=== PATIENT | female | born 1950 | race American Indian/Alaskan Native ===

== ENCOUNTER 2018-09-10 11:45 | Inpatient (IN) | payer MEDICARE, BC ==
[2018-09-10] MEDS ORDERED: Iohexol 350 MG/100 ML VIAL ONE (11:56)
[2018-09-10] MEDS ORDERED: Sodium Chloride 0.9% 1,000 ML IV SCH (12:00)
--- NOTE | 2018-09-10 12:03 | ED PDOC ---
Arrival/HPI - General Chief Complaint: Weakness/Neurological Deficit Time Seen by Provider: 09/10/18 11:50 Historian: EMS EM Caveat: Other (Unresponsive) - Critical Care Critical Care Minutes: 30 minutes - History of Present Illness Narrative History of Present Illness (Text): 09/10/18 12:40 A 68 year old female, whose past medical history includes hypertension and diabetes, who was brought in to the ED via EMS. Patient is reported to have been last seen normal at around 3:30 am as per who arrived shortly on arrival. Patient then went to sleep and woke up around 8 am feeling left sided weakness. Patient was then found on the floor by her who called EMS. A complete HPI is limited due to patient's unresponsive condition. PMD: Dr. Goodman. Time/Duration: 4-6 hours Symptom Onset: Gradual Symptom Course: Worsening Activities at Onset: Light Context: Home Past Medical History - Provider Review Nursing Documentation Reviewed: Yes - Infectious Disease Hx of Infectious Diseases: None - Tetanus Immunization Tetanus Immunization: Unknown - Cardiac Hx Hypertension: Yes - Pulmonary Hx Chronic Obstructive Pulmonary Disease (COPD): Yes - Neurological HX Cerebrovascular Accident: Yes - Endocrine/Metabolic Hx Diabetes Mellitus Type 2: Yes - Psychiatric Hx Depression: No Hx Emotional Abuse: No Hx Physical Abuse: No Hx Substance Use: No - Past Surgical History Past Surgical History: Non-Contributing - Suicidal Assessment Feels Threatened In Home Enviroment: No Family/Social History - Physician Review Nursing Documentation Reviewed: Yes Family/Social History: Unknown Family HX Smoking Status: Unknown If Ever Smoked Hx Alcohol Use: No Hx Substance Use: No Hx Substance Use Treatment: No Allergies/Home Meds Allergies/Adverse Reactions: Allergies No Known Allergies Allergy (Verified 12/20/11 11:39) Home Medications: Home Meds Medication Instructions Recorded Confirmed Amlodipine Besylate [Norvasc] 5 mg PO DAILY 12/20/11 08/26/17 Insulin NPH Hum/Reg Insulin Hm 60 units SC BID 12/20/11 08/26/17 [Humulin 70/30 70 U/ml-30 U/ml 10 ml] Lisinopril 10 mg PO DAILY 12/20/11 08/26/17 Albuterol Sulfate [Proair Hfa] 200 puff IH DAILY 08/26/17 08/26/17 Amitriptyline [Elavil] 100 mg PO HS 08/26/17 08/26/17 Fluticasone/Vilanterol [Breo 1 each IH DAILY 08/26/17 08/26/17 Ellipta 100-25 Mcg INH] Telmisartan [Micardis] 40 mg PO DAILY 08/26/17 08/26/17 Umeclidinium Mineral [Incruse 62.5 mcg IH DAILY 08/26/17 08/26/17 Ellipta] Review of Systems - Review of Systems Systems not reviewed;Unavailable: Other (Patient unresponsive) Physical Exam Vital Signs Reviewed: Yes Temperature: Febrile Blood Pressure: Hypertensive Pulse: Tachycardic Respiratory Rate: Normal Appearance: Positive for: Non-Toxic, Ill-Appearing Pain Distress: None Mental Status: Positive for: other (Unresponsive) - Systems Exam Head: Present: Atraumatic, Normocephalic Pupils: Present: PERRL Extroacular Muscles: Present: EOMI Conjunctiva: Present: Normal Mouth: Present: Moist Mucous Membranes Neck: Present: Normal Range of Motion Respiratory/Chest: Present: Clear to Auscultation, Good Air Exchange. No: Respiratory Distress, Accessory Muscle Use Cardiovascular: Present: Regular Rate and Rhythm, Normal S1, S2. No: Murmurs Abdomen: No: Tenderness, Distention, Peritoneal Signs Back: Present: Normal Inspection Upper Extremity: Present: Normal Inspection. No: Cyanosis, Edema Lower Extremity: Present: Normal Inspection. No: Edema Neurological: No: Speech Normal, Motor Func Grossly Intact (5/5 right side; 0/5 left side), Normal Sensory Function (decreased sensation left side) Skin: Present: Warm, Dry, Normal Color. No: Rashes Medical Decision Making ED Course and Treatment: 09/10/18 12:39 Impression: A 68 year old patient who was brought in to the ED via EMS status post being found unresponsive on the floor. Differential Diagnosis included but are not limited to: CVA vs DKA vs electrolyte imbalance. Plan: -- CTA Head/Neck -- EKG -- Labs -- Chest X-Ray -- IV Fluids -- Reassess and disposition Prior Visits: Notes and results from previous visits were reviewed. Progress Notes: EKG: NSR @ 94 bpm. Normal Intervals. No ST elevations. 09/10/18 12:06 Creator : Carlos Dove MD PROCEDURE: CT HEAD WITHOUT CONTRAST. IMPRESSION: No acute intracranial pathology. Age-related changes. No significant interval change. Findings conveyed to Dr. Gallardo by Dr. Steve at 12:06 p[address]m. on 09/10/2018. CT reviewed. Aspirin given AK. Tylenol ordered AK ordered due to Fever. Case discussed with Dr. Villegas, Neurology, who was present in the ED. She agreed to a CTA Head/Neck which was pending due to IV Line placement pending. IV placed after several attempts. 09/10/18 13:14 Creator : Narciso Guzman MD PROCEDURE: CT Angiography of the neck and brain IMPRESSION: No evidence of occlusion significant stenosis or dissection of the Note cervical carotid arteries high. There is a calcified atherosclerotic plaque both carotid siphons. There is moderate calcified plaque of the distal right vertebral artery (proximal intradural segment) with minimal calcified plaque left vertebral artery at the same level. The intra cerebral circulation is patent. No evidence of large aneurysm nor vascular malformation CTA reviewed with Dr. Villegas, Neurology, who discussed with Dr. Priest, Interventional Neurology. They recommended a STAT MRI. MRI was ordered without contrast. Patient was treated with labetolol 20mg IV for blood pressure elevation. This did not improve her blood pressure so we started her on a cardene drip with a goal of 185/100. Patient continues to have the same neuro evaluation prior to MRI. 09/10/18 15:10 PROCEDURE: MRI BRAIN WITHOUT CONTRAST IMPRESSION: There are multiple small acute infarcts seen scattered about both cerebral hemispheres. These findings suggest embolic event given the involvement of bilateral vascular distributions. Consider follow-up echocardiogram. Mild chronic white matter ischemic changes. No acute intracranial hemorrhage. Moderate generalized volume loss. M Note these findings were discussed with Dr. Gallardo at approximately 3:10 p.m. with written down and read back verification. Patient's MRI noted to have multiple infarcts. Case was discussed again with Dr. Villegas, Neurology, who reviewed this with Dr. Priest again. No intervention at this time and they recommend patient be admitted to our ICU. They recommend a MATEO on admission. I discussed this case with Dr. Pinto, Gas Truck Driver, who agrees to admission to his service. I ordered Zosyn/Vanco since patient has a fever and with the MRI findings we'd consider septic emboli. BP controlled still with cardene drip. - Critical Care Critical Care Minutes: 60 minutes - RAD Interpretation Radiology Orders: 09/10/18 11:49 CTA HEAD/NECK CODE STROKE [CT] Stat HEAD W/O (CODE STROKE) [CT] Stat CHEST PORTABLE [RAD] Stat - Medication Orders Current Medication Orders: Sodium Chloride (Sodium Chloride 0.9%) 1,000 mls @ 100 mls/hr IV .Q10H [facility], [facility] NIHSS Scale ([place]) Time Performed: 11:50 - How Severe is the Stoke Baseline Level of Consciousness: 2=Obtunded LOC to Questions: 2=Neither correct LOC to commands: 1=Obeys one correctly Best Gaze: 1=Partial gaze palsy Visual: 3=Bilateral Facial: 3=Complete unilateral paralysis Motor Arm - Left: 4=No movement Motor Arm - Right: 0=No drift Motor Leg - Left: 4=No movement Motor Leg - Right: 0=No drift Limb Ataxia: 2=Present both Sensory: 2=Severe to total loss Best Language: 2=Severe aphasia Dysarthia: 2=Severe, near unintelligible or worse Extinction & Inattention (Neglect): 2=Profound neglect(does not recognize own hand or orients to one side) Score: 30 Risk Level: Severe Stroke Risk rTPA Inclusion/Exclusion - Refusal of Treatment Patient Refused Treatment: No - Inclusion Criteria for Altepase All of the below criteria for inclusion were reviewed: Yes Patient is 18 years or Older: Yes The Clinical Diagnosis of Ischemic Stroke That is Causing a Potentially Disabling Neurological Deficit: Yes Time of Onset is Well Established to be Less Than 270 Minute Before Treatment Would Begin: Yes Risk/Benefit Discussed With Patient/Family Member Present: Yes - Scribe Statement The provider has reviewed the documentation as recorded by the Malachi Whitfield Provider Scribe Attestation: All medical record entries made by the Reynaibtonio were at my direction and personally dictated by me. I have reviewed the chart and agree that the record accurately reflects my personal performance of the history, physical exam, medical decision making, and the department course for this patient. I have also personally directed, reviewed, and agree with the discharge instructions and disposition. Disposition/Present on Arrival - Present on Arrival Any Indicators Present on Arrival: Yes History of DVT/PE: No History of Uncontrolled Diabetes: Yes Urinary Catheter: No History of Decub. Ulcer: No History Surgical Site Infection Following: None - Disposition Have Diagnosis and Disposition been Completed?: Yes Diagnosis: CVA (cerebral vascular accident), Hyperglycemia Disposition: HOSPITALIZED Disposition Time: 13:27 Patient Plan: Admission Condition: CRITICAL
--- NOTE | 2018-09-10 12:12 | CT ---
Date of service: 09/10/2018 PROCEDURE: CT HEAD WITHOUT CONTRAST. HISTORY: Code Stroke COMPARISON: CT head dated 10/05/2012 TECHNIQUE: Axial computed tomography images were obtained through the head/brain without intravenous contrast. Radiation dose: Total exam DLP = 827.35 mGy-cm. This CT exam was performed using one or more of the following dose reduction techniques: Automated exposure control, adjustment of the mA and/or kV according to patient size, and/or use of iterative reconstruction technique. FINDINGS: HEMORRHAGE: No intracranial hemorrhage. BRAIN: No mass effect or edema. Atrophy. Chronic microvascular ischemic changes. VENTRICLES: Unremarkable. No hydrocephalus. CALVARIUM: Unremarkable. PARANASAL SINUSES: Unremarkable as visualized. No significant inflammatory changes. MASTOID AIR CELLS: Unremarkable as visualized. No inflammatory changes. OTHER FINDINGS: None. IMPRESSION: No acute intracranial pathology. Age-related changes. No significant interval change. Findings conveyed to Dr. Gallardo by Dr. Steve at 12:06 p.m. on 09/10/2018.
[2018-09-10 13:08] LABS: VENOUS BLOOD GAS BASE EXCESS 5.5 mmol/L (0.0-2.0); VENOUS BLOOD GAS PO2 71 mm/Hg (30-55)
[2018-09-10] MEDS ORDERED: Labetalol 5 mg/ml Inj 20ML IV ONE (13:26)
[2018-09-10 13:34] LABS: BASO # 0.01 K/mm3 (0.0-2.0); BASO % 0.1 % (0.0-3.0); HEMOGLOBIN 12.3 g/dL (12.0-16.0); LYMPH # 0.8 (1.2-3.4); LYMPH % 6.2 % (22.0-35.0); MEAN CELL VOLUME 82.6 fl (80.0-105.0); MEAN CORPUSCULAR HEMOGLOBIN 28.1 pg (25.0-35.0); MEAN PLATELET VOLUME 10.5 fl (7.0-11.0); MONO # 0.4 (0.1-0.6); MONO % 3.4 % (1.0-6.0); PLATELET COUNT 316 10^3/uL (120.0-450.0); RBC 4.38 10^6/uL (3.5-6.1); RED CELL DISTRIBUTION WIDTH 13.2 % (11.5-14.5)
[2018-09-10 13:39] LABS: INR 1.14; LDL CHOLESTEROL 82 mg/dL (0-129); PARTIAL THROMBOPLASTIN TIME 28.7 Seconds (26.9-38.3); PROTHROMBIN TIME 12.9 SECONDS (9.4-12.5)
[2018-09-10 13:42] LABS: TROPONIN I < 0.01 ng/mL
--- NOTE | 2018-09-10 13:45 | CT ---
Date of service: 09/10/2018 PROCEDURE: CT Angiography of the neck and brain HISTORY: Rule out cva COMPARISON: Comparison made with concurrent CT scan brain. TECHNIQUE: Contiguous axial images of the neck were obtained from the level of the skull-base to the superior mediastinum in the arteriographic phase of enhancement. Coronal and sagittal reformats or also generated. IV contrast dose: 96 cc Omnipaque 350 Radiation dose: Total exam DLP = 478.1 mGy-cm. This CT exam was performed using one or more of the following dose reduction techniques: Automated exposure control, adjustment of the mA and/or kV according to patient size, and/or use of iterative reconstruction technique. FINDINGS: The aortic arch widely patent despite some very minimal calcified atherosclerotic plaque. The origins of the great vessels are also widely patent. The common carotid arteries included carotid bifurcations are patent without evidence of occlusion, significant stenosis or dissection. The distal internal carotid arteries including the petrous cavernous and supraclinoid segments also patent despite mild plaque along both cavernous carotid artery segments right greater than left. Both vertebral arteries are patent throughout. Note that the right vertebral artery slightly larger in caliber/more dominant than the left. There is calcified atherosclerotic plaque along the distal of margins (proximal intradural segments) of the right and to a much lesser degree left vertebral arteries. Basilar artery is patent. There is mild asymmetry of the A1 segments right-sided is slightly larger in caliber/more dominant than the left side. The remaining distal branches of the anterior cerebral arteries are patent and relatively symmetric. The middle and posterior cerebral arteries are also patent and symmetric as well. No evidence of large aneurysm nor vascular malformation. OTHER FINDINGS: Minor multilevel degenerative spondylosis of the cervical spine. Lung apices are clear. IMPRESSION: No evidence of occlusion significant stenosis or dissection of the Note cervical carotid arteries high. There is a calcified atherosclerotic plaque both carotid siphons. There is moderate calcified plaque of the distal right vertebral artery (proximal intradural segment) with minimal calcified plaque left vertebral artery at the same level. The intra cerebral circulation is patent. No evidence of large aneurysm nor vascular malformation
[2018-09-10] MEDS ORDERED: Nicardipine 20 MG/200 ML 20 MG/200 ML BAG IV PRN ×2 (14:03→20:04)
--- NOTE | 2018-09-10 14:04 | RAD ---
Date of service: 09/10/2018 HISTORY: Code Stroke COMPARISON: Chest radiograph dated 10/05/2012. TECHNIQUE: 1 view obtained. FINDINGS: LUNGS: Prominence of the pulmonary vasculature may be secondary to AP technique and/or pulmonary vascular congestion. No focal consolidation. PLEURA: No significant pleural effusion identified, no pneumothorax apparent. CARDIOVASCULAR: Aortic atherosclerotic calcifications. Cardiomediastinal silhouette stably enlarged. OSSEOUS STRUCTURES: Unchanged. VISUALIZED UPPER ABDOMEN: Normal. OTHER FINDINGS: None. IMPRESSION: To the pulmonary vasculature may be secondary to AP technique and/or pulmonary vascular congestion. No focal consolidation or pleural effusion.
[2018-09-10 14:07] LABS: ALB/GLOB RATIO 1.2 (1.1-1.8); ALBUMIN 3.7 g/dL (3.0-4.8); ALT/SGPT 13 U/L (7-56); AST/SGOT 21 U/L (14-36); BLOOD UREA NITROGEN 14 mg/dL (7-21); CALCIUM 9.1 mg/dL (8.4-10.5); GFR NON-AFRICAN AMERICAN > 60; HDL CHOLESTEROL 56 mg/dL (29-60)
[2018-09-10 14:24] LABS: HYPOCHROMIA SLIGHT; LYMPHOCYTE 6 % (22.0-35.0); MONOCYTE 3 % (1.0-6.0); NEUTROPHIL 91 % (50.0-70.0); PLATELET ESTIMATE NORMAL (NORMAL)
[2018-09-10 14:25] LABS: ANISOCYTOSIS 1+; MICROCYTOSIS 1+
[2018-09-10 15:11] VITALS: BMI 33.1
--- NOTE | 2018-09-10 15:14 | MRI ---
Date of service: 09/10/2018 PROCEDURE: MRI BRAIN WITHOUT CONTRAST HISTORY: Rule out CVA COMPARISON: None available. TECHNIQUE: Multiplanar, multisequence MR images of the brain were obtained without intravenous contrast enhancement. FINDINGS: HEMORRHAGE: Parenchymal, subarachnoid or extra-axial hemorrhage. No evidence of hemosiderin deposition identified on gradient echo weighted sequence. DWI: There are several tiny focal areas of restricted diffusion scattered about both cerebral hemispheres consistent with tiny acute infarcts. Findings suggest in embolic event due to multiple vascular distributions. BRAIN PARENCHYMA: Additionally, there are mild diffuse/confluent chronic periventricular white matter ischemic changes with multiple more discrete chronic appearing lacunar type infarcts scattered about the deep and subcortical white matter both cerebral hemispheres.. There also appears to be a small chronic ischemic change in the right cerebellar hemisphere. VENTRICLES: No obstructive hydrocephalus. CRANIUM: Unremarkable. ORBITS: Orbits and contents grossly unremarkable PARANASAL SINUSES/MASTOIDS: Minor mucosal thickening seen within a few ethmoid air cells. VASCULAR SYSTEM: Visualized major vascular flow voids at skull base patent. OTHER FINDINGS: None. IMPRESSION: There are multiple small acute infarcts seen scattered about both cerebral hemispheres. These findings suggest embolic event given the involvement of bilateral vascular distributions. Consider follow-up echocardiogram. Mild chronic white matter ischemic changes. No acute intracranial hemorrhage. Moderate generalized volume loss. Note these findings were discussed with Dr. Gallardo at approximately 3:10 p.m. with written down and read back verification.
[2018-09-10] MEDS ORDERED: Piperacill/Tazo 4.5gm in NS 4.5 GM/100 ML BAG IVPB STA (16:08)
[2018-09-10] MEDS ORDERED: Vancomycin 1gm in NS 250ml 1 GM/250 ML BAG IVPB STA (16:09)
[2018-09-10] MEDS ORDERED: Propofol 10 mg/ml 1,000 MG/100 ML VIAL ONE (17:06)
--- NOTE | 2018-09-10 17:30 | CP.PCM.CON ---
<Imelda Pinto - Last Filed: 09/10/18 18:14> Meds Allergies/Adverse Reactions: Allergies Allergy/AdvReac Type Severity Reaction Status Date / Time No Known Allergies Allergy Verified 12/20/11 11:39 - Medications Medications: Current Medications Sodium Chloride (Sodium Chloride 0.9%) 1,000 mls @ 100 mls/hr IV .Q10H JAMES Last Admin: 09/10/18 13:21 Dose: 100 mls/hr Nicardipine HCl (Cardene Iv Premix) 20 mg in 200 mls @ 50 mls/hr IV .Q4H PRN; Protocol PRN Reason: TITRATE PER MD ORDER Last Titration: 09/10/18 16:24 Dose: 0 mg/hr, 0 mls/hr Propofol (Diprivan) 1,000 mg in 100 mls @ 2.547 mls/hr IV .Q24H PRN; Protocol PRN Reason: TITRATE PER MD ORDER Insulin Human Regular 100 (units/ Sodium Chloride) 100 mls @ 1 mls/hr IV .Q24H PRN; Protocol PRN Reason: TITRATE PER MD ORDER Results - Vital Signs Recent Vital Signs: Last Vital Signs Temp 103.8 F H 09/10/18 16:58 Pulse 107 H 09/10/18 17:14 Resp 21 09/10/18 16:26 BP 174/79 H 09/10/18 16:26 Pulse Ox 95 09/10/18 16:26 - Labs Result Diagrams: 09/10/18 12:50 09/10/18 12:50 Labs: Laboratory Results - last 24 hr 09/10/18 09/10/18 09/10/18 12:50 12:50 12:50 WBC 12.0 H RBC 4.38 Hgb 12.3 Hct 36.2 MCV 82.6 MCH 28.1 MCHC 34.0 RDW 13.2 Plt Count 316 MPV 10.5 Neut % (Auto) 90.3 H Lymph % (Auto) 6.2 L [place] % (Auto) 3.4 Eos % (Auto) 0.0 L Baso % (Auto) 0.1 Lymph # (Auto) 0.8 L [place] # (Auto) 0.4 Eos # (Auto) 0.0 Baso # (Auto) 0.01 Absolute Neuts (auto) 10.86 H Neutrophils % (Manual) 91 H Lymphocytes % (Manual) 6 L Monocytes % (Manual) 3 Platelet Evaluation Normal Hypochromasia Slight Anisocytosis (manual) 1+ Microcytosis (manual) 1+ PT 12.9 H INR 1.14 APTT 28.7 pCO2 pO2 HCO3 ABG pH ABG Total CO2 ABG O2 Saturation ABG O2 Content ABG Base Excess ABG Hemoglobin ABG Carboxyhemoglobin POC ABG HHb (Measured) ABG Methemoglobin ABG O2 Capacity VBG pH VBG pCO2 VBG HCO3 VBG Total CO2 VBG O2 Sat (Calc) VBG Base Excess VBG Potassium Hgb O2 Saturation Glucose Lactate FiO2 Crit Value Called To Crit Value Called By Blood Gas Notified Time Sodium 134 Potassium 3.5 L Chloride 97 L Carbon Dioxide 28 Anion Gap 12 BUN 14 Creatinine 0.9 Est GFR ( Amer) > 60 Est GFR (Non-Af Amer) > 60 Random Glucose 423 H* D Hemoglobin A1c Calcium 9.1 Total Bilirubin 0.5 AST 21 ALT 13 Alkaline Phosphatase 91 Troponin I < 0.01 Total Protein 6.8 Albumin 3.7 Globulin 3.1 Albumin/Globulin Ratio 1.2 Triglycerides 128 Cholesterol 183 LDL Cholesterol Direct 82 HDL Cholesterol 56 Venous Blood Potassium Blood Type Blood Type Confirm Antibody Screen BBK History Checked 09/10/18 09/10/18 09/10/18 12:50 12:50 12:55 WBC RBC Hgb Hct MCV MCH MCHC RDW Plt Count MPV Neut % (Auto) Lymph % (Auto) [place] % (Auto) Eos % (Auto) Baso % (Auto) Lymph # (Auto) [place] # (Auto) Eos # (Auto) Baso # (Auto) Absolute Neuts (auto) Neutrophils % (Manual) Lymphocytes % (Manual) Monocytes % (Manual) Platelet Evaluation Hypochromasia Anisocytosis (manual) Microcytosis (manual) PT INR APTT pCO2 pO2 71 H HCO3 ABG pH ABG Total CO2 ABG O2 Saturation ABG O2 Content ABG Base Excess ABG Hemoglobin ABG Carboxyhemoglobin POC ABG HHb (Measured) ABG Methemoglobin ABG O2 Capacity VBG pH 7.50 H VBG pCO2 37.0 L VBG HCO3 28.9 H VBG Total CO2 30.0 H VBG O2 Sat (Calc) 94.6 H VBG Base Excess 5.5 H VBG Potassium 3.4 L Hgb O2 Saturation Glucose 440 H* Lactate 1.5 FiO2 21.0 Crit Value Called To Radha dorman Crit Value Called By Edgard mejia Blood Gas Notified Time 1308 Sodium 135.0 Potassium Chloride 98.0 Carbon Dioxide Anion Gap BUN Creatinine Est GFR ( Amer) Est GFR (Non-Af Amer) Random Glucose Hemoglobin A1c 8.7 H Calcium Total Bilirubin AST ALT Alkaline Phosphatase Troponin I Total Protein Albumin Globulin Albumin/Globulin Ratio Triglycerides Cholesterol LDL Cholesterol Direct HDL Cholesterol Venous Blood Potassium 3.4 L Blood Type O POSITIVE Blood Type Confirm Antibody Screen Negative BBK History Checked No verified bt 09/10/18 09/10/18 13:20 17:20 WBC RBC Hgb Hct MCV MCH MCHC RDW Plt Count MPV Neut % (Auto) Lymph % (Auto) [place] % (Auto) Eos % (Auto) Baso % (Auto) Lymph # (Auto) [place] # (Auto) Eos # (Auto) Baso # (Auto) Absolute Neuts (auto) Neutrophils % (Manual) Lymphocytes % (Manual) Monocytes % (Manual) Platelet Evaluation Hypochromasia Anisocytosis (manual) Microcytosis (manual) PT INR APTT pCO2 34 L pO2 140.0 H HCO3 25.9 ABG pH 7.49 H ABG Total CO2 26.9 ABG O2 Saturation 97.6 ABG O2 Content 16.4 ABG Base Excess 2.8 ABG Hemoglobin 11.9 ABG Carboxyhemoglobin 0.8 POC ABG HHb (Measured) 2.4 ABG Methemoglobin 0.2 ABG O2 Capacity 16.8 VBG pH VBG pCO2 VBG HCO3 VBG Total CO2 VBG O2 Sat (Calc) VBG Base Excess VBG Potassium Hgb O2 Saturation 96.6 Glucose Lactate FiO2 40.0 Crit Value Called To Crit Value Called By Blood Gas Notified Time Sodium Potassium Chloride Carbon Dioxide Anion Gap BUN Creatinine Est GFR ( Amer) Est GFR (Non-Af Amer) Random Glucose Hemoglobin A1c Calcium Total Bilirubin AST ALT Alkaline Phosphatase Troponin I Total Protein Albumin Globulin Albumin/Globulin Ratio Triglycerides Cholesterol LDL Cholesterol Direct HDL Cholesterol Venous Blood Potassium Blood Type Blood Type Confirm O POSITIVE Antibody Screen BBK History Checked Addendum Addendum: 09/10/18 18:14 ICU Attending Addendum Patient seen and examined. Case reviewed on round with housestaff. Agree with resident note above with the following additions/exceptions CT Head No acute intracranial pathology however CTA concerning for emboli, stat MRI show multiple small acute infarcts seen scattered about both cerebral hemispheres suggesting a showering of emboli. She is having paroxysmal aflutter in the ED which could be causing this phenomenon. Neuro and cardio on board 2d echo patient will likely need MATEO as well anticoagulation when safe to avoid risking hemorhagic conversion bp elevated, nicardipine drip started keep SBP 180 for permissed hypertension abx zosyn and vanc given fever and possibilty of septic empboli will intubate patient as she is unresponsive and i doubt her ability to protect her airway discuss with her 2 daughter and son insulin drip for as her fingerstick > 400 Rest of care as above in housestaff note Imelda Pinto MD Pulmonary Critical Care Attending Critical Care Time: 35 mins <Earnest Damico - Last Filed: 09/10/18 18:25> History of Present Illness - History of Present Illness History of Present Illness: Earnest Damico PGY1, ICU Consult Note for Dr Imelda Pinto Pt is a 68 yo female with a PMH of HTN and DM who was brought to the ED via EMS because of left sided weakness. Pt was last known to be normal at 3:30am and woke up at 8am with unilateral weakness after being found down by her . Pt is intubated at time of history and physical, majority of HPI obtained from chart review. Past Patient History - Infectious Disease Hx of Infectious Diseases: None - Tetanus Immunizations Tetanus Immunization: Unknown - Past Social History Smoking Status: Unknown If Ever Smoked - CARDIAC Hx Hypertension: Yes - PULMONARY Hx Chronic Obstructive Pulmonary Disease (COPD): Yes - NEUROLOGICAL HX Cerebrovascular Accident: Yes - ENDOCRINE/METABOLIC Hx Diabetes Mellitus Type 2: Yes - MUSCULOSKELETAL/RHEUMATOLOGICAL Hx Falls: No - PSYCHIATRIC Hx Depression: No Hx Emotional Abuse: No Hx Physical Abuse: No Hx Substance Use: No - SURGICAL HISTORY Hx Surgeries: No Meds - Medications Medications: Current Medications Sodium Chloride (Sodium Chloride 0.9%) 1,000 mls @ 100 mls/hr IV .Q10H [facility] Last Admin: 09/10/18 13:21 Dose: 100 mls/hr Nicardipine HCl (Cardene Iv Premix) 20 mg in 200 mls @ 50 mls/hr IV .Q4H PRN; Protocol PRN Reason: TITRATE PER MD ORDER Last Titration: 09/10/18 16:24 Dose: 0 mg/hr, 0 mls/hr Vancomycin HCl (Vancomycin 1gm) 1 gm in 250 mls @ 167 mls/hr IVPB STAT STA; Protocol Stop: 09/10/18 17:38 Propofol (Diprivan) 1,000 mg in 100 mls @ 2.547 mls/hr IV .Q24H PRN; Protocol PRN Reason: TITRATE PER MD ORDER Physical Exam - Constitutional Appears: No Acute Distress - Head Exam Head Exam: ATRAUMATIC, NORMOCEPHALIC - Eye Exam Eye Exam: EOMI - ENT Exam ENT Exam: Mucous Membranes Moist - Respiratory Exam Respiratory Exam: Clear to Auscultation Bilateral, NORMAL BREATHING PATTERN. absent: Accessory Muscle Use Additional comments: intubated - Cardiovascular Exam Cardiovascular Exam: RRR, +S1, +S2. absent: Diastolic murmur, Systolic Murmur - GI/Abdominal Exam GI & Abdominal Exam: Normal Bowel Sounds, Soft - Extremities Exam Extremities exam: Positive for: full ROM, normal inspection. Negative for: calf tenderness, pedal edema - Skin Skin Exam: Dry, Normal Color, Warm Results - Vital Signs Recent Vital Signs: Last Vital Signs Temp 103.8 F H 09/10/18 16:58 Pulse 104 H 09/10/18 16:26 Resp 21 09/10/18 16:26 BP 174/79 H 09/10/18 16:26 Pulse Ox 95 09/10/18 16:26 - Labs Result Diagrams: 09/10/18 12:50 09/10/18 12:50 Labs: Laboratory Results - last 24 hr 09/10/18 09/10/18 09/10/18 12:50 12:50 12:50 WBC 12.0 H RBC 4.38 Hgb 12.3 Hct 36.2 MCV 82.6 MCH 28.1 MCHC 34.0 RDW 13.2 Plt Count 316 MPV 10.5 Neut % (Auto) 90.3 H Lymph % (Auto) 6.2 L [place] % (Auto) 3.4 Eos % (Auto) 0.0 L Baso % (Auto) 0.1 Lymph # (Auto) 0.8 L [place] # (Auto) 0.4 Eos # (Auto) 0.0 Baso # (Auto) 0.01 Absolute Neuts (auto) 10.86 H Neutrophils % (Manual) 91 H Lymphocytes % (Manual) 6 L Monocytes % (Manual) 3 Platelet Evaluation Normal Hypochromasia Slight Anisocytosis (manual) 1+ Microcytosis (manual) 1+ PT 12.9 H INR 1.14 APTT 28.7 pO2 VBG pH VBG pCO2 VBG HCO3 VBG Total CO2 VBG O2 Sat (Calc) VBG Base Excess VBG Potassium Glucose Lactate FiO2 Crit Value Called To Crit Value Called By Blood Gas Notified Time Sodium 134 Potassium 3.5 L Chloride 97 L Carbon Dioxide 28 Anion Gap 12 BUN 14 Creatinine 0.9 Est GFR ( Amer) > 60 Est GFR (Non-Af Amer) > 60 Random Glucose 423 H* D Hemoglobin A1c Calcium 9.1 Total Bilirubin 0.5 AST 21 ALT 13 Alkaline Phosphatase 91 Troponin I < 0.01 Total Protein 6.8 Albumin 3.7 Globulin 3.1 Albumin/Globulin Ratio 1.2 Triglycerides 128 Cholesterol 183 LDL Cholesterol Direct 82 HDL Cholesterol 56 Venous Blood Potassium Blood Type Blood Type Confirm Antibody Screen BBK History Checked 09/10/18 09/10/18 09/10/18 12:50 12:50 12:55 WBC RBC Hgb Hct MCV MCH MCHC RDW Plt Count MPV Neut % (Auto) Lymph % (Auto) [place] % (Auto) Eos % (Auto) Baso % (Auto) Lymph # (Auto) [place] # (Auto) Eos # (Auto) Baso # (Auto) Absolute Neuts (auto) Neutrophils % (Manual) Lymphocytes % (Manual) Monocytes % (Manual) Platelet Evaluation Hypochromasia Anisocytosis (manual) Microcytosis (manual) PT INR APTT pO2 71 H VBG pH 7.50 H VBG pCO2 37.0 L VBG HCO3 28.9 H VBG Total CO2 30.0 H VBG O2 Sat (Calc) 94.6 H VBG Base Excess 5.5 H VBG Potassium 3.4 L Glucose 440 H* Lactate 1.5 FiO2 21.0 Crit Value Called To Radha dorman Crit Value Called By Edgard mejia Blood Gas Notified Time 1308 Sodium 135.0 Potassium Chloride 98.0 Carbon Dioxide Anion Gap BUN Creatinine Est GFR ( Amer) Est GFR (Non-Af Amer) Random Glucose Hemoglobin A1c 8.7 H Calcium Total Bilirubin AST ALT Alkaline Phosphatase Troponin I Total Protein Albumin Globulin Albumin/Globulin Ratio Triglycerides Cholesterol LDL Cholesterol Direct HDL Cholesterol Venous Blood Potassium 3.4 L Blood Type O POSITIVE Blood Type Confirm Antibody Screen Negative BBK History Checked No verified bt 09/10/18 13:20 WBC RBC Hgb Hct MCV MCH MCHC RDW Plt Count MPV Neut % (Auto) Lymph % (Auto) [place] % (Auto) Eos % (Auto) Baso % (Auto) Lymph # (Auto) [place] # (Auto) Eos # (Auto) Baso # (Auto) Absolute Neuts (auto) Neutrophils % (Manual) Lymphocytes % (Manual) Monocytes % (Manual) Platelet Evaluation Hypochromasia Anisocytosis (manual) Microcytosis (manual) PT INR APTT pO2 VBG pH VBG pCO2 VBG HCO3 VBG Total CO2 VBG O2 Sat (Calc) VBG Base Excess VBG Potassium Glucose Lactate FiO2 Crit Value Called To Crit Value Called By Blood Gas Notified Time Sodium Potassium Chloride Carbon Dioxide Anion Gap BUN Creatinine Est GFR ( Amer) Est GFR (Non-Af Amer) Random Glucose Hemoglobin A1c Calcium Total Bilirubin AST ALT Alkaline Phosphatase Troponin I Total Protein Albumin Globulin Albumin/Globulin Ratio Triglycerides Cholesterol LDL Cholesterol Direct HDL Cholesterol Venous Blood Potassium Blood Type Blood Type Confirm O POSITIVE Antibody Screen BBK History Checked Assessment & Plan - Assessment and Plan (Free Text) Assessment: Pt is a 68 yo female with a PMH of HTN and DM who was found down by her with unilateral weakness. Brain MRI later showed multiple emboli in both hemispheres of the brain. Plan: Neuro - intubated and sedated on propofol - admitted for multiple emboli in both hemispheres of the brain, and unilateral weakness on exam - Head CT no acute intracranial pathology, age- related changes - Head neck CTA no evidence of occlusion significant stenosis or dissection of the carotid arteries. There is a calcified athrosclerotic plaque both carotid siphons. There is moderate calcified plaque of the distal right vertebral artery. with minimal calfified plaque left vertebral artery. Intra cerebral circulation is patent. No evidence of large aneurysm nor vascular malformation. - Brain MRI there are multiple small acute infarcts seen scattered about both cerebral hemispheres. There findings suggest embolic event given the involvement of bilateral vascular distributions. - ECHO ordered - Neuro consulted Cardio - nicardipine drip - contral line to be placed - ECHO ordered - Cardio consulted, Dr Pelaez Pulm - ABG 34/140/7.49 - ventilator settings: 20/350/40%/5 - maintain O2 >92 GI - NPO Nephro/ - monitor BUN/Cr - monitor electrolytes Heme/ Onc - Hgb 12.3 - INR 1.14 ID - WBC 12 - blood cultures follow up - az - yamilsyn - ID consulted, Dr Smiley Endo - glucose 440 - HA1C 8.7 Pt seen, examined, assessment and plan discussed with Dr Imelda Damico PGY1 - Date & Time Date: 09/10/18 Time: 17:34
--- NOTE | 2018-09-10 17:35 | RAD ---
Date of service: 09/10/2018 HISTORY: ET tube placement COMPARISON: Chest radiograph performed approximately 3.5 hours prior TECHNIQUE: 1 view obtained. FINDINGS: LUNGS: Prominence of the pulmonary vasculature may be secondary to AP technique and/or pulmonary vascular congestion. PLEURA: No significant pleural effusion identified, no pneumothorax apparent. CARDIOVASCULAR: Aortic atherosclerotic calcifications. Cardiomediastinal silhouette stably enlarged OSSEOUS STRUCTURES: Unchanged. VISUALIZED UPPER ABDOMEN: Epigastric region postsurgical changes. OTHER FINDINGS: New enteric tube with tip at the alvaro. IMPRESSION: New endotracheal tube with tip at the alvaro. Approximately 2 cm retraction is recommended. No other significant interval change..
[2018-09-10 17:36] LABS: ARTERIAL BLOOD GAS HCO3 25.9 mmol/L (21-28); ARTERIAL BLOOD GAS HEMOGLOBIN 11.9 g/dL (11.7-17.4); ARTERIAL BLOOD GAS O2 CAPACITY 16.8 mL/dl (16-24); ARTERIAL BLOOD GAS O2 CONTENT 16.4 ML/dl (15-23); ARTERIAL BLOOD GAS O2 SAT 97.6 % (95-98); ARTERIAL BLOOD GAS PCO2 34 mm/Hg (35-45); ARTERIAL BLOOD GAS PH 7.49 (7.35-7.45); ARTERIAL BLOOD GAS TCO2 26.9 mmol.L (22-28)
[2018-09-10] MEDS ORDERED: Insulin Regular 100 UNITS in Sodium Chloride 0.9% 99 ML IV PRN ×2 (17:36→21:57)
[2018-09-10] MEDS: Propofol 10 mg/ml 1,000 MG/100 ML VIAL IV PRN ×2 (18:33→22:43)
--- NOTE | 2018-09-10 18:40 | CARD ---
APPROVED REPORT Date of service: 09/10/2018 EKG Measurement Heart [id number] <Conclusion> Normal sinus rhythm Possible Left atrial enlargement Left ventricular hypertrophy Nonspecific T wave abnormality Abnormal ECG
[2018-09-10] MEDS ORDERED: Insulin Lispro 1 UNITS/0.01 ML SC STA (18:42)
--- NOTE | 2018-09-10 19:57 | PCM.PROC ---
<Earnest Damico - Last Filed: 09/10/18 19:55> Procedures Attestation:: I certify that I have explained the specified Operation(s) or Procedure(s), risks, benefits and reasonable alternatives to the Patient and/or other person responsible. The opportunity was given to ask questions and all questions answered - Central Line Placement Right Femoral Triple Lumen Catheter Aseptic technique was employed throughout the procedure: Hand Hygiene done prior to procedure, Full sterile barriers (mask, hair cover, sterile gown, sterile gloves), Full body sterile drape, Chloraprep Antiseptic: 2 minute prep for Femoral CVP Time Out Performed: Yes Pt. Placed on Pulse Ox Monitor: Yes Central Line Prep: Chlorhexidine-Alcohol Combination Local Anesthesia Used: Lidocaine 1% Ultrasound Used for Placement: Yes Central Line Lumen Inserted: triple Post Procedure: Sutured in Place, Good Blood Return, All Ports Aspirated, Flushed, Capped, Sterile Dressing Applied Secured by: Suture Post procedure dressing: Chlorhexidine disc (Biopatch) Post Procedure X-Ray: No Patient Tolerated Procedure: Well Immediate Complications: None <Parker Sloan - Last Filed: 09/10/18 20:12> Attending/Attestation - Attestation I have personally seen and examined this patient.: Yes I have fully participated in the care of the patient.: Yes I have reviewed all pertinent clinical information, including history, physical exam and plan: Yes
[2018-09-10 20:14] LABS: VENOUS BLOOD GAS BASE EXCESS 3.8 mmol/L (0.0-2.0); VENOUS BLOOD GAS PO2 69 mm/Hg (30-55); VENOUS BLOOD PH 7.41 (7.32-7.43)
--- NOTE | 2018-09-10 20:14 | CP.PCM.PN ---
Subjective - Date & Time of Evaluation Date of Evaluation: 09/10/18 Time of Evaluation: 20:12 - Subjective Subjective: It was requested to co-sign order. Medical record was reviewed. Vital signs noted. VBG order co-signed. Objective - Vital Signs/Intake and Output Vital Signs (last 24 hours): Temp Pulse Resp BP Pulse Ox 103.8 F H 107 H 21 174/79 H 95 09/10/18 16:58 09/10/18 17:14 09/10/18 16:26 09/10/18 16:26 09/10/18 16:26 Intake and Output: 09/10/18 09/11/18 18:59 06:59 Intake Total 110.00 5 Balance 110.00 5 - Medications Medications: Current Medications Sodium Chloride (Sodium Chloride 0.9%) 1,000 mls @ 100 mls/hr IV .Q10H JAMES Last Admin: 09/10/18 13:21 Dose: 100 mls/hr Propofol (Diprivan) 1,000 mg in 100 mls @ 2.547 mls/hr IV .Q24H PRN; Protocol PRN Reason: TITRATE PER MD ORDER Last Titration: 09/10/18 19:12 Dose: 10 mcg/kg/min, 5.095 mls/hr Insulin Human Regular 100 (units/ Sodium Chloride) 100 mls @ 1 mls/hr IV .Q24H PRN; Protocol PRN Reason: TITRATE PER MD ORDER Vancomycin HCl (Vancomycin 1gm) 1 gm in 250 mls @ 167 mls/hr IVPB DAILY JAMES; Protocol Piperacillin Sod/Tazobactam Sod (Zosyn 4.5 Gm In Ns 100ml) 4.5 gm in 100 mls @ 200 mls/hr IVPB Q6 JAMES; Protocol Stop: 09/11/18 06:29 Nicardipine HCl (Cardene Iv Premix) 20 mg in 200 mls @ 50 mls/hr IV .Q4H PRN; Protocol PRN Reason: TITRATE PER MD ORDER - Labs Labs: 09/10/18 12:50 09/10/18 12:50 PT 12.9 SECONDS (9.4-12.5) H 09/10/18 12:50 INR 1.14 09/10/18 12:50 APTT 28.7 Seconds (26.9-38.3) 09/10/18 12:50
[2018-09-10] MEDS: Vancomycin 1gm in NS 250ml 1 GM/250 ML BAG IVPB SCH (23:39)
[2018-09-11] MEDS ORDERED: Piperacill/Tazo 4.5gm in NS 4.5 GM/100 ML BAG IVPB SCH
[2018-09-11] MEDS ORDERED: Insulin Regular 100 UNITS in Sodium Chloride 0.9% 99 ML IV PRN (03:27)
[2018-09-11] MEDS ORDERED: Potassium Chloride 20 MEQ in Dextrose 5%/0.45% NS 1,000 ML IV SCH (03:30)
[2018-09-11 03:43] LABS: HEMOGLOBIN 11.5 g/dL (12.0-16.0); MEAN CELL VOLUME 83.7 fl (80.0-105.0); MEAN CORPUSCULAR HEMOGLOBIN 27.6 pg (25.0-35.0); RBC 4.16 10^6/uL (3.5-6.1); RED CELL DISTRIBUTION WIDTH 13.7 % (11.5-14.5)
[2018-09-11 03:46] LABS: PH,URINE 5.5 (4.7-8.0); URINE APPEARANCE CLOUDY (CLEAR); URINE BILIRUBIN SMALL (NEGATIVE); URINE BLOOD MODERATE (NEGATIVE); URINE COLOR YELLOW (YELLOW); URINE GLUCOSE (UA) 250 mg/dL (NEGATIVE); URINE PROTEIN >=300 mg/dL (<30 mg/dL)
[2018-09-11 03:47] LABS: URINE LEUKOCYTE ESTERASE SMALL Leu/uL (NEGATIVE); URINE UROBILINOGEN 0.2 E.U./dL (<1 E.U./dL)
[2018-09-11 03:48] LABS: URINE BACTERIA SMALL /hpf
[2018-09-11 04:04] LABS: CALCIUM 8.6 mg/dL (8.4-10.5)
[2018-09-11] MEDS: Piperacill/Tazo 4.5gm in NS 4.5 GM/100 ML BAG IVPB SCH ×3 (05:40→21:26)
--- NOTE | 2018-09-11 05:48 | CP.PCM.PN ---
Subjective - Date & Time of Evaluation Date of Evaluation: 09/11/18 Time of Evaluation: 05:48 - Subjective Subjective: Requested to cosign insulin drip, IV fluids drip with potassium supplement. Patient was seen at bedside. She is not in acute distress. Medical record was reviewed. This 68-year-old -[place] woman was was brought to the emergency room by paramedics after she was found unresponsive she had left-sided weakness, was intubated. She has past medical history of poorly controlled diabetes mellitus,hyperlipidemia, left chest postherpetic neuralgia, bilateral osteoarthritis, arthritis. Objective - Vital Signs/Intake and Output Vital Signs (last 24 hours): Temp Pulse Resp BP Pulse Ox 99.5 F 100 H 17 137/100 H 100 09/11/18 04:00 09/11/18 05:20 09/11/18 05:20 09/11/18 05:15 09/11/18 05:20 Intake and Output: 09/10/18 09/11/18 18:59 06:59 Intake Total 110.00 298.5 Balance 110.00 298.5 - Medications Medications: Current Medications Propofol (Diprivan) 1,000 mg in 100 mls @ 2.547 mls/hr IV .Q24H PRN; Protocol PRN Reason: TITRATE PER MD ORDER Last Titration: 09/11/18 04:34 Dose: 15.11 mcg/kg/min, 7.7 mls/hr Nicardipine HCl (Cardene Iv Premix) 20 mg in 200 mls @ 50 mls/hr IV .Q4H PRN; Protocol PRN Reason: TITRATE PER MD ORDER Last Titration: 09/11/18 04:15 Dose: 2 mg/hr, 20 mls/hr Vancomycin HCl (Vancomycin 1gm) 1 gm in 250 mls @ 167 mls/hr IVPB Q12H JAMES; Protocol Stop: 09/19/18 22:46 Last Admin: 09/10/18 23:39 Dose: Not Given Piperacillin Sod/Tazobactam Sod (Zosyn 4.5 Gm In Ns 100ml) 4.5 gm in 100 mls @ 25 mls/hr IVPB Q8 JAMES; Protocol Stop: 09/20/18 06:01 Last Admin: 09/11/18 05:40 Dose: 25 mls/hr Insulin Human Regular 100 (units/ Sodium Chloride) 100 mls @ 1 mls/hr IV .Q24H PRN; Protocol PRN Reason: TITRATE PER MD ORDER Last Admin: 09/11/18 04:05 Dose: 1.5 units/hr, 1.5 mls/hr Potassium Chloride 20 meq/ (Dextrose/Sodium Chloride) 1,010 mls @ 100 mls/hr IV .Q10H6M JAMES Last Admin: 09/11/18 04:06 Dose: 100 mls/hr Potassium Chloride (Potassium Chloride 20 Meq/100 Ml) 20 meq in 100 mls @ 50 mls/hr IVPB Q2H JAMES Stop: 09/11/18 06:14 Last Admin: 09/11/18 04:15 Dose: 50 mls/hr - Labs Labs: 09/11/18 03:40 09/11/18 03:40 PT 12.9 SECONDS (9.4-12.5) H 09/10/18 12:50 INR 1.14 09/10/18 12:50 APTT 28.7 Seconds (26.9-38.3) 09/10/18 12:50 - Constitutional Appears: Well, No Acute Distress - Head Exam Head Exam: ATRAUMATIC, NORMAL INSPECTION, NORMOCEPHALIC - Eye Exam Eye Exam: Normal appearance - ENT Exam ENT Exam: Normal External Ear Exam - Neck Exam Neck Exam: Normal Inspection - Respiratory Exam Respiratory Exam: NORMAL BREATHING PATTERN - Cardiovascular Exam Cardiovascular Exam: absent: JVD - GI/Abdominal Exam GI & Abdominal Exam: absent: Distended - Rectal Exam Rectal Exam: Deferred - Exam Additional comments: Deferred. - Back Exam Back Exam: NORMAL INSPECTION - Neurological Exam Neurological Exam: Awake - Psychiatric Exam Psychiatric exam: Normal Affect, Normal Mood - Skin Skin Exam: Normal Color Assessment and Plan - Assessment and Plan (Free Text) Assessment: Left-sided weakness Poorly controlled diabetes mellitus Hyperlipidemia Next chest postherpetic neuralgia Osteoarthritis Plan: Continue insulin, Nicardipine drip Zosyn. D5 with potassium supplement. Continue present management
[2018-09-11 06:51] LABS: ARTERIAL BLOOD GAS HCO3 26.1 mmol/L (21-28); ARTERIAL BLOOD GAS HEMOGLOBIN 11.5 g/dL (11.7-17.4); ARTERIAL BLOOD GAS O2 CAPACITY 16.3 mL/dl (16-24); ARTERIAL BLOOD GAS O2 CONTENT 15.8 ML/dl (15-23); ARTERIAL BLOOD GAS O2 SAT 97.2 % (95-98); ARTERIAL BLOOD GAS PCO2 35 mm/Hg (35-45); ARTERIAL BLOOD GAS PH 7.48 (7.35-7.45); ARTERIAL BLOOD GAS TCO2 27.2 mmol.L (22-28)
--- NOTE | 2018-09-11 07:07 | CP.CCUPN ---
<Earnest Damico - Last Filed: 09/11/18 12:22> CCU Subjective - Physician Review Events Since Last Encounter (Free Text): 09/11/18 07:00 pt on insulin drip, D5 started, NAD Subjective (Free Text): 09/11/18 07:00 Pt seen and examined, pt intubated at time of exam CCU Objective - Vital Signs / Intake & Output Vital Signs (Last 4 hours): Vital Signs Temp Pulse Resp BP Pulse Ox 09/11/18 05:20 100 H 17 100 09/11/18 05:15 101 H 22 137/100 H 100 09/11/18 05:10 101 H 20 100 09/11/18 05:00 99 H 148/79 100 09/11/18 04:50 98 H 18 100 09/11/18 04:45 104 H 21 177/82 H 100 09/11/18 04:40 98 H 20 100 09/11/18 04:30 98 H 18 150/75 100 09/11/18 04:20 100 H 16 100 09/11/18 04:15 98 H 20 163/75 H 100 09/11/18 04:10 96 H 20 100 09/11/18 04:00 99.5 F 98 H 20 162/70 H 100 09/11/18 03:50 100 H 21 100 09/11/18 03:45 98 H 20 136/71 100 09/11/18 03:40 98 H 28 H 100 09/11/18 03:36 99 H 31 H 139/80 100 09/11/18 03:30 97 H 22 183/82 H 100 09/11/18 03:20 100 H 18 100 09/11/18 03:15 98 H 12 149/86 100 09/11/18 03:10 98 H 17 100 Intake and Output (Last 8hrs): Intake & Output 09/10/18 09/11/18 09/11/18 22:59 06:59 14:59 Intake Total 210.00 268.5 Balance 210.00 268.5 Weight 187 lb 3.2 oz Intake: IV 210.00 268.5 Other: Voiding Method Indwelling Catheter - Physical Exam Head: Positive for: Atraumatic, Normocephalic Pupils: Positive for: PERRL Extroacular Muscles: Positive for: EOMI Conjunctiva: Positive for: Normal Mouth: Positive for: Moist Mucous Membranes Neck: Positive for: Normal Range of Motion Respiratory/Chest: Positive for: Clear to Auscultation, Good Air Exchange. Negative for: Respiratory Distress, Accessory Muscle Use Cardiovascular: Positive for: Regular Rate and Rhythm, Normal S1, S2. Negative for: Murmurs Abdomen: Negative for: Tenderness, Distention, Peritoneal Signs Back: Positive for: Normal Inspection Upper Extremity: Positive for: Normal Inspection. Negative for: Cyanosis, Edema Lower Extremity: Positive for: Normal Inspection. Negative for: Edema Neurological: Negative for: Speech Normal, Motor Func Grossly Intact (5/5 right side; 0/5 left side), Normal Sensory Function (decreased sensation left side) Skin: Positive for: Warm, Dry, Normal Color. Negative for: Rashes Psychiatric: Positive for: Alert, Oriented x 3, Normal Insight, Normal Concentration - Medications Active Medications: Active Medications Generic Name Dose Route Start Last Admin Trade Name Freq PRN Reason Stop Dose Admin Propofol 1,000 mg in 100 mls @ 2.547 mls/hr 09/10/18 17:03 09/11/18 04:34 Diprivan IV 15.11 mcg/kg/min .Q24H PRN 7.7 mls/hr TITRATE PER MD ORDER Titration Protocol 5 MCG/KG/MIN Nicardipine HCl 20 mg in 200 mls @ 50 mls/hr 09/10/18 20:04 09/11/18 06:45 Cardene Iv Premix IV 5 mg/hr .Q4H PRN 50 mls/hr TITRATE PER MD ORDER Titration Protocol 5 MG/HR Vancomycin HCl 1 gm in 250 mls @ 167 mls/hr 09/10/18 22:45 09/10/18 23:39 Vancomycin 1gm IVPB 09/19/18 22:46 Not Given Q12H JAMES Protocol Piperacillin Sod/Tazobactam Sod 4.5 gm in 100 mls @ 25 mls/hr 09/11/18 06:00 09/11/18 05:40 Zosyn 4.5 Gm In Ns 100ml IVPB 09/20/18 06:01 25 mls/hr Q8 JAMES Administration Protocol Insulin Human Regular 100 100 mls @ 1 mls/hr 09/11/18 03:27 09/11/18 06:00 units/ Sodium Chloride IV 2 units/hr .Q24H PRN 2 mls/hr TITRATE PER MD ORDER Titration Protocol 1 UNITS/HR Potassium Chloride 20 meq/ 1,010 mls @ 100 mls/hr 09/11/18 03:30 09/11/18 04:06 Dextrose/Sodium Chloride IV 100 mls/hr .Q10H6M JAMES Administration - Patient Studies Lab Studies: Lab Studies 09/11/18 09/11/18 09/11/18 Range/Units 06:00 05:45 04:07 WBC (4.5-11.0) 10^3/uL RBC (3.5-6.1) 10^6/uL Hgb (12.0-16.0) g/dL Hct (36.0-48.0) % MCV (80.0-105.0) fl MCH (25.0-35.0) pg MCHC (31.0-37.0) g/dl RDW (11.5-14.5) % Plt Count (120.0-450.0) 10^3/uL MPV (7.0-11.0) fl Neut % (Auto) (50.0-68.0) % Lymph % (Auto) (22.0-35.0) % [place] % (Auto) (1.0-6.0) % Eos % (Auto) (1.5-5.0) % Baso % (Auto) (0.0-3.0) % Lymph # (Auto) (1.2-3.4) [place] # (Auto) (0.1-0.6) Eos # (Auto) (0.0-0.7) Baso # (Auto) (0.0-2.0) K/mm3 Absolute Neuts (auto) (1.4-6.5) Neutrophils % (Manual) (50.0-70.0) % Lymphocytes % (Manual) (22.0-35.0) % Monocytes % (Manual) (1.0-6.0) % Platelet Evaluation (NORMAL) Hypochromasia Anisocytosis (manual) Microcytosis (manual) ESR (0.0-20.0) mm/hr PT (9.4-12.5) SECONDS INR APTT (26.9-38.3) Seconds pCO2 35 (35-45) mm/Hg pO2 137.0 H (30-55) mm/Hg HCO3 26.1 (21-28) mmol/L ABG pH 7.48 H (7.35-7.45) ABG Total CO2 27.2 (22-28) mmol.L ABG O2 Saturation 97.2 (95-98) % ABG O2 Content 15.8 (15-23) ML/dl ABG Base Excess 2.7 (-2.0-3.0) mmol/L ABG Hemoglobin 11.5 L (11.7-17.4) g/dL ABG Carboxyhemoglobin 0.3 L (0.5-1.5) % POC ABG HHb (Measured) 2.8 (0-5) % ABG Methemoglobin 0.6 (0.0-3.0) % ABG O2 Capacity 16.3 (16-24) mL/dl VBG pH (7.32-7.43) VBG pCO2 (40-60) VBG HCO3 (21-28) mmol/l VBG Total CO2 (22-28) mmol.L VBG O2 Sat (Calc) (40-65) % VBG Base Excess (0.0-2.0) mmol/L VBG Potassium (3.6-5.2) mmol/L Hgb O2 Saturation 96.3 (95.0-98.0) % Glucose (65-105) mg/dl Lactate (0.7-2.1) mmol/L FiO2 40.0 % Crit Value Called To Crit Value Called By Blood Gas Notified Time Sodium (132-148) mmol/L Potassium (3.6-5.0) mmol/L Chloride (98-107) mmol/L Carbon Dioxide (21-33) mmol/L Anion Gap (10-20) BUN (7-21) mg/dL Creatinine (0.7-1.2) mg/dl Est GFR ( Amer) Est GFR (Non-Af Amer) POC Glucose (mg/dL) 222 H 176 H (65-110) mg/dL Random Glucose (70-110) mg/dL Hemoglobin A1c (4.2-6.5) % Calcium (8.4-10.5) mg/dL Total Bilirubin (0.2-1.3) mg/dL AST (14-36) U/L ALT (7-56) U/L Alkaline Phosphatase (38-126) U/L Troponin I ng/mL Total Protein (5.8-8.3) g/dL Albumin (3.0-4.8) g/dL Globulin gm/dL Albumin/Globulin Ratio (1.1-1.8) Triglycerides (35-160) mg/dL Cholesterol (130-200) mg/dL LDL Cholesterol Direct (0-129) mg/dL HDL Cholesterol (29-60) mg/dL Venous Blood Potassium (3.6-5.2) mmol/L Urine Color (YELLOW) Urine Appearance (CLEAR) Urine pH (4.7-8.0) Ur Specific [place] (1.005-1.035) Urine Protein (<30 mg/dL) mg/dL Urine Glucose (UA) (NEGATIVE) mg/dL Urine Ketones (NEGATIVE) mg/dL Urine Blood (NEGATIVE) Urine Nitrate (NEGATIVE) Urine Bilirubin (NEGATIVE) Urine Urobilinogen (<1 E.U./dL) E.U./dL Ur Leukocyte Esterase (NEGATIVE) [place]/uL Urine RBC (0-2) /hpf Urine WBC (0-6) /hpf Ur Epithelial Cells (0-5) /hpf Urine Bacteria (NONE) /hpf Urine Other /hpf Blood Type Blood Type Confirm Antibody Screen BBK History Checked 09/11/18 09/11/18 09/11/18 Range/Units 03:40 03:40 03:24 WBC 16.0 H D (4.5-11.0) 10^3/uL RBC 4.16 (3.5-6.1) 10^6/uL Hgb 11.5 L (12.0-16.0) g/dL Hct 34.8 L (36.0-48.0) % MCV 83.7 (80.0-105.0) fl MCH 27.6 (25.0-35.0) pg MCHC 33.0 (31.0-37.0) g/dl RDW 13.7 (11.5-14.5) % Plt Count 297 (120.0-450.0) 10^3/uL MPV 10.0 (7.0-11.0) fl Neut % (Auto) (50.0-68.0) % Lymph % (Auto) (22.0-35.0) % [place] % (Auto) (1.0-6.0) % Eos % (Auto) (1.5-5.0) % Baso % (Auto) (0.0-3.0) % Lymph # (Auto) (1.2-3.4) [place] # (Auto) (0.1-0.6) Eos # (Auto) (0.0-0.7) Baso # (Auto) (0.0-2.0) K/mm3 Absolute Neuts (auto) (1.4-6.5) Neutrophils % (Manual) (50.0-70.0) % Lymphocytes % (Manual) (22.0-35.0) % Monocytes % (Manual) (1.0-6.0) % Platelet Evaluation (NORMAL) Hypochromasia Anisocytosis (manual) Microcytosis (manual) ESR (0.0-20.0) mm/hr PT (9.4-12.5) SECONDS INR APTT (26.9-38.3) Seconds pCO2 (35-45) mm/Hg pO2 (30-55) mm/Hg HCO3 (21-28) mmol/L ABG pH (7.35-7.45) ABG Total CO2 (22-28) mmol.L ABG O2 Saturation (95-98) % ABG O2 Content (15-23) ML/dl ABG Base Excess (-2.0-3.0) mmol/L ABG Hemoglobin (11.7-17.4) g/dL ABG Carboxyhemoglobin (0.5-1.5) % POC ABG HHb (Measured) (0-5) % ABG Methemoglobin (0.0-3.0) % ABG O2 Capacity (16-24) mL/dl VBG pH (7.32-7.43) VBG pCO2 (40-60) VBG HCO3 (21-28) mmol/l VBG Total CO2 (22-28) mmol.L VBG O2 Sat (Calc) (40-65) % VBG Base Excess (0.0-2.0) mmol/L VBG Potassium (3.6-5.2) mmol/L Hgb O2 Saturation (95.0-98.0) % Glucose (65-105) mg/dl Lactate (0.7-2.1) mmol/L FiO2 % Crit Value Called To Crit Value Called By Blood Gas Notified Time Sodium 137 (132-148) mmol/L Potassium 3.0 L (3.6-5.0) mmol/L Chloride 99 (98-107) mmol/L Carbon Dioxide 29 (21-33) mmol/L Anion Gap 12 (10-20) BUN 24 H (7-21) mg/dL Creatinine 1.9 H (0.7-1.2) mg/dl Est GFR ( Amer) 32 Est GFR (Non-Af Amer) 26 POC Glucose (mg/dL) 171 H (65-110) mg/dL Random Glucose 166 H (70-110) mg/dL Hemoglobin A1c (4.2-6.5) % Calcium 8.6 (8.4-10.5) mg/dL Total Bilirubin (0.2-1.3) mg/dL AST (14-36) U/L ALT (7-56) U/L Alkaline Phosphatase (38-126) U/L Troponin I ng/mL Total Protein (5.8-8.3) g/dL Albumin (3.0-4.8) g/dL Globulin gm/dL Albumin/Globulin Ratio (1.1-1.8) Triglycerides (35-160) mg/dL Cholesterol (130-200) mg/dL LDL Cholesterol Direct (0-129) mg/dL HDL Cholesterol (29-60) mg/dL Venous Blood Potassium (3.6-5.2) mmol/L Urine Color (YELLOW) Urine Appearance (CLEAR) Urine pH (4.7-8.0) Ur Specific [place] (1.005-1.035) Urine Protein (<30 mg/dL) mg/dL Urine Glucose (UA) (NEGATIVE) mg/dL Urine Ketones (NEGATIVE) mg/dL Urine Blood (NEGATIVE) Urine Nitrate (NEGATIVE) Urine Bilirubin (NEGATIVE) Urine Urobilinogen (<1 E.U./dL) E.U./dL Ur Leukocyte Esterase (NEGATIVE) [place]/uL Urine RBC (0-2) /hpf Urine WBC (0-6) /hpf Ur Epithelial Cells (0-5) /hpf Urine Bacteria (NONE) /hpf Urine Other /hpf Blood Type Blood Type Confirm Antibody Screen BBK History Checked 09/11/18 09/11/1819 Range/Units 02:47 01:58 01:02 WBC (4.5-11.0) 10^3/uL RBC (3.5-6.1) 10^6/uL Hgb (12.0-16.0) g/dL Hct (36.0-48.0) % MCV (80.0-105.0) fl MCH (25.0-35.0) pg MCHC (31.0-37.0) g/dl RDW (11.5-14.5) % Plt Count (120.0-450.0) 10^3/uL MPV (7.0-11.0) fl Neut % (Auto) (50.0-68.0) % Lymph % (Auto) (22.0-35.0) % [place] % (Auto) (1.0-6.0) % Eos % (Auto) (1.5-5.0) % Baso % (Auto) (0.0-3.0) % Lymph # (Auto) (1.2-3.4) [place] # (Auto) (0.1-0.6) Eos # (Auto) (0.0-0.7) Baso # (Auto) (0.0-2.0) K/mm3 Absolute Neuts (auto) (1.4-6.5) Neutrophils % (Manual) (50.0-70.0) % Lymphocytes % (Manual) (22.0-35.0) % Monocytes % (Manual) (1.0-6.0) % Platelet Evaluation (NORMAL) Hypochromasia Anisocytosis (manual) Microcytosis (manual) ESR (0.0-20.0) mm/hr PT (9.4-12.5) SECONDS INR APTT (26.9-38.3) Seconds pCO2 (35-45) mm/Hg pO2 (30-55) mm/Hg HCO3 (21-28) mmol/L ABG pH (7.35-7.45) ABG Total CO2 (22-28) mmol.L ABG O2 Saturation (95-98) % ABG O2 Content (15-23) ML/dl ABG Base Excess (-2.0-3.0) mmol/L ABG Hemoglobin (11.7-17.4) g/dL ABG Carboxyhemoglobin (0.5-1.5) % POC ABG HHb (Measured) (0-5) % ABG Methemoglobin (0.0-3.0) % ABG O2 Capacity (16-24) mL/dl VBG pH (7.32-7.43) VBG pCO2 (40-60) VBG HCO3 (21-28) mmol/l VBG Total CO2 (22-28) mmol.L VBG O2 Sat (Calc) (40-65) % VBG Base Excess (0.0-2.0) mmol/L VBG Potassium (3.6-5.2) mmol/L Hgb O2 Saturation (95.0-98.0) % Glucose (65-105) mg/dl Lactate (0.7-2.1) mmol/L FiO2 % Crit Value Called To Crit Value Called By Blood Gas Notified Time Sodium (132-148) mmol/L Potassium (3.6-5.0) mmol/L Chloride (98-107) mmol/L Carbon Dioxide (21-33) mmol/L Anion Gap (10-20) BUN (7-21) mg/dL Creatinine (0.7-1.2) mg/dl Est GFR ( Amer) Est GFR (Non-Af Amer) POC Glucose (mg/dL) 151 H 129 H (65-110) mg/dL Random Glucose (70-110) mg/dL Hemoglobin A1c (4.2-6.5) % Calcium (8.4-10.5) mg/dL Total Bilirubin (0.2-1.3) mg/dL AST (14-36) U/L ALT (7-56) U/L Alkaline Phosphatase (38-126) U/L Troponin I ng/mL Total Protein (5.8-8.3) g/dL Albumin (3.0-4.8) g/dL Globulin gm/dL Albumin/Globulin Ratio (1.1-1.8) Triglycerides (35-160) mg/dL Cholesterol (130-200) mg/dL LDL Cholesterol Direct (0-129) mg/dL HDL Cholesterol (29-60) mg/dL Venous Blood Potassium (3.6-5.2) mmol/L Urine Color Yellow (YELLOW) Urine Appearance Cloudy (CLEAR) Urine pH 5.5 (4.7-8.0) Ur Specific [place] 1.025 (1.005-1.035) Urine Protein >=300 H (<30 mg/dL) mg/dL Urine Glucose (UA) 250 H (NEGATIVE) mg/dL Urine Ketones Trace H (NEGATIVE) mg/dL Urine Blood Moderate H (NEGATIVE) Urine Nitrate Negative (NEGATIVE) Urine Bilirubin Small H (NEGATIVE) Urine Urobilinogen 0.2 (<1 E.U./dL) E.U./dL Ur Leukocyte Esterase Small H (NEGATIVE) [place]/uL Urine RBC 2 - 5 H (0-2) /hpf Urine WBC 10 - 15 H (0-6) /hpf Ur Epithelial Cells 1 - 3 (0-5) /hpf Urine Bacteria Small (NONE) /hpf Urine Other Uyeast /hpf Blood Type Blood Type Confirm Antibody Screen BBK History Checked 09/11/18 09/11/18 09/10/18 Range/Units 01:00 00:36 23:32 WBC (4.5-11.0) 10^3/uL RBC (3.5-6.1) 10^6/uL Hgb (12.0-16.0) g/dL Hct (36.0-48.0) % MCV (80.0-105.0) fl MCH (25.0-35.0) pg MCHC (31.0-37.0) g/dl RDW (11.5-14.5) % Plt Count (120.0-450.0) 10^3/uL MPV (7.0-11.0) fl Neut % (Auto) (50.0-68.0) % Lymph % (Auto) (22.0-35.0) % [place] % (Auto) (1.0-6.0) % Eos % (Auto) (1.5-5.0) % Baso % (Auto) (0.0-3.0) % Lymph # (Auto) (1.2-3.4) [place] # (Auto) (0.1-0.6) Eos # (Auto) (0.0-0.7) Baso # (Auto) (0.0-2.0) K/mm3 Absolute Neuts (auto) (1.4-6.5) Neutrophils % (Manual) (50.0-70.0) % Lymphocytes % (Manual) (22.0-35.0) % Monocytes % (Manual) (1.0-6.0) % Platelet Evaluation (NORMAL) Hypochromasia Anisocytosis (manual) Microcytosis (manual) ESR 46 H (0.0-20.0) mm/hr PT (9.4-12.5) SECONDS INR APTT (26.9-38.3) Seconds pCO2 (35-45) mm/Hg pO2 (30-55) mm/Hg HCO3 (21-28) mmol/L ABG pH (7.35-7.45) ABG Total CO2 (22-28) mmol.L ABG O2 Saturation (95-98) % ABG O2 Content (15-23) ML/dl ABG Base Excess (-2.0-3.0) mmol/L ABG Hemoglobin (11.7-17.4) g/dL ABG Carboxyhemoglobin (0.5-1.5) % POC ABG HHb (Measured) (0-5) % ABG Methemoglobin (0.0-3.0) % ABG O2 Capacity (16-24) mL/dl VBG pH (7.32-7.43) VBG pCO2 (40-60) VBG HCO3 (21-28) mmol/l VBG Total CO2 (22-28) mmol.L VBG O2 Sat (Calc) (40-65) % VBG Base Excess (0.0-2.0) mmol/L VBG Potassium (3.6-5.2) mmol/L Hgb O2 Saturation (95.0-98.0) % Glucose (65-105) mg/dl Lactate (0.7-2.1) mmol/L FiO2 % Crit Value Called To Crit Value Called By Blood Gas Notified Time Sodium (132-148) mmol/L Potassium (3.6-5.0) mmol/L Chloride (98-107) mmol/L Carbon Dioxide (21-33) mmol/L Anion Gap (10-20) BUN (7-21) mg/dL Creatinine (0.7-1.2) mg/dl Est GFR ( Amer) Est GFR (Non-Af Amer) POC Glucose (mg/dL) 144 H 344 H (65-110) mg/dL Random Glucose (70-110) mg/dL Hemoglobin A1c (4.2-6.5) % Calcium (8.4-10.5) mg/dL Total Bilirubin (0.2-1.3) mg/dL AST (14-36) U/L ALT (7-56) U/L Alkaline Phosphatase (38-126) U/L Troponin I ng/mL Total Protein (5.8-8.3) g/dL Albumin (3.0-4.8) g/dL Globulin gm/dL Albumin/Globulin Ratio (1.1-1.8) Triglycerides (35-160) mg/dL Cholesterol (130-200) mg/dL LDL Cholesterol Direct (0-129) mg/dL HDL Cholesterol (29-60) mg/dL Venous Blood Potassium (3.6-5.2) mmol/L Urine Color (YELLOW) Urine Appearance (CLEAR) Urine pH (4.7-8.0) Ur Specific [place] (1.005-1.035) Urine Protein (<30 mg/dL) mg/dL Urine Glucose (UA) (NEGATIVE) mg/dL Urine Ketones (NEGATIVE) mg/dL Urine Blood (NEGATIVE) Urine Nitrate (NEGATIVE) Urine Bilirubin (NEGATIVE) Urine Urobilinogen (<1 E.U./dL) E.U./dL Ur Leukocyte Esterase (NEGATIVE) [place]/uL Urine RBC (0-2) /hpf Urine WBC (0-6) /hpf Ur Epithelial Cells (0-5) /hpf Urine Bacteria (NONE) /hpf Urine Other /hpf Blood Type Blood Type Confirm Antibody Screen BBK History Checked 09/10/18 09/10/18 09/10/18 Range/Units 22:20 21:33 20:18 WBC (4.5-11.0) 10^3/uL RBC (3.5-6.1) 10^6/uL Hgb (12.0-16.0) g/dL Hct (36.0-48.0) % MCV (80.0-105.0) fl MCH (25.0-35.0) pg MCHC (31.0-37.0) g/dl RDW (11.5-14.5) % Plt Count (120.0-450.0) 10^3/uL MPV (7.0-11.0) fl Neut % (Auto) (50.0-68.0) % Lymph % (Auto) (22.0-35.0) % [place] % (Auto) (1.0-6.0) % Eos % (Auto) (1.5-5.0) % Baso % (Auto) (0.0-3.0) % Lymph # (Auto) (1.2-3.4) [place] # (Auto) (0.1-0.6) Eos # (Auto) (0.0-0.7) Baso # (Auto) (0.0-2.0) K/mm3 Absolute Neuts (auto) (1.4-6.5) Neutrophils % (Manual) (50.0-70.0) % Lymphocytes % (Manual) (22.0-35.0) % Monocytes % (Manual) (1.0-6.0) % Platelet Evaluation (NORMAL) Hypochromasia Anisocytosis (manual) Microcytosis (manual) ESR (0.0-20.0) mm/hr PT (9.4-12.5) SECONDS INR APTT (26.9-38.3) Seconds pCO2 (35-45) mm/Hg pO2 (30-55) mm/Hg HCO3 (21-28) mmol/L ABG pH (7.35-7.45) ABG Total CO2 (22-28) mmol.L ABG O2 Saturation (95-98) % ABG O2 Content (15-23) ML/dl ABG Base Excess (-2.0-3.0) mmol/L ABG Hemoglobin (11.7-17.4) g/dL ABG Carboxyhemoglobin (0.5-1.5) % POC ABG HHb (Measured) (0-5) % ABG Methemoglobin (0.0-3.0) % ABG O2 Capacity (16-24) mL/dl VBG pH (7.32-7.43) VBG pCO2 (40-60) VBG HCO3 (21-28) mmol/l VBG Total CO2 (22-28) mmol.L VBG O2 Sat (Calc) (40-65) % VBG Base Excess (0.0-2.0) mmol/L VBG Potassium (3.6-5.2) mmol/L Hgb O2 Saturation (95.0-98.0) % Glucose (65-105) mg/dl Lactate (0.7-2.1) mmol/L FiO2 % Crit Value Called To Crit Value Called By Blood Gas Notified Time Sodium (132-148) mmol/L Potassium (3.6-5.0) mmol/L Chloride (98-107) mmol/L Carbon Dioxide (21-33) mmol/L Anion Gap (10-20) BUN (7-21) mg/dL Creatinine (0.7-1.2) mg/dl Est GFR ( Amer) Est GFR (Non-Af Amer) POC Glucose (mg/dL) 432 H* 500 H* > 500 H* (65-110) mg/dL Random Glucose (70-110) mg/dL Hemoglobin A1c (4.2-6.5) % Calcium (8.4-10.5) mg/dL Total Bilirubin (0.2-1.3) mg/dL AST (14-36) U/L ALT (7-56) U/L Alkaline Phosphatase (38-126) U/L Troponin I ng/mL Total Protein (5.8-8.3) g/dL Albumin (3.0-4.8) g/dL Globulin gm/dL Albumin/Globulin Ratio (1.1-1.8) Triglycerides (35-160) mg/dL Cholesterol (130-200) mg/dL LDL Cholesterol Direct (0-129) mg/dL HDL Cholesterol (29-60) mg/dL Venous Blood Potassium (3.6-5.2) mmol/L Urine Color (YELLOW) Urine Appearance (CLEAR) Urine pH (4.7-8.0) Ur Specific [place] (1.005-1.035) Urine Protein (<30 mg/dL) mg/dL Urine Glucose (UA) (NEGATIVE) mg/dL Urine Ketones (NEGATIVE) mg/dL Urine Blood (NEGATIVE) Urine Nitrate (NEGATIVE) Urine Bilirubin (NEGATIVE) Urine Urobilinogen (<1 E.U./dL) E.U./dL Ur Leukocyte Esterase (NEGATIVE) [place]/uL Urine RBC (0-2) /hpf Urine WBC (0-6) /hpf Ur Epithelial Cells (0-5) /hpf Urine Bacteria (NONE) /hpf Urine Other /hpf Blood Type Blood Type Confirm Antibody Screen BBK History Checked 09/10/18 09/10/18 09/10/18 Range/Units 20:00 18:39 17:20 WBC (4.5-11.0) 10^3/uL RBC (3.5-6.1) 10^6/uL Hgb (12.0-16.0) g/dL Hct (36.0-48.0) % MCV (80.0-105.0) fl MCH (25.0-35.0) pg MCHC (31.0-37.0) g/dl RDW (11.5-14.5) % Plt Count (120.0-450.0) 10^3/uL MPV (7.0-11.0) fl Neut % (Auto) (50.0-68.0) % Lymph % (Auto) (22.0-35.0) % [place] % (Auto) (1.0-6.0) % Eos % (Auto) (1.5-5.0) % Baso % (Auto) (0.0-3.0) % Lymph # (Auto) (1.2-3.4) [place] # (Auto) (0.1-0.6) Eos # (Auto) (0.0-0.7) Baso # (Auto) (0.0-2.0) K/mm3 Absolute Neuts (auto) (1.4-6.5) Neutrophils % (Manual) (50.0-70.0) % Lymphocytes % (Manual) (22.0-35.0) % Monocytes % (Manual) (1.0-6.0) % Platelet Evaluation (NORMAL) Hypochromasia Anisocytosis (manual) Microcytosis (manual) ESR (0.0-20.0) mm/hr PT (9.4-12.5) SECONDS INR APTT (26.9-38.3) Seconds pCO2 34 L (35-45) mm/Hg pO2 69 H 140.0 H (30-55) mm/Hg HCO3 25.9 (21-28) mmol/L ABG pH 7.49 H (7.35-7.45) ABG Total CO2 26.9 (22-28) mmol.L ABG O2 Saturation 97.6 (95-98) % ABG O2 Content 16.4 (15-23) ML/dl ABG Base Excess 2.8 (-2.0-3.0) mmol/L ABG Hemoglobin 11.9 (11.7-17.4) g/dL ABG Carboxyhemoglobin 0.8 (0.5-1.5) % POC ABG HHb (Measured) 2.4 (0-5) % ABG Methemoglobin 0.2 (0.0-3.0) % ABG O2 Capacity 16.8 (16-24) mL/dl VBG pH 7.41 (7.32-7.43) VBG pCO2 46.0 (40-60) VBG HCO3 29.2 H (21-28) mmol/l VBG Total CO2 (22-28) mmol.L VBG O2 Sat (Calc) 93.9 H (40-65) % VBG Base Excess 3.8 H (0.0-2.0) mmol/L VBG Potassium (3.6-5.2) mmol/L Hgb O2 Saturation 96.6 (95.0-98.0) % Glucose (65-105) mg/dl Lactate (0.7-2.1) mmol/L FiO2 40.0 % Crit Value Called To Crit Value Called By Blood Gas Notified Time Sodium (132-148) mmol/L Potassium (3.6-5.0) mmol/L Chloride (98-107) mmol/L Carbon Dioxide (21-33) mmol/L Anion Gap (10-20) BUN (7-21) mg/dL Creatinine (0.7-1.2) mg/dl Est GFR ( Amer) Est GFR (Non-Af Amer) POC Glucose (mg/dL) > 500 H* (65-110) mg/dL Random Glucose (70-110) mg/dL Hemoglobin A1c (4.2-6.5) % Calcium (8.4-10.5) mg/dL Total Bilirubin (0.2-1.3) mg/dL AST (14-36) U/L ALT (7-56) U/L Alkaline Phosphatase (38-126) U/L Troponin I ng/mL Total Protein (5.8-8.3) g/dL Albumin (3.0-4.8) g/dL Globulin gm/dL Albumin/Globulin Ratio (1.1-1.8) Triglycerides (35-160) mg/dL Cholesterol (130-200) mg/dL LDL Cholesterol Direct (0-129) mg/dL HDL Cholesterol (29-60) mg/dL Venous Blood Potassium (3.6-5.2) mmol/L Urine Color (YELLOW) Urine Appearance (CLEAR) Urine pH (4.7-8.0) Ur Specific [place] (1.005-1.035) Urine Protein (<30 mg/dL) mg/dL Urine Glucose (UA) (NEGATIVE) mg/dL Urine Ketones (NEGATIVE) mg/dL Urine Blood (NEGATIVE) Urine Nitrate (NEGATIVE) Urine Bilirubin (NEGATIVE) Urine Urobilinogen (<1 E.U./dL) E.U./dL Ur Leukocyte Esterase (NEGATIVE) [place]/uL Urine RBC (0-2) /hpf Urine WBC (0-6) /hpf Ur Epithelial Cells (0-5) /hpf Urine Bacteria (NONE) /hpf Urine Other /hpf Blood Type Blood Type Confirm Antibody Screen BBK History Checked 09/10/18 09/10/18 09/10/18 Range/Units 13:20 12:55 12:50 WBC (4.5-11.0) 10^3/uL RBC (3.5-6.1) 10^6/uL Hgb (12.0-16.0) g/dL Hct (36.0-48.0) % MCV (80.0-105.0) fl MCH (25.0-35.0) pg MCHC (31.0-37.0) g/dl RDW (11.5-14.5) % Plt Count (120.0-450.0) 10^3/uL MPV (7.0-11.0) fl Neut % (Auto) (50.0-68.0) % Lymph % (Auto) (22.0-35.0) % [place] % (Auto) (1.0-6.0) % Eos % (Auto) (1.5-5.0) % Baso % (Auto) (0.0-3.0) % Lymph # (Auto) (1.2-3.4) [place] # (Auto) (0.1-0.6) Eos # (Auto) (0.0-0.7) Baso # (Auto) (0.0-2.0) K/mm3 Absolute Neuts (auto) (1.4-6.5) Neutrophils % (Manual) (50.0-70.0) % Lymphocytes % (Manual) (22.0-35.0) % Monocytes % (Manual) (1.0-6.0) % Platelet Evaluation (NORMAL) Hypochromasia Anisocytosis (manual) Microcytosis (manual) ESR (0.0-20.0) mm/hr PT (9.4-12.5) SECONDS INR APTT (26.9-38.3) Seconds pCO2 (35-45) mm/Hg pO2 71 H (30-55) mm/Hg HCO3 (21-28) mmol/L ABG pH (7.35-7.45) ABG Total CO2 (22-28) mmol.L ABG O2 Saturation (95-98) % ABG O2 Content (15-23) ML/dl ABG Base Excess (-2.0-3.0) mmol/L ABG Hemoglobin (11.7-17.4) g/dL ABG Carboxyhemoglobin (0.5-1.5) % POC ABG HHb (Measured) (0-5) % ABG Methemoglobin (0.0-3.0) % ABG O2 Capacity (16-24) mL/dl VBG pH 7.50 H (7.32-7.43) VBG pCO2 37.0 L (40-60) VBG HCO3 28.9 H (21-28) mmol/l VBG Total CO2 30.0 H (22-28) mmol.L VBG O2 Sat (Calc) 94.6 H (40-65) % VBG Base Excess 5.5 H (0.0-2.0) mmol/L VBG Potassium 3.4 L (3.6-5.2) mmol/L Hgb O2 Saturation (95.0-98.0) % Glucose 440 H* (65-105) mg/dl Lactate 1.5 (0.7-2.1) mmol/L FiO2 21.0 % Crit Value Called To Radha dorman Crit Value Called By Edgard mejia Blood Gas Notified Time 1308 Sodium 135.0 (132-148) mmol/L Potassium (3.6-5.0) mmol/L Chloride 98.0 (98-107) mmol/L Carbon Dioxide (21-33) mmol/L Anion Gap (10-20) BUN (7-21) mg/dL Creatinine (0.7-1.2) mg/dl Est GFR ( Amer) Est GFR (Non-Af Amer) POC Glucose (mg/dL) (65-110) mg/dL Random Glucose (70-110) mg/dL Hemoglobin A1c (4.2-6.5) % Calcium (8.4-10.5) mg/dL Total Bilirubin (0.2-1.3) mg/dL AST (14-36) U/L ALT (7-56) U/L Alkaline Phosphatase (38-126) U/L Troponin I ng/mL Total Protein (5.8-8.3) g/dL Albumin (3.0-4.8) g/dL Globulin gm/dL Albumin/Globulin Ratio (1.1-1.8) Triglycerides (35-160) mg/dL Cholesterol (130-200) mg/dL LDL Cholesterol Direct (0-129) mg/dL HDL Cholesterol (29-60) mg/dL Venous Blood Potassium 3.4 L (3.6-5.2) mmol/L Urine Color (YELLOW) Urine Appearance (CLEAR) Urine pH (4.7-8.0) Ur Specific [place] (1.005-1.035) Urine Protein (<30 mg/dL) mg/dL Urine Glucose (UA) (NEGATIVE) mg/dL Urine Ketones (NEGATIVE) mg/dL Urine Blood (NEGATIVE) Urine Nitrate (NEGATIVE) Urine Bilirubin (NEGATIVE) Urine Urobilinogen (<1 E.U./dL) E.U./dL Ur Leukocyte Esterase (NEGATIVE) [place]/uL Urine RBC (0-2) /hpf Urine WBC (0-6) /hpf Ur Epithelial Cells (0-5) /hpf Urine Bacteria (NONE) /hpf Urine Other /hpf Blood Type O POSITIVE Blood Type Confirm O POSITIVE Antibody Screen Negative BBK History Checked No verified bt 09/10/18 09/10/18 09/10/18 Range/Units 12:50 12:50 12:50 WBC (4.5-11.0) 10^3/uL RBC (3.5-6.1) 10^6/uL Hgb (12.0-16.0) g/dL Hct (36.0-48.0) % MCV (80.0-105.0) fl MCH (25.0-35.0) pg MCHC (31.0-37.0) g/dl RDW (11.5-14.5) % Plt Count (120.0-450.0) 10^3/uL MPV (7.0-11.0) fl Neut % (Auto) (50.0-68.0) % Lymph % (Auto) (22.0-35.0) % [place] % (Auto) (1.0-6.0) % Eos % (Auto) (1.5-5.0) % Baso % (Auto) (0.0-3.0) % Lymph # (Auto) (1.2-3.4) [place] # (Auto) (0.1-0.6) Eos # (Auto) (0.0-0.7) Baso # (Auto) (0.0-2.0) K/mm3 Absolute Neuts (auto) (1.4-6.5) Neutrophils % (Manual) (50.0-70.0) % Lymphocytes % (Manual) (22.0-35.0) % Monocytes % (Manual) (1.0-6.0) % Platelet Evaluation (NORMAL) Hypochromasia Anisocytosis (manual) Microcytosis (manual) ESR (0.0-20.0) mm/hr PT 12.9 H (9.4-12.5) SECONDS INR 1.14 APTT 28.7 (26.9-38.3) Seconds pCO2 (35-45) mm/Hg pO2 (30-55) mm/Hg HCO3 (21-28) mmol/L ABG pH (7.35-7.45) ABG Total CO2 (22-28) mmol.L ABG O2 Saturation (95-98) % ABG O2 Content (15-23) ML/dl ABG Base Excess (-2.0-3.0) mmol/L ABG Hemoglobin (11.7-17.4) g/dL ABG Carboxyhemoglobin (0.5-1.5) % POC ABG HHb (Measured) (0-5) % ABG Methemoglobin (0.0-3.0) % ABG O2 Capacity (16-24) mL/dl VBG pH (7.32-7.43) VBG pCO2 (40-60) VBG HCO3 (21-28) mmol/l VBG Total CO2 (22-28) mmol.L VBG O2 Sat (Calc) (40-65) % VBG Base Excess (0.0-2.0) mmol/L VBG Potassium (3.6-5.2) mmol/L Hgb O2 Saturation (95.0-98.0) % Glucose (65-105) mg/dl Lactate (0.7-2.1) mmol/L FiO2 % Crit Value Called To Crit Value Called By Blood Gas Notified Time Sodium 134 (132-148) mmol/L Potassium 3.5 L (3.6-5.0) mmol/L Chloride 97 L (98-107) mmol/L Carbon Dioxide 28 (21-33) mmol/L Anion Gap 12 (10-20) BUN 14 (7-21) mg/dL Creatinine 0.9 (0.7-1.2) mg/dl Est GFR ( Amer) > 60 Est GFR (Non-Af Amer) > 60 POC Glucose (mg/dL) (65-110) mg/dL Random Glucose 423 H* D (70-110) mg/dL Hemoglobin A1c 8.7 H (4.2-6.5) % Calcium 9.1 (8.4-10.5) mg/dL Total Bilirubin 0.5 (0.2-1.3) mg/dL AST 21 (14-36) U/L ALT 13 (7-56) U/L Alkaline Phosphatase 91 (38-126) U/L Troponin I < 0.01 ng/mL Total Protein 6.8 (5.8-8.3) g/dL Albumin 3.7 (3.0-4.8) g/dL Globulin 3.1 gm/dL Albumin/Globulin Ratio 1.2 (1.1-1.8) Triglycerides 128 (35-160) mg/dL Cholesterol 183 (130-200) mg/dL LDL Cholesterol Direct 82 (0-129) mg/dL HDL Cholesterol 56 (29-60) mg/dL Venous Blood Potassium (3.6-5.2) mmol/L Urine Color (YELLOW) Urine Appearance (CLEAR) Urine pH (4.7-8.0) Ur Specific [place] (1.005-1.035) Urine Protein (<30 mg/dL) mg/dL Urine Glucose (UA) (NEGATIVE) mg/dL Urine Ketones (NEGATIVE) mg/dL Urine Blood (NEGATIVE) Urine Nitrate (NEGATIVE) Urine Bilirubin (NEGATIVE) Urine Urobilinogen (<1 E.U./dL) E.U./dL Ur Leukocyte Esterase (NEGATIVE) [place]/uL Urine RBC (0-2) /hpf Urine WBC (0-6) /hpf Ur Epithelial Cells (0-5) /hpf Urine Bacteria (NONE) /hpf Urine Other /hpf Blood Type Blood Type Confirm Antibody Screen BBK History Checked 09/10/18 Range/Units 12:50 WBC 12.0 H (4.5-11.0) 10^3/uL RBC 4.38 (3.5-6.1) 10^6/uL Hgb 12.3 (12.0-16.0) g/dL Hct 36.2 (36.0-48.0) % MCV 82.6 (80.0-105.0) fl MCH 28.1 (25.0-35.0) pg MCHC 34.0 (31.0-37.0) g/dl RDW 13.2 (11.5-14.5) % Plt Count 316 (120.0-450.0) 10^3/uL MPV 10.5 (7.0-11.0) fl Neut % (Auto) 90.3 H (50.0-68.0) % Lymph % (Auto) 6.2 L (22.0-35.0) % [place] % (Auto) 3.4 (1.0-6.0) % Eos % (Auto) 0.0 L (1.5-5.0) % Baso % (Auto) 0.1 (0.0-3.0) % Lymph # (Auto) 0.8 L (1.2-3.4) [place] # (Auto) 0.4 (0.1-0.6) Eos # (Auto) 0.0 (0.0-0.7) Baso # (Auto) 0.01 (0.0-2.0) K/mm3 Absolute Neuts (auto) 10.86 H (1.4-6.5) Neutrophils % (Manual) 91 H (50.0-70.0) % Lymphocytes % (Manual) 6 L (22.0-35.0) % Monocytes % (Manual) 3 (1.0-6.0) % Platelet Evaluation Normal (NORMAL) Hypochromasia Slight Anisocytosis (manual) 1+ Microcytosis (manual) 1+ ESR (0.0-20.0) mm/hr PT (9.4-12.5) SECONDS INR APTT (26.9-38.3) Seconds pCO2 (35-45) mm/Hg pO2 (30-55) mm/Hg HCO3 (21-28) mmol/L ABG pH (7.35-7.45) ABG Total CO2 (22-28) mmol.L ABG O2 Saturation (95-98) % ABG O2 Content (15-23) ML/dl ABG Base Excess (-2.0-3.0) mmol/L ABG Hemoglobin (11.7-17.4) g/dL ABG Carboxyhemoglobin (0.5-1.5) % POC ABG HHb (Measured) (0-5) % ABG Methemoglobin (0.0-3.0) % ABG O2 Capacity (16-24) mL/dl VBG pH (7.32-7.43) VBG pCO2 (40-60) VBG HCO3 (21-28) mmol/l VBG Total CO2 (22-28) mmol.L VBG O2 Sat (Calc) (40-65) % VBG Base Excess (0.0-2.0) mmol/L VBG Potassium (3.6-5.2) mmol/L Hgb O2 Saturation (95.0-98.0) % Glucose (65-105) mg/dl Lactate (0.7-2.1) mmol/L FiO2 % Crit Value Called To Crit Value Called By Blood Gas Notified Time Sodium (132-148) mmol/L Potassium (3.6-5.0) mmol/L Chloride (98-107) mmol/L Carbon Dioxide (21-33) mmol/L Anion Gap (10-20) BUN (7-21) mg/dL Creatinine (0.7-1.2) mg/dl Est GFR ( Amer) Est GFR (Non-Af Amer) POC Glucose (mg/dL) (65-110) mg/dL Random Glucose (70-110) mg/dL Hemoglobin A1c (4.2-6.5) % Calcium (8.4-10.5) mg/dL Total Bilirubin (0.2-1.3) mg/dL AST (14-36) U/L ALT (7-56) U/L Alkaline Phosphatase (38-126) U/L Troponin I ng/mL Total Protein (5.8-8.3) g/dL Albumin (3.0-4.8) g/dL Globulin gm/dL Albumin/Globulin Ratio (1.1-1.8) Triglycerides (35-160) mg/dL Cholesterol (130-200) mg/dL LDL Cholesterol Direct (0-129) mg/dL HDL Cholesterol (29-60) mg/dL Venous Blood Potassium (3.6-5.2) mmol/L Urine Color (YELLOW) Urine Appearance (CLEAR) Urine pH (4.7-8.0) Ur Specific [place] (1.005-1.035) Urine Protein (<30 mg/dL) mg/dL Urine Glucose (UA) (NEGATIVE) mg/dL Urine Ketones (NEGATIVE) mg/dL Urine Blood (NEGATIVE) Urine Nitrate (NEGATIVE) Urine Bilirubin (NEGATIVE) Urine Urobilinogen (<1 E.U./dL) E.U./dL Ur Leukocyte Esterase (NEGATIVE) [place]/uL Urine RBC (0-2) /hpf Urine WBC (0-6) /hpf Ur Epithelial Cells (0-5) /hpf Urine Bacteria (NONE) /hpf Urine Other /hpf Blood Type Blood Type Confirm Antibody Screen BBK History Checked Laboratory Results - last 24 hr 09/10/18 09/10/18 09/10/18 12:50 12:50 12:50 WBC 12.0 H RBC 4.38 Hgb 12.3 Hct 36.2 MCV 82.6 MCH 28.1 MCHC 34.0 RDW 13.2 Plt Count 316 MPV 10.5 Neut % (Auto) 90.3 H Lymph % (Auto) 6.2 L [place] % (Auto) 3.4 Eos % (Auto) 0.0 L Baso % (Auto) 0.1 Lymph # (Auto) 0.8 L [place] # (Auto) 0.4 Eos # (Auto) 0.0 Baso # (Auto) 0.01 Absolute Neuts (auto) 10.86 H Neutrophils % (Manual) 91 H Lymphocytes % (Manual) 6 L Monocytes % (Manual) 3 Platelet Evaluation Normal Hypochromasia Slight Anisocytosis (manual) 1+ Microcytosis (manual) 1+ ESR PT 12.9 H INR 1.14 APTT 28.7 pCO2 pO2 HCO3 ABG pH ABG Total CO2 ABG O2 Saturation ABG O2 Content ABG Base Excess ABG Hemoglobin ABG Carboxyhemoglobin POC ABG HHb (Measured) ABG Methemoglobin ABG O2 Capacity VBG pH VBG pCO2 VBG HCO3 VBG Total CO2 VBG O2 Sat (Calc) VBG Base Excess VBG Potassium Hgb O2 Saturation Glucose Lactate FiO2 Crit Value Called To Crit Value Called By Blood Gas Notified Time Sodium 134 Potassium 3.5 L Chloride 97 L Carbon Dioxide 28 Anion Gap 12 BUN 14 Creatinine 0.9 Est GFR ( Amer) > 60 Est GFR (Non-Af Amer) > 60 POC Glucose (mg/dL) Random Glucose 423 H* D Hemoglobin A1c Calcium 9.1 Total Bilirubin 0.5 AST 21 ALT 13 Alkaline Phosphatase 91 Troponin I < 0.01 Total Protein 6.8 Albumin 3.7 Globulin 3.1 Albumin/Globulin Ratio 1.2 Triglycerides 128 Cholesterol 183 LDL Cholesterol Direct 82 HDL Cholesterol 56 Venous Blood Potassium Urine Color Urine Appearance Urine pH Ur Specific [place] Urine Protein Urine Glucose (UA) Urine Ketones Urine Blood Urine Nitrate Urine Bilirubin Urine Urobilinogen Ur Leukocyte Esterase Urine RBC Urine WBC Ur Epithelial Cells Urine Bacteria Urine Other Blood Type Blood Type Confirm Antibody Screen BBK History Checked 09/10/18 09/10/18 09/10/18 12:50 12:50 12:55 WBC RBC Hgb Hct MCV MCH MCHC RDW Plt Count MPV Neut % (Auto) Lymph % (Auto) [place] % (Auto) Eos % (Auto) Baso % (Auto) Lymph # (Auto) [place] # (Auto) Eos # (Auto) Baso # (Auto) Absolute Neuts (auto) Neutrophils % (Manual) Lymphocytes % (Manual) Monocytes % (Manual) Platelet Evaluation Hypochromasia Anisocytosis (manual) Microcytosis (manual) ESR PT INR APTT pCO2 pO2 71 H HCO3 ABG pH ABG Total CO2 ABG O2 Saturation ABG O2 Content ABG Base Excess ABG Hemoglobin ABG Carboxyhemoglobin POC ABG HHb (Measured) ABG Methemoglobin ABG O2 Capacity VBG pH 7.50 H VBG pCO2 37.0 L VBG HCO3 28.9 H VBG Total CO2 30.0 H VBG O2 Sat (Calc) 94.6 H VBG Base Excess 5.5 H VBG Potassium 3.4 L Hgb O2 Saturation Glucose 440 H* Lactate 1.5 FiO2 21.0 Crit Value Called To Radha dorman Crit Value Called By Edgard mejia Blood Gas Notified Time 1308 Sodium 135.0 Potassium Chloride 98.0 Carbon Dioxide Anion Gap BUN Creatinine Est GFR ( Amer) Est GFR (Non-Af Amer) POC Glucose (mg/dL) Random Glucose Hemoglobin A1c 8.7 H Calcium Total Bilirubin AST ALT Alkaline Phosphatase Troponin I Total Protein Albumin Globulin Albumin/Globulin Ratio Triglycerides Cholesterol LDL Cholesterol Direct HDL Cholesterol Venous Blood Potassium 3.4 L Urine Color Urine Appearance Urine pH Ur Specific [place] Urine Protein Urine Glucose (UA) Urine Ketones Urine Blood Urine Nitrate Urine Bilirubin Urine Urobilinogen Ur Leukocyte Esterase Urine RBC Urine WBC Ur Epithelial Cells Urine Bacteria Urine Other Blood Type O POSITIVE Blood Type Confirm Antibody Screen Negative BBK History Checked No verified bt 09/10/18 09/10/18 09/10/18 13:20 17:20 18:39 WBC RBC Hgb Hct MCV MCH MCHC RDW Plt Count MPV Neut % (Auto) Lymph % (Auto) [place] % (Auto) Eos % (Auto) Baso % (Auto) Lymph # (Auto) [place] # (Auto) Eos # (Auto) Baso # (Auto) Absolute Neuts (auto) Neutrophils % (Manual) Lymphocytes % (Manual) Monocytes % (Manual) Platelet Evaluation Hypochromasia Anisocytosis (manual) Microcytosis (manual) ESR PT INR APTT pCO2 34 L pO2 140.0 H HCO3 25.9 ABG pH 7.49 H ABG Total CO2 26.9 ABG O2 Saturation 97.6 ABG O2 Content 16.4 ABG Base Excess 2.8 ABG Hemoglobin 11.9 ABG Carboxyhemoglobin 0.8 POC ABG HHb (Measured) 2.4 ABG Methemoglobin 0.2 ABG O2 Capacity 16.8 VBG pH VBG pCO2 VBG HCO3 VBG Total CO2 VBG O2 Sat (Calc) VBG Base Excess VBG Potassium Hgb O2 Saturation 96.6 Glucose Lactate FiO2 40.0 Crit Value Called To Crit Value Called By Blood Gas Notified Time Sodium Potassium Chloride Carbon Dioxide Anion Gap BUN Creatinine Est GFR ( Amer) Est GFR (Non-Af Amer) POC Glucose (mg/dL) > 500 H* Random Glucose Hemoglobin A1c Calcium Total Bilirubin AST ALT Alkaline Phosphatase Troponin I Total Protein Albumin Globulin Albumin/Globulin Ratio Triglycerides Cholesterol LDL Cholesterol Direct HDL Cholesterol Venous Blood Potassium Urine Color Urine Appearance Urine pH Ur Specific [place] Urine Protein Urine Glucose (UA) Urine Ketones Urine Blood Urine Nitrate Urine Bilirubin Urine Urobilinogen Ur Leukocyte Esterase Urine RBC Urine WBC Ur Epithelial Cells Urine Bacteria Urine Other Blood Type Blood Type Confirm O POSITIVE Antibody Screen BBK History Checked 09/10/18 09/10/18 09/10/18 20:00 20:18 21:33 WBC RBC Hgb Hct MCV MCH MCHC RDW Plt Count MPV Neut % (Auto) Lymph % (Auto) [place] % (Auto) Eos % (Auto) Baso % (Auto) Lymph # (Auto) [place] # (Auto) Eos # (Auto) Baso # (Auto) Absolute Neuts (auto) Neutrophils % (Manual) Lymphocytes % (Manual) Monocytes % (Manual) Platelet Evaluation Hypochromasia Anisocytosis (manual) Microcytosis (manual) ESR PT INR APTT pCO2 pO2 69 H HCO3 ABG pH ABG Total CO2 ABG O2 Saturation ABG O2 Content ABG Base Excess ABG Hemoglobin ABG Carboxyhemoglobin POC ABG HHb (Measured) ABG Methemoglobin ABG O2 Capacity VBG pH 7.41 VBG pCO2 46.0 VBG HCO3 29.2 H VBG Total CO2 VBG O2 Sat (Calc) 93.9 H VBG Base Excess 3.8 H VBG Potassium Hgb O2 Saturation Glucose Lactate FiO2 Crit Value Called To Crit Value Called By Blood Gas Notified Time Sodium Potassium Chloride Carbon Dioxide Anion Gap BUN Creatinine Est GFR ( Amer) Est GFR (Non-Af Amer) POC Glucose (mg/dL) > 500 H* 500 H* Random Glucose Hemoglobin A1c Calcium Total Bilirubin AST ALT Alkaline Phosphatase Troponin I Total Protein Albumin Globulin Albumin/Globulin Ratio Triglycerides Cholesterol LDL Cholesterol Direct HDL Cholesterol Venous Blood Potassium Urine Color Urine Appearance Urine pH Ur Specific [place] Urine Protein Urine Glucose (UA) Urine Ketones Urine Blood Urine Nitrate Urine Bilirubin Urine Urobilinogen Ur Leukocyte Esterase Urine RBC Urine WBC Ur Epithelial Cells Urine Bacteria Urine Other Blood Type Blood Type Confirm Antibody Screen BBK History Checked 09/10/18 09/10/18 09/11/18 22:20 23:32 00:36 WBC RBC Hgb Hct MCV MCH MCHC RDW Plt Count MPV Neut % (Auto) Lymph % (Auto) [place] % (Auto) Eos % (Auto) Baso % (Auto) Lymph # (Auto) [place] # (Auto) Eos # (Auto) Baso # (Auto) Absolute Neuts (auto) Neutrophils % (Manual) Lymphocytes % (Manual) Monocytes % (Manual) Platelet Evaluation Hypochromasia Anisocytosis (manual) Microcytosis (manual) ESR PT INR APTT pCO2 pO2 HCO3 ABG pH ABG Total CO2 ABG O2 Saturation ABG O2 Content ABG Base Excess ABG Hemoglobin ABG Carboxyhemoglobin POC ABG HHb (Measured) ABG Methemoglobin ABG O2 Capacity VBG pH VBG pCO2 VBG HCO3 VBG Total CO2 VBG O2 Sat (Calc) VBG Base Excess VBG Potassium Hgb O2 Saturation Glucose Lactate FiO2 Crit Value Called To Crit Value Called By Blood Gas Notified Time Sodium Potassium Chloride Carbon Dioxide Anion Gap BUN Creatinine Est GFR ( Amer) Est GFR (Non-Af Amer) POC Glucose (mg/dL) 432 H* 344 H 144 H Random Glucose Hemoglobin A1c Calcium Total Bilirubin AST ALT Alkaline Phosphatase Troponin I Total Protein Albumin Globulin Albumin/Globulin Ratio Triglycerides Cholesterol LDL Cholesterol Direct HDL Cholesterol Venous Blood Potassium Urine Color Urine Appearance Urine pH Ur Specific [place] Urine Protein Urine Glucose (UA) Urine Ketones Urine Blood Urine Nitrate Urine Bilirubin Urine Urobilinogen Ur Leukocyte Esterase Urine RBC Urine WBC Ur Epithelial Cells Urine Bacteria Urine Other Blood Type Blood Type Confirm Antibody Screen BBK History Checked 09/11/18 09/11/18 09/11/18 01:00 01:02 01:58 WBC RBC Hgb Hct MCV MCH MCHC RDW Plt Count MPV Neut % (Auto) Lymph % (Auto) [place] % (Auto) Eos % (Auto) Baso % (Auto) Lymph # (Auto) [place] # (Auto) Eos # (Auto) Baso # (Auto) Absolute Neuts (auto) Neutrophils % (Manual) Lymphocytes % (Manual) Monocytes % (Manual) Platelet Evaluation Hypochromasia Anisocytosis (manual) Microcytosis (manual) ESR 46 H PT INR APTT pCO2 pO2 HCO3 ABG pH ABG Total CO2 ABG O2 Saturation ABG O2 Content ABG Base Excess ABG Hemoglobin ABG Carboxyhemoglobin POC ABG HHb (Measured) ABG Methemoglobin ABG O2 Capacity VBG pH VBG pCO2 VBG HCO3 VBG Total CO2 VBG O2 Sat (Calc) VBG Base Excess VBG Potassium Hgb O2 Saturation Glucose Lactate FiO2 Crit Value Called To Crit Value Called By Blood Gas Notified Time Sodium Potassium Chloride Carbon Dioxide Anion Gap BUN Creatinine Est GFR ( Amer) Est GFR (Non-Af Amer) POC Glucose (mg/dL) 129 H 151 H Random Glucose Hemoglobin A1c Calcium Total Bilirubin AST ALT Alkaline Phosphatase Troponin I Total Protein Albumin Globulin Albumin/Globulin Ratio Triglycerides Cholesterol LDL Cholesterol Direct HDL Cholesterol Venous Blood Potassium Urine Color Urine Appearance Urine pH Ur Specific [place] Urine Protein Urine Glucose (UA) Urine Ketones Urine Blood Urine Nitrate Urine Bilirubin Urine Urobilinogen Ur Leukocyte Esterase Urine RBC Urine WBC Ur Epithelial Cells Urine Bacteria Urine Other Blood Type Blood Type Confirm Antibody Screen BBK History Checked 09/11/18 09/11/18 09/11/18 02:47 03:24 03:40 WBC 16.0 H D RBC 4.16 Hgb 11.5 L Hct 34.8 L MCV 83.7 MCH 27.6 MCHC 33.0 RDW 13.7 Plt Count 297 MPV 10.0 Neut % (Auto) Lymph % (Auto) [place] % (Auto) Eos % (Auto) Baso % (Auto) Lymph # (Auto) [place] # (Auto) Eos # (Auto) Baso # (Auto) Absolute Neuts (auto) Neutrophils % (Manual) Lymphocytes % (Manual) Monocytes % (Manual) Platelet Evaluation Hypochromasia Anisocytosis (manual) Microcytosis (manual) ESR PT INR APTT pCO2 pO2 HCO3 ABG pH ABG Total CO2 ABG O2 Saturation ABG O2 Content ABG Base Excess ABG Hemoglobin ABG Carboxyhemoglobin POC ABG HHb (Measured) ABG Methemoglobin ABG O2 Capacity VBG pH VBG pCO2 VBG HCO3 VBG Total CO2 VBG O2 Sat (Calc) VBG Base Excess VBG Potassium Hgb O2 Saturation Glucose Lactate FiO2 Crit Value Called To Crit Value Called By Blood Gas Notified Time Sodium Potassium Chloride Carbon Dioxide Anion Gap BUN Creatinine Est GFR ( Amer) Est GFR (Non-Af Amer) POC Glucose (mg/dL) 171 H Random Glucose Hemoglobin A1c Calcium Total Bilirubin AST ALT Alkaline Phosphatase Troponin I Total Protein Albumin Globulin Albumin/Globulin Ratio Triglycerides Cholesterol LDL Cholesterol Direct HDL Cholesterol Venous Blood Potassium Urine Color Yellow Urine Appearance Cloudy Urine pH 5.5 Ur Specific [place] 1.025 Urine Protein >=300 H Urine Glucose (UA) 250 H Urine Ketones Trace H Urine Blood Moderate H Urine Nitrate Negative Urine Bilirubin Small H Urine Urobilinogen 0.2 Ur Leukocyte Esterase Small H Urine RBC 2 - 5 H Urine WBC 10 - 15 H Ur Epithelial Cells 1 - 3 Urine Bacteria Small Urine Other Uyeast Blood Type Blood Type Confirm Antibody Screen BBK History Checked 09/11/18 09/11/18 09/11/18 03:40 04:07 05:45 WBC RBC Hgb Hct MCV MCH MCHC RDW Plt Count MPV Neut % (Auto) Lymph % (Auto) [place] % (Auto) Eos % (Auto) Baso % (Auto) Lymph # (Auto) [place] # (Auto) Eos # (Auto) Baso # (Auto) Absolute Neuts (auto) Neutrophils % (Manual) Lymphocytes % (Manual) Monocytes % (Manual) Platelet Evaluation Hypochromasia Anisocytosis (manual) Microcytosis (manual) ESR PT INR APTT pCO2 pO2 HCO3 ABG pH ABG Total CO2 ABG O2 Saturation ABG O2 Content ABG Base Excess ABG Hemoglobin ABG Carboxyhemoglobin POC ABG HHb (Measured) ABG Methemoglobin ABG O2 Capacity VBG pH VBG pCO2 VBG HCO3 VBG Total CO2 VBG O2 Sat (Calc) VBG Base Excess VBG Potassium Hgb O2 Saturation Glucose Lactate FiO2 Crit Value Called To Crit Value Called By Blood Gas Notified Time Sodium 137 Potassium 3.0 L Chloride 99 Carbon Dioxide 29 Anion Gap 12 BUN 24 H Creatinine 1.9 H Est GFR ( Amer) 32 Est GFR (Non-Af Amer) 26 POC Glucose (mg/dL) 176 H 222 H Random Glucose 166 H Hemoglobin A1c Calcium 8.6 Total Bilirubin AST ALT Alkaline Phosphatase Troponin I Total Protein Albumin Globulin Albumin/Globulin Ratio Triglycerides Cholesterol LDL Cholesterol Direct HDL Cholesterol Venous Blood Potassium Urine Color Urine Appearance Urine pH Ur Specific [place] Urine Protein Urine Glucose (UA) Urine Ketones Urine Blood Urine Nitrate Urine Bilirubin Urine Urobilinogen Ur Leukocyte Esterase Urine RBC Urine WBC Ur Epithelial Cells Urine Bacteria Urine Other Blood Type Blood Type Confirm Antibody Screen BBK History Checked 09/11/18 06:00 WBC RBC Hgb Hct MCV MCH MCHC RDW Plt Count MPV Neut % (Auto) Lymph % (Auto) [place] % (Auto) Eos % (Auto) Baso % (Auto) Lymph # (Auto) [place] # (Auto) Eos # (Auto) Baso # (Auto) Absolute Neuts (auto) Neutrophils % (Manual) Lymphocytes % (Manual) Monocytes % (Manual) Platelet Evaluation Hypochromasia Anisocytosis (manual) Microcytosis (manual) ESR PT INR APTT pCO2 35 pO2 137.0 H HCO3 26.1 ABG pH 7.48 H ABG Total CO2 27.2 ABG O2 Saturation 97.2 ABG O2 Content 15.8 ABG Base Excess 2.7 ABG Hemoglobin 11.5 L ABG Carboxyhemoglobin 0.3 L POC ABG HHb (Measured) 2.8 ABG Methemoglobin 0.6 ABG O2 Capacity 16.3 VBG pH VBG pCO2 VBG HCO3 VBG Total CO2 VBG O2 Sat (Calc) VBG Base Excess VBG Potassium Hgb O2 Saturation 96.3 Glucose Lactate FiO2 40.0 Crit Value Called To Crit Value Called By Blood Gas Notified Time Sodium Potassium Chloride Carbon Dioxide Anion Gap BUN Creatinine Est GFR ( Amer) Est GFR (Non-Af Amer) POC Glucose (mg/dL) Random Glucose Hemoglobin A1c Calcium Total Bilirubin AST ALT Alkaline Phosphatase Troponin I Total Protein Albumin Globulin Albumin/Globulin Ratio Triglycerides Cholesterol LDL Cholesterol Direct HDL Cholesterol Venous Blood Potassium Urine Color Urine Appearance Urine pH Ur Specific [place] Urine Protein Urine Glucose (UA) Urine Ketones Urine Blood Urine Nitrate Urine Bilirubin Urine Urobilinogen Ur Leukocyte Esterase Urine RBC Urine WBC Ur Epithelial Cells Urine Bacteria Urine Other Blood Type Blood Type Confirm Antibody Screen BBK History Checked Radiology Impressions: Radiology Impressions Chest X-Ray 09/10/18 11:49 IMPRESSION: To the pulmonary vasculature may be secondary to AP technique and/or pulmonary vascular congestion. No focal consolidation or pleural effusion. Head CT 09/10/18 11:49 IMPRESSION: No acute intracranial pathology. Age-related changes. No significant interval change. Findings conveyed to Dr. Gallardo by Dr. Steve at 12:06 p.m. on 09/10/2018. Head/Neck CTA 09/10/18 11:49 IMPRESSION: No evidence of occlusion significant stenosis or dissection of the Note cervical carotid arteries high. There is a calcified atherosclerotic plaque both carotid siphons. There is moderate calcified plaque of the distal right vertebral artery (proximal intradural segment) with minimal calcified plaque left vertebral artery at the same level. The intra cerebral circulation is patent. No evidence of large aneurysm nor vascular malformation Brain MRI 09/10/18 13:37 IMPRESSION: There are multiple small acute infarcts seen scattered about both cerebral hemispheres. These findings suggest embolic event given the involvement of bilateral vascular distributions. Consider follow-up echocardiogram. Mild chronic white matter ischemic changes. No acute intracranial hemorrhage. Moderate generalized volume loss. Note these findings were discussed with Dr. Gallardo at approximately 3:10 p.m. with written down and read back verification. Chest X-Ray 09/10/18 17:04 IMPRESSION: New endotracheal tube with tip at the alvaro. Approximately 2 cm retraction is recommended. No other significant interval change.. EKG/Cardiology Studies: Cardiology / EKG Studies 09/10/18 11:49 ELECTROCARDIOGRAM Stat Comment: Reason For Exam: cva Fingerstick Blood Sugar Results: 176 Critical Care Progress Note - Nutrition Nutrition: Nutrition Category Date Time Status NPO Diet [DIET] Diets 09/10/18 Lunch Ordered Assessment/Plan - Assessment and Plan (Free Text) Assessment: Pt is a 68 yo female with a PMH of HTN and DM who was found down by her with unilateral weakness. Brain MRI later showed multiple emboli in both hemispheres of the brain. Plan: Neuro - intubated and sedated on propofol - admitted for multiple emboli in both hemispheres of the brain, and unilateral weakness on exam - pt had a seizure today - restart propofol, gave ativan 8mg, keppra 1000 IV q12, continuous EEG, Korya notified - Head CT no acute intracranial pathology, age- related changes - Head neck CTA no evidence of occlusion significant stenosis or dissection of the carotid arteries. There is a calcified athrosclerotic plaque both carotid siphons. There is moderate calcified plaque of the distal right vertebral artery. with minimal calfified plaque left vertebral artery. Intra cerebral circulation is patent. No evidence of large aneurysm nor vascular malformation. - Brain MRI there are multiple small acute infarcts seen scattered about both cerebral hemispheres. There findings suggest embolic event given the involvement of bilateral vascular distributions. - ECHO follow up - Neuro consulted Cardio - nicardipine drip, hold parameters - femoral central line in place - ECHO ordered - Cardio consulted, Dr Benigno Foy - ABG 35/137/7.48 - ventilator settings: 20/350/40%/5 - maintain O2 >92 GI - NPO Nephro/ - monitor BUN/Cr - monitor electrolytes - UA protein, glucose, ketones, blood, bilirubin, LE, RBC, WBC Heme/ Onc - Hgb 12.3 - INR 1.14 ID - WBC 16.0, from 12.0 yesterday - blood cultures follow up - vanc - zosyn - ID consulted, Dr Baljit Balderas - HA1C 8.7 - insulin drip, glucose on admission was 440, pt also on D5 now Pt seen, examined, assessment and plan discussed with Dr Bell Damico PGY1 - Date & Time Date: 09/11/18 Time: 07:22 <Thomas Luu - Last Filed: 09/12/18 08:19> CCU Objective - Vital Signs / Intake & Output Vital Signs (Last 4 hours): Vital Signs Pulse Resp BP Pulse Ox 09/12/18 07:40 70 20 100 09/12/18 07:38 71 20 154/72 H 100 09/12/18 07:34 68 21 169/78 H 100 09/12/18 07:30 70 20 148/78 100 09/12/18 07:27 71 20 148/74 100 09/12/18 07:20 72 20 100 09/12/18 07:10 70 20 09/12/18 07:00 69 20 131/68 100 09/12/18 06:50 71 20 09/12/18 06:40 72 20 09/12/18 06:30 72 20 127/68 09/12/18 06:20 73 20 100 09/12/18 06:10 74 20 100 09/12/18 06:00 75 20 129/71 100 09/12/18 05:50 76 20 100 09/12/18 05:40 74 100 09/12/18 05:30 78 20 130/68 100 09/12/18 05:20 77 20 100 09/12/18 05:10 79 20 100 09/12/18 05:01 81 25 H 144/67 100 09/12/18 05:00 81 20 100 09/12/18 04:50 78 95 09/12/18 04:40 79 95 09/12/18 04:30 80 16 124/61 97 09/12/18 04:28 79 20 97 09/12/18 04:20 77 20 100 Intake and Output (Last 8hrs): Intake & Output 09/11/18 09/12/18 09/12/18 22:59 06:59 14:59 Intake Total 1048 1601.5 Output Total 275 201 Balance 773 1400.5 Intake: IV 928 1241.5 antibiotics 350 200 diprivan 288 insulin drip 24 9 maintenance IV 550 740 Tube Feeding 120 360 Output: Urine 275 200 Urethral (Johns) 275 200 Stool 0 1 - Medications Active Medications: Active Medications Generic Name Dose Route Start Last Admin Trade Name Freq PRN Reason Stop Dose Admin Acetaminophen 650 mg 09/11/18 17:02 09/11/18 22:44 Tylenol 650mg/20.3ml Solution Ud NG 650 mg Q6H PRN Administration Temperature >100.4 Amlodipine Besylate 10 mg 09/12/18 10:00 Norvasc PO DAILY JAMES Hydralazine HCl 10 mg 09/11/18 13:30 Apresoline IVP Q6 PRN For SBP>160 Propofol 1,000 mg in 100 mls @ 2.547 mls/hr 09/10/18 17:03 09/11/18 08:51 Diprivan IV 20 mcg/kg/min .Q24H PRN 10.189 mls/hr TITRATE PER MD ORDER Administration Protocol 5 MCG/KG/MIN Nicardipine HCl 20 mg in 200 mls @ 50 mls/hr 09/10/18 20:04 09/11/18 07:25 Cardene Iv Premix IV 0 mg/hr .Q4H PRN 0 mls/hr TITRATE PER MD ORDER Titration Protocol 5 MG/HR Piperacillin Sod/Tazobactam Sod 4.5 gm in 100 mls @ 25 mls/hr 09/11/18 06:00 09/12/18 05:32 Zosyn 4.5 Gm In Ns 100ml IVPB 09/20/18 06:01 25 mls/hr Q8 JAMES Administration Protocol Insulin Human Regular 100 100 mls @ 1 mls/hr 09/11/18 03:27 09/12/18 06:00 units/ Sodium Chloride IV 1 units/hr .Q24H PRN 1 mls/hr TITRATE PER MD ORDER Titration Protocol 1 UNITS/HR Levetiracetam 100 mls @ 460 mls/hr 09/11/18 11:45 09/11/18 21:24 Keppra 1000mg/100ml Ns IV 460 mls/hr Q12 JAEMS Administration Acetaminophen 1,000 mg in 100 mls @ 400 mls/hr 09/12/18 00:37 09/12/18 00:44 Ofirmev IVPB 09/14/18 00:38 400 mls/hr Q6H PRN Administration fever Potassium Chloride 20 meq in 100 mls @ 50 mls/hr 09/12/18 07:45 Potassium Chloride 20 Meq/100 Ml IVPB 09/12/18 17:44 Q2H JAMES Potassium Chloride 40 meq/ 1,020 mls @ 60 mls/hr 09/12/18 07:37 Dextrose/Sodium Chloride IV .Q17H JAMES Metoprolol Tartrate 25 mg 09/11/18 18:00 09/11/18 17:11 Lopressor PO 25 mg BID JAMES Administration Pantoprazole Sodium 40 mg 09/11/18 10:00 09/11/18 10:35 Protonix Inj IVP 40 mg DAILY JAMES Administration - Patient Studies Lab Studies: Microbiology Studies 09/10/18 17:20 MRSA Culture (Admit) - Final Naris MRSA NOT DETECTED 09/10/18 13:20 Blood Culture - Preliminary Blood NO GROWTH AFTER 24 HOURS 09/10/18 12:50 Blood Culture - Preliminary Blood NO GROWTH AFTER 24 HOURS Lab Studies 09/12/18 09/12/18 09/12/18 Range/Units 07:55 07:40 05:57 WBC (4.5-11.0) 10^3/uL RBC (3.5-6.1) 10^6/uL Hgb (12.0-16.0) g/dL Hct (36.0-48.0) % MCV (80.0-105.0) fl MCH (25.0-35.0) pg MCHC (31.0-37.0) g/dl RDW (11.5-14.5) % Plt Count (120.0-450.0) 10^3/uL MPV (7.0-11.0) fl Neut % (Auto) (50.0-68.0) % Lymph % (Auto) (22.0-35.0) % [place] % (Auto) (1.0-6.0) % Eos % (Auto) (1.5-5.0) % Baso % (Auto) (0.0-3.0) % Lymph # (Auto) (1.2-3.4) [place] # (Auto) (0.1-0.6) Eos # (Auto) (0.0-0.7) Baso # (Auto) (0.0-2.0) K/mm3 Absolute Neuts (auto) (1.4-6.5) Sodium (132-148) mmol/L Potassium (3.6-5.0) mmol/L Chloride (98-107) mmol/L Carbon Dioxide (21-33) mmol/L Anion Gap (10-20) BUN (7-21) mg/dL Creatinine (0.7-1.2) mg/dl Est GFR ( Amer) Est GFR (Non-Af Amer) POC Glucose (mg/dL) 265 H 218 H (65-110) mg/dL Random Glucose (70-110) mg/dL Calcium (8.4-10.5) mg/dL Phosphorus 4.0 (2.5-4.5) mg/dL Magnesium 1.7 (1.7-2.2) mg/dL Total Bilirubin (0.2-1.3) mg/dL AST (14-36) U/L ALT (7-56) U/L Alkaline Phosphatase (38-126) U/L C-Reactive Protein (0.0-9.9) mg/L Total Protein (5.8-8.3) g/dL Albumin (3.0-4.8) g/dL Globulin gm/dL Albumin/Globulin Ratio (1.1-1.8) TSH 3rd Generation (0.46-4.68) mIU/mL 09/12/18 09/12/18 09/12/18 Range/Units 05:30 05:30 05:30 WBC 13.6 H (4.5-11.0) 10^3/uL RBC 3.74 (3.5-6.1) 10^6/uL Hgb 10.2 L (12.0-16.0) g/dL Hct 32.0 L (36.0-48.0) % MCV 85.6 (80.0-105.0) fl MCH 27.3 (25.0-35.0) pg MCHC 31.9 (31.0-37.0) g/dl RDW 14.2 (11.5-14.5) % Plt Count 230 (120.0-450.0) 10^3/uL MPV 10.3 (7.0-11.0) fl Neut % (Auto) 67.1 (50.0-68.0) % Lymph % (Auto) 21.1 L (22.0-35.0) % [place] % (Auto) 11.1 H (1.0-6.0) % Eos % (Auto) 0.6 L (1.5-5.0) % Baso % (Auto) 0.1 (0.0-3.0) % Lymph # (Auto) 2.9 (1.2-3.4) [place] # (Auto) 1.5 H (0.1-0.6) Eos # (Auto) 0.1 (0.0-0.7) Baso # (Auto) 0.02 (0.0-2.0) K/mm3 Absolute Neuts (auto) 9.15 H (1.4-6.5) Sodium 137 (132-148) mmol/L Potassium 2.5 L* D (3.6-5.0) mmol/L Chloride 102 (98-107) mmol/L Carbon Dioxide 24 (21-33) mmol/L Anion Gap 13 (10-20) BUN 31 H (7-21) mg/dL Creatinine 2.9 H (0.7-1.2) mg/dl Est GFR ( Amer) 20 Est GFR (Non-Af Amer) 16 POC Glucose (mg/dL) (65-110) mg/dL Random Glucose 197 H (70-110) mg/dL Calcium 8.5 (8.4-10.5) mg/dL Phosphorus (2.5-4.5) mg/dL Magnesium (1.7-2.2) mg/dL Total Bilirubin 0.4 (0.2-1.3) mg/dL AST 42 H (14-36) U/L ALT 21 (7-56) U/L Alkaline Phosphatase 62 (38-126) U/L C-Reactive Protein (0.0-9.9) mg/L Total Protein 5.5 L (5.8-8.3) g/dL Albumin 2.8 L (3.0-4.8) g/dL Globulin 2.7 gm/dL Albumin/Globulin Ratio 1.0 L (1.1-1.8) TSH 3rd Generation 0.97 (0.46-4.68) mIU/mL 09/12/18 09/12/18 09/12/18 Range/Units 03:59 02:02 00:05 WBC (4.5-11.0) 10^3/uL RBC (3.5-6.1) 10^6/uL Hgb (12.0-16.0) g/dL Hct (36.0-48.0) % MCV (80.0-105.0) fl MCH (25.0-35.0) pg MCHC (31.0-37.0) g/dl RDW (11.5-14.5) % Plt Count (120.0-450.0) 10^3/uL MPV (7.0-11.0) fl Neut % (Auto) (50.0-68.0) % Lymph % (Auto) (22.0-35.0) % [place] % (Auto) (1.0-6.0) % Eos % (Auto) (1.5-5.0) % Baso % (Auto) (0.0-3.0) % Lymph # (Auto) (1.2-3.4) [place] # (Auto) (0.1-0.6) Eos # (Auto) (0.0-0.7) Baso # (Auto) (0.0-2.0) K/mm3 Absolute Neuts (auto) (1.4-6.5) Sodium (132-148) mmol/L Potassium (3.6-5.0) mmol/L Chloride (98-107) mmol/L Carbon Dioxide (21-33) mmol/L Anion Gap (10-20) BUN (7-21) mg/dL Creatinine (0.7-1.2) mg/dl Est GFR ( Amer) Est GFR (Non-Af Amer) POC Glucose (mg/dL) 178 H 216 H 190 H (65-110) mg/dL Random Glucose (70-110) mg/dL Calcium (8.4-10.5) mg/dL Phosphorus (2.5-4.5) mg/dL Magnesium (1.7-2.2) mg/dL Total Bilirubin (0.2-1.3) mg/dL AST (14-36) U/L ALT (7-56) U/L Alkaline Phosphatase (38-126) U/L C-Reactive Protein (0.0-9.9) mg/L Total Protein (5.8-8.3) g/dL Albumin (3.0-4.8) g/dL Globulin gm/dL Albumin/Globulin Ratio (1.1-1.8) TSH 3rd Generation (0.46-4.68) mIU/mL 09/11/18 09/11/18 09/11/18 Range/Units 21:52 19:55 17:52 WBC (4.5-11.0) 10^3/uL RBC (3.5-6.1) 10^6/uL Hgb (12.0-16.0) g/dL Hct (36.0-48.0) % MCV (80.0-105.0) fl MCH (25.0-35.0) pg MCHC (31.0-37.0) g/dl RDW (11.5-14.5) % Plt Count (120.0-450.0) 10^3/uL MPV (7.0-11.0) fl Neut % (Auto) (50.0-68.0) % Lymph % (Auto) (22.0-35.0) % [place] % (Auto) (1.0-6.0) % Eos % (Auto) (1.5-5.0) % Baso % (Auto) (0.0-3.0) % Lymph # (Auto) (1.2-3.4) [place] # (Auto) (0.1-0.6) Eos # (Auto) (0.0-0.7) Baso # (Auto) (0.0-2.0) K/mm3 Absolute Neuts (auto) (1.4-6.5) Sodium (132-148) mmol/L Potassium (3.6-5.0) mmol/L Chloride (98-107) mmol/L Carbon Dioxide (21-33) mmol/L Anion Gap (10-20) BUN (7-21) mg/dL Creatinine (0.7-1.2) mg/dl Est GFR ( Amer) Est GFR (Non-Af Amer) POC Glucose (mg/dL) 149 H 162 H 173 H (65-110) mg/dL Random Glucose (70-110) mg/dL Calcium (8.4-10.5) mg/dL Phosphorus (2.5-4.5) mg/dL Magnesium (1.7-2.2) mg/dL Total Bilirubin (0.2-1.3) mg/dL AST (14-36) U/L ALT (7-56) U/L Alkaline Phosphatase (38-126) U/L C-Reactive Protein (0.0-9.9) mg/L Total Protein (5.8-8.3) g/dL Albumin (3.0-4.8) g/dL Globulin gm/dL Albumin/Globulin Ratio (1.1-1.8) TSH 3rd Generation (0.46-4.68) mIU/mL 09/11/18 09/11/18 09/11/18 Range/Units 15:51 13:55 11:31 WBC (4.5-11.0) 10^3/uL RBC (3.5-6.1) 10^6/uL Hgb (12.0-16.0) g/dL Hct (36.0-48.0) % MCV (80.0-105.0) fl MCH (25.0-35.0) pg MCHC (31.0-37.0) g/dl RDW (11.5-14.5) % Plt Count (120.0-450.0) 10^3/uL MPV (7.0-11.0) fl Neut % (Auto) (50.0-68.0) % Lymph % (Auto) (22.0-35.0) % [place] % (Auto) (1.0-6.0) % Eos % (Auto) (1.5-5.0) % Baso % (Auto) (0.0-3.0) % Lymph # (Auto) (1.2-3.4) [place] # (Auto) (0.1-0.6) Eos # (Auto) (0.0-0.7) Baso # (Auto) (0.0-2.0) K/mm3 Absolute Neuts (auto) (1.4-6.5) Sodium (132-148) mmol/L Potassium (3.6-5.0) mmol/L Chloride (98-107) mmol/L Carbon Dioxide (21-33) mmol/L Anion Gap (10-20) BUN (7-21) mg/dL Creatinine (0.7-1.2) mg/dl Est GFR ( Amer) Est GFR (Non-Af Amer) POC Glucose (mg/dL) 132 H 128 H 176 H (65-110) mg/dL Random Glucose (70-110) mg/dL Calcium (8.4-10.5) mg/dL Phosphorus (2.5-4.5) mg/dL Magnesium (1.7-2.2) mg/dL Total Bilirubin (0.2-1.3) mg/dL AST (14-36) U/L ALT (7-56) U/L Alkaline Phosphatase (38-126) U/L C-Reactive Protein (0.0-9.9) mg/L Total Protein (5.8-8.3) g/dL Albumin (3.0-4.8) g/dL Globulin gm/dL Albumin/Globulin Ratio (1.1-1.8) TSH 3rd Generation (0.46-4.68) mIU/mL 09/11/18 09/11/18 09/11/18 Range/Units 09:51 07:50 01:00 WBC (4.5-11.0) 10^3/uL RBC (3.5-6.1) 10^6/uL Hgb (12.0-16.0) g/dL Hct (36.0-48.0) % MCV (80.0-105.0) fl MCH (25.0-35.0) pg MCHC (31.0-37.0) g/dl RDW (11.5-14.5) % Plt Count (120.0-450.0) 10^3/uL MPV (7.0-11.0) fl Neut % (Auto) (50.0-68.0) % Lymph % (Auto) (22.0-35.0) % [place] % (Auto) (1.0-6.0) % Eos % (Auto) (1.5-5.0) % Baso % (Auto) (0.0-3.0) % Lymph # (Auto) (1.2-3.4) [place] # (Auto) (0.1-0.6) Eos # (Auto) (0.0-0.7) Baso # (Auto) (0.0-2.0) K/mm3 Absolute Neuts (auto) (1.4-6.5) Sodium (132-148) mmol/L Potassium (3.6-5.0) mmol/L Chloride (98-107) mmol/L Carbon Dioxide (21-33) mmol/L Anion Gap (10-20) BUN (7-21) mg/dL Creatinine (0.7-1.2) mg/dl Est GFR ( Amer) Est GFR (Non-Af Amer) POC Glucose (mg/dL) 217 H 241 H (65-110) mg/dL Random Glucose (70-110) mg/dL Calcium (8.4-10.5) mg/dL Phosphorus (2.5-4.5) mg/dL Magnesium (1.7-2.2) mg/dL Total Bilirubin (0.2-1.3) mg/dL AST (14-36) U/L ALT (7-56) U/L Alkaline Phosphatase (38-126) U/L C-Reactive Protein 11.80 H (0.0-9.9) mg/L Total Protein (5.8-8.3) g/dL Albumin (3.0-4.8) g/dL Globulin gm/dL Albumin/Globulin Ratio (1.1-1.8) TSH 3rd Generation (0.46-4.68) mIU/mL Laboratory Results - last 24 hr 09/11/18 09/11/18 09/11/18 01:00 07:50 09:51 WBC RBC Hgb Hct MCV MCH MCHC RDW Plt Count MPV Neut % (Auto) Lymph % (Auto) [place] % (Auto) Eos % (Auto) Baso % (Auto) Lymph # (Auto) [place] # (Auto) Eos # (Auto) Baso # (Auto) Absolute Neuts (auto) Sodium Potassium Chloride Carbon Dioxide Anion Gap BUN Creatinine Est GFR ( Amer) Est GFR (Non-Af Amer) POC Glucose (mg/dL) 241 H 217 H Random Glucose Calcium Phosphorus Magnesium Total Bilirubin AST ALT Alkaline Phosphatase C-Reactive Protein 11.80 H Total Protein Albumin Globulin Albumin/Globulin Ratio [facility] 3rd Generation 09/11/18 09/11/18 09/11/18 11:31 13:55 15:51 WBC RBC Hgb Hct MCV MCH MCHC RDW Plt Count MPV Neut % (Auto) Lymph % (Auto) [place] % (Auto) Eos % (Auto) Baso % (Auto) Lymph # (Auto) [place] # (Auto) Eos # (Auto) Baso # (Auto) Absolute Neuts (auto) Sodium Potassium Chloride Carbon Dioxide Anion Gap BUN Creatinine Est GFR ( Amer) Est GFR (Non-Af Amer) POC Glucose (mg/dL) 176 H 128 H 132 H Random Glucose Calcium Phosphorus Magnesium Total Bilirubin AST ALT Alkaline Phosphatase C-Reactive Protein Total Protein Albumin Globulin Albumin/Globulin Ratio [facility] 3rd Generation 09/11/18 09/11/18 09/11/18 17:52 19:55 21:52 WBC RBC Hgb Hct MCV MCH MCHC RDW Plt Count MPV Neut % (Auto) Lymph % (Auto) [place] % (Auto) Eos % (Auto) Baso % (Auto) Lymph # (Auto) [place] # (Auto) Eos # (Auto) Baso # (Auto) Absolute Neuts (auto) Sodium Potassium Chloride Carbon Dioxide Anion Gap BUN Creatinine Est GFR ( Amer) Est GFR (Non-Af Amer) POC Glucose (mg/dL) 173 H 162 H 149 H Random Glucose Calcium Phosphorus Magnesium Total Bilirubin AST ALT Alkaline Phosphatase C-Reactive Protein Total Protein Albumin Globulin Albumin/Globulin Ratio [facility] 3rd Generation 09/12/18 09/12/18 09/12/18 00:05 02:02 03:59 WBC RBC Hgb Hct MCV MCH MCHC RDW Plt Count MPV Neut % (Auto) Lymph % (Auto) [place] % (Auto) Eos % (Auto) Baso % (Auto) Lymph # (Auto) [place] # (Auto) Eos # (Auto) Baso # (Auto) Absolute Neuts (auto) Sodium Potassium Chloride Carbon Dioxide Anion Gap BUN Creatinine Est GFR ( Amer) Est GFR (Non-Af Amer) POC Glucose (mg/dL) 190 H 216 H 178 H Random Glucose Calcium Phosphorus Magnesium Total Bilirubin AST ALT Alkaline Phosphatase C-Reactive Protein Total Protein Albumin Globulin Albumin/Globulin Ratio TSH 3rd Generation 09/12/18 09/12/18 09/12/18 05:30 05:30 05:30 WBC 13.6 H RBC 3.74 Hgb 10.2 L Hct 32.0 L MCV 85.6 MCH 27.3 MCHC 31.9 RDW 14.2 Plt Count 230 MPV 10.3 Neut % (Auto) 67.1 Lymph % (Auto) 21.1 L [place] % (Auto) 11.1 H Eos % (Auto) 0.6 L Baso % (Auto) 0.1 Lymph # (Auto) 2.9 [place] # (Auto) 1.5 H Eos # (Auto) 0.1 Baso # (Auto) 0.02 Absolute Neuts (auto) 9.15 H Sodium 137 Potassium 2.5 L* D Chloride 102 Carbon Dioxide 24 Anion Gap 13 BUN 31 H Creatinine 2.9 H Est GFR ( Amer) 20 Est GFR (Non-Af Amer) 16 POC Glucose (mg/dL) Random Glucose 197 H Calcium 8.5 Phosphorus Magnesium Total Bilirubin 0.4 AST 42 H ALT 21 Alkaline Phosphatase 62 C-Reactive Protein Total Protein 5.5 L Albumin 2.8 L Globulin 2.7 Albumin/Globulin Ratio 1.0 L TSH 3rd Generation 0.97 09/12/18 09/12/18 09/12/18 05:57 07:40 07:55 WBC RBC Hgb Hct MCV MCH MCHC RDW Plt Count MPV Neut % (Auto) Lymph % (Auto) [place] % (Auto) Eos % (Auto) Baso % (Auto) Lymph # (Auto) [place] # (Auto) Eos # (Auto) Baso # (Auto) Absolute Neuts (auto) Sodium Potassium Chloride Carbon Dioxide Anion Gap BUN Creatinine Est GFR ( Amer) Est GFR (Non-Af Amer) POC Glucose (mg/dL) 218 H 265 H Random Glucose Calcium Phosphorus 4.0 Magnesium 1.7 Total Bilirubin AST ALT Alkaline Phosphatase C-Reactive Protein Total Protein Albumin Globulin Albumin/Globulin Ratio TSH 3rd Generation Radiology Impressions: Radiology Impressions Chest X-Ray 09/11/18 16:07 IMPRESSION: Satisfactory position of recently placed orogastric tube. Critical Care Progress Note - Nutrition Nutrition: Nutrition Category Date Time Status NPO Diet [DIET] Diets 09/10/18 Lunch Ordered Attending/Attestation - Attestation I have personally seen and examined this patient.: Yes I have fully participated in the care of the patient.: Yes I have reviewed all pertinent clinical information: Yes Notes (Text): 09/12/18 08:[address] Luu note
[2018-09-11 07:39] LABS: ALB/GLOB RATIO 1.1 (1.1-1.8); ALBUMIN 3.4 g/dL (3.0-4.8); CALCIUM 8.6 mg/dL (8.4-10.5)
[2018-09-11] MEDS: Propofol 10 mg/ml 1,000 MG/100 ML VIAL IV PRN (08:51)
--- NOTE | 2018-09-11 09:20 | CP.PCM.CON ---
History of Present Illness - History of Present Illness History of Present Illness: Maksim Hernandez DO, PGY-2: Neurology Consult Note for Dr. Mann Neurology Consult requested by Dr. Goodman for Altered Mental Status 68-year-old -Cypriot female with a past medical history of hypertension, COPD, and diabetes who presented to [facility] with a left-sided weakness and altered mental status that was first noted by her at 8 AM on Tuesday. In the ED, the patient was noted to be in atrial flutter. The patient underwent CTA of the head and neck that showed findings concerning for embolic disease and subsequent MRI of the brain showed multiple small acute infarcts seen scattered about both cerebral hemispheres. The patient was was intubated for airway protection secondary to her altered mental status, started on an insulin drip for her hyperglycemia, nicardipine drip for control of her blood pressure, and broad spectrum antibiotics. At the time of my examination, the patient is in the ICU, sedated on propofol, able to move right upper extremity and right lower extremity, does not exhibit movement of the left upper extremity and has a positive Babinski sign on the left.. A complete HPI and review of systems is limited secondary to the patients condition. Chart review also indicates that the patient is febrile on broad-spectrum anabiotics and being treated for HHS/DKA. PMH: Hypertension, COPD, DM II, possible CVA PSH: None noted Allergies: NKA Social: Unobtainable Review of Systems - Review of Systems Systems not reviewed;Unavailable: Altered Mental Status, Intubated Past Patient History - Infectious Disease Hx of Infectious Diseases: None - Tetanus Immunizations Tetanus Immunization: Unknown - Past Social History Smoking Status: Unknown If Ever Smoked - CARDIAC Hx Hypertension: Yes - PULMONARY Hx Chronic Obstructive Pulmonary Disease (COPD): Yes - NEUROLOGICAL HX Cerebrovascular Accident: Yes - ENDOCRINE/METABOLIC Hx Diabetes Mellitus Type 2: Yes - MUSCULOSKELETAL/RHEUMATOLOGICAL Hx Falls: No - PSYCHIATRIC Hx Depression: No Hx Emotional Abuse: No Hx Physical Abuse: No Hx Substance Use: No - SURGICAL HISTORY Hx Surgeries: No Meds Allergies/Adverse Reactions: Allergies Allergy/AdvReac Type Severity Reaction Status Date / Time No Known Allergies Allergy Verified 12/20/11 11:39 - Medications Medications: Current Medications Propofol (Diprivan) 1,000 mg in 100 mls @ 2.547 mls/hr IV .Q24H PRN; Protocol PRN Reason: TITRATE PER MD ORDER Last Admin: 09/11/18 08:51 Dose: 20 mcg/kg/min, 10.189 mls/hr Nicardipine HCl (Cardene Iv Premix) 20 mg in 200 mls @ 50 mls/hr IV .Q4H PRN; Protocol PRN Reason: TITRATE PER MD ORDER Last Titration: 09/11/18 07:25 Dose: 0 mg/hr, 0 mls/hr Vancomycin HCl (Vancomycin 1gm) 1 gm in 250 mls @ 167 mls/hr IVPB Q12H JAMES; Protocol Stop: 09/19/18 22:46 Last Admin: 09/10/18 23:39 Dose: Not Given Piperacillin Sod/Tazobactam Sod (Zosyn 4.5 Gm In Ns 100ml) 4.5 gm in 100 mls @ 25 mls/hr IVPB Q8 JAMES; Protocol Stop: 09/20/18 06:01 Last Admin: 09/11/18 05:40 Dose: 25 mls/hr Insulin Human Regular 100 (units/ Sodium Chloride) 100 mls @ 1 mls/hr IV .Q24H PRN; Protocol PRN Reason: TITRATE PER MD ORDER Last Titration: 09/11/18 06:00 Dose: 2 units/hr, 2 mls/hr Potassium Chloride 20 meq/ (Dextrose/Sodium Chloride) 1,010 mls @ 100 mls/hr IV .Q10H6M [facility] Last Admin: 09/11/18 04:06 Dose: 100 mls/hr Pantoprazole Sodium (Protonix Inj) 40 mg IVP DAILY [facility] Physical Exam - Constitutional Appears: Non-toxic - Head Exam Head Exam: ATRAUMATIC, NORMOCEPHALIC - Eye Exam Eye Exam: Normal appearance, PERRL - ENT Exam ENT Exam: Mucous Membranes Moist - Neck Exam Neck exam: Positive for: Normal Inspection - Respiratory Exam Respiratory Exam: NORMAL BREATHING PATTERN. absent: Accessory Muscle Use - Cardiovascular Exam Cardiovascular Exam: Tachycardia, +S1, +S2 - GI/Abdominal Exam GI & Abdominal Exam: absent: Guarding, Rebound - Extremities Exam Extremities exam: Positive for: normal inspection. Negative for: calf tenderness - Neurological Exam Additional comments: decreased movement in right upper and lower extremity, positive Babinski on left - Skin Additional comments: warm to touch Results - Vital Signs Recent Vital Signs: Last Vital Signs Temp 99.5 F 09/11/18 04:00 Pulse 100 H 09/11/18 05:20 Resp 17 09/11/18 05:20 BP 137/100 H 09/11/18 05:15 Pulse Ox 100 09/11/18 05:20 - Labs Result Diagrams: 09/11/18 03:40 09/11/18 06:40 Labs: Laboratory Results - last 24 hr 09/10/18 09/10/18 09/10/18 12:50 12:50 12:50 WBC 12.0 H RBC 4.38 Hgb 12.3 Hct 36.2 MCV 82.6 MCH 28.1 MCHC 34.0 RDW 13.2 Plt Count 316 MPV 10.5 Neut % (Auto) 90.3 H Lymph % (Auto) 6.2 L Giles % (Auto) 3.4 Eos % (Auto) 0.0 L Baso % (Auto) 0.1 Lymph # (Auto) 0.8 L Giles # (Auto) 0.4 Eos # (Auto) 0.0 Baso # (Auto) 0.01 Absolute Neuts (auto) 10.86 H Neutrophils % (Manual) 91 H Lymphocytes % (Manual) 6 L Monocytes % (Manual) 3 Platelet Evaluation Normal Hypochromasia Slight Anisocytosis (manual) 1+ Microcytosis (manual) 1+ ESR PT 12.9 H INR 1.14 APTT 28.7 pCO2 pO2 HCO3 ABG pH ABG Total CO2 ABG O2 Saturation ABG O2 Content ABG Base Excess ABG Hemoglobin ABG Carboxyhemoglobin POC ABG HHb (Measured) ABG Methemoglobin ABG O2 Capacity VBG pH VBG pCO2 VBG HCO3 VBG Total CO2 VBG O2 Sat (Calc) VBG Base Excess VBG Potassium Hgb O2 Saturation Glucose Lactate FiO2 Crit Value Called To Crit Value Called By Blood Gas Notified Time Sodium 134 Potassium 3.5 L Chloride 97 L Carbon Dioxide 28 Anion Gap 12 BUN 14 Creatinine 0.9 Est GFR ( Amer) > 60 Est GFR (Non-Af Amer) > 60 POC Glucose (mg/dL) Random Glucose 423 H* D Hemoglobin A1c Calcium 9.1 Total Bilirubin 0.5 AST 21 ALT 13 Alkaline Phosphatase 91 Troponin I < 0.01 Total Protein 6.8 Albumin 3.7 Globulin 3.1 Albumin/Globulin Ratio 1.2 Triglycerides 128 Cholesterol 183 LDL Cholesterol Direct 82 HDL Cholesterol 56 Venous Blood Potassium Urine Color Urine Appearance Urine pH Ur Specific [place] Urine Protein Urine Glucose (UA) Urine Ketones Urine Blood Urine Nitrate Urine Bilirubin Urine Urobilinogen Ur Leukocyte Esterase Urine RBC Urine WBC Ur Epithelial Cells Urine Bacteria Urine Other Blood Type Blood Type Confirm Antibody Screen BBK History Checked 09/10/18 09/10/18 09/10/18 12:50 12:50 12:55 WBC RBC Hgb Hct MCV MCH MCHC RDW Plt Count MPV Neut % (Auto) Lymph % (Auto) Giles % (Auto) Eos % (Auto) Baso % (Auto) Lymph # (Auto) Giles # (Auto) Eos # (Auto) Baso # (Auto) Absolute Neuts (auto) Neutrophils % (Manual) Lymphocytes % (Manual) Monocytes % (Manual) Platelet Evaluation Hypochromasia Anisocytosis (manual) Microcytosis (manual) ESR PT INR APTT pCO2 pO2 71 H HCO3 ABG pH ABG Total CO2 ABG O2 Saturation ABG O2 Content ABG Base Excess ABG Hemoglobin ABG Carboxyhemoglobin POC ABG HHb (Measured) ABG Methemoglobin ABG O2 Capacity VBG pH 7.50 H VBG pCO2 37.0 L VBG HCO3 28.9 H VBG Total CO2 30.0 H VBG O2 Sat (Calc) 94.6 H VBG Base Excess 5.5 H VBG Potassium 3.4 L Hgb O2 Saturation Glucose 440 H* Lactate 1.5 FiO2 21.0 Crit Value Called To Radha dorman Crit Value Called By Edgard mejia Blood Gas Notified Time 1308 Sodium 135.0 Potassium Chloride 98.0 Carbon Dioxide Anion Gap BUN Creatinine Est GFR ( Amer) Est GFR (Non-Af Amer) POC Glucose (mg/dL) Random Glucose Hemoglobin A1c 8.7 H Calcium Total Bilirubin AST ALT Alkaline Phosphatase Troponin I Total Protein Albumin Globulin Albumin/Globulin Ratio Triglycerides Cholesterol LDL Cholesterol Direct HDL Cholesterol Venous Blood Potassium 3.4 L Urine Color Urine Appearance Urine pH Ur Specific [place] Urine Protein Urine Glucose (UA) Urine Ketones Urine Blood Urine Nitrate Urine Bilirubin Urine Urobilinogen Ur Leukocyte Esterase Urine RBC Urine WBC Ur Epithelial Cells Urine Bacteria Urine Other Blood Type O POSITIVE Blood Type Confirm Antibody Screen Negative BBK History Checked No verified bt 09/10/18 09/10/18 09/10/18 13:20 17:20 18:39 WBC RBC Hgb Hct MCV MCH MCHC RDW Plt Count MPV Neut % (Auto) Lymph % (Auto) Giles % (Auto) Eos % (Auto) Baso % (Auto) Lymph # (Auto) Giles # (Auto) Eos # (Auto) Baso # (Auto) Absolute Neuts (auto) Neutrophils % (Manual) Lymphocytes % (Manual) Monocytes % (Manual) Platelet Evaluation Hypochromasia Anisocytosis (manual) Microcytosis (manual) ESR PT INR APTT pCO2 34 L pO2 140.0 H HCO3 25.9 ABG pH 7.49 H ABG Total CO2 26.9 ABG O2 Saturation 97.6 ABG O2 Content 16.4 ABG Base Excess 2.8 ABG Hemoglobin 11.9 ABG Carboxyhemoglobin 0.8 POC ABG HHb (Measured) 2.4 ABG Methemoglobin 0.2 ABG O2 Capacity 16.8 VBG pH VBG pCO2 VBG HCO3 VBG Total CO2 VBG O2 Sat (Calc) VBG Base Excess VBG Potassium Hgb O2 Saturation 96.6 Glucose Lactate FiO2 40.0 Crit Value Called To Crit Value Called By Blood Gas Notified Time Sodium Potassium Chloride Carbon Dioxide Anion Gap BUN Creatinine Est GFR ( Amer) Est GFR (Non-Af Amer) POC Glucose (mg/dL) > 500 H* Random Glucose Hemoglobin A1c Calcium Total Bilirubin AST ALT Alkaline Phosphatase Troponin I Total Protein Albumin Globulin Albumin/Globulin Ratio Triglycerides Cholesterol LDL Cholesterol Direct HDL Cholesterol Venous Blood Potassium Urine Color Urine Appearance Urine pH Ur Specific [place] Urine Protein Urine Glucose (UA) Urine Ketones Urine Blood Urine Nitrate Urine Bilirubin Urine Urobilinogen Ur Leukocyte Esterase Urine RBC Urine WBC Ur Epithelial Cells Urine Bacteria Urine Other Blood Type Blood Type Confirm O POSITIVE Antibody Screen BBK History Checked 09/10/18 09/10/18 09/10/18 20:00 20:18 21:33 WBC RBC Hgb Hct MCV MCH MCHC RDW Plt Count MPV Neut % (Auto) Lymph % (Auto) Giles % (Auto) Eos % (Auto) Baso % (Auto) Lymph # (Auto) Giles # (Auto) Eos # (Auto) Baso # (Auto) Absolute Neuts (auto) Neutrophils % (Manual) Lymphocytes % (Manual) Monocytes % (Manual) Platelet Evaluation Hypochromasia Anisocytosis (manual) Microcytosis (manual) ESR PT INR APTT pCO2 pO2 69 H HCO3 ABG pH ABG Total CO2 ABG O2 Saturation ABG O2 Content ABG Base Excess ABG Hemoglobin ABG Carboxyhemoglobin POC ABG HHb (Measured) ABG Methemoglobin ABG O2 Capacity VBG pH 7.41 VBG pCO2 46.0 VBG HCO3 29.2 H VBG Total CO2 VBG O2 Sat (Calc) 93.9 H VBG Base Excess 3.8 H VBG Potassium Hgb O2 Saturation Glucose Lactate FiO2 Crit Value Called To Crit Value Called By Blood Gas Notified Time Sodium Potassium Chloride Carbon Dioxide Anion Gap BUN Creatinine Est GFR ( Amer) Est GFR (Non-Af Amer) POC Glucose (mg/dL) > 500 H* 500 H* Random Glucose Hemoglobin A1c Calcium Total Bilirubin AST ALT Alkaline Phosphatase Troponin I Total Protein Albumin Globulin Albumin/Globulin Ratio Triglycerides Cholesterol LDL Cholesterol Direct HDL Cholesterol Venous Blood Potassium Urine Color Urine Appearance Urine pH Ur Specific [place] Urine Protein Urine Glucose (UA) Urine Ketones Urine Blood Urine Nitrate Urine Bilirubin Urine Urobilinogen Ur Leukocyte Esterase Urine RBC Urine WBC Ur Epithelial Cells Urine Bacteria Urine Other Blood Type Blood Type Confirm Antibody Screen BBK History Checked 09/10/18 09/10/18 09/11/18 22:20 23:32 00:36 WBC RBC Hgb Hct MCV MCH MCHC RDW Plt Count MPV Neut % (Auto) Lymph % (Auto) Giles % (Auto) Eos % (Auto) Baso % (Auto) Lymph # (Auto) Giles # (Auto) Eos # (Auto) Baso # (Auto) Absolute Neuts (auto) Neutrophils % (Manual) Lymphocytes % (Manual) Monocytes % (Manual) Platelet Evaluation Hypochromasia Anisocytosis (manual) Microcytosis (manual) ESR PT INR APTT pCO2 pO2 HCO3 ABG pH ABG Total CO2 ABG O2 Saturation ABG O2 Content ABG Base Excess ABG Hemoglobin ABG Carboxyhemoglobin POC ABG HHb (Measured) ABG Methemoglobin ABG O2 Capacity VBG pH VBG pCO2 VBG HCO3 VBG Total CO2 VBG O2 Sat (Calc) VBG Base Excess VBG Potassium Hgb O2 Saturation Glucose Lactate FiO2 Crit Value Called To Crit Value Called By Blood Gas Notified Time Sodium Potassium Chloride Carbon Dioxide Anion Gap BUN Creatinine Est GFR ( Amer) Est GFR (Non-Af Amer) POC Glucose (mg/dL) 432 H* 344 H 144 H Random Glucose Hemoglobin A1c Calcium Total Bilirubin AST ALT Alkaline Phosphatase Troponin I Total Protein Albumin Globulin Albumin/Globulin Ratio Triglycerides Cholesterol LDL Cholesterol Direct HDL Cholesterol Venous Blood Potassium Urine Color Urine Appearance Urine pH Ur Specific [place] Urine Protein Urine Glucose (UA) Urine Ketones Urine Blood Urine Nitrate Urine Bilirubin Urine Urobilinogen Ur Leukocyte Esterase Urine RBC Urine WBC Ur Epithelial Cells Urine Bacteria Urine Other Blood Type Blood Type Confirm Antibody Screen BBK History Checked 09/11/18 09/11/18 09/11/18 01:00 01:02 01:58 WBC RBC Hgb Hct MCV MCH MCHC RDW Plt Count MPV Neut % (Auto) Lymph % (Auto) Giles % (Auto) Eos % (Auto) Baso % (Auto) Lymph # (Auto) Giles # (Auto) Eos # (Auto) Baso # (Auto) Absolute Neuts (auto) Neutrophils % (Manual) Lymphocytes % (Manual) Monocytes % (Manual) Platelet Evaluation Hypochromasia Anisocytosis (manual) Microcytosis (manual) ESR 46 H PT INR APTT pCO2 pO2 HCO3 ABG pH ABG Total CO2 ABG O2 Saturation ABG O2 Content ABG Base Excess ABG Hemoglobin ABG Carboxyhemoglobin POC ABG HHb (Measured) ABG Methemoglobin ABG O2 Capacity VBG pH VBG pCO2 VBG HCO3 VBG Total CO2 VBG O2 Sat (Calc) VBG Base Excess VBG Potassium Hgb O2 Saturation Glucose Lactate FiO2 Crit Value Called To Crit Value Called By Blood Gas Notified Time Sodium Potassium Chloride Carbon Dioxide Anion Gap BUN Creatinine Est GFR ( Amer) Est GFR (Non-Af Amer) POC Glucose (mg/dL) 129 H 151 H Random Glucose Hemoglobin A1c Calcium Total Bilirubin AST ALT Alkaline Phosphatase Troponin I Total Protein Albumin Globulin Albumin/Globulin Ratio Triglycerides Cholesterol LDL Cholesterol Direct HDL Cholesterol Venous Blood Potassium Urine Color Urine Appearance Urine pH Ur Specific [place] Urine Protein Urine Glucose (UA) Urine Ketones Urine Blood Urine Nitrate Urine Bilirubin Urine Urobilinogen Ur Leukocyte Esterase Urine RBC Urine WBC Ur Epithelial Cells Urine Bacteria Urine Other Blood Type Blood Type Confirm Antibody Screen BBK History Checked 09/11/18 09/11/18 09/11/18 02:47 03:24 03:40 WBC 16.0 H D RBC 4.16 Hgb 11.5 L Hct 34.8 L MCV 83.7 MCH 27.6 MCHC 33.0 RDW 13.7 Plt Count 297 MPV 10.0 Neut % (Auto) Lymph % (Auto) Giles % (Auto) Eos % (Auto) Baso % (Auto) Lymph # (Auto) Giles # (Auto) Eos # (Auto) Baso # (Auto) Absolute Neuts (auto) Neutrophils % (Manual) Lymphocytes % (Manual) Monocytes % (Manual) Platelet Evaluation Hypochromasia Anisocytosis (manual) Microcytosis (manual) ESR PT INR APTT pCO2 pO2 HCO3 ABG pH ABG Total CO2 ABG O2 Saturation ABG O2 Content ABG Base Excess ABG Hemoglobin ABG Carboxyhemoglobin POC ABG HHb (Measured) ABG Methemoglobin ABG O2 Capacity VBG pH VBG pCO2 VBG HCO3 VBG Total CO2 VBG O2 Sat (Calc) VBG Base Excess VBG Potassium Hgb O2 Saturation Glucose Lactate FiO2 Crit Value Called To Crit Value Called By Blood Gas Notified Time Sodium Potassium Chloride Carbon Dioxide Anion Gap BUN Creatinine Est GFR ( Amer) Est GFR (Non-Af Amer) POC Glucose (mg/dL) 171 H Random Glucose Hemoglobin A1c Calcium Total Bilirubin AST ALT Alkaline Phosphatase Troponin I Total Protein Albumin Globulin Albumin/Globulin Ratio Triglycerides Cholesterol LDL Cholesterol Direct HDL Cholesterol Venous Blood Potassium Urine Color Yellow Urine Appearance Cloudy Urine pH 5.5 Ur Specific [place] 1.025 Urine Protein >=300 H Urine Glucose (UA) 250 H Urine Ketones Trace H Urine Blood Moderate H Urine Nitrate Negative Urine Bilirubin Small H Urine Urobilinogen 0.2 Ur Leukocyte Esterase Small H Urine RBC 2 - 5 H Urine WBC 10 - 15 H Ur Epithelial Cells 1 - 3 Urine Bacteria Small Urine Other Uyeast Blood Type Blood Type Confirm Antibody Screen BBK History Checked 09/11/18 09/11/18 09/11/18 03:40 04:07 05:45 WBC RBC Hgb Hct MCV MCH MCHC RDW Plt Count MPV Neut % (Auto) Lymph % (Auto) Giles % (Auto) Eos % (Auto) Baso % (Auto) Lymph # (Auto) Giles # (Auto) Eos # (Auto) Baso # (Auto) Absolute Neuts (auto) Neutrophils % (Manual) Lymphocytes % (Manual) Monocytes % (Manual) Platelet Evaluation Hypochromasia Anisocytosis (manual) Microcytosis (manual) ESR PT INR APTT pCO2 pO2 HCO3 ABG pH ABG Total CO2 ABG O2 Saturation ABG O2 Content ABG Base Excess ABG Hemoglobin ABG Carboxyhemoglobin POC ABG HHb (Measured) ABG Methemoglobin ABG O2 Capacity VBG pH VBG pCO2 VBG HCO3 VBG Total CO2 VBG O2 Sat (Calc) VBG Base Excess VBG Potassium Hgb O2 Saturation Glucose Lactate FiO2 Crit Value Called To Crit Value Called By Blood Gas Notified Time Sodium 137 Potassium 3.0 L Chloride 99 Carbon Dioxide 29 Anion Gap 12 BUN 24 H Creatinine 1.9 H Est GFR ( Amer) 32 Est GFR (Non-Af Amer) 26 POC Glucose (mg/dL) 176 H 222 H Random Glucose 166 H Hemoglobin A1c Calcium 8.6 Total Bilirubin AST ALT Alkaline Phosphatase Troponin I Total Protein Albumin Globulin Albumin/Globulin Ratio Triglycerides Cholesterol LDL Cholesterol Direct HDL Cholesterol Venous Blood Potassium Urine Color Urine Appearance Urine pH Ur Specific [place] Urine Protein Urine Glucose (UA) Urine Ketones Urine Blood Urine Nitrate Urine Bilirubin Urine Urobilinogen Ur Leukocyte Esterase Urine RBC Urine WBC Ur Epithelial Cells Urine Bacteria Urine Other Blood Type Blood Type Confirm Antibody Screen BBK History Checked 09/11/18 09/11/18 06:00 06:40 WBC RBC Hgb Hct MCV MCH MCHC RDW Plt Count MPV Neut % (Auto) Lymph % (Auto) Giles % (Auto) Eos % (Auto) Baso % (Auto) Lymph # (Auto) Giles # (Auto) Eos # (Auto) Baso # (Auto) Absolute Neuts (auto) Neutrophils % (Manual) Lymphocytes % (Manual) Monocytes % (Manual) Platelet Evaluation Hypochromasia Anisocytosis (manual) Microcytosis (manual) ESR PT INR APTT pCO2 35 pO2 137.0 H HCO3 26.1 ABG pH 7.48 H ABG Total CO2 27.2 ABG O2 Saturation 97.2 ABG O2 Content 15.8 ABG Base Excess 2.7 ABG Hemoglobin 11.5 L ABG Carboxyhemoglobin 0.3 L POC ABG HHb (Measured) 2.8 ABG Methemoglobin 0.6 ABG O2 Capacity 16.3 VBG pH VBG pCO2 VBG HCO3 VBG Total CO2 VBG O2 Sat (Calc) VBG Base Excess VBG Potassium Hgb O2 Saturation 96.3 Glucose Lactate FiO2 40.0 Crit Value Called To Crit Value Called By Blood Gas Notified Time Sodium 135 Potassium 3.4 L Chloride 98 Carbon Dioxide 30 Anion Gap 12 BUN 24 H Creatinine 2.0 H Est GFR ( Amer) 30 Est GFR (Non-Af Amer) 25 POC Glucose (mg/dL) Random Glucose 271 H Hemoglobin A1c Calcium 8.6 Total Bilirubin 0.6 AST 40 H D ALT 19 Alkaline Phosphatase 71 Troponin I Total Protein 6.4 Albumin 3.4 Globulin 3.0 Albumin/Globulin Ratio 1.1 Triglycerides Cholesterol LDL Cholesterol Direct HDL Cholesterol Venous Blood Potassium Urine Color Urine Appearance Urine pH Ur Specific [place] Urine Protein Urine Glucose (UA) Urine Ketones Urine Blood Urine Nitrate Urine Bilirubin Urine Urobilinogen Ur Leukocyte Esterase Urine RBC Urine WBC Ur Epithelial Cells Urine Bacteria Urine Other Blood Type Blood Type Confirm Antibody Screen BBK History Checked Assessment & Plan - Assessment and Plan (Free Text) Assessment: 68-year-old -Cypriot female with a past medical history of hypertension, COPD, and diabetes who presented to [facility] with a left-sided weakness and altered mental status that was first noted by her at 8 AM on Tuesday. Plan: 1) Acute CVA, likely embolic - Head CT no acute intracranial pathology, age- related changes - Head neck CTA no evidence of occlusion significant stenosis or dissection of the carotid arteries. There is a calcified athrosclerotic plaque both carotid siphons. There is moderate calcified plaque of the distal right vertebral artery. with minimal calcified plaque left vertebral artery. Intra cerebral circulation is patent. No evidence of large aneurysm nor vascular malformation. - Brain MRI there are multiple small acute infarcts seen scattered about both cerebral hemispheres. There findings suggest embolic event given the involvement of bilateral vascular distributions. - Echocardiogram ordered - Permissive hypertension Case was reviewed and discussed with attending physician, Dr. Mann
[2018-09-11] MEDS ORDERED: Vancomycin 1gm in NS 250ml 1 GM/250 ML BAG IVPB SCH (10:00)
[2018-09-11] MEDS: Vancomycin 1gm in NS 250ml 1 GM/250 ML BAG IVPB SCH (10:35)
[2018-09-11] MEDS: levETIRAcetam 1000mg/100ml NS 100 ML IV SCH ×2 (12:01→21:24)
--- NOTE | 2018-09-11 12:24 | CP.PCM.CON ---
History of Present Illness - History of Present Illness History of Present Illness: Neurology consult dictated Miss duenas is a 68 yr old woman who came in as code stroke, called by Dr. hernandez, with left sided face, arm and leg weakness, who was last seen well at 330 am, and then found to be weak with dysarthria at about 8 am. EMS brought patient in at about [address] head does not show acute hemorrhage or stro ke,and she is not TPA candidate due to unknown onset of symptoms. NIHSS is now: Plan: 1. CTA head and neck with contrast if line is possible. 2. MRI Brain without contrast. 3. aspirin 4. PT ST OT 5. Dysphagia evaluation. 6. Neuro checks q 1 hour and admit to ICU 7. DVT prophylaxis Thank you our team will follow Dr. friend Neurology Past Patient History - Infectious Disease Hx of Infectious Diseases: None - Tetanus Immunizations Tetanus Immunization: Unknown - Past Social History Smoking Status: Unknown If Ever Smoked - CARDIAC Hx Hypertension: Yes - PULMONARY Hx Chronic Obstructive Pulmonary Disease (COPD): Yes - NEUROLOGICAL HX Cerebrovascular Accident: Yes - ENDOCRINE/METABOLIC Hx Diabetes Mellitus Type 2: Yes - PSYCHIATRIC Hx Depression: No Hx Emotional Abuse: No Hx Physical Abuse: No Hx Substance Use: No - SURGICAL HISTORY Hx Surgeries: No Meds Allergies/Adverse Reactions: Allergies Allergy/AdvReac Type Severity Reaction Status Date / Time No Known Allergies Allergy Verified 12/20/11 11:39 - Medications Medications: Current Medications Sodium Chloride (Sodium Chloride 0.9%) 1,000 mls @ 100 mls/hr IV .Q10H JAMES Results - Labs Result Diagrams: 09/11/18 03:40 09/11/18 06:40
[2018-09-11] MEDS ORDERED: Sodium Chloride 0.45% 1,000 ML IV SCH (13:00)
--- NOTE | 2018-09-11 14:17 | CP.PCM.PN ---
<Maksim Hernandez - Last Filed: 09/11/18 14:29> Subjective - Date & Time of Evaluation Date of Evaluation: 09/11/18 Time of Evaluation: 07:15 - Subjective Subjective: Maksim Hernandez DO, PGY-2: Neurology Progress Note for Dr. Mann Patient was seen and examined at bedside. Patient febrile. Patient had witnessed, generalized seizure lasting 45 seconds to 1 minute. Patient given 1 gram of Keppra IVPB and 8 mg of Ativan IVP. Patient does not move left arm. No adverse events overnight. Objective - Vital Signs/Intake and Output Vital Signs (last 24 hours): Temp Pulse Resp BP Pulse Ox 102.8 F H 107 H 165 H 187/81 H 99 09/11/18 08:00 09/11/18 12:00 09/11/18 10:59 09/11/18 11:00 09/11/18 10:59 Intake and Output: 09/11/18 09/11/18 06:59 18:59 Intake Total 1713.5 106.5 Output Total 150 Balance 1563.5 106.5 - Medications Medications: Current Medications Amlodipine Besylate (Norvasc) 10 mg PO DAILY JAMES Hydralazine HCl (Apresoline) 10 mg IVP Q6 PRN PRN Reason: For SBP>160 Propofol (Diprivan) 1,000 mg in 100 mls @ 2.547 mls/hr IV .Q24H PRN; Protocol PRN Reason: TITRATE PER MD ORDER Last Admin: 09/11/18 08:51 Dose: 20 mcg/kg/min, 10.189 mls/hr Nicardipine HCl (Cardene Iv Premix) 20 mg in 200 mls @ 50 mls/hr IV .Q4H PRN; Protocol PRN Reason: TITRATE PER MD ORDER Last Titration: 09/11/18 07:25 Dose: 0 mg/hr, 0 mls/hr Vancomycin HCl (Vancomycin 1gm) 1 gm in 250 mls @ 167 mls/hr IVPB Q12H JAMES; Protocol Stop: 09/19/18 22:46 Last Admin: 09/11/18 10:35 Dose: 167 mls/hr Piperacillin Sod/Tazobactam Sod (Zosyn 4.5 Gm In Ns 100ml) 4.5 gm in 100 mls @ 25 mls/hr IVPB Q8 JAMES; Protocol Stop: 09/20/18 06:01 Last Admin: 09/11/18 05:40 Dose: 25 mls/hr Insulin Human Regular 100 (units/ Sodium Chloride) 100 mls @ 1 mls/hr IV .Q24H PRN; Protocol PRN Reason: TITRATE PER MD ORDER Last Titration: 09/11/18 10:36 Dose: 2 units/hr, 2 mls/hr Levetiracetam (Keppra 1000mg/100ml Ns) 100 mls @ 460 mls/hr IV Q12 JAMES Last Admin: 09/11/18 12:01 Dose: 460 mls/hr Sodium Chloride (Sodium Chloride 0.45%) 1,000 mls @ 65 mls/hr IV .[id number] [facility] Last Admin: 09/11/18 13:25 Dose: 65 mls/hr Metoprolol Tartrate (Lopressor) 25 mg PO BID [facility] Pantoprazole Sodium (Protonix Inj) 40 mg IVP DAILY [facility] Last Admin: 09/11/18 10:35 Dose: 40 mg - Labs Labs: 09/11/18 03:40 09/11/18 06:40 PT 12.9 SECONDS (9.4-12.5) H 09/10/18 12:50 INR 1.14 09/10/18 12:50 APTT 28.7 Seconds (26.9-38.3) 09/10/18 12:50 - Constitutional Appears: Toxic - Head Exam Head Exam: ATRAUMATIC, NORMOCEPHALIC - Eye Exam Eye Exam: Normal appearance, PERRL - Respiratory Exam Respiratory Exam: NORMAL BREATHING PATTERN. absent: Accessory Muscle Use - Cardiovascular Exam Cardiovascular Exam: Tachycardia, +S1, +S2 - GI/Abdominal Exam GI & Abdominal Exam: absent: Tenderness, Rebound - Extremities Exam Extremities Exam: Normal Inspection. absent: Calf Tenderness - Neurological Exam Additional comments: left Babinski positive, left upper extremity 0/5 strength and does not withdraw from painful stimuli, left leg graded 3/5, pupils are sluggish to light response - Skin Skin Exam: Warm (to touch) Assessment and Plan - Assessment and Plan (Free Text) Assessment: 68 year old black female with a past medical history of hypertension and DM II who was admitted for AMS and left sided weakness who was found to have multi ple small acute infarcts seen scattered about both cerebral hemispheres, sepsis, and HHS. Plan: 1) Acute stroke, likely embolic in nature - Head CT no acute intracranial pathology, age- related changes - Head neck CTA no evidence of occlusion significant stenosis or dissection of the carotid arteries. There is a calcified athrosclerotic plaque both carotid siphons. There is moderate calcified plaque of the distal right vertebral artery. with minimal calfified plaque left vertebral artery. Intra cerebral circulation is patent. No evidence of large aneurysm nor vascular malformation. - Brain MRI there are multiple small acute infarcts seen scattered about both cerebral hemispheres. There findings suggest embolic event given the involvement of bilateral vascular distributions. - TTE and MATEO recommended - HOB 45 degrees - Permissive Hypertension - Carotid and vertebral duplex US 2) Seizures - Video EEG - Keppra 1 g q12 IVPB - Ativan PRN for seizures Case was reviewed and discussed with attending physician, Dr. Mann <David Mann - Last Filed: 09/12/18 16:52> Objective - Vital Signs/Intake and Output Vital Signs (last 24 hours): Temp Pulse Resp BP Pulse Ox 99.4 F 74 22 183/92 H 100 09/12/18 04:00 09/12/18 15:11 09/12/18 12:31 09/12/18 15:11 09/12/18 12:31 Intake and Output: 09/12/18 09/12/18 06:59 18:59 Intake Total 1605.5 139.5 Output Total 201 Balance 1404.5 139.5 - Medications Medications: Current Medications Acetaminophen (Tylenol 650mg/20.3ml Solution Ud) 650 mg NG Q6H PRN PRN Reason: Temperature >100.4 Last Admin: 09/11/18 22:44 Dose: 650 mg Amlodipine Besylate (Norvasc) 10 mg PO DAILY JAMES Last Admin: 09/12/18 09:32 Dose: 10 mg Hydralazine HCl (Apresoline) 10 mg IVP Q6 PRN PRN Reason: For SBP>160 Last Admin: 09/12/18 15:11 Dose: 10 mg Propofol (Diprivan) 1,000 mg in 100 mls @ 2.547 mls/hr IV .Q24H PRN; Protocol PRN Reason: TITRATE PER MD ORDER Last Titration: 09/12/18 11:00 Dose: 0 mcg/kg/min, 0 mls/hr Insulin Human Regular 100 (units/ Sodium Chloride) 100 mls @ 1 mls/hr IV .Q24H PRN; Protocol PRN Reason: TITRATE PER MD ORDER Last Titration: 09/12/18 14:00 Dose: 1.5 units/hr, 1.5 mls/hr Levetiracetam (Keppra 1000mg/100ml Ns) 100 mls @ 460 mls/hr IV Q12 JAMES Last Admin: 09/12/18 09:32 Dose: 460 mls/hr Acetaminophen (Ofirmev) 1,000 mg in 100 mls @ 400 mls/hr IVPB Q6H PRN PRN Reason: fever Stop: 09/14/18 00:38 Last Admin: 09/12/18 00:44 Dose: 400 mls/hr Sodium Chloride (Sodium Chloride 0.9%) 1,000 mls @ 100 mls/hr IV .Q10H [facility] Piperacillin Sod/Tazobactam Sod (Zosyn 2.25 Gm In 0.9% 100 Ml) 2.25 gm in 100 mls @ 100 mls/hr IVPB Q8 [facility] Last Admin: 09/12/18 14:00 Dose: 100 mls/hr Metoprolol Tartrate (Lopressor) 25 mg PO BID [facility] Last Admin: 09/12/18 09:31 Dose: 25 mg Pantoprazole Sodium (Protonix Inj) 40 mg IVP DAILY [facility] Last Admin: 09/12/18 09:35 Dose: 40 mg - Labs Labs: 09/12/18 05:30 09/12/18 16:10 PT 12.9 SECONDS (9.4-12.5) H 09/10/18 12:50 INR 1.14 09/10/18 12:50 APTT 28.7 Seconds (26.9-38.3) 09/10/18 12:50 Attending/Attestation - Attestation I have personally seen and examined this patient.: Yes I have fully participated in the care of the patient.: Yes I have reviewed all pertinent clinical information, including history, physical exam and plan: Yes Notes (Text): I agree with the assessment and plan as outlined above.
--- NOTE | 2018-09-11 14:58 | CON ---
DATE: 09/11/2018 CONSULT SERVICE: Cardiology. REASON FOR CONSULTATION: Admitted with CVA cardiac evaluation. BRIEF CLINICAL HISTORY: A 68-year-old female with past medical history significant for hypertension, diabetes, who was brought to the emergency room after the patient has been reported around day before yesterday at 03:30 a.m. that the patient went to sleep and later on woke up with left-sided weakness of upper and lower extremity. The patient was intubated here and now the patient is currently being intubated, sedated with mild weakness on the left upper extremity. The patient is moving right upper extremity as well as right lower extremity, but Babinski sign is positive on the left upper extremity, currently being sedated, on vent. SOCIAL HISTORY: Not mentioned. No history of smoking or alcohol abuse found in the chart. PAST HISTORY: As mentioned, hypertension, hyperlipidemia, and type 2 diabetes. CURRENT MEDICATIONS AT HOME: The patient was taking Micardis 40 mg daily, lisinopril 10 mg daily, insulin, Flonase, amlodipine, amitriptyline, and albuterol. ALLERGIES: NO KNOWN DRUG ALLERGIES. REVIEW OF SYSTEMS: As per HPI. PHYSICAL EXAMINATION: GENERAL: Height of the patient 5 feet 3 inches, weight of the patient 175 pounds, body mass index 31.1 kg/m2. VITAL SIGNS: Temperature afebrile, heart rate 107, blood pressure 187/81. HEENT: PERRLA. Extraocular muscles intact. NECK: Supple. No carotid bruit. No thyromegaly. CHEST: Clear to auscultation. HEART: S1, S2. Regular. ABDOMEN: Soft. EXTREMITIES: Clubbing and cyanosis, negative. LABORATORY DATA: Blood workup as follows. WBC 16, hemoglobin 11.5, hematocrit 34.8, platelet count 297. Chemistry shows sodium 135, potassium 3.4, chloride 97, carbon dioxide 30, anion gap of 12, BUN 24, creatinine 2. EKG shows normal sinus, no acute ST-T changes noted. Troponin remains negative. IMPRESSION: A 68-year-old female with past medical history significant for diabetes, hypertension, hyperlipidemia; admitted with left-sided weakness. Cardiac consult was called for cardiac evaluation. The patient has left-sided weakness. RECOMMENDATIONS: We will get lipid profile, TSH, hemoglobin A1c, bilateral carotid duplex, echo with bubble study to rule out any PFO. The patient did not get TPA because unknown duration of the symptoms. Just now, I got a call from ICU that neurologist wanted to do the MATEO. We will review the echo and if need, we will schedule for MATEO for tomorrow. Further recommendation with hospital course. We will start NG feeding. We will start medication through the NG tube. We will follow with you. Spoke to both daughter on Conference call Melissa# [phone], Both daughter are willing for MATEO, 'll get telephone consent in am from them, explained in details her mother condition, current status and prognosis. Thank you Dr. Goodman for providing us the opportunity in taking care of the patient, Pat Torres. We will adjust antihypertensive medication and beta-susan. We will follow with you. May Pelaez MD [facility]
--- NOTE | 2018-09-11 15:25 | HP ---
DATE OF EXAM: 09/11/2018 HISTORY OF PRESENT ILLNESS: The patient is 68-year-old black female, known to me from office practice, who was brought to emergency room by Paramedics after she was found unresponsive by her , and she was having left-sided weakness. Currently, the patient is intubated and in ICU, unable to get more history. PAST MEDICAL HISTORY: She has significant past medical history of: 1. Poorly controlled diabetes. 2. Hypertension. 3. Hyperlipidemia. 4. Left chest postherpetic neuralgia. 5. Bilateral knee osteoarthritis. 6. Hip arthritis. ALLERGY: SHE IS NOT ALLERGIC TO ANY MEDICATION. MEDICATIONS: At home, she is on Incruse Ellipta. She is on lisinopril 10 mg daily. She is on insulin. She is on amlodipine 5 mg daily. She is on Elavil 100 mg at bedtime. SOCIAL HISTORY: She is a retired teacher; lives with her . No history of smoking, drinking or alcohol use. PHYSICAL EXAMINATION: On examination: GENERAL: She is intubated and sedated. VITAL SIGNS: She is afebrile, pulse 112, respiration 20, and blood pressure 187/81. LUNGS: Bilateral fair airflow. No rhonchi or crackle. HEART: S1 and S2 audible. ABDOMEN: Soft and nontender. No rebound. No guarding. NEUROLOGIC: The patient is sedated, on vent; unable to assess neurological status. LABORATORY DATA: WBC 16.0, hemoglobin 11.5, hematocrit 34.8, and platelet 297. PT 12.9 and INR 1.14. Chemistry; sodium 135, potassium 3.4, chloride 98, CO2 of 24, BUN 24, creatinine 2.0, and blood sugar is 217. Urinalysis shows moderate blood, small leukocyte and 10-15 WBCs. Had MRI of the brain done that shows multiple small acute infarct hemisphere suggesting embolic event. No intracranial hemorrhage seen. Moderate generalized volume loss. She had CTA done also. Next CTA done that shows no evidence of occlusion or dissection of cervical carotid artery in both carotid. ASSESSMENT: 1. Status post cerebrovascular accident. 2. Respiratory failure, on ventilation. 3. Insulin-dependent diabetes. 4. Hypertension. 5. Hyperlipidemia. PLAN: We will continue the patient on Keppra. She is on IV fluid. Blood sugar is being monitored. Request for Cardiology evaluation and we will follow up the patient in a.m. Darryl Goodman MD
--- NOTE | 2018-09-11 16:03 | PN ---
DATE: 09/11/2018 SUBJECTIVE: The patient seen and examined at bedside. She is sedated with propofol 25 mcg/kg/minute. She did not tolerate pressure support trial, was put back on PRVC. OBJECTIVE: VITAL SIGNS: Blood pressure 162/74, heart rate 93 regular, oxygen saturation 100% on 40% FIO2, respiratory rate 18. HEENT: Head and neck atraumatic. The patient is intubated. LUNGS: Clear to auscultation bilaterally. HEART: Regular rate and rhythm. S1, S2 normal. ABDOMEN: Soft, nontender, nondistended. MUSCULOSKELETAL: No C/C/E. NEUROLOGIC: Patient is seen moving all extremities spontaneously. SKIN: Moist. PSYCHIATRIC: The patient a sedated. LABORATORY DATA: WBC 16, hemoglobin 11.5, platelet count 297. Sodium 135, potassium 3.4, chloride 98, carbon dioxide 30, BUN 24, creatinine two, glucose 271, AST 40, ALT 19, total bilirubin 0.6 and full EBG showed 7.48/35/137 on 40% FIO2. Lactic acid 1.5. Brain MRI showed areas of small infarcts suggested embolic etiology. Echocardiogram is pending. The patient is on insulin drip. MEDICATIONS: D5 half-normal saline with potassium at 100 mL/hour insulin Cardene drip, Protonix. Cardene drip Protonix propofol. It was held vancomycin and Zosyn. ASSESSMENT: This is a 68-year-old lady who presented with altered mental status and fever with MRI of the brain positive for small areas of infarct suggesting an embolic etiology. As the patient has leukocytosis and fever, she was empirically covered with broad-spectrum antibiotics and ID service is following her as well. She does have small leukocyte esterase and bacteria in the urine, thus possibility of UTI cannot be ruled out. However, in the presence of above MRI findings, IE has to be ruled out as well. Blood cultures are pending, TTE+/-MATEO are pending At present time patient is intubated for airway protection--> propofol is held for sedation vacation; however, the patient did not pass pressure support trial and propofol will be restarted. We will continue with head of bed elevated more 35 degrees and oral hygiene and the rest of the VAP bundle. We will continue with low to intermittent tidal volume ventilation with plateau pressure less than 25 cm of water. We will continue with relatively conservative fluid and conservative oxygen management. The patient is within first 24 hours of acute stroke. Thus we will allow for "auto hypertension". The patient is off of Cardene drip and presently blood pressure is 162/74. The patient received aspirin as well. She is seen moving all extremities spontaneously. ID ruth septic workup is ordered. Chest x-ray did not show any active pulmonary disease. ID service is following the patient as well. We will maintain euglycemia, normothermia. The patient is on insulin drip with Accu-Chek every 1 hour. We will continue with IV fluids as creatinine is rising, to maintain renal perfusion. I will try to avoid hyperchloremia. We will continue with DVT, GI prophylaxis. Neurology consult is pending. Addendum: patient had witnessed clinical seziures-->ativan 8 mg is given, Keppra 1000 mg IV q12hrs and EEG ordered, Dr. Mann is notified. ccm time 40 min Thomas Luu MD [facility]
--- NOTE | 2018-09-11 17:49 | RAD ---
Date of service: 09/11/2018 HISTORY: OGT placement COMPARISON: 09/10/2018. FINDINGS: LUNGS: No active pulmonary disease. PLEURA: No significant pleural effusion identified, no pneumothorax apparent. CARDIOVASCULAR: No atherosclerotic calcification present Normal. OSSEOUS STRUCTURES: No significant abnormalities. VISUALIZED UPPER ABDOMEN: Orogastric tube identified coursing through the esophagus into the stomach in good position. The stomach appears to be decompressed. OTHER FINDINGS: Incompletely visualized endotracheal tube which appears to be in satisfactory position, the tip 2 cm above the alvaro. IMPRESSION: Satisfactory position of recently placed orogastric tube.
--- NOTE | 2018-09-11 18:54 | CARD ---
APPROVED REPORT Date of service: 09/11/2018 EXAM: Two-dimensional and M-mode echocardiogram with Doppler and color Doppler. INDICATION BUBBLE STUDY..R/O PFO..EMBOLIC STROKE 2D DIMENSIONS Left Atrium (2D)3.1 (1.6-4.0cm)IVSd1.5 (0.7-1.1cm) LVDd3.3 (3.9-5.9cm)PWd1.3 (0.7-1.1cm) LVDs2.3 (2.5-4.0cm)FS (%) 30.0 % LVEF (%)58.5 (>50%) M-Mode DIMENSIONS Aortic Root2.80 (2.2-3.7cm)Aortic Cusp Exc.1.60 (1.5-2.0cm) Aortic Valve AoV Peak Sdifxcad192.0cm/Therese Peak GR.8mmHgLVOT Peak Xbajufeg794.0cm/s LVOT VTI19.60cm Mitral Valve MV E Fpaatnwr14.8cm/sMV A Ueeieibq98.7cm/sE/A ratio0.5 TDI Lateral E' Peak V7.31cm/sMedial E' Peak V4.09cm/sE/Lateral E'6.9 E/Medial E'12.4 Pulmonary Valve PV Peak Gczmkmtj10.6cm/sPV Peak Grad.2mmHg Tricuspid Valve TR Peak Doegwaqb868ou/sRAP [id number] Peak Gr.19mmHg [id number] LEFT VENTRICLE The left ventricle is normal size. There is mild to moderate concentric left ventricular hypertrophy. The left ventricular function is normal.EF-55-60% There is normal LV segmental wall motion. Transmitral Doppler flow pattern is Grade III-reversible restrictive diastolic dysfunction. No left ventricle thrombus noted on this study. There is no ventricular septal defect visualized. There is no left ventricular aneurysm. There is no mass noted in the left ventricle. RIGHT VENTRICLE The right ventricle is normal size. There is normal right ventricular wall thickness. The right ventricular systolic function is normal. ATRIA The left atrium size is normal. The right atrium size is normal. The atrial septum is aneurysmal. The interatrial septum is intact with no evidence for an atrial septal defect, by Color Flow and bubble Study. AORTIC VALVE The aortic valve is mildly thickened. There is trace aortic regurgitation. There is no aortic valvular stenosis. There is no aortic valvular vegetation. MITRAL VALVE The mitral valve is thickened but opens well. Mitral regurgitation is trace. There is no mitral valve stenosis. There is no evidence of mitral valve prolapse. TRICUSPID VALVE The tricuspid valve leaflets are thickened , but open well. There is trace tricuspid regurgitation. There is no tricuspid valve stenosis. There is no tricuspid valve prolapse or vegetation. PULMONIC VALVE The pulmonary valve is normal in structure. There is no pulmonic valvular regurgitation. There is no pulmonic valvular stenosis. GREAT VESSELS The aortic root is normal in size. The ascending aorta is normal in size. The pulmonary artery is normal. The IVC is normal in size and collapses >50% with inspiration. PERICARDIAL EFFUSION There is no pleural effusion. There is no pericardial effusion. <Conclusion> Normal chamber Size, EF-55-60%. Trace MR/TR/AR/PI RVSP-29 mmof Hg. The atrial septum is aneurysmal. The interatrial septum is intact with no evidence for an atrial septal defect, by Color Flow and bubble Study. No vegetation or thrombus noted.
[2018-09-11] MEDS: Acetaminophen 650mg/20.3ml solution UD NG PRN (22:44)
[2018-09-11] MEDS ORDERED: Dextrose 5%/0.45% NS 1,000 ML IV SCH (22:45)
[2018-09-12] MEDS: Piperacill/Tazo 4.5gm in NS 4.5 GM/100 ML BAG IVPB SCH (05:32)
--- NOTE | 2018-09-12 05:58 | CON ---
DATE: 09/11/2018 The patient is in bed, seen earlier this morning, room #129, bed #4. The patient is intubated on a ventilator. CHIEF COMPLAINT: Temperature of 103.8. HISTORY OF PRESENT ILLNESS: The patient is a 68-year-old female with hypertension, diabetes, chronic obstructive lung disease, who has no known allergies and who is admitted with weakness, found to have a temperature of 103. The patient with hypertension, diabetes, and COPD, intubated on a ventilator and ; however, on presentation, the patient was perfectly fine until the day of the event where the patient was found to be weak and found to have been in respiratory failure, intubated on a ventilator now. REVIEW OF SYSTEMS: A 12-point review of systems is performed. PAST MEDICAL HISTORY: Significant for hypertension, diabetes, and chronic obstructive lung disease. PAST SURGICAL HISTORY: Noncontributory. ALLERGIES: THE PATIENT HAS NO KNOWN ALLERGIES. HOME MEDICATIONS: Medications at home include insulin and amlodipine. PHYSICAL EXAMINATION: VITAL SIGNS: On exam, the patient is in bed with a temperature of 101.9, T-max was 103 on admission yesterday, blood pressure is 173/77, heart rate of 128, respiratory rate on a vent and on admission, it was 22. HEENT: Examination of HEENT reveals ET tube in place. NECK: Supple. LUNGS: Have decreased breath sounds. HEART: Normal S1, S2. ABDOMEN: Examination is soft, nontender, and no rebound or guarding. LABORATORY DATA: Laboratory examination reveals the patient's white count of 12,000 which goes up to 16,000; with 90% polys and chemistries reveal a BUN of 24, creatinine of 2; from yesterday, the patient's creatinine has increased from 0.9 to 2, and the patient's urinalysis reveals yeast and bacteria leukocyte esterase. Microbiology reveals the blood cultures are negative. who was seeing her, progress note is reviewed. The patient was admitted with acute mental status and left-sided weakness, found to have multiple small acute infarcts gathered about both cerebral hemispheres and Dr. Pelaez's consultation is reviewed. This is a 68-year-old with left-sided weakness, cardiac consult was called for a cardiac evaluation and he has scheduled him for a MATEO. Dr. Goodman's history and physical examination is noted. ASSESSMENT AND PLAN: This is a 68-year-old female with diabetes, hypertension, chronic obstructive lung disease, with respiratory failure, intubated on a ventilator, with acute cerebrovascular accident, with respiratory failure, intubated on a ventilator with serous systemic inflammatory response and acute kidney injury, must rule out endocarditis with embolic disease. We will discontinue the vancomycin because of acute kidney injury, continue the Zosyn because thus far the blood cultures are negative. We will check on an echo. Overall prognosis is quite poor. We will follow with you. Tejas Smiley MD
[2018-09-12 06:23] LABS: BASO # 0.02 K/mm3 (0.0-2.0); BASO % 0.1 % (0.0-3.0); EOS # 0.1 (0.0-0.7); EOS % 0.6 % (1.5-5.0); HEMOGLOBIN 10.2 g/dL (12.0-16.0); LYMPH # 2.9 (1.2-3.4); LYMPH % 21.1 % (22.0-35.0); MEAN CELL VOLUME 85.6 fl (80.0-105.0); MEAN CORPUSCULAR HEMOGLOBIN 27.3 pg (25.0-35.0); MEAN CORPUSCULAR HGB CONC 31.9 g/dl (31.0-37.0); MEAN PLATELET VOLUME 10.3 fl (7.0-11.0); MONO # 1.5 (0.1-0.6); MONO % 11.1 % (1.0-6.0); RBC 3.74 10^6/uL (3.5-6.1); RED CELL DISTRIBUTION WIDTH 14.2 % (11.5-14.5); WHITE BLOOD COUNT 13.6 10^3/uL (4.5-11.0)
[2018-09-12] MEDS ORDERED: Benzocaine/Butamben/Tetracai 14-2-2% TOP Spray TOP ONE (06:57)
[2018-09-12 07:12] LABS: ALBUMIN 2.8 g/dL (3.0-4.8); CALCIUM 8.5 mg/dL (8.4-10.5)
[2018-09-12] MEDS ORDERED: Flumazenil 0.1 mg/ml Inj (5ml) IVP ONE (07:21)
[2018-09-12] MEDS ORDERED: Midazolam 2 MG/2 ML VIAL ONE (07:21)
[2018-09-12] MEDS ORDERED: Naloxone 0.4 mg/ml Inj (Adult) ONE (07:21)
[2018-09-12] MEDS ORDERED: Potassium Chloride 40 MEQ in Dextrose 5%/0.45% NS 1,000 ML IV SCH (07:37)
[2018-09-12] MEDS: Propofol 10 mg/ml 1,000 MG/100 ML VIAL IV PRN (08:23)
--- NOTE | 2018-09-12 09:05 | CP.CCUPN ---
<Earnest Damico - Last Filed: 09/12/18 11:28> CCU Subjective - Physician Review Events Since Last Encounter (Free Text): 09/12/18 09:01 no acute events overnight Subjective (Free Text): 09/11/18 07:00 Pt seen and examined, pt intubated at time of exam 09/12/18 09:02 pt seen and examined, video EEG, pt responds to pain CCU Objective - Vital Signs / Intake & Output Vital Signs (Last 4 hours): Vital Signs Pulse Resp BP Pulse Ox 09/12/18 07:40 70 20 100 09/12/18 07:38 71 20 154/72 H 100 09/12/18 07:34 68 21 169/78 H 100 09/12/18 07:30 70 20 148/78 100 09/12/18 07:27 71 20 148/74 100 09/12/18 07:20 72 20 100 09/12/18 07:10 70 20 100 09/12/18 07:00 69 20 131/68 100 09/12/18 06:50 71 20 100 09/12/18 06:40 72 20 100 09/12/18 06:30 72 20 127/68 100 09/12/18 06:20 73 20 100 09/12/18 06:10 74 20 100 09/12/18 06:00 75 20 129/71 100 09/12/18 05:50 76 20 100 09/12/18 05:40 74 100 09/12/18 05:30 78 20 130/68 100 09/12/18 05:20 77 20 100 09/12/18 05:10 79 20 100 Intake and Output (Last 8hrs): Intake & Output 09/11/18 09/12/18 09/12/18 22:59 06:59 14:59 Intake Total 1048 1601.5 104.5 Output Total 275 201 Balance 773 1400.5 104.5 Intake: IV 928 1241.5 104.5 antibiotics 350 200 diprivan 288 insulin drip 24 9 maintenance IV 550 740 Tube Feeding 120 360 Output: Urine 275 200 Urethral (Johns) 275 200 Stool 0 1 - Physical Exam Head: Positive for: Atraumatic, Normocephalic Mouth: Positive for: Moist Mucous Membranes Neck: Positive for: Normal Range of Motion Respiratory/Chest: Positive for: Clear to Auscultation, Good Air Exchange. Negative for: Respiratory Distress, Accessory Muscle Use Cardiovascular: Positive for: Regular Rate and Rhythm, Normal S1, S2. Negative for: Murmurs Abdomen: Negative for: Tenderness, Distention, Peritoneal Signs Back: Positive for: Normal Inspection Upper Extremity: Positive for: Normal Inspection. Negative for: Cyanosis, Edema Lower Extremity: Positive for: Normal Inspection. Negative for: Edema Neurological: Negative for: Speech Normal, Motor Func Grossly Intact (5/5 right side; 0/5 left side), Normal Sensory Function (decreased sensation left side) Skin: Positive for: Warm, Dry, Normal Color. Negative for: Rashes Psychiatric: Positive for: Alert, Oriented x 3, Normal Insight, Normal Concentration - Medications Active Medications: Active Medications Generic Name Dose Route Start Last Admin Trade Name Freq PRN Reason Stop Dose Admin Acetaminophen 650 mg 09/11/18 17:02 09/11/18 22:44 Tylenol 650mg/20.3ml Solution Ud NG 650 mg Q6H PRN Administration Temperature >100.4 Amlodipine Besylate 10 mg 09/12/18 10:00 Norvasc PO DAILY JAMES Hydralazine HCl 10 mg 09/11/18 13:30 Apresoline IVP Q6 PRN For SBP>160 Propofol 1,000 mg in 100 mls @ 2.547 mls/hr 09/10/18 17:03 09/12/18 08:23 Diprivan IV 20 mcg/kg/min .Q24H PRN 10.189 mls/hr TITRATE PER MD ORDER Administration Protocol 5 MCG/KG/MIN Nicardipine HCl 20 mg in 200 mls @ 50 mls/hr 09/10/18 20:04 09/11/18 07:25 Cardene Iv Premix IV 0 mg/hr .Q4H PRN 0 mls/hr TITRATE PER MD ORDER Titration Protocol 5 MG/HR Piperacillin Sod/Tazobactam Sod 4.5 gm in 100 mls @ 25 mls/hr 09/11/18 06:00 09/12/18 05:32 Zosyn 4.5 Gm In Ns 100ml IVPB 09/20/18 06:01 25 mls/hr Q8 JAMES Administration Protocol Insulin Human Regular 100 100 mls @ 1 mls/hr 09/11/18 03:27 09/12/18 08:00 units/ Sodium Chloride IV 3 units/hr .Q24H PRN 3 mls/hr TITRATE PER MD ORDER Titration Protocol 1 UNITS/HR Levetiracetam 100 mls @ 460 mls/hr 09/11/18 11:45 09/11/18 21:24 Keppra 1000mg/100ml Ns IV 460 mls/hr Q12 JAMES Administration Acetaminophen 1,000 mg in 100 mls @ 400 mls/hr 09/12/18 00:37 09/12/18 00:44 Ofirmev IVPB 09/14/18 00:38 400 mls/hr Q6H PRN Administration fever Potassium Chloride 20 meq in 100 mls @ 50 mls/hr 09/12/18 07:45 09/12/18 08:00 Potassium Chloride 20 Meq/100 Ml IVPB 09/12/18 17:44 50 mls/hr Q2H JAMES Administration Potassium Chloride 40 meq/ 1,020 mls @ 60 mls/hr 09/12/18 07:37 Dextrose/Sodium Chloride IV .Q17H JAMES Metoprolol Tartrate 25 mg 09/11/18 18:00 09/11/18 17:11 Lopressor PO 25 mg BID JAMES Administration Pantoprazole Sodium 40 mg 09/11/18 10:00 09/11/18 10:35 Protonix Inj IVP 40 mg DAILY JAMES Administration - Patient Studies Lab Studies: Microbiology Studies 09/10/18 17:20 MRSA Culture (Admit) - Final Naris MRSA NOT DETECTED 09/10/18 13:20 Blood Culture - Preliminary Blood NO GROWTH AFTER 24 HOURS 09/10/18 12:50 Blood Culture - Preliminary Blood NO GROWTH AFTER 24 HOURS Lab Studies 09/12/18 09/12/18 09/12/18 Range/Units 07:55 07:40 05:57 WBC (4.5-11.0) 10^3/uL RBC (3.5-6.1) 10^6/uL Hgb (12.0-16.0) g/dL Hct (36.0-48.0) % MCV (80.0-105.0) fl MCH (25.0-35.0) pg MCHC (31.0-37.0) g/dl RDW (11.5-14.5) % Plt Count (120.0-450.0) 10^3/uL MPV (7.0-11.0) fl Neut % (Auto) (50.0-68.0) % Lymph % (Auto) (22.0-35.0) % Harding % (Auto) (1.0-6.0) % Eos % (Auto) (1.5-5.0) % Baso % (Auto) (0.0-3.0) % Lymph # (Auto) (1.2-3.4) Harding # (Auto) (0.1-0.6) Eos # (Auto) (0.0-0.7) Baso # (Auto) (0.0-2.0) K/mm3 Absolute Neuts (auto) (1.4-6.5) Sodium (132-148) mmol/L Potassium (3.6-5.0) mmol/L Chloride (98-107) mmol/L Carbon Dioxide (21-33) mmol/L Anion Gap (10-20) BUN (7-21) mg/dL Creatinine (0.7-1.2) mg/dl Est GFR ( Amer) Est GFR (Non-Af Amer) POC Glucose (mg/dL) 265 H 218 H (65-110) mg/dL Random Glucose (70-110) mg/dL Calcium (8.4-10.5) mg/dL Phosphorus 4.0 (2.5-4.5) mg/dL Magnesium 1.7 (1.7-2.2) mg/dL Total Bilirubin (0.2-1.3) mg/dL AST (14-36) U/L ALT (7-56) U/L Alkaline Phosphatase (38-126) U/L C-Reactive Protein (0.0-9.9) mg/L Total Protein (5.8-8.3) g/dL Albumin (3.0-4.8) g/dL Globulin gm/dL Albumin/Globulin Ratio (1.1-1.8) TSH 3rd Generation (0.46-4.68) mIU/mL 09/12/18 09/12/18 09/12/18 Range/Units 05:30 05:30 05:30 WBC 13.6 H (4.5-11.0) 10^3/uL RBC 3.74 (3.5-6.1) 10^6/uL Hgb 10.2 L (12.0-16.0) g/dL Hct 32.0 L (36.0-48.0) % MCV 85.6 (80.0-105.0) fl MCH 27.3 (25.0-35.0) pg MCHC 31.9 (31.0-37.0) g/dl RDW 14.2 (11.5-14.5) % Plt Count 230 (120.0-450.0) 10^3/uL MPV 10.3 (7.0-11.0) fl Neut % (Auto) 67.1 (50.0-68.0) % Lymph % (Auto) 21.1 L (22.0-35.0) % Harding % (Auto) 11.1 H (1.0-6.0) % Eos % (Auto) 0.6 L (1.5-5.0) % Baso % (Auto) 0.1 (0.0-3.0) % Lymph # (Auto) 2.9 (1.2-3.4) Harding # (Auto) 1.5 H (0.1-0.6) Eos # (Auto) 0.1 (0.0-0.7) Baso # (Auto) 0.02 (0.0-2.0) K/mm3 Absolute Neuts (auto) 9.15 H (1.4-6.5) Sodium 137 (132-148) mmol/L Potassium 2.5 L* D (3.6-5.0) mmol/L Chloride 102 (98-107) mmol/L Carbon Dioxide 24 (21-33) mmol/L Anion Gap 13 (10-20) BUN 31 H (7-21) mg/dL Creatinine 2.9 H (0.7-1.2) mg/dl Est GFR ( Amer) 20 Est GFR (Non-Af Amer) 16 POC Glucose (mg/dL) (65-110) mg/dL Random Glucose 197 H (70-110) mg/dL Calcium 8.5 (8.4-10.5) mg/dL Phosphorus (2.5-4.5) mg/dL Magnesium (1.7-2.2) mg/dL Total Bilirubin 0.4 (0.2-1.3) mg/dL AST 42 H (14-36) U/L ALT 21 (7-56) U/L Alkaline Phosphatase 62 (38-126) U/L C-Reactive Protein (0.0-9.9) mg/L Total Protein 5.5 L (5.8-8.3) g/dL Albumin 2.8 L (3.0-4.8) g/dL Globulin 2.7 gm/dL Albumin/Globulin Ratio 1.0 L (1.1-1.8) TSH 3rd Generation 0.97 (0.46-4.68) mIU/mL 09/12/18 09/12/18 09/12/18 Range/Units 03:59 02:02 00:05 WBC (4.5-11.0) 10^3/uL RBC (3.5-6.1) 10^6/uL Hgb (12.0-16.0) g/dL Hct (36.0-48.0) % MCV (80.0-105.0) fl MCH (25.0-35.0) pg MCHC (31.0-37.0) g/dl RDW (11.5-14.5) % Plt Count (120.0-450.0) 10^3/uL MPV (7.0-11.0) fl Neut % (Auto) (50.0-68.0) % Lymph % (Auto) (22.0-35.0) % Harding % (Auto) (1.0-6.0) % Eos % (Auto) (1.5-5.0) % Baso % (Auto) (0.0-3.0) % Lymph # (Auto) (1.2-3.4) Harding # (Auto) (0.1-0.6) Eos # (Auto) (0.0-0.7) Baso # (Auto) (0.0-2.0) K/mm3 Absolute Neuts (auto) (1.4-6.5) Sodium (132-148) mmol/L Potassium (3.6-5.0) mmol/L Chloride (98-107) mmol/L Carbon Dioxide (21-33) mmol/L Anion Gap (10-20) BUN (7-21) mg/dL Creatinine (0.7-1.2) mg/dl Est GFR ( Amer) Est GFR (Non-Af Amer) POC Glucose (mg/dL) 178 H 216 H 190 H (65-110) mg/dL Random Glucose (70-110) mg/dL Calcium (8.4-10.5) mg/dL Phosphorus (2.5-4.5) mg/dL Magnesium (1.7-2.2) mg/dL Total Bilirubin (0.2-1.3) mg/dL AST (14-36) U/L ALT (7-56) U/L Alkaline Phosphatase (38-126) U/L C-Reactive Protein (0.0-9.9) mg/L Total Protein (5.8-8.3) g/dL Albumin (3.0-4.8) g/dL Globulin gm/dL Albumin/Globulin Ratio (1.1-1.8) TSH 3rd Generation (0.46-4.68) mIU/mL 09/11/18 09/11/18 09/11/18 Range/Units 21:52 19:55 17:52 WBC (4.5-11.0) 10^3/uL RBC (3.5-6.1) 10^6/uL Hgb (12.0-16.0) g/dL Hct (36.0-48.0) % MCV (80.0-105.0) fl MCH (25.0-35.0) pg MCHC (31.0-37.0) g/dl RDW (11.5-14.5) % Plt Count (120.0-450.0) 10^3/uL MPV (7.0-11.0) fl Neut % (Auto) (50.0-68.0) % Lymph % (Auto) (22.0-35.0) % Harding % (Auto) (1.0-6.0) % Eos % (Auto) (1.5-5.0) % Baso % (Auto) (0.0-3.0) % Lymph # (Auto) (1.2-3.4) Harding # (Auto) (0.1-0.6) Eos # (Auto) (0.0-0.7) Baso # (Auto) (0.0-2.0) K/mm3 Absolute Neuts (auto) (1.4-6.5) Sodium (132-148) mmol/L Potassium (3.6-5.0) mmol/L Chloride (98-107) mmol/L Carbon Dioxide (21-33) mmol/L Anion Gap (10-20) BUN (7-21) mg/dL Creatinine (0.7-1.2) mg/dl Est GFR ( Amer) Est GFR (Non-Af Amer) POC Glucose (mg/dL) 149 H 162 H 173 H (65-110) mg/dL Random Glucose (70-110) mg/dL Calcium (8.4-10.5) mg/dL Phosphorus (2.5-4.5) mg/dL Magnesium (1.7-2.2) mg/dL Total Bilirubin (0.2-1.3) mg/dL AST (14-36) U/L ALT (7-56) U/L Alkaline Phosphatase (38-126) U/L C-Reactive Protein (0.0-9.9) mg/L Total Protein (5.8-8.3) g/dL Albumin (3.0-4.8) g/dL Globulin gm/dL Albumin/Globulin Ratio (1.1-1.8) TSH 3rd Generation (0.46-4.68) mIU/mL 09/11/18 09/11/18 09/11/18 Range/Units 15:51 13:55 11:31 WBC (4.5-11.0) 10^3/uL RBC (3.5-6.1) 10^6/uL Hgb (12.0-16.0) g/dL Hct (36.0-48.0) % MCV (80.0-105.0) fl MCH (25.0-35.0) pg MCHC (31.0-37.0) g/dl RDW (11.5-14.5) % Plt Count (120.0-450.0) 10^3/uL MPV (7.0-11.0) fl Neut % (Auto) (50.0-68.0) % Lymph % (Auto) (22.0-35.0) % Harding % (Auto) (1.0-6.0) % Eos % (Auto) (1.5-5.0) % Baso % (Auto) (0.0-3.0) % Lymph # (Auto) (1.2-3.4) Harding # (Auto) (0.1-0.6) Eos # (Auto) (0.0-0.7) Baso # (Auto) (0.0-2.0) K/mm3 Absolute Neuts (auto) (1.4-6.5) Sodium (132-148) mmol/L Potassium (3.6-5.0) mmol/L Chloride (98-107) mmol/L Carbon Dioxide (21-33) mmol/L Anion Gap (10-20) BUN (7-21) mg/dL Creatinine (0.7-1.2) mg/dl Est GFR ( Amer) Est GFR (Non-Af Amer) POC Glucose (mg/dL) 132 H 128 H 176 H (65-110) mg/dL Random Glucose (70-110) mg/dL Calcium (8.4-10.5) mg/dL Phosphorus (2.5-4.5) mg/dL Magnesium (1.7-2.2) mg/dL Total Bilirubin (0.2-1.3) mg/dL AST (14-36) U/L ALT (7-56) U/L Alkaline Phosphatase (38-126) U/L C-Reactive Protein (0.0-9.9) mg/L Total Protein (5.8-8.3) g/dL Albumin (3.0-4.8) g/dL Globulin gm/dL Albumin/Globulin Ratio (1.1-1.8) TSH 3rd Generation (0.46-4.68) mIU/mL 09/11/18 09/11/18 09/11/18 Range/Units 09:51 07:50 01:00 WBC (4.5-11.0) 10^3/uL RBC (3.5-6.1) 10^6/uL Hgb (12.0-16.0) g/dL Hct (36.0-48.0) % MCV (80.0-105.0) fl MCH (25.0-35.0) pg MCHC (31.0-37.0) g/dl RDW (11.5-14.5) % Plt Count (120.0-450.0) 10^3/uL MPV (7.0-11.0) fl Neut % (Auto) (50.0-68.0) % Lymph % (Auto) (22.0-35.0) % Harding % (Auto) (1.0-6.0) % Eos % (Auto) (1.5-5.0) % Baso % (Auto) (0.0-3.0) % Lymph # (Auto) (1.2-3.4) Harding # (Auto) (0.1-0.6) Eos # (Auto) (0.0-0.7) Baso # (Auto) (0.0-2.0) K/mm3 Absolute Neuts (auto) (1.4-6.5) Sodium (132-148) mmol/L Potassium (3.6-5.0) mmol/L Chloride (98-107) mmol/L Carbon Dioxide (21-33) mmol/L Anion Gap (10-20) BUN (7-21) mg/dL Creatinine (0.7-1.2) mg/dl Est GFR ( Amer) Est GFR (Non-Af Amer) POC Glucose (mg/dL) 217 H 241 H (65-110) mg/dL Random Glucose (70-110) mg/dL Calcium (8.4-10.5) mg/dL Phosphorus (2.5-4.5) mg/dL Magnesium (1.7-2.2) mg/dL Total Bilirubin (0.2-1.3) mg/dL AST (14-36) U/L ALT (7-56) U/L Alkaline Phosphatase (38-126) U/L C-Reactive Protein 11.80 H (0.0-9.9) mg/L Total Protein (5.8-8.3) g/dL Albumin (3.0-4.8) g/dL Globulin gm/dL Albumin/Globulin Ratio (1.1-1.8) TSH 3rd Generation (0.46-4.68) mIU/mL Laboratory Results - last 24 hr 09/11/18 09/11/18 09/11/18 01:00 07:50 09:51 WBC RBC Hgb Hct MCV MCH MCHC RDW Plt Count MPV Neut % (Auto) Lymph % (Auto) Harding % (Auto) Eos % (Auto) Baso % (Auto) Lymph # (Auto) Harding # (Auto) Eos # (Auto) Baso # (Auto) Absolute Neuts (auto) Sodium Potassium Chloride Carbon Dioxide Anion Gap BUN Creatinine Est GFR ( Amer) Est GFR (Non-Af Amer) POC Glucose (mg/dL) 241 H 217 H Random Glucose Calcium Phosphorus Magnesium Total Bilirubin AST ALT Alkaline Phosphatase C-Reactive Protein 11.80 H Total Protein Albumin Globulin Albumin/Globulin Ratio [facility] 3rd Generation 09/11/18 09/11/18 09/11/18 11:31 13:55 15:51 WBC RBC Hgb Hct MCV MCH MCHC RDW Plt Count MPV Neut % (Auto) Lymph % (Auto) Harding % (Auto) Eos % (Auto) Baso % (Auto) Lymph # (Auto) Harding # (Auto) Eos # (Auto) Baso # (Auto) Absolute Neuts (auto) Sodium Potassium Chloride Carbon Dioxide Anion Gap BUN Creatinine Est GFR ( Amer) Est GFR (Non-Af Amer) POC Glucose (mg/dL) 176 H 128 H 132 H Random Glucose Calcium Phosphorus Magnesium Total Bilirubin AST ALT Alkaline Phosphatase C-Reactive Protein Total Protein Albumin Globulin Albumin/Globulin Ratio [facility] 3rd Generation 09/11/18 09/11/18 09/11/18 17:52 19:55 21:52 WBC RBC Hgb Hct MCV MCH MCHC RDW Plt Count MPV Neut % (Auto) Lymph % (Auto) Harding % (Auto) Eos % (Auto) Baso % (Auto) Lymph # (Auto) Harding # (Auto) Eos # (Auto) Baso # (Auto) Absolute Neuts (auto) Sodium Potassium Chloride Carbon Dioxide Anion Gap BUN Creatinine Est GFR ( Amer) Est GFR (Non-Af Amer) POC Glucose (mg/dL) 173 H 162 H 149 H Random Glucose Calcium Phosphorus Magnesium Total Bilirubin AST ALT Alkaline Phosphatase C-Reactive Protein Total Protein Albumin Globulin Albumin/Globulin Ratio [facility] 3rd Generation 09/12/18 09/12/18 09/12/18 00:05 02:02 03:59 WBC RBC Hgb Hct MCV MCH MCHC RDW Plt Count MPV Neut % (Auto) Lymph % (Auto) Harding % (Auto) Eos % (Auto) Baso % (Auto) Lymph # (Auto) Harding # (Auto) Eos # (Auto) Baso # (Auto) Absolute Neuts (auto) Sodium Potassium Chloride Carbon Dioxide Anion Gap BUN Creatinine Est GFR ( Amer) Est GFR (Non-Af Amer) POC Glucose (mg/dL) 190 H 216 H 178 H Random Glucose Calcium Phosphorus Magnesium Total Bilirubin AST ALT Alkaline Phosphatase C-Reactive Protein Total Protein Albumin Globulin Albumin/Globulin Ratio TSH 3rd Generation 09/12/18 09/12/18 09/12/18 05:30 05:30 05:30 WBC 13.6 H RBC 3.74 Hgb 10.2 L Hct 32.0 L MCV 85.6 MCH 27.3 MCHC 31.9 RDW 14.2 Plt Count 230 MPV 10.3 Neut % (Auto) 67.1 Lymph % (Auto) 21.1 L Harding % (Auto) 11.1 H Eos % (Auto) 0.6 L Baso % (Auto) 0.1 Lymph # (Auto) 2.9 Harding # (Auto) 1.5 H Eos # (Auto) 0.1 Baso # (Auto) 0.02 Absolute Neuts (auto) 9.15 H Sodium 137 Potassium 2.5 L* D Chloride 102 Carbon Dioxide 24 Anion Gap 13 BUN 31 H Creatinine 2.9 H Est GFR ( Amer) 20 Est GFR (Non-Af Amer) 16 POC Glucose (mg/dL) Random Glucose 197 H Calcium 8.5 Phosphorus Magnesium Total Bilirubin 0.4 AST 42 H ALT 21 Alkaline Phosphatase 62 C-Reactive Protein Total Protein 5.5 L Albumin 2.8 L Globulin 2.7 Albumin/Globulin Ratio 1.0 L TSH 3rd Generation 0.97 09/12/18 09/12/18 09/12/18 05:57 07:40 07:55 WBC RBC Hgb Hct MCV MCH MCHC RDW Plt Count MPV Neut % (Auto) Lymph % (Auto) Harding % (Auto) Eos % (Auto) Baso % (Auto) Lymph # (Auto) Harding # (Auto) Eos # (Auto) Baso # (Auto) Absolute Neuts (auto) Sodium Potassium Chloride Carbon Dioxide Anion Gap BUN Creatinine Est GFR ( Amer) Est GFR (Non-Af Amer) POC Glucose (mg/dL) 218 H 265 H Random Glucose Calcium Phosphorus 4.0 Magnesium 1.7 Total Bilirubin AST ALT Alkaline Phosphatase C-Reactive Protein Total Protein Albumin Globulin Albumin/Globulin Ratio TSH 3rd Generation Radiology Impressions: Radiology Impressions Chest X-Ray 09/11/18 16:07 IMPRESSION: Satisfactory position of recently placed orogastric tube. Fingerstick Blood Sugar Results: 128 Critical Care Progress Note - Nutrition Nutrition: Nutrition Category Date Time Status NPO Diet [DIET] Diets 09/10/18 Lunch Ordered Assessment/Plan - Assessment and Plan (Free Text) Assessment: Pt is a 68 yo female with a PMH of HTN and DM who was found down by her with unilateral weakness. Brain MRI later showed multiple emboli in both hemispheres of the brain. Plan: Neuro - intubated and sedated on propofol 25 - admitted for multiple emboli in both hemispheres of the brain, and unilateral weakness on exam - pt had a seizure yesterday and was given propofol, ativan 8mg, keppra 1000 IV q12, continuous EEG, Korya notified - Head CT no acute intracranial pathology, age related changes - Head neck CTA no evidence of occlusion significant stenosis or dissection of the carotid arteries. There is a calcified athrosclerotic plaque both carotid siphons. There is moderate calcified plaque of the distal right vertebral artery. with minimal calfified plaque left vertebral artery. Intra cerebral circulation is patent. No evidence of large aneurysm nor vascular malformation. - Brain MRI there are multiple small acute infarcts seen scattered about both cerebral hemispheres. There findings suggest embolic event given the involvement of bilateral vascular distributions. - ECHO follow up - Neuro consulted Cardio - nicardipine drip, hold parameters - femoral central line in place - hydralazine, metoprolol - ECHO EF55-60%, RVSP29, aneurysmal atrial septum, no sings of ASD, no vegetations or thrombus noted - Cardio consulted, Dr Pelaez Pulana - ABG - ventilator settings: 20/350/40%/5 - maintain O2 >92 - VAP bundle: - oral hygiene - HOB 30 degrees - DVT/GI ppx - appropriate TV - daily sedation vacations - conservative O2 management - conservative fluid management - will wean sedation today and attempt to extubate today GI - NPO Nephro/ - monitor BUN/Cr - monitor electrolytes - UA protein, glucose, ketones, blood, bilirubin, LE, RBC, WBC Heme/ Onc - Hgb 10.2 - INR 1.14 ID - WBC 13.6 - blood cultures NGTD - zosyn - ID consulted, Dr Baljit Balderas - HA1C 8.7 - insulin drip Pt seen, examined, assessment and plan discussed with Dr Bell Damico PGY1 - Date & Time Date: 09/12/18 Time: 09:04 <Thomas Luu - Last Filed: 09/12/18 11:56> CCU Objective - Vital Signs / Intake & Output Vital Signs (Last 4 hours): Vital Signs Pulse BP 09/12/18 09:32 133/70 09/12/18 09:31 68 133/70 Intake and Output (Last 8hrs): Intake & Output 09/11/18 09/12/18 09/12/18 22:59 06:59 14:59 Intake Total 1048 1601.5 110.5 Output Total 275 201 Balance 773 1400.5 110.5 Intake: IV 928 1241.5 110.5 antibiotics 350 200 diprivan 288 insulin drip 24 9 maintenance IV 550 740 Tube Feeding 120 360 Output: Urine 275 200 Urethral (Johns) 275 200 Stool 0 1 - Medications Active Medications: Active Medications Generic Name Dose Route Start Last Admin Trade Name Freq PRN Reason Stop Dose Admin Acetaminophen 650 mg 09/11/18 17:02 09/11/18 22:44 Tylenol 650mg/20.3ml Solution Ud NG 650 mg Q6H PRN Administration Temperature >100.4 Amlodipine Besylate 10 mg 09/12/18 10:00 09/12/18 09:32 Norvasc PO 10 mg DAILY JAMES Administration Hydralazine HCl 10 mg 09/11/18 13:30 Apresoline IVP Q6 PRN For SBP>160 Propofol 1,000 mg in 100 mls @ 2.547 mls/hr 09/10/18 17:03 09/12/18 08:23 Diprivan IV 20 mcg/kg/min .Q24H PRN 10.189 mls/hr TITRATE PER MD ORDER Administration Protocol 5 MCG/KG/MIN Piperacillin Sod/Tazobactam Sod 4.5 gm in 100 mls @ 25 mls/hr 09/11/18 06:00 09/12/18 05:32 Zosyn 4.5 Gm In Ns 100ml IVPB 09/20/18 06:01 25 mls/hr Q8 JAMES Administration Protocol Insulin Human Regular 100 100 mls @ 1 mls/hr 09/11/18 03:27 09/12/18 10:00 units/ Sodium Chloride IV 2 units/hr .Q24H PRN 2 mls/hr TITRATE PER MD ORDER Titration Protocol 1 UNITS/HR Levetiracetam 100 mls @ 460 mls/hr 09/11/18 11:45 09/12/18 09:32 Keppra 1000mg/100ml Ns IV 460 mls/hr Q12 JAMES Administration Acetaminophen 1,000 mg in 100 mls @ 400 mls/hr 09/12/18 00:37 09/12/18 00:44 Ofirmev IVPB 09/14/18 00:38 400 mls/hr Q6H PRN Administration fever Potassium Chloride 20 meq in 100 mls @ 50 mls/hr 09/12/18 07:45 09/12/18 08:00 Potassium Chloride 20 Meq/100 Ml IVPB 09/12/18 17:44 50 mls/hr Q2H JAMES Administration Potassium Chloride 40 meq/ 1,020 mls @ 60 mls/hr 09/12/18 07:37 09/12/18 09:30 Dextrose/Sodium Chloride IV 60 mls/hr .Q17H JAMES Administration Metoprolol Tartrate 25 mg 09/11/18 18:00 09/12/18 09:31 Lopressor PO 25 mg BID JAMES Administration Pantoprazole Sodium 40 mg 09/11/18 10:00 09/12/18 09:35 Protonix Inj IVP 40 mg DAILY JAMES Administration - Patient Studies Lab Studies: Microbiology Studies 09/10/18 17:20 MRSA Culture (Admit) - Final Naris MRSA NOT DETECTED 09/10/18 13:20 Blood Culture - Preliminary Blood NO GROWTH AFTER 24 HOURS 09/10/18 12:50 Blood Culture - Preliminary Blood NO GROWTH AFTER 24 HOURS Lab Studies 09/12/18 09/12/18 09/12/18 Range/Units 10:00 07:55 07:40 WBC (4.5-11.0) 10^3/uL RBC (3.5-6.1) 10^6/uL Hgb (12.0-16.0) g/dL Hct (36.0-48.0) % MCV (80.0-105.0) fl MCH (25.0-35.0) pg MCHC (31.0-37.0) g/dl RDW (11.5-14.5) % Plt Count (120.0-450.0) 10^3/uL MPV (7.0-11.0) fl Neut % (Auto) (50.0-68.0) % Lymph % (Auto) (22.0-35.0) % Harding % (Auto) (1.0-6.0) % Eos % (Auto) (1.5-5.0) % Baso % (Auto) (0.0-3.0) % Lymph # (Auto) (1.2-3.4) Harding # (Auto) (0.1-0.6) Eos # (Auto) (0.0-0.7) Baso # (Auto) (0.0-2.0) K/mm3 Absolute Neuts (auto) (1.4-6.5) pCO2 30 L (35-45) mm/Hg pO2 182.0 H (80-100) mm/Hg HCO3 21.8 (21-28) mmol/L ABG pH 7.47 H (7.35-7.45) ABG Total CO2 22.7 (22-28) mmol.L ABG O2 Saturation 97.4 (95-98) % ABG O2 Content 13.6 L (15-23) ML/dl ABG Base Excess -1.3 (-2.0-3.0) mmol/L ABG Hemoglobin 9.7 L (11.7-17.4) g/dL ABG Carboxyhemoglobin 0.2 L (0.5-1.5) % POC ABG HHb (Measured) 2.6 (0-5) % ABG Methemoglobin 0.5 (0.0-3.0) % ABG O2 Capacity 14.0 L (16-24) mL/dl Hgb O2 Saturation 96.6 (95.0-98.0) % FiO2 40.0 % Sodium (132-148) mmol/L Potassium (3.6-5.0) mmol/L Chloride (98-107) mmol/L Carbon Dioxide (21-33) mmol/L Anion Gap (10-20) BUN (7-21) mg/dL Creatinine (0.7-1.2) mg/dl Est GFR ( Amer) Est GFR (Non-Af Amer) POC Glucose (mg/dL) 265 H (65-110) mg/dL Random Glucose (70-110) mg/dL Calcium (8.4-10.5) mg/dL Phosphorus 4.0 (2.5-4.5) mg/dL Magnesium 1.7 (1.7-2.2) mg/dL Total Bilirubin (0.2-1.3) mg/dL AST (14-36) U/L ALT (7-56) U/L Alkaline Phosphatase (38-126) U/L Total Protein (5.8-8.3) g/dL Albumin (3.0-4.8) g/dL Globulin gm/dL Albumin/Globulin Ratio (1.1-1.8) TSH 3rd Generation (0.46-4.68) mIU/mL 09/12/18 09/12/18 09/12/18 Range/Units 05:57 05:30 05:30 WBC (4.5-11.0) 10^3/uL RBC (3.5-6.1) 10^6/uL Hgb (12.0-16.0) g/dL Hct (36.0-48.0) % MCV (80.0-105.0) fl MCH (25.0-35.0) pg MCHC (31.0-37.0) g/dl RDW (11.5-14.5) % Plt Count (120.0-450.0) 10^3/uL MPV (7.0-11.0) fl Neut % (Auto) (50.0-68.0) % Lymph % (Auto) (22.0-35.0) % Harding % (Auto) (1.0-6.0) % Eos % (Auto) (1.5-5.0) % Baso % (Auto) (0.0-3.0) % Lymph # (Auto) (1.2-3.4) Harding # (Auto) (0.1-0.6) Eos # (Auto) (0.0-0.7) Baso # (Auto) (0.0-2.0) K/mm3 Absolute Neuts (auto) (1.4-6.5) pCO2 (35-45) mm/Hg pO2 (80-100) mm/Hg HCO3 (21-28) mmol/L ABG pH (7.35-7.45) ABG Total CO2 (22-28) mmol.L ABG O2 Saturation (95-98) % ABG O2 Content (15-23) ML/dl ABG Base Excess (-2.0-3.0) mmol/L ABG Hemoglobin (11.7-17.4) g/dL ABG Carboxyhemoglobin (0.5-1.5) % POC ABG HHb (Measured) (0-5) % ABG Methemoglobin (0.0-3.0) % ABG O2 Capacity (16-24) mL/dl Hgb O2 Saturation (95.0-98.0) % FiO2 % Sodium 137 (132-148) mmol/L Potassium 2.5 L* D (3.6-5.0) mmol/L Chloride 102 (98-107) mmol/L Carbon Dioxide 24 (21-33) mmol/L Anion Gap 13 (10-20) BUN 31 H (7-21) mg/dL Creatinine 2.9 H (0.7-1.2) mg/dl Est GFR ( Amer) 20 Est GFR (Non-Af Amer) 16 POC Glucose (mg/dL) 218 H (65-110) mg/dL Random Glucose 197 H (70-110) mg/dL Calcium 8.5 (8.4-10.5) mg/dL Phosphorus (2.5-4.5) mg/dL Magnesium (1.7-2.2) mg/dL Total Bilirubin 0.4 (0.2-1.3) mg/dL AST 42 H (14-36) U/L ALT 21 (7-56) U/L Alkaline Phosphatase 62 (38-126) U/L Total Protein 5.5 L (5.8-8.3) g/dL Albumin 2.8 L (3.0-4.8) g/dL Globulin 2.7 gm/dL Albumin/Globulin Ratio 1.0 L (1.1-1.8) TSH 3rd Generation 0.97 (0.46-4.68) mIU/mL 09/12/18 09/12/18 09/12/18 Range/Units 05:30 03:59 02:02 WBC 13.6 H (4.5-11.0) 10^3/uL RBC 3.74 (3.5-6.1) 10^6/uL Hgb 10.2 L (12.0-16.0) g/dL Hct 32.0 L (36.0-48.0) % MCV 85.6 (80.0-105.0) fl MCH 27.3 (25.0-35.0) pg MCHC 31.9 (31.0-37.0) g/dl RDW 14.2 (11.5-14.5) % Plt Count 230 (120.0-450.0) 10^3/uL MPV 10.3 (7.0-11.0) fl Neut % (Auto) 67.1 (50.0-68.0) % Lymph % (Auto) 21.1 L (22.0-35.0) % Harding % (Auto) 11.1 H (1.0-6.0) % Eos % (Auto) 0.6 L (1.5-5.0) % Baso % (Auto) 0.1 (0.0-3.0) % Lymph # (Auto) 2.9 (1.2-3.4) Harding # (Auto) 1.5 H (0.1-0.6) Eos # (Auto) 0.1 (0.0-0.7) Baso # (Auto) 0.02 (0.0-2.0) K/mm3 Absolute Neuts (auto) 9.15 H (1.4-6.5) pCO2 (35-45) mm/Hg pO2 (80-100) mm/Hg HCO3 (21-28) mmol/L ABG pH (7.35-7.45) ABG Total CO2 (22-28) mmol.L ABG O2 Saturation (95-98) % ABG O2 Content (15-23) ML/dl ABG Base Excess (-2.0-3.0) mmol/L ABG Hemoglobin (11.7-17.4) g/dL ABG Carboxyhemoglobin (0.5-1.5) % POC ABG HHb (Measured) (0-5) % ABG Methemoglobin (0.0-3.0) % ABG O2 Capacity (16-24) mL/dl Hgb O2 Saturation (95.0-98.0) % FiO2 % Sodium (132-148) mmol/L Potassium (3.6-5.0) mmol/L Chloride (98-107) mmol/L Carbon Dioxide (21-33) mmol/L Anion Gap (10-20) BUN (7-21) mg/dL Creatinine (0.7-1.2) mg/dl Est GFR ( Amer) Est GFR (Non-Af Amer) POC Glucose (mg/dL) 178 H 216 H (65-110) mg/dL Random Glucose (70-110) mg/dL Calcium (8.4-10.5) mg/dL Phosphorus (2.5-4.5) mg/dL Magnesium (1.7-2.2) mg/dL Total Bilirubin (0.2-1.3) mg/dL AST (14-36) U/L ALT (7-56) U/L Alkaline Phosphatase (38-126) U/L Total Protein (5.8-8.3) g/dL Albumin (3.0-4.8) g/dL Globulin gm/dL Albumin/Globulin Ratio (1.1-1.8) TSH 3rd Generation (0.46-4.68) mIU/mL 09/12/18 09/11/18 09/11/18 Range/Units 00:05 21:52 19:55 WBC (4.5-11.0) 10^3/uL RBC (3.5-6.1) 10^6/uL Hgb (12.0-16.0) g/dL Hct (36.0-48.0) % MCV (80.0-105.0) fl MCH (25.0-35.0) pg MCHC (31.0-37.0) g/dl RDW (11.5-14.5) % Plt Count (120.0-450.0) 10^3/uL MPV (7.0-11.0) fl Neut % (Auto) (50.0-68.0) % Lymph % (Auto) (22.0-35.0) % Harding % (Auto) (1.0-6.0) % Eos % (Auto) (1.5-5.0) % Baso % (Auto) (0.0-3.0) % Lymph # (Auto) (1.2-3.4) Harding # (Auto) (0.1-0.6) Eos # (Auto) (0.0-0.7) Baso # (Auto) (0.0-2.0) K/mm3 Absolute Neuts (auto) (1.4-6.5) pCO2 (35-45) mm/Hg pO2 (80-100) mm/Hg HCO3 (21-28) mmol/L ABG pH (7.35-7.45) ABG Total CO2 (22-28) mmol.L ABG O2 Saturation (95-98) % ABG O2 Content (15-23) ML/dl ABG Base Excess (-2.0-3.0) mmol/L ABG Hemoglobin (11.7-17.4) g/dL ABG Carboxyhemoglobin (0.5-1.5) % POC ABG HHb (Measured) (0-5) % ABG Methemoglobin (0.0-3.0) % ABG O2 Capacity (16-24) mL/dl Hgb O2 Saturation (95.0-98.0) % FiO2 % Sodium (132-148) mmol/L Potassium (3.6-5.0) mmol/L Chloride (98-107) mmol/L Carbon Dioxide (21-33) mmol/L Anion Gap (10-20) BUN (7-21) mg/dL Creatinine (0.7-1.2) mg/dl Est GFR ( Amer) Est GFR (Non-Af Amer) POC Glucose (mg/dL) 190 H 149 H 162 H (65-110) mg/dL Random Glucose (70-110) mg/dL Calcium (8.4-10.5) mg/dL Phosphorus (2.5-4.5) mg/dL Magnesium (1.7-2.2) mg/dL Total Bilirubin (0.2-1.3) mg/dL AST (14-36) U/L ALT (7-56) U/L Alkaline Phosphatase (38-126) U/L Total Protein (5.8-8.3) g/dL Albumin (3.0-4.8) g/dL Globulin gm/dL Albumin/Globulin Ratio (1.1-1.8) TSH 3rd Generation (0.46-4.68) mIU/mL 09/11/18 09/11/18 09/11/18 Range/Units 17:52 15:51 13:55 WBC (4.5-11.0) 10^3/uL RBC (3.5-6.1) 10^6/uL Hgb (12.0-16.0) g/dL Hct (36.0-48.0) % MCV (80.0-105.0) fl MCH (25.0-35.0) pg MCHC (31.0-37.0) g/dl RDW (11.5-14.5) % Plt Count (120.0-450.0) 10^3/uL MPV (7.0-11.0) fl Neut % (Auto) (50.0-68.0) % Lymph % (Auto) (22.0-35.0) % Harding % (Auto) (1.0-6.0) % Eos % (Auto) (1.5-5.0) % Baso % (Auto) (0.0-3.0) % Lymph # (Auto) (1.2-3.4) Harding # (Auto) (0.1-0.6) Eos # (Auto) (0.0-0.7) Baso # (Auto) (0.0-2.0) K/mm3 Absolute Neuts (auto) (1.4-6.5) pCO2 (35-45) mm/Hg pO2 (80-100) mm/Hg HCO3 (21-28) mmol/L ABG pH (7.35-7.45) ABG Total CO2 (22-28) mmol.L ABG O2 Saturation (95-98) % ABG O2 Content (15-23) ML/dl ABG Base Excess (-2.0-3.0) mmol/L ABG Hemoglobin (11.7-17.4) g/dL ABG Carboxyhemoglobin (0.5-1.5) % POC ABG HHb (Measured) (0-5) % ABG Methemoglobin (0.0-3.0) % ABG O2 Capacity (16-24) mL/dl Hgb O2 Saturation (95.0-98.0) % FiO2 % Sodium (132-148) mmol/L Potassium (3.6-5.0) mmol/L Chloride (98-107) mmol/L Carbon Dioxide (21-33) mmol/L Anion Gap (10-20) BUN (7-21) mg/dL Creatinine (0.7-1.2) mg/dl Est GFR ( Amer) Est GFR (Non-Af Amer) POC Glucose (mg/dL) 173 H 132 H 128 H (65-110) mg/dL Random Glucose (70-110) mg/dL Calcium (8.4-10.5) mg/dL Phosphorus (2.5-4.5) mg/dL Magnesium (1.7-2.2) mg/dL Total Bilirubin (0.2-1.3) mg/dL AST (14-36) U/L ALT (7-56) U/L Alkaline Phosphatase (38-126) U/L Total Protein (5.8-8.3) g/dL Albumin (3.0-4.8) g/dL Globulin gm/dL Albumin/Globulin Ratio (1.1-1.8) TSH 3rd Generation (0.46-4.68) mIU/mL 09/11/18 Range/Units 11:31 WBC (4.5-11.0) 10^3/uL RBC (3.5-6.1) 10^6/uL Hgb (12.0-16.0) g/dL Hct (36.0-48.0) % MCV (80.0-105.0) fl MCH (25.0-35.0) pg MCHC (31.0-37.0) g/dl RDW (11.5-14.5) % Plt Count (120.0-450.0) 10^3/uL MPV (7.0-11.0) fl Neut % (Auto) (50.0-68.0) % Lymph % (Auto) (22.0-35.0) % Harding % (Auto) (1.0-6.0) % Eos % (Auto) (1.5-5.0) % Baso % (Auto) (0.0-3.0) % Lymph # (Auto) (1.2-3.4) Harding # (Auto) (0.1-0.6) Eos # (Auto) (0.0-0.7) Baso # (Auto) (0.0-2.0) K/mm3 Absolute Neuts (auto) (1.4-6.5) pCO2 (35-45) mm/Hg pO2 (80-100) mm/Hg HCO3 (21-28) mmol/L ABG pH (7.35-7.45) ABG Total CO2 (22-28) mmol.L ABG O2 Saturation (95-98) % ABG O2 Content (15-23) ML/dl ABG Base Excess (-2.0-3.0) mmol/L ABG Hemoglobin (11.7-17.4) g/dL ABG Carboxyhemoglobin (0.5-1.5) % POC ABG HHb (Measured) (0-5) % ABG Methemoglobin (0.0-3.0) % ABG O2 Capacity (16-24) mL/dl Hgb O2 Saturation (95.0-98.0) % FiO2 % Sodium (132-148) mmol/L Potassium (3.6-5.0) mmol/L Chloride (98-107) mmol/L Carbon Dioxide (21-33) mmol/L Anion Gap (10-20) BUN (7-21) mg/dL Creatinine (0.7-1.2) mg/dl Est GFR ( Amer) Est GFR (Non-Af Amer) POC Glucose (mg/dL) 176 H (65-110) mg/dL Random Glucose (70-110) mg/dL Calcium (8.4-10.5) mg/dL Phosphorus (2.5-4.5) mg/dL Magnesium (1.7-2.2) mg/dL Total Bilirubin (0.2-1.3) mg/dL AST (14-36) U/L ALT (7-56) U/L Alkaline Phosphatase (38-126) U/L Total Protein (5.8-8.3) g/dL Albumin (3.0-4.8) g/dL Globulin gm/dL Albumin/Globulin Ratio (1.1-1.8) [facility] 3rd Generation (0.46-4.68) mIU/mL Laboratory Results - last 24 hr 09/11/18 09/11/18 09/11/18 11:31 13:55 15:51 WBC RBC Hgb Hct MCV MCH MCHC RDW Plt Count MPV Neut % (Auto) Lymph % (Auto) Harding % (Auto) Eos % (Auto) Baso % (Auto) Lymph # (Auto) Harding # (Auto) Eos # (Auto) Baso # (Auto) Absolute Neuts (auto) pCO2 pO2 HCO3 ABG pH ABG Total CO2 ABG O2 Saturation ABG O2 Content ABG Base Excess ABG Hemoglobin ABG Carboxyhemoglobin POC ABG HHb (Measured) ABG Methemoglobin ABG O2 Capacity Hgb O2 Saturation FiO2 Sodium Potassium Chloride Carbon Dioxide Anion Gap BUN Creatinine Est GFR ( Amer) Est GFR (Non-Af Amer) POC Glucose (mg/dL) 176 H 128 H 132 H Random Glucose Calcium Phosphorus Magnesium Total Bilirubin AST ALT Alkaline Phosphatase Total Protein Albumin Globulin Albumin/Globulin Ratio [facility] 3rd Generation 09/11/18 09/11/18 09/11/18 17:52 19:55 21:52 WBC RBC Hgb Hct MCV MCH MCHC RDW Plt Count MPV Neut % (Auto) Lymph % (Auto) Harding % (Auto) Eos % (Auto) Baso % (Auto) Lymph # (Auto) Harding # (Auto) Eos # (Auto) Baso # (Auto) Absolute Neuts (auto) pCO2 pO2 HCO3 ABG pH ABG Total CO2 ABG O2 Saturation ABG O2 Content ABG Base Excess ABG Hemoglobin ABG Carboxyhemoglobin POC ABG HHb (Measured) ABG Methemoglobin ABG O2 Capacity Hgb O2 Saturation FiO2 Sodium Potassium Chloride Carbon Dioxide Anion Gap BUN Creatinine Est GFR ( Amer) Est GFR (Non-Af Amer) POC Glucose (mg/dL) 173 H 162 H 149 H Random Glucose Calcium Phosphorus Magnesium Total Bilirubin AST ALT Alkaline Phosphatase Total Protein Albumin Globulin Albumin/Globulin Ratio [facility] 3rd Generation 09/12/18 09/12/18 09/12/18 00:05 02:02 03:59 WBC RBC Hgb Hct MCV MCH MCHC RDW Plt Count MPV Neut % (Auto) Lymph % (Auto) Harding % (Auto) Eos % (Auto) Baso % (Auto) Lymph # (Auto) Harding # (Auto) Eos # (Auto) Baso # (Auto) Absolute Neuts (auto) pCO2 pO2 HCO3 ABG pH ABG Total CO2 ABG O2 Saturation ABG O2 Content ABG Base Excess ABG Hemoglobin ABG Carboxyhemoglobin POC ABG HHb (Measured) ABG Methemoglobin ABG O2 Capacity Hgb O2 Saturation FiO2 Sodium Potassium Chloride Carbon Dioxide Anion Gap BUN Creatinine Est GFR ( Amer) Est GFR (Non-Af Amer) POC Glucose (mg/dL) 190 H 216 H 178 H Random Glucose Calcium Phosphorus Magnesium Total Bilirubin AST ALT Alkaline Phosphatase Total Protein Albumin Globulin Albumin/Globulin Ratio TSH 3rd Generation 09/12/18 09/12/18 09/12/18 05:30 05:30 05:30 WBC 13.6 H RBC 3.74 Hgb 10.2 L Hct 32.0 L MCV 85.6 MCH 27.3 MCHC 31.9 RDW 14.2 Plt Count 230 MPV 10.3 Neut % (Auto) 67.1 Lymph % (Auto) 21.1 L Harding % (Auto) 11.1 H Eos % (Auto) 0.6 L Baso % (Auto) 0.1 Lymph # (Auto) 2.9 Harding # (Auto) 1.5 H Eos # (Auto) 0.1 Baso # (Auto) 0.02 Absolute Neuts (auto) 9.15 H pCO2 pO2 HCO3 ABG pH ABG Total CO2 ABG O2 Saturation ABG O2 Content ABG Base Excess ABG Hemoglobin ABG Carboxyhemoglobin POC ABG HHb (Measured) ABG Methemoglobin ABG O2 Capacity Hgb O2 Saturation FiO2 Sodium 137 Potassium 2.5 L* D Chloride 102 Carbon Dioxide 24 Anion Gap 13 BUN 31 H Creatinine 2.9 H Est GFR ( Amer) 20 Est GFR (Non-Af Amer) 16 POC Glucose (mg/dL) Random Glucose 197 H Calcium 8.5 Phosphorus Magnesium Total Bilirubin 0.4 AST 42 H ALT 21 Alkaline Phosphatase 62 Total Protein 5.5 L Albumin 2.8 L Globulin 2.7 Albumin/Globulin Ratio 1.0 L TSH 3rd Generation 0.97 09/12/18 09/12/18 09/12/18 05:57 07:40 07:55 WBC RBC Hgb Hct MCV MCH MCHC RDW Plt Count MPV Neut % (Auto) Lymph % (Auto) Harding % (Auto) Eos % (Auto) Baso % (Auto) Lymph # (Auto) Harding # (Auto) Eos # (Auto) Baso # (Auto) Absolute Neuts (auto) pCO2 pO2 HCO3 ABG pH ABG Total CO2 ABG O2 Saturation ABG O2 Content ABG Base Excess ABG Hemoglobin ABG Carboxyhemoglobin POC ABG HHb (Measured) ABG Methemoglobin ABG O2 Capacity Hgb O2 Saturation FiO2 Sodium Potassium Chloride Carbon Dioxide Anion Gap BUN Creatinine Est GFR ( Amer) Est GFR (Non-Af Amer) POC Glucose (mg/dL) 218 H 265 H Random Glucose Calcium Phosphorus 4.0 Magnesium 1.7 Total Bilirubin AST ALT Alkaline Phosphatase Total Protein Albumin Globulin Albumin/Globulin Ratio [facility] 3rd Generation 09/12/18 10:00 WBC RBC Hgb Hct MCV MCH MCHC RDW Plt Count MPV Neut % (Auto) Lymph % (Auto) Harding % (Auto) Eos % (Auto) Baso % (Auto) Lymph # (Auto) Harding # (Auto) Eos # (Auto) Baso # (Auto) Absolute Neuts (auto) pCO2 30 L pO2 182.0 H HCO3 21.8 ABG pH 7.47 H ABG Total CO2 22.7 ABG O2 Saturation 97.4 ABG O2 Content 13.6 L ABG Base Excess -1.3 ABG Hemoglobin 9.7 L ABG Carboxyhemoglobin 0.2 L POC ABG HHb (Measured) 2.6 ABG Methemoglobin 0.5 ABG O2 Capacity 14.0 L Hgb O2 Saturation 96.6 FiO2 40.0 Sodium Potassium Chloride Carbon Dioxide Anion Gap BUN Creatinine Est GFR ( Amer) Est GFR (Non-Af Amer) POC Glucose (mg/dL) Random Glucose Calcium Phosphorus Magnesium Total Bilirubin AST ALT Alkaline Phosphatase Total Protein Albumin Globulin Albumin/Globulin Ratio [facility] 3rd Generation Radiology Impressions: Radiology Impressions Chest X-Ray 09/11/18 16:07 IMPRESSION: Satisfactory position of recently placed orogastric tube. Chest X-Ray 09/12/18 07:39 IMPRESSION: No active disease. Critical Care Progress Note - Nutrition Nutrition: Nutrition Category Date Time Status NPO Diet [DIET] Diets 09/10/18 Lunch Ordered Attending/Attestation - Attestation I have personally seen and examined this patient.: Yes I have fully participated in the care of the patient.: Yes I have reviewed all pertinent clinical information: Yes Notes (Text): 09/12/18 11:42 68 yo female with several small acute infarcts and AMS out of proportion of infarcts extension-->sepsis?. had isolated seziure yesterday-->resolved, EEG cont-no seziures. MATEO-->no veg, no thrombus. as per PMD no h/o paroxysmal afib. on abx, UA-small LE and bacteria--on zosyn. will stop propofol, continue with low/intermed Vt ventilation, VAP bundle, daily weaning trials and sedation vacation, conservative fluid (once MARQUIS resolved)and 02 management, aspirin, norm otension (>24 hrs since acute stroke), euvolemia and euglycemia. Will increase IVF to 150 cc/hr, get nephrology consult and aggressively supplement K. dvt/gi prophylaxis. ccm time 40 mn 09/12/18 11:56
[2018-09-12] MEDS: levETIRAcetam 1000mg/100ml NS 100 ML IV SCH ×2 (09:32→23:39)
--- NOTE | 2018-09-12 09:42 | RAD ---
Date of service: 09/12/2018 HISTORY: Check ETT position COMPARISON: 09/11/2018 TECHNIQUE: 1 view obtained. FINDINGS: LUNGS: No active pulmonary disease. PLEURA: No significant pleural effusion identified, no pneumothorax apparent. CARDIOVASCULAR: No aortic atherosclerotic calcification present. Normal cardiac size. No pulmonary vascular congestion. OSSEOUS STRUCTURES: No significant abnormalities. VISUALIZED UPPER ABDOMEN: Normal. OTHER FINDINGS: Endotracheal and nasogastric tube in satisfactory position IMPRESSION: No active disease.
--- NOTE | 2018-09-12 10:07 | PCM.VEEG ---
Video EEG - Procedure Start Date: 09/11/18 Start Time: 12:55 End Date: 09/12/18 End Time: 10:00 Technical Summary: DATA ACQUISITION: This was a multichannel inpatient video-EEG, a minimum of 22 channels were uti lized, performed in accordance with recommendations specified by the [place] [employer] Society (Ratna Calvillo et al. ACNS Guideline 1: Minimum Technical Requirements for Performing Clinical Electroencephalography. Journal of Clinical Neurophysiology 2016;33:303-7). The 10-20 electrode placement system was utilized in accordance with guidelines detailed by the International Federation of Clinical Neurophysiology (Cielo Newton et al. The Ten-Twenty Electrode System of the International Federation. Recommendations for the Practice of Clinical Neurophysiology: Guidelines of the International Federation of Clinical Physiology 1999; EEG Suppl. 52.). DATA REVIEW / SPIKE DETECTION / DIGITAL ANALYSIS: The entire EEG was scanned and reviewed. Synchronized audio and video recording were reviewed at the time of each alarm and whenever an abnormality or suspicious activity was noted. The entire recording was analyzed utilizing an automated digital spike and seizure analysis program and all automatic spike and seizure detections were manually reviewed. A compressed spectral array was displayed and reviewed alongside the raw EEG tracings. In addition, further analysis of the EEG was performed when abnormalities were identified, including montage changes, dipole source localization, and frequency band identification. This study was attended 24 hours per day. - Interpretation Description of the study: Indication; status epilepticus EEG Finding during wakefulness: There was no recognizable awake background. On the first several hours of monitoring there was a burst attenuation pattern characterized by mid amplitude burst of sharp activity with inter bursts periods of relative EEG attenuation. Burst were more pronounced on the left side. Towards the end of the study the EEG showed less of a burst attenuation pattern and it was replaced by diffuse bilateral 5 to6 Hz slowing, the left was slower than the right. Hyperventilation and photic stimulation were not performed. EEG Finding during sleep: There was no recognizable sleep architecture Interictal non-epileptiform abnormalities: Continuos left hemispheric mainly frontal/temporal slowing at 4 to5 Hz. Interictal epileptiform abnormalities: Occasional left frontal/temporal sharp waves, not clearly epileptifrom Ictal epileptiform abnormalities: None - Impression Impression: This is an abnormal video-EEG monitoring study due to the presence of 1- Burst attenuation pattern, that resolved as the study went on. 2- Moderate diffuse slowing 3- Left hemispheric focal slowing and rare left frontal sharps. No seizures, not in status epilepticus INTERPRETATION: These findings support the diagnosis of moderate to severe, non specific diffuse disturbance of cortical activity, in keeping with a diffuse leon matter dysfunction. Findings are also in keeping with a focal cortical abnormality involving the left hemisphere in keeping with an structural abnormality the same area.
[2018-09-12 10:20] LABS: ARTERIAL BLOOD GAS HCO3 21.8 mmol/L (21-28); ARTERIAL BLOOD GAS HEMOGLOBIN 9.7 g/dL (11.7-17.4); ARTERIAL BLOOD GAS O2 CONTENT 13.6 ML/dl (15-23); ARTERIAL BLOOD GAS O2 SAT 97.4 % (95-98); ARTERIAL BLOOD GAS PCO2 30 mm/Hg (35-45); ARTERIAL BLOOD GAS PH 7.47 (7.35-7.45); ARTERIAL BLOOD GAS TCO2 22.7 mmol.L (22-28)
--- NOTE | 2018-09-12 11:58 | CARD ---
APPROVED REPORT Date of service: 09/12/2018 EXAM: Transesophageal echocardiogram with color flow Doppler. INDICATION PFO Reason For Test : Rule out cardiac source of emboli. PROCEDURE After obtaining informed consent, patient underwent transesophageal echo in the ICU/CCU. Type of Sedation : Pt was on propafol for vent Sedation was administered by none beside ongoing propafil. Sedation was achieved with intravenously. Echo enhancement indication: R/O Septal defect. Echo enhancement agent administered: Agitated Saline The MATEO was performed without complications. Throughout the procedure, the blood pressure, pulse oximetry, cardiac rhythm, and rate were monitored. The patient tolerated the procedure without adverse effects. Recovery from conscious sedation was uneventful and vital signs were stable. LEFT VENTRICLE The left ventricle is normal size. There is moderate concentric left ventricular hypertrophy. The left ventricular function is normal.EF-65% There is normal LV segmental wall motion. The left ventricular diastolic function is normal. No left ventricle thrombus noted on this study. There is no ventricular septal defect visualized. There is no left ventricular aneurysm. There is no mass noted in the left ventricle. RIGHT VENTRICLE The right ventricle is normal size. There is normal right ventricular wall thickness. The right ventricular systolic function is normal. ATRIA The left atrium is mildly dilated. The right atrium size is normal. The interatrial septum is intact with no evidence for an atrial septal defect, by color flow and bubble study. AORTIC VALVE The aortic valve is mildly thickened. There is trace aortic regurgitation. There is no aortic valvular stenosis. There is no aortic valvular vegetation. MITRAL VALVE The mitral valve leaflets are thickened. There is no evidence of mitral valve prolapse. There is no mitral valve stenosis. Mitral regurgitation is trace. TRICUSPID VALVE The tricuspid valve leaflets display thickening. There is trace tricuspid regurgitation. There is no tricuspid valve prolapse or vegetation. There is no tricuspid valve stenosis. PULMONIC VALVE The pulmonary valve is normal in structure. There is trace pulmonic valvular regurgitation. There is no pulmonic valvular stenosis. GREAT VESSELS The aortic root is normal in size. The ascending aorta is normal in size. The pulmonary artery is normal. The IVC is normal in size and collapses >50% with inspiration. PERICARDIAL EFFUSION There is no pericardial effusion. There is no pleural effusion. <Conclusion> The left ventricle is normal size. There is moderate concentric left ventricular hypertrophy. The left ventricular function is normal.EF-65%. Trace MR/TR/ AR/PI. Velocity in PRICE .1m/s No PFO by color flow or Bubble study. No Plaque in Arch, Asc, and descending aorta noted. No thrombusnoted.
[2018-09-12] MEDS ORDERED: Sodium Chloride 0.9% 1,000 ML IV SCH (12:00)
--- NOTE | 2018-09-12 13:18 | PN ---
DATE: 09/12/2018 REASON FOR CONSULTATION: Followup, admitted with CVA, cardiac evaluation. SUBJECTIVE: The patient is on the vent, sedated, for MATEO this morning. Not in apparent distress. PHYSICAL EXAMINATION: As follows: VITAL SIGNS: Temperature afebrile, heart rate 71, blood pressure 154/72. HEENT: PERRLA. Extraocular muscles intact. NECK: Supple. No carotid bruits. No thyromegaly. CHEST: Clear to auscultation. HEART: S1 and S2, regular. ABDOMEN: Soft. EXTREMITIES: Clubbing, cyanosis negative. LABORATORY DATA: Blood workup: WBC 13.6, hemoglobin and hematocrit 10.2 and 32, platelet count 230. Chemistry shows sodium 130, potassium 2.5, chloride 102, carbon dioxide 24, anion gap of 30, BUN 13, creatinine 2.9, total protein 5.8, albumin 2.8, albumin-globulin ratio 1. IMPRESSION: A 68-year-old female with past medical history significant for hypertension and diabetes, brought to the emergency room with left-sided weakness. The patient was not found to be a candidate for tissue plasminogen activator. Cardiac consult was called to followup. The patient had yesterday echo done that shows left ventricular hypertrophy, but no patent foramen ovale on study. Suggested by neurologist that transesophageal echocardiography must have been done this morning. Left ventricular hypertrophy, concentric left ventricular hypertrophy, preserved left ventricle function, left atrial enlargement, but no patent foramen ovale by color flow and Doppler noted. No plaque in ascending aorta, arch of aorta, or descending aorta. No vegetation or thrombus noted. Hypertension needs to be controlled, hypokalemia and protein-calorie malnutrition. RECOMMENDATIONS: Start NG feeding, Nepro. Supplement electrolytes. Continue hydralazine IV p.r.n. Continue amlodipine as started. Continue low-dose beta-susan, daily wean off nicardipine and aggressive control of blood pressure. Continue NG feeding. Discussed with the person taking care of and discussed with team taking care of. Also has been communicated to neurologist the MATEO result. Potassium has been supplemented by resident. We will monitor closely. Resume NG feeding. Consent obtained from the daughter for MATEO on telephone # [phone], and after the MATEO again discussed the result with the daughter on telephone # [phone]. We will resume the diet after the MATEO. We will follow with you. Thank you Dr. Goodman for providing us the opportunity in taking care of the patient, Melissa Stewart. May Pelaez MD
[2018-09-12] MEDS: Piperacillin/Tazobact 2.25gm 2.25 GM/100 ML BAG IVPB SCH ×2 (14:00→23:39)
[2018-09-12] MEDS ORDERED: Piperacillin/Tazobact 3.375 gm Inj IVPB SCH (14:00)
--- NOTE | 2018-09-12 14:19 | CP.PCM.CON ---
History of Present Illness - History of Present Illness History of Present Illness: Nephrology Consultation Note: Assessment: critical Acute Kidney Injury (N17.9) likely due to ATN [contrast nephropathy, sepsis and hemodynamic changes from BP fluctuations] Hypokalemia and HTN emergency r/o secondary HTN proteinuria and microscopic hematuria r/o GN acute CVA, seizure sepsis, UTI, acute respi failure, obesity Plan No acute need for renal replacement therapy at this time. Hypertension control with meds as ordered. Maintain hemodynamics stable. Avoid hypotension. Patient not on ACEI/ARB due to recent MARQUIS. permissive HTN in view of acute CVA. will defer goals/target of HTN control to neuro. agree with CCB and Beta-blockers Monitor Input/Output, daily weights and renal function with basic metabolic panel supplement lytes as needed. dose zosyn for reduced GFR ID, Neuro, Cardio following consider to add statins Check urine analysis, spot protein/creatinine, albumin/creatinine ratio Check GN work up as C3, C4, DAISY, Anti dsDNA, ASO titers, ANCA (MPO and MN-3), Anti GBM antibody, HIV/Hep B and Hep C serology. also lupus anticoagulant Secondary HTN work up with plasma renin/aldosterone, plasma metanephrine and renal artery Doppler to r/o renal artery stenosis Dose meds/antibiotics for reduced GFR. Avoid fleets enema/magnesium based laxatives. Avoid nephrotoxins/NSAIDs/ iodinated contrast (unless needed emergently) Glycemic control Further work up/management as per primary team Thanks for allowing me to participate in care of your patient. Will follow patient with you. Please call if any Qs. had d/w team and family bedside Dr Jeremiah Horn Office: [phone] Chief Complaint; left side weakness Reason for consult: Acute Kidney Injury HPI: Pt is a 68 F with hx of diabetes Mellitus (5 years), hypertension (many years) presented with complaints of left side weakness and foudn to have b/l infarcts. also with sepsis with high temp ? UTI and HTN emergency. renal consult for MARQUIS. pt was orally intubated. also had episode of seizure Denies OTC/herbal meds or NSAIDs Noted recent iodinated contrast exposure 09/10/18. No obvious episodes of low BP. per son, pt was usual health before this incidence non smoker. no etoh/drugs ROS: unable to obtain from pt Physical Examination: General Appearance: Comfortable, in no acute respiratory distress, orally intubated Vitals reviewed and noted as below Head; Atraumatic, normocephalic ENT: orally intubated EYES: unable as pt with resistance to eye opening Neck; supple no lymphadenopathy, no thyromegaly or bruit Lungs: Normal respiratory rate/effort. Breath sounds bilateral equal and clear Heart: Normal rate. s1s2 normal. No rub or gallop. Extremities: no edema. No varicose veins Neurological: Patient is sedated Skin: Warm and dry. Normal turgor. No rash. Palpitation: Normal elasticity for age Abdomen: Abdomen is soft. Bowel sounds +. There is no abdominal tenderness, no guarding/rigidity no organomegaly Psych: deferred MSK: no joint tenderness or swelling. Digits and nails normal, no deformity : kidney or bladder not palpable Labs/imaging reviewed. Past medical history, past surgical history, family history, social history, allergy reviewed and noted as below Family hx: no hx of CKD. Rest non-contributory UA 3+ protein adn moderate blood mild to moderate LVH on echo Past Patient History - Infectious Disease Hx of Infectious Diseases: None - Tetanus Immunizations Tetanus Immunization: Unknown - Past Social History Smoking Status: Unknown If Ever Smoked - CARDIAC Hx Hypertension: Yes - PULMONARY Hx Chronic Obstructive Pulmonary Disease (COPD): Yes - NEUROLOGICAL HX Cerebrovascular Accident: Yes - ENDOCRINE/METABOLIC Hx Diabetes Mellitus Type 2: Yes - MUSCULOSKELETAL/RHEUMATOLOGICAL Hx Falls: No - PSYCHIATRIC Hx Depression: No Hx Emotional Abuse: No Hx Physical Abuse: No Hx Substance Use: No - SURGICAL HISTORY Hx Surgeries: No Meds Allergies/Adverse Reactions: Allergies Allergy/AdvReac Type Severity Reaction Status Date / Time No Known Allergies Allergy Verified 12/20/11 11:39 - Medications Medications: Current Medications Acetaminophen (Tylenol 650mg/20.3ml Solution Ud) 650 mg NG Q6H PRN PRN Reason: Temperature >100.4 Last Admin: 09/11/18 22:44 Dose: 650 mg Amlodipine Besylate (Norvasc) 10 mg PO DAILY JAMES Last Admin: 09/12/18 09:32 Dose: 10 mg Hydralazine HCl (Apresoline) 10 mg IVP Q6 PRN PRN Reason: For SBP>160 Propofol (Diprivan) 1,000 mg in 100 mls @ 2.547 mls/hr IV .Q24H PRN; Protocol PRN Reason: TITRATE PER MD ORDER Last Admin: 09/12/18 08:23 Dose: 20 mcg/kg/min, 10.189 mls/hr Insulin Human Regular 100 (units/ Sodium Chloride) 100 mls @ 1 mls/hr IV .Q24H PRN; Protocol PRN Reason: TITRATE PER MD ORDER Last Titration: 09/12/18 10:00 Dose: 2 units/hr, 2 mls/hr Levetiracetam (Keppra 1000mg/100ml Ns) 100 mls @ 460 mls/hr IV Q12 JAMES Last Admin: 09/12/18 09:32 Dose: 460 mls/hr Acetaminophen (Ofirmev) 1,000 mg in 100 mls @ 400 mls/hr IVPB Q6H PRN PRN Reason: fever Stop: 09/14/18 00:38 Last Admin: 09/12/18 00:44 Dose: 400 mls/hr Potassium Chloride (Potassium Chloride 20 Meq/100 Ml) 20 meq in 100 mls @ 50 mls/hr IVPB Q2H JAMES Stop: 09/12/18 15:59 Sodium Chloride (Sodium Chloride 0.9%) 1,000 mls @ 100 mls/hr IV .Q10H [facility] Piperacillin Sod/Tazobactam Sod (Zosyn 2.25 Gm In 0.9% 100 Ml) 2.25 gm in 100 mls @ 100 mls/hr IVPB Q8 [facility] Metoprolol Tartrate (Lopressor) 25 mg PO BID [facility] Last Admin: 09/12/18 09:31 Dose: 25 mg Pantoprazole Sodium (Protonix Inj) 40 mg IVP DAILY [facility] Last Admin: 09/12/18 09:35 Dose: 40 mg Results - Vital Signs Recent Vital Signs: Last Vital Signs Temp 99.4 F 09/12/18 04:00 Pulse 67 09/12/18 12:31 Resp 22 09/12/18 12:31 BP 176/98 H 09/12/18 12:31 Pulse Ox 100 09/12/18 12:31 - Labs Result Diagrams: 09/12/18 05:30 09/12/18 05:30 Labs: Laboratory Results - last 24 hr 09/11/18 09/11/18 09/11/18 11:31 13:55 15:51 WBC RBC Hgb Hct MCV MCH MCHC RDW Plt Count MPV Neut % (Auto) Lymph % (Auto) Lane % (Auto) Eos % (Auto) Baso % (Auto) Lymph # (Auto) Lane # (Auto) Eos # (Auto) Baso # (Auto) Absolute Neuts (auto) pCO2 pO2 HCO3 ABG pH ABG Total CO2 ABG O2 Saturation ABG O2 Content ABG Base Excess ABG Hemoglobin ABG Carboxyhemoglobin POC ABG HHb (Measured) ABG Methemoglobin ABG O2 Capacity Hgb O2 Saturation FiO2 Sodium Potassium Chloride Carbon Dioxide Anion Gap BUN Creatinine Est GFR ( Amer) Est GFR (Non-Af Amer) POC Glucose (mg/dL) 176 H 128 H 132 H Random Glucose Calcium Phosphorus Magnesium Total Bilirubin AST ALT Alkaline Phosphatase Total Protein Albumin Globulin Albumin/Globulin Ratio [facility] 3rd Generation 09/11/18 09/11/18 09/11/18 17:52 19:55 21:52 WBC RBC Hgb Hct MCV MCH MCHC RDW Plt Count MPV Neut % (Auto) Lymph % (Auto) Lane % (Auto) Eos % (Auto) Baso % (Auto) Lymph # (Auto) Lane # (Auto) Eos # (Auto) Baso # (Auto) Absolute Neuts (auto) pCO2 pO2 HCO3 ABG pH ABG Total CO2 ABG O2 Saturation ABG O2 Content ABG Base Excess ABG Hemoglobin ABG Carboxyhemoglobin POC ABG HHb (Measured) ABG Methemoglobin ABG O2 Capacity Hgb O2 Saturation FiO2 Sodium Potassium Chloride Carbon Dioxide Anion Gap BUN Creatinine Est GFR ( Amer) Est GFR (Non-Af Amer) POC Glucose (mg/dL) 173 H 162 H 149 H Random Glucose Calcium Phosphorus Magnesium Total Bilirubin AST ALT Alkaline Phosphatase Total Protein Albumin Globulin Albumin/Globulin Ratio [facility] 3rd Generation 09/12/18 09/12/18 09/12/18 00:05 02:02 03:59 WBC RBC Hgb Hct MCV MCH MCHC RDW Plt Count MPV Neut % (Auto) Lymph % (Auto) Lane % (Auto) Eos % (Auto) Baso % (Auto) Lymph # (Auto) Lane # (Auto) Eos # (Auto) Baso # (Auto) Absolute Neuts (auto) pCO2 pO2 HCO3 ABG pH ABG Total CO2 ABG O2 Saturation ABG O2 Content ABG Base Excess ABG Hemoglobin ABG Carboxyhemoglobin POC ABG HHb (Measured) ABG Methemoglobin ABG O2 Capacity Hgb O2 Saturation FiO2 Sodium Potassium Chloride Carbon Dioxide Anion Gap BUN Creatinine Est GFR ( Amer) Est GFR (Non-Af Amer) POC Glucose (mg/dL) 190 H 216 H 178 H Random Glucose Calcium Phosphorus Magnesium Total Bilirubin AST ALT Alkaline Phosphatase Total Protein Albumin Globulin Albumin/Globulin Ratio TSH 3rd Generation 09/12/18 09/12/18 09/12/18 05:30 05:30 05:30 WBC 13.6 H RBC 3.74 Hgb 10.2 L Hct 32.0 L MCV 85.6 MCH 27.3 MCHC 31.9 RDW 14.2 Plt Count 230 MPV 10.3 Neut % (Auto) 67.1 Lymph % (Auto) 21.[address] % (Auto) 11.1 H Eos % (Auto) 0.6 L Baso % (Auto) 0.1 Lymph # (Auto) 2.9 Lane # (Auto) 1.5 H Eos # (Auto) 0.1 Baso # (Auto) 0.02 Absolute Neuts (auto) 9.15 H pCO2 pO2 HCO3 ABG pH ABG Total CO2 ABG O2 Saturation ABG O2 Content ABG Base Excess ABG Hemoglobin ABG Carboxyhemoglobin POC ABG HHb (Measured) ABG Methemoglobin ABG O2 Capacity Hgb O2 Saturation FiO2 Sodium 137 Potassium 2.5 L* D Chloride 102 Carbon Dioxide 24 Anion Gap 13 BUN 31 H Creatinine 2.9 H Est GFR ( Amer) 20 Est GFR (Non-Af Amer) 16 POC Glucose (mg/dL) Random Glucose 197 H Calcium 8.5 Phosphorus Magnesium Total Bilirubin 0.4 AST 42 H ALT 21 Alkaline Phosphatase 62 Total Protein 5.5 L Albumin 2.8 L Globulin 2.7 Albumin/Globulin Ratio 1.0 L TSH 3rd Generation 0.97 09/12/18 09/12/18 09/12/18 05:57 07:40 07:55 WBC RBC Hgb Hct MCV MCH MCHC RDW Plt Count MPV Neut % (Auto) Lymph % (Auto) Lane % (Auto) Eos % (Auto) Baso % (Auto) Lymph # (Auto) Lane # (Auto) Eos # (Auto) Baso # (Auto) Absolute Neuts (auto) pCO2 pO2 HCO3 ABG pH ABG Total CO2 ABG O2 Saturation ABG O2 Content ABG Base Excess ABG Hemoglobin ABG Carboxyhemoglobin POC ABG HHb (Measured) ABG Methemoglobin ABG O2 Capacity Hgb O2 Saturation FiO2 Sodium Potassium Chloride Carbon Dioxide Anion Gap BUN Creatinine Est GFR ( Amer) Est GFR (Non-Af Amer) POC Glucose (mg/dL) 218 H 265 H Random Glucose Calcium Phosphorus 4.0 Magnesium 1.7 Total Bilirubin AST ALT Alkaline Phosphatase Total Protein Albumin Globulin Albumin/Globulin Ratio TSH 3rd Generation 09/12/18 09/12/18 09/12/18 10:00 10:18 13:01 WBC RBC Hgb Hct MCV MCH MCHC RDW Plt Count MPV Neut % (Auto) Lymph % (Auto) Lane % (Auto) Eos % (Auto) Baso % (Auto) Lymph # (Auto) Lane # (Auto) Eos # (Auto) Baso # (Auto) Absolute Neuts (auto) pCO2 30 L pO2 182.0 H HCO3 21.8 ABG pH 7.47 H ABG Total CO2 22.7 ABG O2 Saturation 97.4 ABG O2 Content 13.6 L ABG Base Excess -1.3 ABG Hemoglobin 9.7 L ABG Carboxyhemoglobin 0.2 L POC ABG HHb (Measured) 2.6 ABG Methemoglobin 0.5 ABG O2 Capacity 14.0 L Hgb O2 Saturation 96.6 FiO2 40.0 Sodium Potassium Chloride Carbon Dioxide Anion Gap BUN Creatinine Est GFR ( Amer) Est GFR (Non-Af Amer) POC Glucose (mg/dL) 223 H 198 H Random Glucose Calcium Phosphorus Magnesium Total Bilirubin AST ALT Alkaline Phosphatase Total Protein Albumin Globulin Albumin/Globulin Ratio TSH 3rd Generation
--- NOTE | 2018-09-12 14:19 | CP.PCM.APN ---
Subjective - Date & Time of Evaluation Date of Evaluation: 09/12/18 Time of Evaluation: 13:00 - Subjective Subjective: Pt. seen , intubated, vented. Objective - Vital Signs/Intake and Output Vital Signs (last 24 hours): Temp Pulse Resp BP Pulse Ox 99.4 F 67 22 176/98 H 100 09/12/18 04:00 09/12/18 12:31 09/12/18 12:31 09/12/18 12:31 09/12/18 12:31 Intake and Output: 09/12/18 09/12/18 06:59 18:59 Intake Total 1605.5 110.5 Output Total 201 Balance 1404.5 110.5 - Medications Medications: Current Medications Acetaminophen (Tylenol 650mg/20.3ml Solution Ud) 650 mg NG Q6H PRN PRN Reason: Temperature >100.4 Last Admin: 09/11/18 22:44 Dose: 650 mg Amlodipine Besylate (Norvasc) 10 mg PO DAILY JAMES Last Admin: 09/12/18 09:32 Dose: 10 mg Hydralazine HCl (Apresoline) 10 mg IVP Q6 PRN PRN Reason: For SBP>160 Propofol (Diprivan) 1,000 mg in 100 mls @ 2.547 mls/hr IV .Q24H PRN; Protocol PRN Reason: TITRATE PER MD ORDER Last Admin: 09/12/18 08:23 Dose: 20 mcg/kg/min, 10.189 mls/hr Insulin Human Regular 100 (units/ Sodium Chloride) 100 mls @ 1 mls/hr IV .Q24H PRN; Protocol PRN Reason: TITRATE PER MD ORDER Last Titration: 09/12/18 10:00 Dose: 2 units/hr, 2 mls/hr Levetiracetam (Keppra 1000mg/100ml Ns) 100 mls @ 460 mls/hr IV Q12 JAMES Last Admin: 09/12/18 09:32 Dose: 460 mls/hr Acetaminophen (Ofirmev) 1,000 mg in 100 mls @ 400 mls/hr IVPB Q6H PRN PRN Reason: fever Stop: 09/14/18 00:38 Last Admin: 09/12/18 00:44 Dose: 400 mls/hr Potassium Chloride (Potassium Chloride 20 Meq/100 Ml) 20 meq in 100 mls @ 50 mls/hr IVPB Q2H JAMES Stop: 09/12/18 15:59 Sodium Chloride (Sodium Chloride 0.9%) 1,000 mls @ 100 mls/hr IV .Q10H [facility]AMES Piperacillin Sod/Tazobactam Sod (Zosyn 2.25 Gm In 0.9% 100 Ml) 2.25 gm in 100 mls @ 100 mls/hr IVPB Q8 [facility] Metoprolol Tartrate (Lopressor) 25 mg PO BID [facility] Last Admin: 09/12/18 09:31 Dose: 25 mg Pantoprazole Sodium (Protonix Inj) 40 mg IVP DAILY [facility] Last Admin: 09/12/18 09:35 Dose: 40 mg - Labs Labs: 09/12/18 05:30 09/12/18 05:30 PT 12.9 SECONDS (9.4-12.5) H 09/10/18 12:50 INR 1.14 09/10/18 12:50 APTT 28.7 Seconds (26.9-38.3) 09/10/18 12:50 - Constitutional Appears: Other (Pt. intubated, remains on ventilator) - Neck Exam Neck Exam: Full ROM - Respiratory Exam Additional comments: intubated, on ventilator - Neurological Exam Neurological Exam: Abnormal Gait, Motor Sensory Deficit - Skin Skin Exam: Dry, Intact, Normal Color, Warm Assessment and Plan - Assessment and Plan (Free Text) Assessment: Impressions Head CT 09/10/18 11:49 IMPRESSION: No acute intracranial pathology. Age-related changes. No significant interval change. Findings conveyed to Dr. Gallardo by Dr. Steve at 12:06 p.m. on 09/10/2018. Head/Neck CTA 09/10/18 11:49 IMPRESSION: No evidence of occlusion significant stenosis or dissection of the Note cervical carotid arteries high. There is a calcified atherosclerotic plaque both carotid siphons. There is moderate calcified plaque of the distal right vertebral artery (proximal intradural segment) with minimal calcified plaque left vertebral artery at the same level. The intra cerebral circulation is patent. No evidence of large aneurysm nor vascular malformation Brain MRI 09/10/18 13:37 IMPRESSION: There are multiple small acute infarcts seen scattered about both cerebral hemispheres. These findings suggest embolic event given the involvement of bilateral vascular distributions. Consider follow-up echocardiogram. Mild chronic white matter ischemic changes. No acute intracranial hemorrhage. Moderate generalized volume loss. Note these findings were discussed with Dr. Gallardo at approximately 3:10 p.m. with written down and read back verification. Chest X-Ray 09/12/18 07:39 IMPRESSION: No active disease. Laboratory Results WBC 13.6 10^3/uL (4.5-11.0) H 09/12/18 05:30 RBC 3.74 10^6/uL (3.5-6.1) 09/12/18 05:30 Hgb 10.2 g/dL (12.0-16.0) L 09/12/18 05:30 Hct 32.0 % (36.0-48.0) L 09/12/18 05:30 MCV 85.6 fl (80.0-105.0) 09/12/18 05:30 MCH 27.3 pg (25.0-35.0) 09/12/18 05:30 MCHC 31.9 g/dl (31.0-37.0) 09/12/18 05:30 RDW 14.2 % (11.5-14.5) 09/12/18 05:30 Plt Count 230 10^3/uL (120.0-450.0) 09/12/18 05:30 MPV 10.3 fl (7.0-11.0) 09/12/18 05:30 Neut % (Auto) 67.1 % (50.0-68.0) 09/12/18 05:30 Lymph % (Auto) 21.1 % (22.0-35.0) L 09/12/18 05:30 Miller % (Auto) 11.1 % (1.0-6.0) H 09/12/18 05:30 Eos % (Auto) 0.6 % (1.5-5.0) L 09/12/18 05:30 Baso % (Auto) 0.1 % (0.0-3.0) 09/12/18 05:30 Lymph # (Auto) 2.9 (1.2-3.4) 09/12/18 05:30 Miller # (Auto) 1.5 (0.1-0.6) H 09/12/18 05:30 Eos # (Auto) 0.1 (0.0-0.7) 09/12/18 05:30 Baso # (Auto) 0.02 K/mm3 (0.0-2.0) 09/12/18 05:30 Absolute Neuts (auto) 9.15 (1.4-6.5) H 09/12/18 05:30 Neutrophils % (Manual) 91 % (50.0-70.0) H 09/10/18 12:50 Lymphocytes % (Manual) 6 % (22.0-35.0) L 09/10/18 12:50 Monocytes % (Manual) 3 % (1.0-6.0) 09/10/18 12:50 Platelet Evaluation Normal (NORMAL) 09/10/18 12:50 Hypochromasia Slight 09/10/18 12:50 Anisocytosis (manual) 1+ 09/10/18 12:50 Microcytosis (manual) 1+ 09/10/18 12:50 ESR 46 mm/hr (0.0-20.0) H 09/11/18 01:00 PT 12.9 SECONDS (9.4-12.5) H 09/10/18 12:50 INR 1.14 09/10/18 12:50 APTT 28.7 Seconds (26.9-38.3) 09/10/18 12:50 pCO2 30 mm/Hg (35-45) L 09/12/18 10:00 pO2 182.0 mm/Hg (80-100) H 09/12/18 10:00 HCO3 21.8 mmol/L (21-28) 09/12/18 10:00 ABG pH 7.47 (7.35-7.45) H 09/12/18 10:00 ABG Total CO2 22.7 mmol.L (22-28) 09/12/18 10:00 ABG O2 Saturation 97.4 % (95-98) 09/12/18 10:00 ABG O2 Content 13.6 ML/dl (15-23) L 09/12/18 10:00 ABG Base Excess -1.3 mmol/L (-2.0-3.0) 09/12/18 10:00 ABG Hemoglobin 9.7 g/dL (11.7-17.4) L 09/12/18 10:00 ABG Carboxyhemoglobin 0.2 % (0.5-1.5) L 09/12/18 10:00 POC ABG HHb (Measured) 2.6 % (0-5) 09/12/18 10:00 ABG Methemoglobin 0.5 % (0.0-3.0) 09/12/18 10:00 ABG O2 Capacity 14.0 mL/dl (16-24) L 09/12/18 10:00 VBG pH 7.41 (7.32-7.43) 09/10/18 20:00 VBG pCO2 46.0 (40-60) 09/10/18 20:00 VBG HCO3 29.2 mmol/l (21-28) H 09/10/18 20:00 VBG Total CO2 30.0 mmol.L (22-28) H 09/10/18 12:55 VBG O2 Sat (Calc) 93.9 % (40-65) H 09/10/18 20:00 VBG Base Excess 3.8 mmol/L (0.0-2.0) H 09/10/18 20:00 VBG Potassium 3.4 mmol/L (3.6-5.2) L 09/10/18 12:55 Hgb O2 Saturation 96.6 % (95.0-98.0) 09/12/18 10:00 Sodium 135.0 mmol/L (132-148) 09/10/18 12:55 Chloride 98.0 mmol/L (98-107) 09/10/18 12:55 Glucose 440 mg/dl (65-105) H* 09/10/18 12:55 Lactate 1.5 mmol/L (0.7-2.1) 09/10/18 12:55 FiO2 40.0 % 09/12/18 10:00 Crit Value Called To Radha dorman 09/10/18 12:55 Crit Value Called By Edgard mejia 09/10/18 12:55 Blood Gas Notified Time 1308 09/10/18 12:55 Sodium 137 mmol/L (132-148) 09/12/18 05:30 Potassium 2.5 mmol/L (3.6-5.0) L* D 09/12/18 05:30 Chloride 102 mmol/L (98-107) 09/12/18 05:30 Carbon Dioxide 24 mmol/L (21-33) 09/12/18 05:30 Anion Gap 13 (10-20) 09/12/18 05:30 BUN 31 mg/dL (7-21) H 09/12/18 05:30 Creatinine 2.9 mg/dl (0.7-1.2) H 09/12/18 05:30 Est GFR ( Amer) 20 09/12/18 05:30 Est GFR (Non-Af Amer) 16 09/12/18 05:30 POC Glucose (mg/dL) 198 mg/dL (65-110) H 09/12/18 13:01 Random Glucose 197 mg/dL (70-110) H 09/12/18 05:30 Hemoglobin A1c 8.7 % (4.2-6.5) H 09/10/18 12:50 Calcium 8.5 mg/dL (8.4-10.5) 09/12/18 05:30 Phosphorus 4.0 mg/dL (2.5-4.5) 09/12/18 07:40 Magnesium 1.7 mg/dL (1.7-2.2) 09/12/18 07:40 Total Bilirubin 0.4 mg/dL (0.2-1.3) 09/12/18 05:30 AST 42 U/L (14-36) H 09/12/18 05:30 ALT 21 U/L (7-56) 09/12/18 05:30 Alkaline Phosphatase 62 U/L (38-126) 09/12/18 05:30 Troponin I < 0.01 ng/mL 09/10/18 12:50 C-Reactive Protein 11.80 mg/L (0.0-9.9) H 09/11/18 01:00 Total Protein 5.5 g/dL (5.8-8.3) L 09/12/18 05:30 Albumin 2.8 g/dL (3.0-4.8) L 09/12/18 05:30 Globulin 2.7 gm/dL 09/12/18 05:30 Albumin/Globulin Ratio 1.0 (1.1-1.8) L 09/12/18 05:30 Triglycerides 128 mg/dL (35-160) 09/10/18 12:50 Cholesterol 183 mg/dL (130-200) 09/10/18 12:50 LDL Cholesterol Direct 82 mg/dL (0-129) 09/10/18 12:50 HDL Cholesterol 56 mg/dL (29-60) 09/10/18 12:50 TSH 3rd Generation 0.97 mIU/mL (0.46-4.68) 09/12/18 05:30 Venous Blood Potassium 3.4 mmol/L (3.6-5.2) L 09/10/18 12:55 Urine Color Yellow (YELLOW) 09/11/18 02:47 Urine Appearance Cloudy (CLEAR) 09/11/18 02:47 Urine pH 5.5 (4.7-8.0) 09/11/18 02:47 Ur Specific [place] 1.025 (1.005-1.035) 09/11/18 02:47 Urine Protein >=300 mg/dL (<30 mg/dL) H 09/11/18 02:47 Urine Glucose (UA) 250 mg/dL (NEGATIVE) H 09/11/18 02:47 Urine Ketones Trace mg/dL (NEGATIVE) H 09/11/18 02:47 Urine Blood Moderate (NEGATIVE) H 09/11/18 02:47 Urine Nitrate Negative (NEGATIVE) 09/11/18 02:47 Urine Bilirubin Small (NEGATIVE) H 09/11/18 02:47 Urine Urobilinogen 0.2 E.U./dL (<1 E.U./dL) 09/11/18 02:47 Ur Leukocyte Esterase Small [place]/uL (NEGATIVE) H 09/11/18 02:47 Urine RBC 2 - 5 /hpf (0-2) H 09/11/18 02:47 Urine WBC 10 - 15 /hpf (0-6) H 09/11/18 02:47 Ur Epithelial Cells 1 - 3 /hpf (0-5) 09/11/18 02:47 Urine Bacteria Small /hpf (NONE) 09/11/18 02:47 Urine Other Uyeast /hpf 09/11/18 02:47 Blood Type O POSITIVE 09/10/18 12:50 Blood Type Confirm O POSITIVE 09/10/18 13:20 Antibody Screen Negative 09/10/18 12:50 BBK History Checked No verified bt 09/10/18 12:50 "Assessement: 68 year old patient who was brought in to the ED via EMS status post being found unresponsive on the floor, in ED code stoke was initiated, admitted to critical care unit with code stroke, with imaging revealing multiple small acute infarcts, suggestive of embolic to cerebral hemisphere, admitted with stroke for further eval and treatment. Plan: 1. CVA- Multiple small acute infarcts, maybe r/t embolic Cont. recs as per neuro., Keppra IV , neuro checks, echo carotid results pending. 2. Uncontrolled Htn cont. Cardene drip, monitor BP 3. Hyperglycemia -Maintain insulin drip and monitor blood glucose. Will continue to monitor clinical status. Further recs per neuro
--- NOTE | 2018-09-12 15:40 | PN ---
DATE: 09/12/2018 SUBJECTIVE: The patient is 68-year-old, remains sedated and intubated. She is currently on vent. PHYSICAL EXAMINATION: VITAL SIGNS: She is afebrile. Pulse 68, respiration 20 and blood pressure 133/70. LUNGS: Bilateral fair airflow. No rhonchi noted. HEART: S1 and S2, audible. ABDOMEN: Soft and nontender. No rebound. No guarding. NEUROLOGIC: The patient is awake, alert and able to communicate. LABORATORY DATA: WBC 13.6, hemoglobin 10, hematocrit 32 and platelet of 230. Blood sugar is 223. Blood cultures are negative. She had EEG done, shows left hemispheric focal slowing and . No seizures. ASSESSMENT: 1. Status post cerebrovascular accident that seems to be embolic in nature, source is unknown yet. She had echocardiogram done, showed moderate concentric left ventricular hypertrophy. No patent foramen ovale. No thrombus noted upon echocardiogram. 2. History of insulin-dependant diabetes. 3. Left upper extremity weakness secondary to stroke. 4. Leukocytosis. Source unknown yet. Blood cultures are negative. 5. History of hypertension. PLAN: Currently, the patient is on piperacillin. We will cut down her fluid to 100 mL. Continue on antiseizure medication. Continue to monitor blood sugar. We will followup the patient in a.m. Darryl Goodman MD
[2018-09-12] MEDS: Sodium Chloride 0.9% 1,000 ML IV SCH (16:00)
[2018-09-12 16:23] LABS: CALCIUM 8.6 mg/dL (8.4-10.5)
[2018-09-12] MEDS ORDERED: Insulin Detemir 100 units/ml Vial (Levemir) SC ONE (17:22)
[2018-09-12] MEDS ORDERED: Dextrose 50% SYRINGE Inj (50 ml) IV PRN (17:24)
[2018-09-12] MEDS ORDERED: Dexmedetomidine 400mcg/100mL 400 MCG/100 ML BOTTLE IV PRN (17:45)
[2018-09-12 21:26] LABS: HEPATITIS B SURFACE AG Negative (NEGATIVE)
[2018-09-12 21:31] LABS: HEPATITIS B CORE AB NEGATIVE (NEGATIVE)
[2018-09-12 21:44] LABS: HEPATITIS C ANTIBODY NEGATIVE (NEGATIVE)
--- NOTE | 2018-09-12 23:19 | PN ---
DATE: 09/12/2018 SUBJECTIVE: The patient is seen in bed early this morning and still had fever last night and remains intubated on a ventilator. PHYSICAL EXAMINATION: VITAL SIGNS: Temperature is 98, T-max is 102.1, respiratory rate on vent is 22, and heart rate of 74. HEENT: Unremarkable. ET tube in place. NECK: Supple. LUNGS: Decreased breath sounds. HEART: Normal S1 and S2. ABDOMEN: Soft. LABORATORY DATA: Reveals white count of 13,600, hemoglobin of 10, and platelets of 230. Coagulation is noted. Chemistry is reviewed with a creatinine of 2.3. Urinalysis is noted. Microbiology reveals the blood cultures are negative. Nares culture not detected. ASSESSMENT AND PLAN: A 68-year-old female with history of hypertension, diabetes, chronic obstructive lung disease with NO KNOWN ALLERGIES who was admitted with weakness, fevers, and respiratory failure with systemic inflammatory response syndrome with acute kidney injury and respiratory failure, intubated on ventilator, acute cerebrovascular accident, and currently on Zosyn. Review of orders reveal the Zosyn to be active based on the renal function and blood cultures are negative, methicillin-resistant Staphylococcus aureus screen is negative. Case management progress report by is reviewed. Surgery operative note also reviewed with transesophageal echo. Dr. Goodman's note is reviewed. Dr. Pelaez note is reviewed. No vegetation or thrombus is noted. We will follow with you. Overall prognosis is quite poor. We also order workup for culture negative endocarditis, although the transesophageal echocardiography negative with negative blood cultures, most probably nonbacterial thrombotic bacterial origin. We will order Whipple PCR. The DNA for PCR to fever serology and Bartonella PCR and serology in addition to RPR, FTA, HIV and . We will continue to watch and follow the blood cultures results and we will follow with you. Tejas Smiley MD
[2018-09-12] MEDS: Insulin Reg-MEDIUM-Coverage SC SCH (23:41)
[2018-09-13 05:41] LABS: ARTERIAL BLOOD GAS HCO3 19.9 mmol/L (21-28); ARTERIAL BLOOD GAS HEMOGLOBIN 10.1 g/dL (11.7-17.4); ARTERIAL BLOOD GAS O2 CAPACITY 14.5 mL/dl (16-24); ARTERIAL BLOOD GAS O2 CONTENT 14.2 ML/dl (15-23); ARTERIAL BLOOD GAS O2 SAT 97.8 % (95-98); ARTERIAL BLOOD GAS PCO2 30 mm/Hg (35-45); ARTERIAL BLOOD GAS PH 7.43 (7.35-7.45); ARTERIAL BLOOD GAS TCO2 20.8 mmol.L (22-28)
[2018-09-13 06:38] LABS: BASO # 0.01 K/mm3 (0.0-2.0); BASO % 0.1 % (0.0-3.0); EOS # 0.5 (0.0-0.7); EOS % 4.8 % (1.5-5.0); HEMOGLOBIN 10.2 g/dL (12.0-16.0); LYMPH # 1.3 (1.2-3.4); LYMPH % 11.7 % (22.0-35.0); MEAN CORPUSCULAR HEMOGLOBIN 27.8 pg (25.0-35.0); MEAN CORPUSCULAR HGB CONC 32.7 g/dl (31.0-37.0); MEAN PLATELET VOLUME 10.4 fl (7.0-11.0); MONO # 0.9 (0.1-0.6); MONO % 8.4 % (1.0-6.0); RBC 3.67 10^6/uL (3.5-6.1); RED CELL DISTRIBUTION WIDTH 14.2 % (11.5-14.5); WHITE BLOOD COUNT 10.8 10^3/uL (4.5-11.0)
[2018-09-13] MEDS: Insulin Detemir 100 units/ml Vial (Levemir) SC SCH ×2 (06:45→17:37)
[2018-09-13] MEDS: Sodium Chloride 0.9% 1,000 ML IV SCH ×2 (06:47→17:39)
[2018-09-13] MEDS: Piperacillin/Tazobact 2.25gm 2.25 GM/100 ML BAG IVPB SCH ×3 (06:48→22:10)
[2018-09-13 06:51] LABS: ALB/GLOB RATIO 0.9 (1.1-1.8); ALBUMIN 2.7 g/dL (3.0-4.8); CALCIUM 8.4 mg/dL (8.4-10.5)
--- NOTE | 2018-09-13 07:25 | CP.PCM.PN ---
<Maksim Hernandez - Last Filed: 09/13/18 14:08> Subjective - Date & Time of Evaluation Date of Evaluation: 09/13/18 Time of Evaluation: 08:05 - Subjective Subjective: Maksim Hernandez DO, PGY-2: Neurology Progress Note for Dr. Mann Patient was seen and examined at bedside. She was off all sedation. She is still intubated. She was uncooperative with the nuerologic exam. Chart review indicates she has been afebrile for more than 24 hours. Otherwise, chart review indicates no adverse events overnight. Objective - Vital Signs/Intake and Output Vital Signs (last 24 hours): Temp Pulse Resp BP Pulse Ox 98.2 F 60 20 124/72 100 09/13/18 04:00 09/13/18 03:30 09/13/18 03:30 09/13/18 03:00 09/13/18 03:30 Intake and Output: 09/13/18 09/13/18 06:59 18:59 Intake Total 40 Balance 40 - Medications Medications: Current Medications Acetaminophen (Tylenol 650mg/20.3ml Solution Ud) 650 mg NG Q6H PRN PRN Reason: Temperature >100.4 Last Admin: 09/11/18 22:44 Dose: 650 mg Amlodipine Besylate (Norvasc) 10 mg PO DAILY [facility] Last Admin: 09/12/18 09:32 Dose: 10 mg Dextrose (Dextrose 50% Inj) 0 ml IV STAT PRN; Protocol PRN Reason: Hypoglycemia Protocol Hydralazine HCl (Apresoline) 10 mg IVP Q6 PRN PRN Reason: For SBP>160 Last Admin: 09/12/18 15:11 Dose: 10 mg Propofol (Diprivan) 1,000 mg in 100 mls @ 2.547 mls/hr IV .Q24H PRN; Protocol PRN Reason: TITRATE PER MD ORDER Last Titration: 09/12/18 11:00 Dose: 0 mcg/kg/min, 0 mls/hr Levetiracetam (Keppra 1000mg/100ml Ns) 100 mls @ 460 mls/hr IV Q12 [facility] Last Admin: 09/12/18 23:39 Dose: 460 mls/hr Acetaminophen (Ofirmev) 1,000 mg in 100 mls @ 400 mls/hr IVPB Q6H PRN PRN Reason: fever Stop: 09/14/18 00:38 Last Admin: 09/12/18 00:44 Dose: 400 mls/hr Sodium Chloride (Sodium Chloride 0.9%) 1,000 mls @ 100 mls/hr IV .Q10H [facility] Last Admin: 09/13/18 06:47 Dose: 100 mls/hr Piperacillin Sod/Tazobactam Sod (Zosyn 2.25 Gm In 0.9% 100 Ml) 2.25 gm in 100 mls @ 100 mls/hr IVPB Q8 [facility] Last Admin: 09/13/18 06:48 Dose: 100 mls/hr Dextrose (Dextrose 5% In Water 1000 Ml) 1,000 mls @ 0 mls/hr IV .Q0M PRN; Protocol PRN Reason: Hypoglycemia Protocol Dexmedetomidine HCl (Precedex 400mcg/100ml) 400 mcg in 100 mls @ 3.987 mls/hr IV .Q24H PRN; Protocol PRN Reason: Agitation Last Titration: 09/13/18 02:00 Dose: 0.1 mcg/kg/hr, 1.994 mls/hr Insulin Detemir (Levemir) 20 unit SC Q12H [facility] Last Admin: 09/13/18 06:45 Dose: 20 units Insulin Human Regular (Humulin R Med) 0 units SC ACHS [facility]; Protocol Last Admin: 09/12/18 23:41 Dose: Not Given Metoprolol Tartrate (Lopressor) 25 mg PO BID [facility] Last Admin: 09/12/18 17:54 Dose: 25 mg Pantoprazole Sodium (Protonix Inj) 40 mg IVP DAILY [facility] Last Admin: 09/12/18 09:35 Dose: 40 mg - Labs Labs: 09/13/18 06:15 09/13/18 06:15 PT 12.9 SECONDS (9.4-12.5) H 09/10/18 12:50 INR 1.14 09/10/18 12:50 APTT 28.7 Seconds (26.9-38.3) 09/10/18 12:50 - Constitutional Appears: Non-toxic, No Acute Distress - Head Exam Head Exam: ATRAUMATIC, NORMOCEPHALIC - Eye Exam Eye Exam: Normal appearance, PERRL - ENT Exam ENT Exam: Mucous Membranes Moist - Neck Exam Neck Exam: Normal Inspection - Respiratory Exam Respiratory Exam: NORMAL BREATHING PATTERN. absent: Accessory Muscle Use - Cardiovascular Exam Cardiovascular Exam: RRR, +S1, +S2 - GI/Abdominal Exam GI & Abdominal Exam: Soft, Normal Bowel Sounds - Extremities Exam Extremities Exam: Normal Inspection. absent: Calf Tenderness - Neurological Exam Neurological Exam: Awake Additional comments: patient right arm is in restraints, she withdraws to painful stimuli, she does raise her left arm when asked to do so, she will open eyes when asked to, she will move her feet when asked to - Psychiatric Exam Psychiatric exam: Normal Affect, Normal Mood - Skin Skin Exam: Dry, Intact, Normal Color, Warm Assessment and Plan - Assessment and Plan (Free Text) Assessment: 68 year old black female with a past medical history of hypertension and DM II who was admitted for AMS and left sided weakness who was found to have multiple small acute infarcts seen scattered about both cerebral hemispheres, sepsis, and HHS. Plan: 1) Acute stroke, likely embolic in nature - Head neck CTA no evidence of occlusion significant stenosis or dissection of the carotid arteries. There is a calcified athrosclerotic plaque both carotid siphons. There is moderate calcified plaque of the distal right vertebral artery. with minimal calfified plaque left vertebral artery. Intra cerebral circulation is patent. No evidence of large aneurysm nor vascular malformation. - Brain MRI there are multiple small acute infarcts seen scattered about both cerebral hemispheres. There findings suggest embolic event given the involvement of bilateral vascular distributions. - TTE and MATEO show no evidence of PFO, thrombus, or vegetations - HOB 45 degrees - Repeat CT of head performed 09/12/2018 reports there is a new area of hypodensity in the right parietal white matter consistent with an acute infarct. This was not present on the prior exam. - Aspirin 81 mg and plavix 75 mg - Given the MATEO did not reveal any kind of shunt, we should perform CTA of the chest to evaluate for pulmonary AVM 2) Seizures - Video EEG reports: This is an abnormal video-EEG monitoring study due to the presence of 1) Burst attenuation pattern, that resolved as the study went on 2) Moderate diffuse slowing 3) Left hemispheric focal slowing and rare left frontal sharps. No seizures, not in status epilepticus INTERPRETATION: These findings support the diagnosis of moderate to severe, non specific diffuse disturbance of cortical activity, in keeping with a diffuse leon matter dysfunction. Findings are also in keeping with a focal cortical abnormality involving the left hemisphere in keeping with an structural abnormality the same area. - Keppra 1 g q12 IVPB - Seizure precautions - Aspiration Precautions Case was reviewed and discussed with attending physician, Dr. Mann <David Mann - Last Filed: 09/15/18 12:00> Objective - Vital Signs/Intake and Output Vital Signs (last 24 hours): Temp Pulse Resp BP Pulse Ox 98.3 F 76 18 161/70 H 99 09/15/18 04:00 09/15/18 10:46 09/15/18 06:58 09/15/18 10:23 09/15/18 06:58 Intake and Output: 09/15/18 09/15/18 06:59 18:59 Intake Total 1600 Balance 1600 - Medications Medications: Current Medications Acetaminophen (Tylenol 650mg/20.3ml Solution Ud) 650 mg NG Q6H PRN PRN Reason: Temperature >100.4 Last Admin: 09/11/18 22:44 Dose: 650 mg Amlodipine Besylate (Norvasc) 10 mg PO DAILY [facility] Last Admin: 09/15/18 10:23 Dose: 10 mg Aspirin (Aspirin Chewable) 81 mg PO DAILY [facility] Last Admin: 09/15/18 10:23 Dose: 81 mg Atorvastatin Calcium (Lipitor) 40 mg PO DIN [facility] Last Admin: 09/14/18 17:51 Dose: 40 mg Clopidogrel Bisulfate (Plavix) 75 mg PO DAILY [facility] Last Admin: 09/15/18 10:23 Dose: 75 mg Dextrose (Dextrose 50% Inj) 0 ml IV STAT PRN; Protocol PRN Reason: Hypoglycemia Protocol Ergocalciferol (Drisdol 50,000 Intl Units Cap) 1 cap PO Q7D [facility] Last Admin: 09/14/18 15:15 Dose: 1 cap Hydralazine HCl (Apresoline) 10 mg IVP Q6 PRN PRN Reason: For SBP>160 Last Admin: 09/14/18 10:44 Dose: 10 mg Propofol (Diprivan) 1,000 mg in 100 mls @ 2.547 mls/hr IV .Q24H PRN; Protocol PRN Reason: TITRATE PER MD ORDER Last Titration: 09/12/18 11:00 Dose: 0 mcg/kg/min, 0 mls/hr Dextrose (Dextrose 5% In Water 1000 Ml) 1,000 mls @ 0 mls/hr IV .Q0M PRN; Protocol PRN Reason: Hypoglycemia Protocol Levetiracetam (Keppra 500mg Ivpb) 500 mg in 100 mls @ 400 mls/hr IVPB Q12 [facility] Last Admin: 09/15/18 10:23 Dose: 400 mls/hr Piperacillin Sod/Tazobactam Sod (Zosyn 3.375 In Ns 100ml) 100 mls @ 25 mls/hr IVPB Q8 [facility]; Protocol Stop: 09/23/18 22:01 Last Admin: 09/15/18 07:16 Dose: 25 mls/hr Sodium Chloride (Sodium Chloride 0.9%) 1,000 mls @ 50 mls/hr IV .Q20H [facility] Last Admin: 09/15/18 10:39 Dose: 50 mls/hr Insulin Detemir (Levemir) 20 unit SC Q12H [facility] Last Admin: 09/15/18 07:13 Dose: Not Given Insulin Human Regular (Humulin R Med) 0 units SC ACHS [facility]; Protocol Last Admin: 09/15/18 08:00 Dose: Not Given Losartan Potassium (Cozaar) 50 mg NG DAILY [facility] Last Admin: 09/15/18 10:22 Dose: 50 mg Metoprolol Tartrate (Lopressor) 25 mg PO BID [facility] Last Admin: 09/15/18 10:22 Dose: 25 mg Pantoprazole Sodium (Protonix Inj) 40 mg IVP DAILY [facility] Last Admin: 09/15/18 10:24 Dose: 40 mg - Labs Labs: 09/15/18 05:30 09/15/18 05:30 PT 12.2 SECONDS (9.4-12.5) 09/14/18 08:00 INR 1.08 09/14/18 08:00 APTT 30.6 Seconds (26.9-38.3) 09/14/18 08:00 Attending/Attestation - Attestation I have personally seen and examined this patient.: Yes I have fully participated in the care of the patient.: Yes I have reviewed all pertinent clinical information, including history, physical exam and plan: Yes Notes (Text): I agree with the assessment and plan. Will continue current management as outlined above.
--- NOTE | 2018-09-13 07:31 | CP.CCUPN ---
<MookieEarnest - Last Filed: 09/13/18 10:24> CCU Subjective - Physician Review Events Since Last Encounter (Free Text): 09/13/18 07:35 no acute events overnight Subjective (Free Text): 09/11/18 07:00 Pt seen and examined, pt intubated at time of exam 09/12/18 09:02 pt seen and examined, video EEG, pt responds to pain CCU Objective - Vital Signs / Intake & Output Vital Signs (Last 4 hours): Vital Signs Temp Pulse Resp Pulse Ox 09/13/18 04:00 98.2 F 09/13/18 03:30 60 20 100 Intake and Output (Last 8hrs): Intake & Output 09/12/18 09/13/18 09/13/18 22:59 06:59 14:59 Intake Total 1281 40 Output Total 650 Balance 631 40 Intake: IV 1041 40 Right Femoral 1000 diprivan 30 insulin drip 11 Tube Feeding 240 Output: Urine 650 Urethral (Johns) 650 Other: # Bowel Movements 2 - Physical Exam Head: Positive for: Atraumatic, Normocephalic Pupils: Positive for: PERRL Extroacular Muscles: Positive for: EOMI Conjunctiva: Positive for: Normal Mouth: Positive for: Moist Mucous Membranes Neck: Positive for: Normal Range of Motion Respiratory/Chest: Positive for: Clear to Auscultation, Good Air Exchange. Negative for: Respiratory Distress, Accessory Muscle Use Cardiovascular: Positive for: Regular Rate and Rhythm, Normal S1, S2. Negative for: Murmurs Abdomen: Negative for: Tenderness, Distention, Peritoneal Signs Back: Positive for: Normal Inspection Upper Extremity: Positive for: Normal Inspection. Negative for: Cyanosis, Edema Lower Extremity: Positive for: Normal Inspection. Negative for: Edema Neurological: Negative for: Speech Normal, Motor Func Grossly Intact (5/5 right side; 0/5 left side), Normal Sensory Function (decreased sensation left side) Skin: Positive for: Warm, Dry, Normal Color. Negative for: Rashes Psychiatric: Positive for: Alert, Oriented x 3, Normal Insight, Normal Concentration - Medications Active Medications: Active Medications Generic Name Dose Route Start Last Admin Trade Name Freq PRN Reason Stop Dose Admin Acetaminophen 650 mg 09/11/18 17:02 09/11/18 22:44 Tylenol 650mg/20.3ml Solution Ud NG 650 mg Q6H PRN Administration Temperature >100.4 Amlodipine Besylate 10 mg 09/12/18 10:00 09/12/18 09:32 Norvasc PO 10 mg DAILY JAMES Administration Dextrose 0 ml 09/12/18 17:24 Dextrose 50% Inj IV STAT PRN Hypoglycemia Protocol Protocol Hydralazine HCl 10 mg 09/11/18 13:30 09/12/18 15:11 Apresoline IVP 10 mg Q6 PRN Administration For SBP>160 Propofol 1,000 mg in 100 mls @ 2.547 mls/hr 09/10/18 17:03 09/12/18 11:00 Diprivan IV 0 mcg/kg/min .Q24H PRN 0 mls/hr TITRATE PER MD ORDER Titration Protocol 5 MCG/KG/MIN Levetiracetam 100 mls @ 460 mls/hr 09/11/18 11:45 09/12/18 23:39 Keppra 1000mg/100ml Ns IV 460 mls/hr Q12 JAMES Administration Acetaminophen 1,000 mg in 100 mls @ 400 mls/hr 09/12/18 00:37 09/12/18 00:44 Ofirmev IVPB 09/14/18 00:38 400 mls/hr Q6H PRN Administration fever Sodium Chloride 1,000 mls @ 100 mls/hr 09/12/18 12:12 09/13/18 06:47 Sodium Chloride 0.9% IV 100 mls/hr .Q10H JAMES Administration Piperacillin Sod/Tazobactam Sod 2.25 gm in 100 mls @ 100 mls/hr 09/12/18 14:00 09/13/18 06:48 Zosyn 2.25 Gm In 0.9% 100 Ml IVPB 100 mls/hr Q8 JAMES Administration Dextrose 1,000 mls @ 0 mls/hr 09/12/18 17:24 Dextrose 5% In Water 1000 Ml IV .Q0M PRN Hypoglycemia Protocol Protocol Per Protocol Dexmedetomidine HCl 400 mcg in 100 mls @ 3.987 mls/hr 09/12/18 17:45 09/13/18 02:00 Precedex 400mcg/100ml IV 0.1 mcg/kg/hr .Q24H PRN 1.994 mls/hr Agitation Titration Protocol 0.2 MCG/KG/HR Insulin Detemir 20 unit 09/13/18 06:00 09/13/18 06:45 Levemir SC 20 units Q12H JAMES Administration Insulin Human Regular 0 units 09/12/18 22:00 09/12/18 23:41 Humulin R Med SC Not Given ACHS JAMES Protocol Metoprolol Tartrate 25 mg 09/11/18 18:00 09/12/18 17:54 Lopressor PO 25 mg BID JAMES Administration Pantoprazole Sodium 40 mg 09/11/18 10:00 09/12/18 09:35 Protonix Inj IVP 40 mg DAILY JAMES Administration - Patient Studies Lab Studies: Microbiology Studies 09/10/18 13:20 Blood Culture - Preliminary Blood NO GROWTH AFTER 48 HOURS 09/10/18 12:50 Blood Culture - Preliminary Blood NO GROWTH AFTER 48 HOURS Lab Studies 09/13/18 09/13/18 09/13/18 Range/Units 06:15 06:15 05:20 WBC 10.8 D (4.5-11.0) 10^3/uL RBC 3.67 (3.5-6.1) 10^6/uL Hgb 10.2 L (12.0-16.0) g/dL Hct 31.2 L (36.0-48.0) % MCV 85.0 (80.0-105.0) fl MCH 27.8 (25.0-35.0) pg MCHC 32.7 (31.0-37.0) g/dl RDW 14.2 (11.5-14.5) % Plt Count 216 (120.0-450.0) 10^3/uL MPV 10.4 (7.0-11.0) fl Neut % (Auto) 75.0 H (50.0-68.0) % Lymph % (Auto) 11.7 L (22.0-35.0) % O'Brien % (Auto) 8.4 H (1.0-6.0) % Eos % (Auto) 4.8 (1.5-5.0) % Baso % (Auto) 0.1 (0.0-3.0) % Lymph # (Auto) 1.3 (1.2-3.4) O'Brien # (Auto) 0.9 H (0.1-0.6) Eos # (Auto) 0.5 (0.0-0.7) Baso # (Auto) 0.01 (0.0-2.0) K/mm3 Absolute Neuts (auto) 8.08 H (1.4-6.5) pCO2 30 L (35-45) mm/Hg pO2 184.0 H (80-100) mm/Hg HCO3 19.9 L (21-28) mmol/L ABG pH 7.43 (7.35-7.45) ABG Total CO2 20.8 L (22-28) mmol.L ABG O2 Saturation 97.8 (95-98) % ABG O2 Content 14.2 L (15-23) ML/dl ABG Base Excess -3.6 L (-2.0-3.0) mmol/L ABG Hemoglobin 10.1 L (11.7-17.4) g/dL ABG Carboxyhemoglobin 0.6 (0.5-1.5) % POC ABG HHb (Measured) 2.2 (0-5) % ABG Methemoglobin 0.5 (0.0-3.0) % ABG O2 Capacity 14.5 L (16-24) mL/dl Hgb O2 Saturation 96.7 (95.0-98.0) % FiO2 40.0 % Sodium 138 (132-148) mmol/L Potassium 3.7 (3.6-5.0) mmol/L Chloride 109 H (98-107) mmol/L Carbon Dioxide 22 (21-33) mmol/L Anion Gap 10 (10-20) BUN 30 H (7-21) mg/dL Creatinine 2.0 H (0.7-1.2) mg/dl Est GFR ( Amer) 30 Est GFR (Non-Af Amer) 25 POC Glucose (mg/dL) (65-110) mg/dL Random Glucose 184 H (70-110) mg/dL Calcium 8.4 (8.4-10.5) mg/dL Phosphorus 3.9 (2.5-4.5) mg/dL Magnesium 1.8 (1.7-2.2) mg/dL Total Bilirubin 0.5 (0.2-1.3) mg/dL AST 39 H (14-36) U/L ALT 18 (7-56) U/L Alkaline Phosphatase 63 (38-126) U/L Total Protein 5.5 L (5.8-8.3) g/dL Albumin 2.7 L (3.0-4.8) g/dL Globulin 2.8 gm/dL Albumin/Globulin Ratio 0.9 L (1.1-1.8) Hep Bs Antigen (NEGATIVE) Hep Bs Antibody (NEGATIVE) Hep B Core IgM Ab (NEGATIVE) Hepatitis C Antibody (NEGATIVE) 09/13/18 09/13/18 09/12/18 Range/Units 03:51 02:07 23:44 WBC (4.5-11.0) 10^3/uL RBC (3.5-6.1) 10^6/uL Hgb (12.0-16.0) g/dL Hct (36.0-48.0) % MCV (80.0-105.0) fl MCH (25.0-35.0) pg MCHC (31.0-37.0) g/dl RDW (11.5-14.5) % Plt Count (120.0-450.0) 10^3/uL MPV (7.0-11.0) fl Neut % (Auto) (50.0-68.0) % Lymph % (Auto) (22.0-35.0) % O'Brien % (Auto) (1.0-6.0) % Eos % (Auto) (1.5-5.0) % Baso % (Auto) (0.0-3.0) % Lymph # (Auto) (1.2-3.4) O'Brien # (Auto) (0.1-0.6) Eos # (Auto) (0.0-0.7) Baso # (Auto) (0.0-2.0) K/mm3 Absolute Neuts (auto) (1.4-6.5) pCO2 (35-45) mm/Hg pO2 (80-100) mm/Hg HCO3 (21-28) mmol/L ABG pH (7.35-7.45) ABG Total CO2 (22-28) mmol.L ABG O2 Saturation (95-98) % ABG O2 Content (15-23) ML/dl ABG Base Excess (-2.0-3.0) mmol/L ABG Hemoglobin (11.7-17.4) g/dL ABG Carboxyhemoglobin (0.5-1.5) % POC ABG HHb (Measured) (0-5) % ABG Methemoglobin (0.0-3.0) % ABG O2 Capacity (16-24) mL/dl Hgb O2 Saturation (95.0-98.0) % FiO2 % Sodium (132-148) mmol/L Potassium (3.6-5.0) mmol/L Chloride (98-107) mmol/L Carbon Dioxide (21-33) mmol/L Anion Gap (10-20) BUN (7-21) mg/dL Creatinine (0.7-1.2) mg/dl Est GFR ( Amer) Est GFR (Non-Af Amer) POC Glucose (mg/dL) 161 H 188 H 210 H (65-110) mg/dL Random Glucose (70-110) mg/dL Calcium (8.4-10.5) mg/dL Phosphorus (2.5-4.5) mg/dL Magnesium (1.7-2.2) mg/dL Total Bilirubin (0.2-1.3) mg/dL AST (14-36) U/L ALT (7-56) U/L Alkaline Phosphatase (38-126) U/L Total Protein (5.8-8.3) g/dL Albumin (3.0-4.8) g/dL Globulin gm/dL Albumin/Globulin Ratio (1.1-1.8) Hep Bs Antigen (NEGATIVE) Hep Bs Antibody (NEGATIVE) Hep B Core IgM Ab (NEGATIVE) Hepatitis C Antibody (NEGATIVE) 09/12/18 09/12/18 09/12/18 Range/Units 22:03 19:22 16:30 WBC (4.5-11.0) 10^3/uL RBC (3.5-6.1) 10^6/uL Hgb (12.0-16.0) g/dL Hct (36.0-48.0) % MCV (80.0-105.0) fl MCH (25.0-35.0) pg MCHC (31.0-37.0) g/dl RDW (11.5-14.5) % Plt Count (120.0-450.0) 10^3/uL MPV (7.0-11.0) fl Neut % (Auto) (50.0-68.0) % Lymph % (Auto) (22.0-35.0) % O'Brien % (Auto) (1.0-6.0) % Eos % (Auto) (1.5-5.0) % Baso % (Auto) (0.0-3.0) % Lymph # (Auto) (1.2-3.4) O'Brien # (Auto) (0.1-0.6) Eos # (Auto) (0.0-0.7) Baso # (Auto) (0.0-2.0) K/mm3 Absolute Neuts (auto) (1.4-6.5) pCO2 (35-45) mm/Hg pO2 (80-100) mm/Hg HCO3 (21-28) mmol/L ABG pH (7.35-7.45) ABG Total CO2 (22-28) mmol.L ABG O2 Saturation (95-98) % ABG O2 Content (15-23) ML/dl ABG Base Excess (-2.0-3.0) mmol/L ABG Hemoglobin (11.7-17.4) g/dL ABG Carboxyhemoglobin (0.5-1.5) % POC ABG HHb (Measured) (0-5) % ABG Methemoglobin (0.0-3.0) % ABG O2 Capacity (16-24) mL/dl Hgb O2 Saturation (95.0-98.0) % FiO2 % Sodium (132-148) mmol/L Potassium (3.6-5.0) mmol/L Chloride (98-107) mmol/L Carbon Dioxide (21-33) mmol/L Anion Gap (10-20) BUN (7-21) mg/dL Creatinine (0.7-1.2) mg/dl Est GFR ( Amer) Est GFR (Non-Af Amer) POC Glucose (mg/dL) 232 H 214 H 175 H (65-110) mg/dL Random Glucose (70-110) mg/dL Calcium (8.4-10.5) mg/dL Phosphorus (2.5-4.5) mg/dL Magnesium (1.7-2.2) mg/dL Total Bilirubin (0.2-1.3) mg/dL AST (14-36) U/L ALT (7-56) U/L Alkaline Phosphatase (38-126) U/L Total Protein (5.8-8.3) g/dL Albumin (3.0-4.8) g/dL Globulin gm/dL Albumin/Globulin Ratio (1.1-1.8) Hep Bs Antigen (NEGATIVE) Hep Bs Antibody (NEGATIVE) Hep B Core IgM Ab (NEGATIVE) Hepatitis C Antibody (NEGATIVE) 09/12/18 09/12/18 09/12/18 Range/Units 16:10 15:07 13:01 WBC (4.5-11.0) 10^3/uL RBC (3.5-6.1) 10^6/uL Hgb (12.0-16.0) g/dL Hct (36.0-48.0) % MCV (80.0-105.0) fl MCH (25.0-35.0) pg MCHC (31.0-37.0) g/dl RDW (11.5-14.5) % Plt Count (120.0-450.0) 10^3/uL MPV (7.0-11.0) fl Neut % (Auto) (50.0-68.0) % Lymph % (Auto) (22.0-35.0) % O'Brien % (Auto) (1.0-6.0) % Eos % (Auto) (1.5-5.0) % Baso % (Auto) (0.0-3.0) % Lymph # (Auto) (1.2-3.4) O'Brien # (Auto) (0.1-0.6) Eos # (Auto) (0.0-0.7) Baso # (Auto) (0.0-2.0) K/mm3 Absolute Neuts (auto) (1.4-6.5) pCO2 (35-45) mm/Hg pO2 (80-100) mm/Hg HCO3 (21-28) mmol/L ABG pH (7.35-7.45) ABG Total CO2 (22-28) mmol.L ABG O2 Saturation (95-98) % ABG O2 Content (15-23) ML/dl ABG Base Excess (-2.0-3.0) mmol/L ABG Hemoglobin (11.7-17.4) g/dL ABG Carboxyhemoglobin (0.5-1.5) % POC ABG HHb (Measured) (0-5) % ABG Methemoglobin (0.0-3.0) % ABG O2 Capacity (16-24) mL/dl Hgb O2 Saturation (95.0-98.0) % FiO2 % Sodium 136 (132-148) mmol/L Potassium 3.3 L (3.6-5.0) mmol/L Chloride 104 (98-107) mmol/L Carbon Dioxide 25 (21-33) mmol/L Anion Gap 11 (10-20) BUN 31 H (7-21) mg/dL Creatinine 2.3 H (0.7-1.2) mg/dl Est GFR ( Amer) 26 Est GFR (Non-Af Amer) 21 POC Glucose (mg/dL) 153 H 198 H (65-110) mg/dL Random Glucose 177 H (70-110) mg/dL Calcium 8.6 (8.4-10.5) mg/dL Phosphorus (2.5-4.5) mg/dL Magnesium (1.7-2.2) mg/dL Total Bilirubin (0.2-1.3) mg/dL AST (14-36) U/L ALT (7-56) U/L Alkaline Phosphatase (38-126) U/L Total Protein (5.8-8.3) g/dL Albumin (3.0-4.8) g/dL Globulin gm/dL Albumin/Globulin Ratio (1.1-1.8) Hep Bs Antigen (NEGATIVE) Hep Bs Antibody (NEGATIVE) Hep B Core IgM Ab (NEGATIVE) Hepatitis C Antibody (NEGATIVE) 09/12/18 09/12/18 09/12/18 Range/Units 10:18 10:00 10:00 WBC (4.5-11.0) 10^3/uL RBC (3.5-6.1) 10^6/uL Hgb (12.0-16.0) g/dL Hct (36.0-48.0) % MCV (80.0-105.0) fl MCH (25.0-35.0) pg MCHC (31.0-37.0) g/dl RDW (11.5-14.5) % Plt Count (120.0-450.0) 10^3/uL MPV (7.0-11.0) fl Neut % (Auto) (50.0-68.0) % Lymph % (Auto) (22.0-35.0) % O'Brien % (Auto) (1.0-6.0) % Eos % (Auto) (1.5-5.0) % Baso % (Auto) (0.0-3.0) % Lymph # (Auto) (1.2-3.4) O'Brien # (Auto) (0.1-0.6) Eos # (Auto) (0.0-0.7) Baso # (Auto) (0.0-2.0) K/mm3 Absolute Neuts (auto) (1.4-6.5) pCO2 (35-45) mm/Hg pO2 (80-100) mm/Hg HCO3 (21-28) mmol/L ABG pH (7.35-7.45) ABG Total CO2 (22-28) mmol.L ABG O2 Saturation (95-98) % ABG O2 Content (15-23) ML/dl ABG Base Excess (-2.0-3.0) mmol/L ABG Hemoglobin (11.7-17.4) g/dL ABG Carboxyhemoglobin (0.5-1.5) % POC ABG HHb (Measured) (0-5) % ABG Methemoglobin (0.0-3.0) % ABG O2 Capacity (16-24) mL/dl Hgb O2 Saturation (95.0-98.0) % FiO2 % Sodium (132-148) mmol/L Potassium (3.6-5.0) mmol/L Chloride (98-107) mmol/L Carbon Dioxide (21-33) mmol/L Anion Gap (10-20) BUN (7-21) mg/dL Creatinine (0.7-1.2) mg/dl Est GFR ( Amer) Est GFR (Non-Af Amer) POC Glucose (mg/dL) 223 H (65-110) mg/dL Random Glucose (70-110) mg/dL Calcium (8.4-10.5) mg/dL Phosphorus (2.5-4.5) mg/dL Magnesium (1.7-2.2) mg/dL Total Bilirubin (0.2-1.3) mg/dL AST (14-36) U/L ALT (7-56) U/L Alkaline Phosphatase (38-126) U/L Total Protein (5.8-8.3) g/dL Albumin (3.0-4.8) g/dL Globulin gm/dL Albumin/Globulin Ratio (1.1-1.8) Hep Bs Antigen Negative (NEGATIVE) Hep Bs Antibody Negative (NEGATIVE) Hep B Core IgM Ab Negative (NEGATIVE) Hepatitis C Antibody Negative (NEGATIVE) 09/12/18 09/12/18 09/12/18 Range/Units 10:00 07:55 07:40 WBC (4.5-11.0) 10^3/uL RBC (3.5-6.1) 10^6/uL Hgb (12.0-16.0) g/dL Hct (36.0-48.0) % MCV (80.0-105.0) fl MCH (25.0-35.0) pg MCHC (31.0-37.0) g/dl RDW (11.5-14.5) % Plt Count (120.0-450.0) 10^3/uL MPV (7.0-11.0) fl Neut % (Auto) (50.0-68.0) % Lymph % (Auto) (22.0-35.0) % O'Brien % (Auto) (1.0-6.0) % Eos % (Auto) (1.5-5.0) % Baso % (Auto) (0.0-3.0) % Lymph # (Auto) (1.2-3.4) O'Brien # (Auto) (0.1-0.6) Eos # (Auto) (0.0-0.7) Baso # (Auto) (0.0-2.0) K/mm3 Absolute Neuts (auto) (1.4-6.5) pCO2 30 L (35-45) mm/Hg pO2 182.0 H (80-100) mm/Hg HCO3 21.8 (21-28) mmol/L ABG pH 7.47 H (7.35-7.45) ABG Total CO2 22.7 (22-28) mmol.L ABG O2 Saturation 97.4 (95-98) % ABG O2 Content 13.6 L (15-23) ML/dl ABG Base Excess -1.3 (-2.0-3.0) mmol/L ABG Hemoglobin 9.7 L (11.7-17.4) g/dL ABG Carboxyhemoglobin 0.2 L (0.5-1.5) % POC ABG HHb (Measured) 2.6 (0-5) % ABG Methemoglobin 0.5 (0.0-3.0) % ABG O2 Capacity 14.0 L (16-24) mL/dl Hgb O2 Saturation 96.6 (95.0-98.0) % FiO2 40.0 % Sodium (132-148) mmol/L Potassium (3.6-5.0) mmol/L Chloride (98-107) mmol/L Carbon Dioxide (21-33) mmol/L Anion Gap (10-20) BUN (7-21) mg/dL Creatinine (0.7-1.2) mg/dl Est GFR ( Amer) Est GFR (Non-Af Amer) POC Glucose (mg/dL) 265 H (65-110) mg/dL Random Glucose (70-110) mg/dL Calcium (8.4-10.5) mg/dL Phosphorus 4.0 (2.5-4.5) mg/dL Magnesium 1.7 (1.7-2.2) mg/dL Total Bilirubin (0.2-1.3) mg/dL AST (14-36) U/L ALT (7-56) U/L Alkaline Phosphatase (38-126) U/L Total Protein (5.8-8.3) g/dL Albumin (3.0-4.8) g/dL Globulin gm/dL Albumin/Globulin Ratio (1.1-1.8) Hep Bs Antigen (NEGATIVE) Hep Bs Antibody (NEGATIVE) Hep B Core IgM Ab (NEGATIVE) Hepatitis C Antibody (NEGATIVE) Laboratory Results - last 24 hr 09/12/18 09/12/18 09/12/18 07:40 07:55 10:00 WBC RBC Hgb Hct MCV MCH MCHC RDW Plt Count MPV Neut % (Auto) Lymph % (Auto) O'Brien % (Auto) Eos % (Auto) Baso % (Auto) Lymph # (Auto) O'Brien # (Auto) Eos # (Auto) Baso # (Auto) Absolute Neuts (auto) pCO2 30 L pO2 182.0 H HCO3 21.8 ABG pH 7.47 H ABG Total CO2 22.7 ABG O2 Saturation 97.4 ABG O2 Content 13.6 L ABG Base Excess -1.3 ABG Hemoglobin 9.7 L ABG Carboxyhemoglobin 0.2 L POC ABG HHb (Measured) 2.6 ABG Methemoglobin 0.5 ABG O2 Capacity 14.0 L Hgb O2 Saturation 96.6 FiO2 40.0 Sodium Potassium Chloride Carbon Dioxide Anion Gap BUN Creatinine Est GFR ( Amer) Est GFR (Non-Af Amer) POC Glucose (mg/dL) 265 H Random Glucose Calcium Phosphorus 4.0 Magnesium 1.7 Total Bilirubin AST ALT Alkaline Phosphatase Total Protein Albumin Globulin Albumin/Globulin Ratio Hep Bs Antigen Hep Bs Antibody Hep B Core IgM Ab Hepatitis C Antibody 09/12/18 09/12/18 09/12/18 10:00 10:00 10:18 WBC RBC Hgb Hct MCV MCH MCHC RDW Plt Count MPV Neut % (Auto) Lymph % (Auto) O'Brien % (Auto) Eos % (Auto) Baso % (Auto) Lymph # (Auto) O'Brien # (Auto) Eos # (Auto) Baso # (Auto) Absolute Neuts (auto) pCO2 pO2 HCO3 ABG pH ABG Total CO2 ABG O2 Saturation ABG O2 Content ABG Base Excess ABG Hemoglobin ABG Carboxyhemoglobin POC ABG HHb (Measured) ABG Methemoglobin ABG O2 Capacity Hgb O2 Saturation FiO2 Sodium Potassium Chloride Carbon Dioxide Anion Gap BUN Creatinine Est GFR ( Amer) Est GFR (Non-Af Amer) POC Glucose (mg/dL) 223 H Random Glucose Calcium Phosphorus Magnesium Total Bilirubin AST ALT Alkaline Phosphatase Total Protein Albumin Globulin Albumin/Globulin Ratio Hep Bs Antigen Negative Hep Bs Antibody Negative Hep B Core IgM Ab Negative Hepatitis C Antibody Negative 09/12/18 09/12/18 09/12/18 13:01 15:07 16:10 WBC RBC Hgb Hct MCV MCH MCHC RDW Plt Count MPV Neut % (Auto) Lymph % (Auto) O'Brien % (Auto) Eos % (Auto) Baso % (Auto) Lymph # (Auto) O'Brien # (Auto) Eos # (Auto) Baso # (Auto) Absolute Neuts (auto) pCO2 pO2 HCO3 ABG pH ABG Total CO2 ABG O2 Saturation ABG O2 Content ABG Base Excess ABG Hemoglobin ABG Carboxyhemoglobin POC ABG HHb (Measured) ABG Methemoglobin ABG O2 Capacity Hgb O2 Saturation FiO2 Sodium 136 Potassium 3.3 L Chloride 104 Carbon Dioxide 25 Anion Gap 11 BUN 31 H Creatinine 2.3 H Est GFR ( Amer) 26 Est GFR (Non-Af Amer) 21 POC Glucose (mg/dL) 198 H 153 H Random Glucose 177 H Calcium 8.6 Phosphorus Magnesium Total Bilirubin AST ALT Alkaline Phosphatase Total Protein Albumin Globulin Albumin/Globulin Ratio Hep Bs Antigen Hep Bs Antibody Hep B Core IgM Ab Hepatitis C Antibody 09/12/18 09/12/18 09/12/18 16:30 19:22 22:03 WBC RBC Hgb Hct MCV MCH MCHC RDW Plt Count MPV Neut % (Auto) Lymph % (Auto) O'Brien % (Auto) Eos % (Auto) Baso % (Auto) Lymph # (Auto) O'Brien # (Auto) Eos # (Auto) Baso # (Auto) Absolute Neuts (auto) pCO2 pO2 HCO3 ABG pH ABG Total CO2 ABG O2 Saturation ABG O2 Content ABG Base Excess ABG Hemoglobin ABG Carboxyhemoglobin POC ABG HHb (Measured) ABG Methemoglobin ABG O2 Capacity Hgb O2 Saturation FiO2 Sodium Potassium Chloride Carbon Dioxide Anion Gap BUN Creatinine Est GFR ( Amer) Est GFR (Non-Af Amer) POC Glucose (mg/dL) 175 H 214 H 232 H Random Glucose Calcium Phosphorus Magnesium Total Bilirubin AST ALT Alkaline Phosphatase Total Protein Albumin Globulin Albumin/Globulin Ratio Hep Bs Antigen Hep Bs Antibody Hep B Core IgM Ab Hepatitis C Antibody 09/12/18 09/13/18 09/13/18 23:44 02:07 03:51 WBC RBC Hgb Hct MCV MCH MCHC RDW Plt Count MPV Neut % (Auto) Lymph % (Auto) O'Brien % (Auto) Eos % (Auto) Baso % (Auto) Lymph # (Auto) O'Brien # (Auto) Eos # (Auto) Baso # (Auto) Absolute Neuts (auto) pCO2 pO2 HCO3 ABG pH ABG Total CO2 ABG O2 Saturation ABG O2 Content ABG Base Excess ABG Hemoglobin ABG Carboxyhemoglobin POC ABG HHb (Measured) ABG Methemoglobin ABG O2 Capacity Hgb O2 Saturation FiO2 Sodium Potassium Chloride Carbon Dioxide Anion Gap BUN Creatinine Est GFR ( Amer) Est GFR (Non-Af Amer) POC Glucose (mg/dL) 210 H 188 H 161 H Random Glucose Calcium Phosphorus Magnesium Total Bilirubin AST ALT Alkaline Phosphatase Total Protein Albumin Globulin Albumin/Globulin Ratio Hep Bs Antigen Hep Bs Antibody Hep B Core IgM Ab Hepatitis C Antibody 09/13/18 09/13/18 09/13/18 05:20 06:15 06:15 WBC 10.8 D RBC 3.67 Hgb 10.2 L Hct 31.2 L MCV 85.0 MCH 27.8 MCHC 32.7 RDW 14.2 Plt Count 216 MPV 10.4 Neut % (Auto) 75.0 H Lymph % (Auto) 11.7 L O'Brien % (Auto) 8.4 H Eos % (Auto) 4.8 Baso % (Auto) 0.1 Lymph # (Auto) 1.3 O'Brien # (Auto) 0.9 H Eos # (Auto) 0.5 Baso # (Auto) 0.01 Absolute Neuts (auto) 8.08 H pCO2 30 L pO2 184.0 H HCO3 19.9 L ABG pH 7.43 ABG Total CO2 20.8 L ABG O2 Saturation 97.8 ABG O2 Content 14.2 L ABG Base Excess -3.6 L ABG Hemoglobin 10.1 L ABG Carboxyhemoglobin 0.6 POC ABG HHb (Measured) 2.2 ABG Methemoglobin 0.5 ABG O2 Capacity 14.5 L Hgb O2 Saturation 96.7 FiO2 40.0 Sodium 138 Potassium 3.7 Chloride 109 H Carbon Dioxide 22 Anion Gap 10 BUN 30 H Creatinine 2.0 H Est GFR ( Amer) 30 Est GFR (Non-Af Amer) 25 POC Glucose (mg/dL) Random Glucose 184 H Calcium 8.4 Phosphorus 3.9 Magnesium 1.8 Total Bilirubin 0.5 AST 39 H ALT 18 Alkaline Phosphatase 63 Total Protein 5.5 L Albumin 2.7 L Globulin 2.8 Albumin/Globulin Ratio 0.9 L Hep Bs Antigen Hep Bs Antibody Hep B Core IgM Ab Hepatitis C Antibody Radiology Impressions: Radiology Impressions Chest X-Ray 09/12/18 07:39 IMPRESSION: No active disease. Fingerstick Blood Sugar Results: 161 Critical Care Progress Note - Nutrition Nutrition: Nutrition Category Date Time Status NPO Diet [DIET] Diets 09/10/18 Lunch Ordered Assessment/Plan - Assessment and Plan (Free Text) Assessment: Pt is a 68 yo female with a PMH of HTN and DM who was found down by her with unilateral weakness. Brain MRI later showed multiple emboli in both hemispheres of the brain. Plan: Neuro - intubated - admitted for multiple emboli in both hemispheres of the brain, and unilateral weakness on exam - pt had a seizure in the ICU and was given propofol, ativan 8mg, keppra 1000 IV q12, continuous EEG, Korya notified - Head CT no acute intracranial pathology, age related changes - Head neck CTA no evidence of occlusion significant stenosis or dissection of the carotid arteries. There is a calcified athrosclerotic plaque both carotid siphons. There is moderate calcified plaque of the distal right vertebral artery. with minimal calfified plaque left vertebral artery. Intra cerebral circulation is patent. No evidence of large aneurysm nor vascular malformation. - Brain MRI there are multiple small acute infarcts seen scattered about both cerebral hemispheres. There findings suggest embolic event given the involvement of bilateral vascular distributions. - ECHO showed no vegetations or thrombus, no ASD or PFO - Neuro consulted Cardio - femoral central line in place - hydralazine, metoprolol, amlodipine - ECHO EF55-60%, RVSP29, aneurysmal atrial septum, no sings of ASD, no vegetations or thrombus noted - Cardio consulted, Dr Benigno Foy - ABG 30/184/7.43 - ventilator settings: 20/350/40%/5 - maintain O2 >92 - VAP bundle: - oral hygiene - HOB 30 degrees - DVT/GI ppx - appropriate TV - daily sedation vacations - conservative O2 management - conservative fluid management - will wean sedation today and attempt to extubate today GI - NPO Nephro/ - monitor BUN/Cr - monitor electrolytes - UA protein, glucose, ketones, blood, bilirubin, LE, RBC, WBC Heme/ Onc - Hgb 10.2 - INR 1.14 ID - WBC 10.8 - blood cultures NGTD - zosyn - ID consulted, Dr Baljit Balderas - HA1C 8.7 Pt seen, examined, assessment and plan discussed with Dr Massiel Damico PGY1 - Date & Time Date: 09/13/18 Time: 07:37 <Yoan Rankin - Last Filed: 09/13/18 14:53> CCU Objective - Vital Signs / Intake & Output Intake and Output (Last 8hrs): Intake & Output 09/12/18 09/13/18 09/13/18 22:59 06:59 14:59 Intake Total 1281 1848 Output Total 650 225 Balance 631 1623 Weight 198 lb Intake: IV 1041 1488 Right Antecubital 1448 Right Femoral 1000 diprivan 30 insulin drip 11 Oral 0 Tube Feeding 240 360 Output: Urine 650 225 Urethral (Johns) 650 225 Other: # Bowel Movements 2 0 - Medications Active Medications: Active Medications Generic Name Dose Route Start Last Admin Trade Name Freq PRN Reason Stop Dose Admin Acetaminophen 650 mg 09/11/18 17:02 09/11/18 22:44 Tylenol 650mg/20.3ml Solution Ud NG 650 mg Q6H PRN Administration Temperature >100.4 Amlodipine Besylate 10 mg 09/12/18 10:00 09/13/18 10:46 Norvasc PO 10 mg DAILY JAMES Administration Aspirin 81 mg 09/13/18 12:30 09/13/18 13:58 Aspirin Chewable PO 81 mg DAILY JAMES Administration Clopidogrel Bisulfate 75 mg 09/13/18 12:30 09/13/18 13:58 Plavix PO 75 mg DAILY JAMES Administration Dextrose 0 ml 09/12/18 17:24 Dextrose 50% Inj IV STAT PRN Hypoglycemia Protocol Protocol Hydralazine HCl 10 mg 09/11/18 13:30 09/12/18 15:11 Apresoline IVP 10 mg Q6 PRN Administration For SBP>160 Propofol 1,000 mg in 100 mls @ 2.547 mls/hr 09/10/18 17:03 09/12/18 11:00 Diprivan IV 0 mcg/kg/min .Q24H PRN 0 mls/hr TITRATE PER MD ORDER Titration Protocol 5 MCG/KG/MIN Levetiracetam 100 mls @ 460 mls/hr 09/11/18 11:45 09/13/18 10:45 Keppra 1000mg/100ml Ns IV 460 mls/hr Q12 JAMES Administration Acetaminophen 1,000 mg in 100 mls @ 400 mls/hr 09/12/18 00:37 09/12/18 00:44 Ofirmev IVPB 09/14/18 00:38 400 mls/hr Q6H PRN Administration fever Sodium Chloride 1,000 mls @ 100 mls/hr 09/12/18 12:12 09/13/18 06:47 Sodium Chloride 0.9% IV 100 mls/hr .Q10H JAMES Administration Piperacillin Sod/Tazobactam Sod 2.25 gm in 100 mls @ 100 mls/hr 09/12/18 14:00 09/13/18 13:57 Zosyn 2.25 Gm In 0.9% 100 Ml IVPB 100 mls/hr Q8 JAMES Administration Dextrose 1,000 mls @ 0 mls/hr 09/12/18 17:24 Dextrose 5% In Water 1000 Ml IV .Q0M PRN Hypoglycemia Protocol Protocol Per Protocol Insulin Detemir 20 unit 09/13/18 06:00 09/13/18 06:45 Levemir SC 20 units Q12H JAMES Administration Insulin Human Regular 0 units 09/12/18 22:00 09/13/18 13:57 Humulin R Med SC Not Given ACHS [facility] Protocol Metoprolol Tartrate 25 mg 09/11/18 18:00 09/13/18 10:45 Lopressor PO 25 mg BID JAMES Administration Pantoprazole Sodium 40 mg 09/11/18 10:00 09/13/18 10:45 Protonix Inj IVP 40 mg DAILY JAMES Administration - Patient Studies Lab Studies: Microbiology Studies 09/10/18 13:20 Blood Culture - Preliminary Blood NO GROWTH AFTER 48 HOURS 09/10/18 12:50 Blood Culture - Preliminary Blood NO GROWTH AFTER 48 HOURS Lab Studies 09/13/18 09/13/18 09/13/18 Range/Units 11:36 06:15 06:15 WBC (4.5-11.0) 10^3/uL RBC (3.5-6.1) 10^6/uL Hgb (12.0-16.0) g/dL Hct (36.0-48.0) % MCV (80.0-105.0) fl MCH (25.0-35.0) pg MCHC (31.0-37.0) g/dl RDW (11.5-14.5) % Plt Count (120.0-450.0) 10^3/uL MPV (7.0-11.0) fl Neut % (Auto) (50.0-68.0) % Lymph % (Auto) (22.0-35.0) % O'Brien % (Auto) (1.0-6.0) % Eos % (Auto) (1.5-5.0) % Baso % (Auto) (0.0-3.0) % Lymph # (Auto) (1.2-3.4) O'Brien # (Auto) (0.1-0.6) Eos # (Auto) (0.0-0.7) Baso # (Auto) (0.0-2.0) K/mm3 Absolute Neuts (auto) (1.4-6.5) pCO2 (35-45) mm/Hg pO2 (80-100) mm/Hg HCO3 (21-28) mmol/L ABG pH (7.35-7.45) ABG Total CO2 (22-28) mmol.L ABG O2 Saturation (95-98) % ABG O2 Content (15-23) ML/dl ABG Base Excess (-2.0-3.0) mmol/L ABG Hemoglobin (11.7-17.4) g/dL ABG Carboxyhemoglobin (0.5-1.5) % POC ABG HHb (Measured) (0-5) % ABG Methemoglobin (0.0-3.0) % ABG O2 Capacity (16-24) mL/dl Hgb O2 Saturation (95.0-98.0) % FiO2 % Sodium 138 (132-148) mmol/L Potassium 3.7 (3.6-5.0) mmol/L Chloride 109 H (98-107) mmol/L Carbon Dioxide 22 (21-33) mmol/L Anion Gap 10 (10-20) BUN 30 H (7-21) mg/dL Creatinine 2.0 H (0.7-1.2) mg/dl Est GFR ( Amer) 30 Est GFR (Non-Af Amer) 25 POC Glucose (mg/dL) 188 H (65-110) mg/dL Random Glucose 184 H (70-110) mg/dL Calcium 8.4 (8.4-10.5) mg/dL Phosphorus 3.9 (2.5-4.5) mg/dL Magnesium 1.8 (1.7-2.2) mg/dL Total Bilirubin 0.5 (0.2-1.3) mg/dL AST 39 H (14-36) U/L ALT 18 (7-56) U/L Alkaline Phosphatase 63 (38-126) U/L Total Protein 5.5 L (5.8-8.3) g/dL Albumin 2.7 L (3.0-4.8) g/dL Globulin 2.8 gm/dL Albumin/Globulin Ratio 0.9 L (1.1-1.8) 25-OH Vitamin D Total < 12.8 L (30.0-100.0) NG/ML Hep Bs Antigen (NEGATIVE) Hep Bs Antibody (NEGATIVE) Hep B Core IgM Ab (NEGATIVE) Hepatitis C Antibody (NEGATIVE) HIV 1&2 Ag/Ab, 4th Gen (Nonreactive) 09/13/18 09/13/18 09/13/18 Range/Units 06:15 05:20 03:51 WBC 10.8 D (4.5-11.0) 10^3/uL RBC 3.67 (3.5-6.1) 10^6/uL Hgb 10.2 L (12.0-16.0) g/dL Hct 31.2 L (36.0-48.0) % MCV 85.0 (80.0-105.0) fl MCH 27.8 (25.0-35.0) pg MCHC 32.7 (31.0-37.0) g/dl RDW 14.2 (11.5-14.5) % Plt Count 216 (120.0-450.0) 10^3/uL MPV 10.4 (7.0-11.0) fl Neut % (Auto) 75.0 H (50.0-68.0) % Lymph % (Auto) 11.7 L (22.0-35.0) % O'Brien % (Auto) 8.4 H (1.0-6.0) % Eos % (Auto) 4.8 (1.5-5.0) % Baso % (Auto) 0.1 (0.0-3.0) % Lymph # (Auto) 1.3 (1.2-3.4) O'Brien # (Auto) 0.9 H (0.1-0.6) Eos # (Auto) 0.5 (0.0-0.7) Baso # (Auto) 0.01 (0.0-2.0) K/mm3 Absolute Neuts (auto) 8.08 H (1.4-6.5) pCO2 30 L (35-45) mm/Hg pO2 184.0 H (80-100) mm/Hg HCO3 19.9 L (21-28) mmol/L ABG pH 7.43 (7.35-7.45) ABG Total CO2 20.8 L (22-28) mmol.L ABG O2 Saturation 97.8 (95-98) % ABG O2 Content 14.2 L (15-23) ML/dl ABG Base Excess -3.6 L (-2.0-3.0) mmol/L ABG Hemoglobin 10.1 L (11.7-17.4) g/dL ABG Carboxyhemoglobin 0.6 (0.5-1.5) % POC ABG HHb (Measured) 2.2 (0-5) % ABG Methemoglobin 0.5 (0.0-3.0) % ABG O2 Capacity 14.5 L (16-24) mL/dl Hgb O2 Saturation 96.7 (95.0-98.0) % FiO2 40.0 % Sodium (132-148) mmol/L Potassium (3.6-5.0) mmol/L Chloride (98-107) mmol/L Carbon Dioxide (21-33) mmol/L Anion Gap (10-20) BUN (7-21) mg/dL Creatinine (0.7-1.2) mg/dl Est GFR ( Amer) Est GFR (Non-Af Amer) POC Glucose (mg/dL) 161 H (65-110) mg/dL Random Glucose (70-110) mg/dL Calcium (8.4-10.5) mg/dL Phosphorus (2.5-4.5) mg/dL Magnesium (1.7-2.2) mg/dL Total Bilirubin (0.2-1.3) mg/dL AST (14-36) U/L ALT (7-56) U/L Alkaline Phosphatase (38-126) U/L Total Protein (5.8-8.3) g/dL Albumin (3.0-4.8) g/dL Globulin gm/dL Albumin/Globulin Ratio (1.1-1.8) 25-OH Vitamin D Total (30.0-100.0) NG/ML Hep Bs Antigen (NEGATIVE) Hep Bs Antibody (NEGATIVE) Hep B Core IgM Ab (NEGATIVE) Hepatitis C Antibody (NEGATIVE) HIV 1&2 Ag/Ab, 4th Gen (Nonreactive) 09/13/18 09/12/18 09/12/18 Range/Units 02:07 23:44 22:03 WBC (4.5-11.0) 10^3/uL RBC (3.5-6.1) 10^6/uL Hgb (12.0-16.0) g/dL Hct (36.0-48.0) % MCV (80.0-105.0) fl MCH (25.0-35.0) pg MCHC (31.0-37.0) g/dl RDW (11.5-14.5) % Plt Count (120.0-450.0) 10^3/uL MPV (7.0-11.0) fl Neut % (Auto) (50.0-68.0) % Lymph % (Auto) (22.0-35.0) % O'Brien % (Auto) (1.0-6.0) % Eos % (Auto) (1.5-5.0) % Baso % (Auto) (0.0-3.0) % Lymph # (Auto) (1.2-3.4) O'Brien # (Auto) (0.1-0.6) Eos # (Auto) (0.0-0.7) Baso # (Auto) (0.0-2.0) K/mm3 Absolute Neuts (auto) (1.4-6.5) pCO2 (35-45) mm/Hg pO2 (80-100) mm/Hg HCO3 (21-28) mmol/L ABG pH (7.35-7.45) ABG Total CO2 (22-28) mmol.L ABG O2 Saturation (95-98) % ABG O2 Content (15-23) ML/dl ABG Base Excess (-2.0-3.0) mmol/L ABG Hemoglobin (11.7-17.4) g/dL ABG Carboxyhemoglobin (0.5-1.5) % POC ABG HHb (Measured) (0-5) % ABG Methemoglobin (0.0-3.0) % ABG O2 Capacity (16-24) mL/dl Hgb O2 Saturation (95.0-98.0) % FiO2 % Sodium (132-148) mmol/L Potassium (3.6-5.0) mmol/L Chloride (98-107) mmol/L Carbon Dioxide (21-33) mmol/L Anion Gap (10-20) BUN (7-21) mg/dL Creatinine (0.7-1.2) mg/dl Est GFR ( Amer) Est GFR (Non-Af Amer) POC Glucose (mg/dL) 188 H 210 H 232 H (65-110) mg/dL Random Glucose (70-110) mg/dL Calcium (8.4-10.5) mg/dL Phosphorus (2.5-4.5) mg/dL Magnesium (1.7-2.2) mg/dL Total Bilirubin (0.2-1.3) mg/dL AST (14-36) U/L ALT (7-56) U/L Alkaline Phosphatase (38-126) U/L Total Protein (5.8-8.3) g/dL Albumin (3.0-4.8) g/dL Globulin gm/dL Albumin/Globulin Ratio (1.1-1.8) 25-OH Vitamin D Total (30.0-100.0) NG/ML Hep Bs Antigen (NEGATIVE) Hep Bs Antibody (NEGATIVE) Hep B Core IgM Ab (NEGATIVE) Hepatitis C Antibody (NEGATIVE) HIV 1&2 Ag/Ab, 4th Gen (Nonreactive) 09/12/18 09/12/18 09/12/18 Range/Units 19:22 16:30 16:10 WBC (4.5-11.0) 10^3/uL RBC (3.5-6.1) 10^6/uL Hgb (12.0-16.0) g/dL Hct (36.0-48.0) % MCV (80.0-105.0) fl MCH (25.0-35.0) pg MCHC (31.0-37.0) g/dl RDW (11.5-14.5) % Plt Count (120.0-450.0) 10^3/uL MPV (7.0-11.0) fl Neut % (Auto) (50.0-68.0) % Lymph % (Auto) (22.0-35.0) % O'Brien % (Auto) (1.0-6.0) % Eos % (Auto) (1.5-5.0) % Baso % (Auto) (0.0-3.0) % Lymph # (Auto) (1.2-3.4) O'Brien # (Auto) (0.1-0.6) Eos # (Auto) (0.0-0.7) Baso # (Auto) (0.0-2.0) K/mm3 Absolute Neuts (auto) (1.4-6.5) pCO2 (35-45) mm/Hg pO2 (80-100) mm/Hg HCO3 (21-28) mmol/L ABG pH (7.35-7.45) ABG Total CO2 (22-28) mmol.L ABG O2 Saturation (95-98) % ABG O2 Content (15-23) ML/dl ABG Base Excess (-2.0-3.0) mmol/L ABG Hemoglobin (11.7-17.4) g/dL ABG Carboxyhemoglobin (0.5-1.5) % POC ABG HHb (Measured) (0-5) % ABG Methemoglobin (0.0-3.0) % ABG O2 Capacity (16-24) mL/dl Hgb O2 Saturation (95.0-98.0) % FiO2 % Sodium 136 (132-148) mmol/L Potassium 3.3 L (3.6-5.0) mmol/L Chloride 104 (98-107) mmol/L Carbon Dioxide 25 (21-33) mmol/L Anion Gap 11 (10-20) BUN 31 H (7-21) mg/dL Creatinine 2.3 H (0.7-1.2) mg/dl Est GFR ( Amer) 26 Est GFR (Non-Af Amer) 21 POC Glucose (mg/dL) 214 H 175 H (65-110) mg/dL Random Glucose 177 H (70-110) mg/dL Calcium 8.6 (8.4-10.5) mg/dL Phosphorus (2.5-4.5) mg/dL Magnesium (1.7-2.2) mg/dL Total Bilirubin (0.2-1.3) mg/dL AST (14-36) U/L ALT (7-56) U/L Alkaline Phosphatase (38-126) U/L Total Protein (5.8-8.3) g/dL Albumin (3.0-4.8) g/dL Globulin gm/dL Albumin/Globulin Ratio (1.1-1.8) 25-OH Vitamin D Total (30.0-100.0) NG/ML Hep Bs Antigen (NEGATIVE) Hep Bs Antibody (NEGATIVE) Hep B Core IgM Ab (NEGATIVE) Hepatitis C Antibody (NEGATIVE) HIV 1&2 Ag/Ab, 4th Gen (Nonreactive) 09/12/18 09/12/18 09/12/18 Range/Units 16:10 15:07 10:00 WBC (4.5-11.0) 10^3/uL RBC (3.5-6.1) 10^6/uL Hgb (12.0-16.0) g/dL Hct (36.0-48.0) % MCV (80.0-105.0) fl MCH (25.0-35.0) pg MCHC (31.0-37.0) g/dl RDW (11.5-14.5) % Plt Count (120.0-450.0) 10^3/uL MPV (7.0-11.0) fl Neut % (Auto) (50.0-68.0) % Lymph % (Auto) (22.0-35.0) % O'Brien % (Auto) (1.0-6.0) % Eos % (Auto) (1.5-5.0) % Baso % (Auto) (0.0-3.0) % Lymph # (Auto) (1.2-3.4) O'Brien # (Auto) (0.1-0.6) Eos # (Auto) (0.0-0.7) Baso # (Auto) (0.0-2.0) K/mm3 Absolute Neuts (auto) (1.4-6.5) pCO2 (35-45) mm/Hg pO2 (80-100) mm/Hg HCO3 (21-28) mmol/L ABG pH (7.35-7.45) ABG Total CO2 (22-28) mmol.L ABG O2 Saturation (95-98) % ABG O2 Content (15-23) ML/dl ABG Base Excess (-2.0-3.0) mmol/L ABG Hemoglobin (11.7-17.4) g/dL ABG Carboxyhemoglobin (0.5-1.5) % POC ABG HHb (Measured) (0-5) % ABG Methemoglobin (0.0-3.0) % ABG O2 Capacity (16-24) mL/dl Hgb O2 Saturation (95.0-98.0) % FiO2 % Sodium (132-148) mmol/L Potassium (3.6-5.0) mmol/L Chloride (98-107) mmol/L Carbon Dioxide (21-33) mmol/L Anion Gap (10-20) BUN (7-21) mg/dL Creatinine (0.7-1.2) mg/dl Est GFR ( Amer) Est GFR (Non-Af Amer) POC Glucose (mg/dL) 153 H (65-110) mg/dL Random Glucose (70-110) mg/dL Calcium (8.4-10.5) mg/dL Phosphorus (2.5-4.5) mg/dL Magnesium (1.7-2.2) mg/dL Total Bilirubin (0.2-1.3) mg/dL AST (14-36) U/L ALT (7-56) U/L Alkaline Phosphatase (38-126) U/L Total Protein (5.8-8.3) g/dL Albumin (3.0-4.8) g/dL Globulin gm/dL Albumin/Globulin Ratio (1.1-1.8) 25-OH Vitamin D Total (30.0-100.0) NG/ML Hep Bs Antigen (NEGATIVE) Hep Bs Antibody Negative (NEGATIVE) Hep B Core IgM Ab (NEGATIVE) Hepatitis C Antibody (NEGATIVE) HIV 1&2 Ag/Ab, 4th Gen Nonreactive (Nonreactive) 09/12/18 Range/Units 10:00 WBC (4.5-11.0) 10^3/uL RBC (3.5-6.1) 10^6/uL Hgb (12.0-16.0) g/dL Hct (36.0-48.0) % MCV (80.0-105.0) fl MCH (25.0-35.0) pg MCHC (31.0-37.0) g/dl RDW (11.5-14.5) % Plt Count (120.0-450.0) 10^3/uL MPV (7.0-11.0) fl Neut % (Auto) (50.0-68.0) % Lymph % (Auto) (22.0-35.0) % O'Brien % (Auto) (1.0-6.0) % Eos % (Auto) (1.5-5.0) % Baso % (Auto) (0.0-3.0) % Lymph # (Auto) (1.2-3.4) O'Brien # (Auto) (0.1-0.6) Eos # (Auto) (0.0-0.7) Baso # (Auto) (0.0-2.0) K/mm3 Absolute Neuts (auto) (1.4-6.5) pCO2 (35-45) mm/Hg pO2 (80-100) mm/Hg HCO3 (21-28) mmol/L ABG pH (7.35-7.45) ABG Total CO2 (22-28) mmol.L ABG O2 Saturation (95-98) % ABG O2 Content (15-23) ML/dl ABG Base Excess (-2.0-3.0) mmol/L ABG Hemoglobin (11.7-17.4) g/dL ABG Carboxyhemoglobin (0.5-1.5) % POC ABG HHb (Measured) (0-5) % ABG Methemoglobin (0.0-3.0) % ABG O2 Capacity (16-24) mL/dl Hgb O2 Saturation (95.0-98.0) % FiO2 % Sodium (132-148) mmol/L Potassium (3.6-5.0) mmol/L Chloride (98-107) mmol/L Carbon Dioxide (21-33) mmol/L Anion Gap (10-20) BUN (7-21) mg/dL Creatinine (0.7-1.2) mg/dl Est GFR ( Amer) Est GFR (Non-Af Amer) POC Glucose (mg/dL) (65-110) mg/dL Random Glucose (70-110) mg/dL Calcium (8.4-10.5) mg/dL Phosphorus (2.5-4.5) mg/dL Magnesium (1.7-2.2) mg/dL Total Bilirubin (0.2-1.3) mg/dL AST (14-36) U/L ALT (7-56) U/L Alkaline Phosphatase (38-126) U/L Total Protein (5.8-8.3) g/dL Albumin (3.0-4.8) g/dL Globulin gm/dL Albumin/Globulin Ratio (1.1-1.8) 25-OH Vitamin D Total (30.0-100.0) NG/ML Hep Bs Antigen Negative (NEGATIVE) Hep Bs Antibody (NEGATIVE) Hep B Core IgM Ab Negative (NEGATIVE) Hepatitis C Antibody Negative (NEGATIVE) HIV 1&2 Ag/Ab, 4th Gen (Nonreactive) Laboratory Results - last 24 hr 09/12/18 09/12/18 09/12/18 10:00 10:00 15:07 WBC RBC Hgb Hct MCV MCH MCHC RDW Plt Count MPV Neut % (Auto) Lymph % (Auto) O'Brien % (Auto) Eos % (Auto) Baso % (Auto) Lymph # (Auto) O'Brien # (Auto) Eos # (Auto) Baso # (Auto) Absolute Neuts (auto) pCO2 pO2 HCO3 ABG pH ABG Total CO2 ABG O2 Saturation ABG O2 Content ABG Base Excess ABG Hemoglobin ABG Carboxyhemoglobin POC ABG HHb (Measured) ABG Methemoglobin ABG O2 Capacity Hgb O2 Saturation FiO2 Sodium Potassium Chloride Carbon Dioxide Anion Gap BUN Creatinine Est GFR ( Amer) Est GFR (Non-Af Amer) POC Glucose (mg/dL) 153 H Random Glucose Calcium Phosphorus Magnesium Total Bilirubin AST ALT Alkaline Phosphatase Total Protein Albumin Globulin Albumin/Globulin Ratio 25-OH Vitamin D Total Hep Bs Antigen Negative Hep Bs Antibody Negative Hep B Core IgM Ab Negative Hepatitis C Antibody Negative HIV 1&2 Ag/Ab, 4th Gen 09/12/18 09/12/18 09/12/18 16:10 16:10 16:30 WBC RBC Hgb Hct MCV MCH MCHC RDW Plt Count MPV Neut % (Auto) Lymph % (Auto) O'Brien % (Auto) Eos % (Auto) Baso % (Auto) Lymph # (Auto) O'Brien # (Auto) Eos # (Auto) Baso # (Auto) Absolute Neuts (auto) pCO2 pO2 HCO3 ABG pH ABG Total CO2 ABG O2 Saturation ABG O2 Content ABG Base Excess ABG Hemoglobin ABG Carboxyhemoglobin POC ABG HHb (Measured) ABG Methemoglobin ABG O2 Capacity Hgb O2 Saturation FiO2 Sodium 136 Potassium 3.3 L Chloride 104 Carbon Dioxide 25 Anion Gap 11 BUN 31 H Creatinine 2.3 H Est GFR ( Amer) 26 Est GFR (Non-Af Amer) 21 POC Glucose (mg/dL) 175 H Random Glucose 177 H Calcium 8.6 Phosphorus Magnesium Total Bilirubin AST ALT Alkaline Phosphatase Total Protein Albumin Globulin Albumin/Globulin Ratio 25-OH Vitamin D Total Hep Bs Antigen Hep Bs Antibody Hep B Core IgM Ab Hepatitis C Antibody HIV 1&2 Ag/Ab, 4th Gen Nonreactive 09/12/18 09/12/18 09/12/18 19:22 22:03 23:44 WBC RBC Hgb Hct MCV MCH MCHC RDW Plt Count MPV Neut % (Auto) Lymph % (Auto) O'Brien % (Auto) Eos % (Auto) Baso % (Auto) Lymph # (Auto) O'Brien # (Auto) Eos # (Auto) Baso # (Auto) Absolute Neuts (auto) pCO2 pO2 HCO3 ABG pH ABG Total CO2 ABG O2 Saturation ABG O2 Content ABG Base Excess ABG Hemoglobin ABG Carboxyhemoglobin POC ABG HHb (Measured) ABG Methemoglobin ABG O2 Capacity Hgb O2 Saturation FiO2 Sodium Potassium Chloride Carbon Dioxide Anion Gap BUN Creatinine Est GFR ( Amer) Est GFR (Non-Af Amer) POC Glucose (mg/dL) 214 H 232 H 210 H Random Glucose Calcium Phosphorus Magnesium Total Bilirubin AST ALT Alkaline Phosphatase Total Protein Albumin Globulin Albumin/Globulin Ratio 25-OH Vitamin D Total Hep Bs Antigen Hep Bs Antibody Hep B Core IgM Ab Hepatitis C Antibody HIV 1&2 Ag/Ab, 4th Gen 09/13/18 09/13/18 09/13/18 02:07 03:51 05:20 WBC RBC Hgb Hct MCV MCH MCHC RDW Plt Count MPV Neut % (Auto) Lymph % (Auto) O'Brien % (Auto) Eos % (Auto) Baso % (Auto) Lymph # (Auto) O'Brien # (Auto) Eos # (Auto) Baso # (Auto) Absolute Neuts (auto) pCO2 30 L pO2 184.0 H HCO3 19.9 L ABG pH 7.43 ABG Total CO2 20.8 L ABG O2 Saturation 97.8 ABG O2 Content 14.2 L ABG Base Excess -3.6 L ABG Hemoglobin 10.1 L ABG Carboxyhemoglobin 0.6 POC ABG HHb (Measured) 2.2 ABG Methemoglobin 0.5 ABG O2 Capacity 14.5 L Hgb O2 Saturation 96.7 FiO2 40.0 Sodium Potassium Chloride Carbon Dioxide Anion Gap BUN Creatinine Est GFR ( Amer) Est GFR (Non-Af Amer) POC Glucose (mg/dL) 188 H 161 H Random Glucose Calcium Phosphorus Magnesium Total Bilirubin AST ALT Alkaline Phosphatase Total Protein Albumin Globulin Albumin/Globulin Ratio 25-OH Vitamin D Total Hep Bs Antigen Hep Bs Antibody Hep B Core IgM Ab Hepatitis C Antibody HIV 1&2 Ag/Ab, 4th Gen 09/13/18 09/13/18 09/13/18 06:15 06:15 06:15 WBC 10.8 D RBC 3.67 Hgb 10.2 L Hct 31.2 L MCV 85.0 MCH 27.8 MCHC 32.7 RDW 14.2 Plt Count 216 MPV 10.4 Neut % (Auto) 75.0 H Lymph % (Auto) 11.7 L O'Brien % (Auto) 8.4 H Eos % (Auto) 4.8 Baso % (Auto) 0.1 Lymph # (Auto) 1.3 O'Brien # (Auto) 0.9 H Eos # (Auto) 0.5 Baso # (Auto) 0.01 Absolute Neuts (auto) 8.08 H pCO2 pO2 HCO3 ABG pH ABG Total CO2 ABG O2 Saturation ABG O2 Content ABG Base Excess ABG Hemoglobin ABG Carboxyhemoglobin POC ABG HHb (Measured) ABG Methemoglobin ABG O2 Capacity Hgb O2 Saturation FiO2 Sodium 138 Potassium 3.7 Chloride 109 H Carbon Dioxide 22 Anion Gap 10 BUN 30 H Creatinine 2.0 H Est GFR ( Amer) 30 Est GFR (Non-Af Amer) 25 POC Glucose (mg/dL) Random Glucose 184 H Calcium 8.4 Phosphorus 3.9 Magnesium 1.8 Total Bilirubin 0.5 AST 39 H ALT 18 Alkaline Phosphatase 63 Total Protein 5.5 L Albumin 2.7 L Globulin 2.8 Albumin/Globulin Ratio 0.9 L 25-OH Vitamin D Total < 12.8 L Hep Bs Antigen Hep Bs Antibody Hep B Core IgM Ab Hepatitis C Antibody HIV 1&2 Ag/Ab, 4th Gen 09/13/18 11:36 WBC RBC Hgb Hct MCV MCH MCHC RDW Plt Count MPV Neut % (Auto) Lymph % (Auto) O'Brien % (Auto) Eos % (Auto) Baso % (Auto) Lymph # (Auto) O'Brien # (Auto) Eos # (Auto) Baso # (Auto) Absolute Neuts (auto) pCO2 pO2 HCO3 ABG pH ABG Total CO2 ABG O2 Saturation ABG O2 Content ABG Base Excess ABG Hemoglobin ABG Carboxyhemoglobin POC ABG HHb (Measured) ABG Methemoglobin ABG O2 Capacity Hgb O2 Saturation FiO2 Sodium Potassium Chloride Carbon Dioxide Anion Gap BUN Creatinine Est GFR ( Amer) Est GFR (Non-Af Amer) POC Glucose (mg/dL) 188 H Random Glucose Calcium Phosphorus Magnesium Total Bilirubin AST ALT Alkaline Phosphatase Total Protein Albumin Globulin Albumin/Globulin Ratio 25-OH Vitamin D Total Hep Bs Antigen Hep Bs Antibody Hep B Core IgM Ab Hepatitis C Antibody HIV 1&2 Ag/Ab, 4th Gen Radiology Impressions: Radiology Impressions Head CT 09/12/18 11:05 IMPRESSION: There is a new area of hypodensity in the right parietal white matter consistent with an acute infarct. This was not present on the prior exam Chest X-Ray 09/13/18 07:00 IMPRESSION: No active disease. Critical Care Progress Note - Nutrition Nutrition: Nutrition Category Date Time Status NPO Diet [DIET] Diets 09/10/18 Lunch Ordered Assessment/Plan - Assessment and Plan (Free Text) Plan: I saw and examined the patient on rounds with resident, agree with note with following additions/exceptions: Patient is 68yo female with a PMH of HTN and DM [facility] found to have on brain MRI multiple emboli in both hemispheres of the brain. MATEO done, no vegetations or clot in LA VEEG done Patient placed on pressure support this morning, failed RSBI 120-140s, poor TV, and mental awareness Currently intubated off sedation in NAD, Afebrile, HD stable, comfortable Labs, imaging, chart reviewed Acute CVA, Embolic Resp failure HTN DM Rule out pulm AVM Recommend: - cont with vent support, low tidal vol ventilation, daily sedation vacation, ABG, weaning trials - Abx as per ID - BP control - follow up Neuro - follow up Cardio - ASA, Plavix - would not give contrast for now, as Cr 2.0 - IVF hydration - GI ppx - DVT ppx - Monitor in MICU Critical care time 35 minutes
--- NOTE | 2018-09-13 08:08 | CP.PCM.PN ---
<Bassem Thompson Huseyin - Last Filed: 09/13/18 08:04> Subjective - Date & Time of Evaluation Date of Evaluation: 09/12/18 Time of Evaluation: 08:00 - Subjective Subjective: Neuro progress note - Jay PGY - 2 Patient seen and examined at bedside. Continues to be on EEG monitoring. Patient to get MATEO this morning. Continues to be sedated and intubated, will undergo weaning trial this am. Objective - Vital Signs/Intake and Output Vital Signs (last 24 hours): Temp Pulse Resp BP Pulse Ox 98.2 F 60 20 124/72 100 09/13/18 04:00 09/13/18 03:30 09/13/18 03:30 09/13/18 03:00 09/13/18 03:30 Intake and Output: 09/13/18 09/13/18 06:59 18:59 Intake Total 40 Balance 40 - Medications Medications: Current Medications Acetaminophen (Tylenol 650mg/20.3ml Solution Ud) 650 mg NG Q6H PRN PRN Reason: Temperature >100.4 Last Admin: 09/11/18 22:44 Dose: 650 mg Amlodipine Besylate (Norvasc) 10 mg PO DAILY [facility] Last Admin: 09/12/18 09:32 Dose: 10 mg Dextrose (Dextrose 50% Inj) 0 ml IV STAT PRN; Protocol PRN Reason: Hypoglycemia Protocol Hydralazine HCl (Apresoline) 10 mg IVP Q6 PRN PRN Reason: For SBP>160 Last Admin: 09/12/18 15:11 Dose: 10 mg Propofol (Diprivan) 1,000 mg in 100 mls @ 2.547 mls/hr IV .Q24H PRN; Protocol PRN Reason: TITRATE PER MD ORDER Last Titration: 09/12/18 11:00 Dose: 0 mcg/kg/min, 0 mls/hr Levetiracetam (Keppra 1000mg/100ml Ns) 100 mls @ 460 mls/hr IV Q12 [facility] Last Admin: 09/12/18 23:39 Dose: 460 mls/hr Acetaminophen (Ofirmev) 1,000 mg in 100 mls @ 400 mls/hr IVPB Q6H PRN PRN Reason: fever Stop: 09/14/18 00:38 Last Admin: 09/12/18 00:44 Dose: 400 mls/hr Sodium Chloride (Sodium Chloride 0.9%) 1,000 mls @ 100 mls/hr IV .Q10H [facility] Last Admin: 09/13/18 06:47 Dose: 100 mls/hr Piperacillin Sod/Tazobactam Sod (Zosyn 2.25 Gm In 0.9% 100 Ml) 2.25 gm in 100 mls @ 100 mls/hr IVPB Q8 [facility] Last Admin: 09/13/18 06:48 Dose: 100 mls/hr Dextrose (Dextrose 5% In Water 1000 Ml) 1,000 mls @ 0 mls/hr IV .Q0M PRN; Protocol PRN Reason: Hypoglycemia Protocol Insulin Detemir (Levemir) 20 unit SC Q12H [facility] Last Admin: 09/13/18 06:45 Dose: 20 units Insulin Human Regular (Humulin R Med) 0 units SC ACHS [facility]; Protocol Last Admin: 09/12/18 23:41 Dose: Not Given Metoprolol Tartrate (Lopressor) 25 mg PO BID [facility] Last Admin: 09/12/18 17:54 Dose: 25 mg Pantoprazole Sodium (Protonix Inj) 40 mg IVP DAILY [facility] Last Admin: 09/12/18 09:35 Dose: 40 mg - Labs Labs: 09/13/18 06:15 09/13/18 06:15 PT 12.9 SECONDS (9.4-12.5) H 09/10/18 12:50 INR 1.14 09/10/18 12:50 APTT 28.7 Seconds (26.9-38.3) 09/10/18 12:50 - Constitutional Appears: Non-toxic - Head Exam Head Exam: ATRAUMATIC, NORMAL INSPECTION, NORMOCEPHALIC - Eye Exam Eye Exam: EOMI, Normal appearance, PERRL Pupil Exam: NORMAL ACCOMODATION, PERRL - ENT Exam ENT Exam: Mucous Membranes Moist, Normal Exam - Neck Exam Neck Exam: Full ROM, Normal Inspection. absent: Lymphadenopathy - Respiratory Exam Respiratory Exam: Clear to Ausculation Bilateral, NORMAL BREATHING PATTERN - Cardiovascular Exam Cardiovascular Exam: REGULAR RHYTHM, +S1, +S2. absent: Murmur - GI/Abdominal Exam GI & Abdominal Exam: Soft, Normal Bowel Sounds. absent: Tenderness - Extremities Exam Extremities Exam: Full ROM, Normal Capillary Refill, Normal Inspection. absent: Joint Swelling, Pedal Edema - Back Exam Back Exam: NORMAL INSPECTION - Neurological Exam Neurological Exam: Alert, Awake, CN II-XII Intact, Normal Gait, Oriented x3 - Psychiatric Exam Psychiatric exam: Normal Affect, Normal Mood - Skin Skin Exam: Dry, Intact, Normal Color, Warm - Additional Findings Additional findings: Intubated and sedated Assessment and Plan - Assessment and Plan (Free Text) Assessment: 68 year old black female with a past medical history of hypertension and DM II who was admitted for AMS and left sided weakness who was found to have multiple small acute infarcts seen scattered about both cerebral hemispheres, sepsis, and HHS. Plan: 1) Acute stroke, likely embolic in nature - MATEO negative - HOB 45 degrees - Permissive Hypertension - Carotid and vertebral duplex US 2) Seizures - Video EEG Read: These findings support the diagnosis of moderate to severe, non specific diffuse disturbance of cortical activity, in keeping with a diffuse leon matter dysfunction. Findings are also in keeping with a focal cortical abnormality involving the left hemisphere in keeping with an structural abnormality the same area - Keppra 1 g q12 IVPB - Ativan PRN for seizures <David Mann - Last Filed: 09/15/18 11:59> Objective - Vital Signs/Intake and Output Vital Signs (last 24 hours): Temp Pulse Resp BP Pulse Ox 98.3 F 76 18 161/70 H 99 09/15/18 04:00 09/15/18 10:46 09/15/18 06:58 09/15/18 10:23 09/15/18 06:58 Intake and Output: 09/15/18 09/15/18 06:59 18:59 Intake Total 1600 Balance 1600 - Medications Medications: Current Medications Acetaminophen (Tylenol 650mg/20.3ml Solution Ud) 650 mg NG Q6H PRN PRN Reason: Temperature >100.4 Last Admin: 09/11/18 22:44 Dose: 650 mg Amlodipine Besylate (Norvasc) 10 mg PO DAILY [facility] Last Admin: 09/15/18 10:23 Dose: 10 mg Aspirin (Aspirin Chewable) 81 mg PO DAILY [facility] Last Admin: 09/15/18 10:23 Dose: 81 mg Atorvastatin Calcium (Lipitor) 40 mg PO DIN [facility] Last Admin: 09/14/18 17:51 Dose: 40 mg Clopidogrel Bisulfate (Plavix) 75 mg PO DAILY [facility] Last Admin: 09/15/18 10:23 Dose: 75 mg Dextrose (Dextrose 50% Inj) 0 ml IV STAT PRN; Protocol PRN Reason: Hypoglycemia Protocol Ergocalciferol (Drisdol 50,000 Intl Units Cap) 1 cap PO Q7D [facility] Last Admin: 09/14/18 15:15 Dose: 1 cap Hydralazine HCl (Apresoline) 10 mg IVP Q6 PRN PRN Reason: For SBP>160 Last Admin: 09/14/18 10:44 Dose: 10 mg Propofol (Diprivan) 1,000 mg in 100 mls @ 2.547 mls/hr IV .Q24H [facility]; Protocol PRN Reason: TITRATE PER MD ORDER Last Titration: 09/12/18 11:00 Dose: 0 mcg/kg/min, 0 mls/hr Dextrose (Dextrose 5% In Water 1000 Ml) 1,000 mls @ 0 mls/hr IV .Q0M PRN; Protocol PRN Reason: Hypoglycemia Protocol Levetiracetam (Keppra 500mg Ivpb) 500 mg in 100 mls @ 400 mls/hr IVPB Q12 [facility] Last Admin: 09/15/18 10:23 Dose: 400 mls/hr Piperacillin Sod/Tazobactam Sod (Zosyn 3.375 In Ns 100ml) 100 mls @ 25 mls/hr IVPB Q8 [facility]; Protocol Stop: 09/23/18 22:01 Last Admin: 09/15/18 07:16 Dose: 25 mls/hr Sodium Chloride (Sodium Chloride 0.9%) 1,000 mls @ 50 mls/hr IV .Q20H [facility] Last Admin: 09/15/18 10:39 Dose: 50 mls/hr Insulin Detemir (Levemir) 20 unit SC Q12H [facility] Last Admin: 09/15/18 07:13 Dose: Not Given Insulin Human Regular (Humulin R Med) 0 units SC ACHS [facility]; Protocol Last Admin: 09/15/18 08:00 Dose: Not Given Losartan Potassium (Cozaar) 50 mg NG DAILY [facility] Last Admin: 09/15/18 10:22 Dose: 50 mg Metoprolol Tartrate (Lopressor) 25 mg PO BID [facility] Last Admin: 09/15/18 10:22 Dose: 25 mg Pantoprazole Sodium (Protonix Inj) 40 mg IVP DAILY [facility] Last Admin: 09/15/18 10:24 Dose: 40 mg - Labs Labs: 09/15/18 05:30 09/15/18 05:30 PT 12.2 SECONDS (9.4-12.5) 09/14/18 08:00 INR 1.08 09/14/18 08:00 APTT 30.6 Seconds (26.9-38.3) 09/14/18 08:00 Attending/Attestation - Attestation I have personally seen and examined this patient.: Yes I have fully participated in the care of the patient.: Yes I have reviewed all pertinent clinical information, including history, physical exam and plan: Yes Notes (Text): I agree with the assessment and plan. Will continue current management as outlined above.
[2018-09-13] MEDS: Insulin Reg-MEDIUM-Coverage SC SCH ×4 (09:02→22:09)
--- NOTE | 2018-09-13 09:29 | CT ---
Date of service: 09/12/2018 PROCEDURE: CT HEAD WITHOUT CONTRAST. HISTORY: intubated/sedated CVA COMPARISON: 09/10/2018 TECHNIQUE: Axial computed tomography images were obtained through the head/brain without intravenous contrast. Radiation dose: Total exam DLP = 945.59 mGy-cm. This CT exam was performed using one or more of the following dose reduction techniques: Automated exposure control, adjustment of the mA and/or kV according to patient size, and/or use of iterative reconstruction technique. FINDINGS: HEMORRHAGE: No intracranial hemorrhage. BRAIN: No mass effect or edema. There is a new area of hypodensity in the right parietal white matter consistent with an acute infarct. This was not present on the prior exam VENTRICLES: Unremarkable. No hydrocephalus. CALVARIUM: Unremarkable. PARANASAL SINUSES: Unremarkable as visualized. No significant inflammatory changes. MASTOID AIR CELLS: Unremarkable as visualized. No inflammatory changes. OTHER FINDINGS: The report concurs with the preliminary [facility] report IMPRESSION: There is a new area of hypodensity in the right parietal white matter consistent with an acute infarct. This was not present on the prior exam
--- NOTE | 2018-09-13 10:30 | RAD ---
Date of service: 09/13/2018 HISTORY: intubated COMPARISON: 09/12/2018 TECHNIQUE: 1 view obtained. FINDINGS: LUNGS: No active pulmonary disease. PLEURA: No significant pleural effusion identified, no pneumothorax apparent. CARDIOVASCULAR: No aortic atherosclerotic calcification present. Normal cardiac size. No pulmonary vascular congestion. OSSEOUS STRUCTURES: No significant abnormalities. VISUALIZED UPPER ABDOMEN: Normal. OTHER FINDINGS: Endotracheal and nasogastric tube in satisfactory position IMPRESSION: No active disease.
[2018-09-13] MEDS: levETIRAcetam 1000mg/100ml NS 100 ML IV SCH ×2 (10:45→22:11)
--- NOTE | 2018-09-13 13:13 | PN ---
DATE: 09/13/2018 REASON FOR CONSULTATION: Admitted with CVA, cardiac evaluation, and left upper extremity weakness. SUBJECTIVE: The patient yesterday underwent a MATEO, not in apparent distress, still being intubated and sedated. OBJECTIVE: Not in apparent distress. PHYSICAL EXAMINATION: VITAL SIGNS: Temperature afebrile, heart rate 74, and blood pressure 138/78. HEENT: PERRLA. Extraocular muscles intact. NECK: Supple. No carotid bruits or thyromegaly. CHEST: Clear to auscultation. HEART: S1 and S2, regular. ABDOMEN: Soft. EXTREMITIES: Clubbing, cyanosis negative. LABORATORY DATA: WBC 10.8, hemoglobin 10, hematocrit 31.2, and platelet count 216. Chemistry shows sodium 138, potassium 3.7, chloride 109, carbon dioxide 22, anion gap of 10, BUN 30, and creatinine 2. Total protein 5.5, albumin 2.6, and albumin-globulin ratio 0.9. IMPRESSION: A 68-year-old female with past medical history significant for hypertension and diabetes, brought to the emergency room with left-sided weakness. The patient was found not to be a candidate for tissue plasminogen activator. A cardiac consult was called. The patient yesterday underwent transesophageal echocardiogram that showed no evidence of patent foramen ovale, left ventricular hypertrophy, or preserved left ventricular function. No plaque noted. No vegetation or thrombus noted. Also, the patient has protein calorie malnutrition. No arrhythmia noted. RECOMMENDATIONS: Increase NG feeding and aggressive control of blood pressure. Continue vent management. Anticoagulation as per neurologist. Discussed with the daughter, Melissa. We will follow with you. Thank you Dr. Goodman for providing us the opportunity in taking care of the patient, Pat Torres. May Pelaez MD
--- NOTE | 2018-09-13 13:58 | CP.PCM.PCO ---
Physician Communication Note - Physician Communication Note Physician Communication Note: Pt seen,remains intubated,on vent,Precedex dcd,wrist restraints b/l,
--- NOTE | 2018-09-13 15:30 | CP.PCM.PN ---
Subjective - Date & Time of Evaluation Date of Evaluation: 09/13/18 Time of Evaluation: 15:30 - Subjective Subjective: Nephrology Consultation Note: Assessment: critical Acute Kidney Injury (N17.9) likely due to ATN [contrast nephropathy, sepsis and hemodynamic changes from BP fluctuations] Hypokalemia and HTN emergency r/o secondary HTN proteinuria and microscopic hematuria r/o GN acute CVA, seizure sepsis, UTI, acute respi failure, obesity, vit d def Plan No acute need for renal replacement therapy at this time. Hypertension control with meds as ordered. Maintain hemodynamics stable. Avoid hypotension. Patient not on ACEI/ARB due to recent MARQUIS. permissive HTN in view of acute CVA. will defer goals/target of HTN control to neuro. agree with CCB and Beta-blockers Monitor Input/Output, daily weights and renal function with basic metabolic panel supplement lytes as needed. dose zosyn for reduced GFR ID, Neuro, Cardio following consider to add statins added weekly vit D Check urine analysis, spot protein/creatinine, albumin/creatinine ratio Check GN work up as C3, C4, DAISY, Anti dsDNA, ASO titers, ANCA (MPO and [place]-3), Anti GBM antibody, HIV/Hep B and Hep C serology. also lupus anticoagulant Secondary HTN work up with plasma renin/aldosterone, plasma metanephrine and renal artery Doppler to r/o renal artery stenosis Dose meds/antibiotics for reduced GFR. Avoid fleets enema/magnesium based laxatives. Avoid nephrotoxins/NSAIDs/ iodinated contrast (unless needed emergently) Glycemic control Further work up/management as per primary team Thanks for allowing me to participate in care of your patient. Will follow patient with you. Please call if any Qs. had d/w team and family bedside Dr Jeremiah Horn Office: [phone] Chief Complaint; left side weakness Reason for consult: Acute Kidney Injury HPI: Pt is a 68 F with hx of diabetes Mellitus (5 years), hypertension (many years) presented with complaints of left side weakness and foudn to have b/l infarcts. also with sepsis with high temp ? UTI and HTN emergency. renal consult for MARQUIS. pt was orally intubated. also had episode of seizure Denies OTC/herbal meds or NSAIDs Noted recent iodinated contrast exposure 09/10/18. No obvious episodes of low BP. per son, pt was usual health before this incidence non smoker. no etoh/drugs ROS: unable to obtain from pt Physical Examination: General Appearance: Comfortable, in no acute respiratory distress, orally intubated Vitals reviewed and noted as below Head; Atraumatic, normocephalic ENT: orally intubated EYES: unable as pt with resistance to eye opening Neck; supple no lymphadenopathy, no thyromegaly or bruit Lungs: Normal respiratory rate/effort. Breath sounds bilateral equal and clear Heart: Normal rate. s1s2 normal. No rub or gallop. Extremities: no edema. No varicose veins Neurological: Patient is awake but intubated Skin: Warm and dry. Normal turgor. No rash. Palpitation: Normal elasticity for age Abdomen: Abdomen is soft. Bowel sounds +. There is no abdominal tenderness, no guarding/rigidity no organomegaly Psych: deferred MSK: no joint tenderness or swelling. Digits and nails normal, no deformity : kidney or bladder not palpable Labs/imaging reviewed. Past medical history, past surgical history, family history, social history, allergy reviewed and noted as below Family hx: no hx of CKD. Rest non-contributory UA 3+ protein adn moderate blood mild to moderate LVH on echo Objective - Vital Signs/Intake and Output Vital Signs (last 24 hours): Temp Pulse Resp BP Pulse Ox 98.2 F 73 20 180/70 H 100 09/13/18 04:00 09/13/18 15:18 09/13/18 08:40 09/13/18 15:18 09/13/18 08:40 Intake and Output: 09/13/18 09/13/18 06:59 18:59 Intake Total 1848 Output Total 225 Balance 1623 - Medications Medications: Current Medications Acetaminophen (Tylenol 650mg/20.3ml Solution Ud) 650 mg NG Q6H PRN PRN Reason: Temperature >100.4 Last Admin: 09/11/18 22:44 Dose: 650 mg Amlodipine Besylate (Norvasc) 10 mg PO DAILY [facility] Last Admin: 09/13/18 10:46 Dose: 10 mg Aspirin (Aspirin Chewable) 81 mg PO DAILY [facility] Last Admin: 09/13/18 13:58 Dose: 81 mg Atorvastatin Calcium (Lipitor) 40 mg PO DIN [facility] Clopidogrel Bisulfate (Plavix) 75 mg PO DAILY [facility] Last Admin: 09/13/18 13:58 Dose: 75 mg Dextrose (Dextrose 50% Inj) 0 ml IV STAT PRN; Protocol PRN Reason: Hypoglycemia Protocol Ergocalciferol (Drisdol 50,000 Intl Units Cap) 1 cap PO Q7D [facility] Hydralazine HCl (Apresoline) 10 mg IVP Q6 PRN PRN Reason: For SBP>160 Last Admin: 09/13/18 15:18 Dose: 10 mg Propofol (Diprivan) 1,000 mg in 100 mls @ 2.547 mls/hr IV .Q24H [facility]; Protocol PRN Reason: TITRATE PER MD ORDER Last Titration: 09/12/18 11:00 Dose: 0 mcg/kg/min, 0 mls/hr Levetiracetam (Keppra 1000mg/100ml Ns) 100 mls @ 460 mls/hr IV Q12 [facility] Last Admin: 09/13/18 10:45 Dose: 460 mls/hr Acetaminophen (Ofirmev) 1,000 mg in 100 mls @ 400 mls/hr IVPB Q6H PRN PRN Reason: fever Stop: 09/14/18 00:38 Last Admin: 09/12/18 00:44 Dose: 400 mls/hr Sodium Chloride (Sodium Chloride 0.9%) 1,000 mls @ 100 mls/hr IV .Q10H [facility] Last Admin: 09/13/18 06:47 Dose: 100 mls/hr Piperacillin Sod/Tazobactam Sod (Zosyn 2.25 Gm In 0.9% 100 Ml) 2.25 gm in 100 mls @ 100 mls/hr IVPB Q8 [facility] Last Admin: 09/13/18 13:57 Dose: 100 mls/hr Dextrose (Dextrose 5% In Water 1000 Ml) 1,000 mls @ 0 mls/hr IV .Q0M PRN; Protocol PRN Reason: Hypoglycemia Protocol Insulin Detemir (Levemir) 20 unit SC Q12H [facility] Last Admin: 09/13/18 06:45 Dose: 20 units Insulin Human Regular (Humulin R Med) 0 units SC ACHS [facility]; Protocol Last Admin: 09/13/18 13:57 Dose: Not Given Metoprolol Tartrate (Lopressor) 25 mg PO BID [facility] Last Admin: 09/13/18 10:45 Dose: 25 mg Pantoprazole Sodium (Protonix Inj) 40 mg IVP DAILY [facility] Last Admin: 09/13/18 10:45 Dose: 40 mg - Labs Labs: 09/13/18 06:15 09/13/18 06:15 PT 12.9 SECONDS (9.4-12.5) H 09/10/18 12:50 INR 1.14 09/10/18 12:50 APTT 28.7 Seconds (26.9-38.3) 09/10/18 12:50
[2018-09-13] MEDS: Ergocalciferol 50,000 Intl Units Cap PO SCH (17:37)
--- NOTE | 2018-09-13 17:42 | PN ---
DATE: 09/13/2018 SUBJECTIVE: The patient is 68 -year-old, seen and examined, remained intubated. Her sedation is off, she is trying to move, opened eye on verbal command, but not very much communicative. PHYSICAL EXAMINATION: VITAL SIGNS: She is afebrile. Pulse 73, respiration 20, and blood pressure 153/78. LUNGS: Bilateral fair airflow. No rhonchi or crackle. HEART: S1 and S2, audible. ABDOMEN: Soft, obese and nontender. No rebound. No guarding. NEUROLOGIC: She is lethargic, remains on vent. LABORATORY DATA: WBC is 10.8, hemoglobin 10.2, hematocrit 31.2, platelets 216. Chemistry: Sodium 138, potassium 3.7, chloride 109, CO2 of 22, BUN 30, creatinine 2, blood sugar of 188. ASSESSMENT: 1. Multiple small acute infarcts with left upper extremity weakness. 2. History of hypertension. 3. Respiratory failure. 4. Insulin-dependent diabetes, was on insulin pump prior to admission. 5. Hyperlipidemia. 6. Paroxysmal atrial fibrillation. 7. Acute renal failure. 8. Status post transesophageal echocardiography, negative for patent foramen ovale. PLAN: Currently, the patient is on aspirin 81 daily. She is on antiseizure medication. Blood sugar is being monitored. She is on Plavix, she is on Protonix and she is on IV antibiotics as per ID, will continue that. Waiting for her to be more alert prior to extubation. Will monitor her electrolytes, CBC, CMP, and blood sugar levels. Darryl Goodman MD
--- NOTE | 2018-09-14 01:49 | PN ---
DATE: 09/13/2018 SUBJECTIVE: The patient is in bed in no acute distress, nontoxic. PHYSICAL EXAMINATION: VITAL SIGNS: On exam, temperature is 98, blood pressure is 170/70, respiratory rate 18. HEENT: Unremarkable. NECK: Supple. LUNGS: Have decreased breath sound. HEART: Normal S1, S2. ABDOMEN: Soft, nontender. LABORATORY DATA: Laboratory examination reveals white count of 10.8, hemoglobin of 10. Chemistries are noted. Creatinine is 2. Microbiology reveals the blood cultures are negative. MRSA screen is not detected. The patient is on Zosyn. Dr. Goodman's note is reviewed. ASSESSMENT AND PLAN: This is a 68-year-old female with history of hypertension, diabetes, chronic obstructive lung disease with NO KNOWN ALLERGIES. She was admitted with weakness, fevers, respiratory failure with systemic inflammatory response syndrome with acute kidney injury and respiratory failure, intubated, on her ventilator, acute cerebrovascular accident, currently on Zosyn. Cultures are negative. 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 The patient has -not been on any antibiotics previously. We will follow with you. Tejas Smiley MD
[2018-09-14] MEDS: Piperacillin/Tazobact 2.25gm 2.25 GM/100 ML BAG IVPB SCH (05:25)
[2018-09-14] MEDS: Sodium Chloride 0.9% 1,000 ML IV SCH ×2 (05:28→15:00)
[2018-09-14 05:34] LABS: ARTERIAL BLOOD GAS HCO3 21.4 mmol/L (21-28); ARTERIAL BLOOD GAS HEMOGLOBIN 9.2 g/dL (11.7-17.4); ARTERIAL BLOOD GAS O2 CAPACITY 13.1 mL/dl (16-24); ARTERIAL BLOOD GAS O2 CONTENT 12.8 ML/dl (15-23); ARTERIAL BLOOD GAS O2 SAT 97.6 % (95-98); ARTERIAL BLOOD GAS PCO2 33 mm/Hg (35-45); ARTERIAL BLOOD GAS PH 7.42 (7.35-7.45); ARTERIAL BLOOD GAS TCO2 22.4 mmol.L (22-28)
[2018-09-14] MEDS: Insulin Detemir 100 units/ml Vial (Levemir) SC SCH ×2 (07:02→17:47)
[2018-09-14 08:06] LABS: BASO # 0.01 K/mm3 (0.0-2.0); BASO % 0.1 % (0.0-3.0); EOS # 0.5 (0.0-0.7); EOS % 5.1 % (1.5-5.0); HEMOGLOBIN 10.1 g/dL (12.0-16.0); LYMPH # 1.8 (1.2-3.4); LYMPH % 18.6 % (22.0-35.0); MEAN CELL VOLUME 87.8 fl (80.0-105.0); MEAN CORPUSCULAR HGB CONC 31.9 g/dl (31.0-37.0); MEAN PLATELET VOLUME 10.3 fl (7.0-11.0); MONO # 0.8 (0.1-0.6); MONO % 7.9 % (1.0-6.0); RBC 3.61 10^6/uL (3.5-6.1); RED CELL DISTRIBUTION WIDTH 14.3 % (11.5-14.5); WHITE BLOOD COUNT 9.8 10^3/uL (4.5-11.0)
[2018-09-14 08:18] LABS: ALBUMIN 2.9 g/dL (3.0-4.8); CALCIUM 8.4 mg/dL (8.4-10.5)
[2018-09-14 08:20] LABS: INR 1.08; PARTIAL THROMBOPLASTIN TIME 30.6 Seconds (26.9-38.3); PROTHROMBIN TIME 12.2 SECONDS (9.4-12.5)
[2018-09-14] MEDS: Insulin Reg-MEDIUM-Coverage SC SCH ×4 (08:30→22:00)
[2018-09-14] MEDS ORDERED: Potassium Chloride 20 mEq/15 ml LIQ UD PO STA (09:01)
[2018-09-14] MEDS: levETIRAcetam 1000mg/100ml NS 100 ML IV SCH (09:26)
--- NOTE | 2018-09-14 10:37 | CP.CCUPN ---
<MookieEarnestcecelia Nickerson - Last Filed: 09/14/18 10:55> CCU Subjective - Physician Review Events Since Last Encounter (Free Text): 09/14/18 10:35 pt in NAD, no acute events Subjective (Free Text): 09/11/18 07:00 Pt seen and examined, pt intubated at time of exam 09/12/18 09:02 pt seen and examined, video EEG, pt responds to pain 09/14/18 10:35 seen and examined, NAD CCU Objective - Vital Signs / Intake & Output Vital Signs (Last 4 hours): Vital Signs Pulse Resp BP Pulse Ox 09/14/18 09:30 75 163/78 H 09/14/18 09:27 163/78 H 09/14/18 08:20 91 H 27 H 96 09/14/18 08:10 83 21 100 09/14/18 08:00 83 21 99 09/14/18 07:50 81 23 100 09/14/18 07:40 81 21 100 09/14/18 07:30 82 100 09/14/18 07:20 87 26 H 100 09/14/18 07:10 59 L 20 100 09/14/18 07:00 53 L 20 142/63 100 09/14/18 06:50 58 L 20 100 09/14/18 06:40 60 20 99 Intake and Output (Last 8hrs): Intake & Output 09/13/18 09/14/18 09/14/18 22:59 06:59 14:59 Intake Total 1900 Output Total 500 400 Balance 1400 -400 Intake: IV 1900 antibiotics 100 maintenance IV 1800 Output: Urine 500 400 Urethral (Johns) 500 400 Other: # Bowel Movements 1 - Physical Exam Head: Positive for: Atraumatic, Normocephalic Pupils: Positive for: PERRL Extroacular Muscles: Positive for: EOMI Conjunctiva: Positive for: Normal Mouth: Positive for: Moist Mucous Membranes Neck: Positive for: Normal Range of Motion Respiratory/Chest: Positive for: Clear to Auscultation, Good Air Exchange. Negative for: Respiratory Distress, Accessory Muscle Use Cardiovascular: Positive for: Regular Rate and Rhythm, Normal S1, S2. Negative for: Murmurs Abdomen: Negative for: Tenderness, Distention, Peritoneal Signs Back: Positive for: Normal Inspection Upper Extremity: Positive for: Normal Inspection. Negative for: Cyanosis, Edema Lower Extremity: Positive for: Normal Inspection. Negative for: Edema Neurological: Negative for: Speech Normal, Motor Func Grossly Intact (5/5 right side; 0/5 left side), Normal Sensory Function (decreased sensation left side) Skin: Positive for: Warm, Dry, Normal Color. Negative for: Rashes Psychiatric: Positive for: Alert, Oriented x 3, Normal Insight, Normal Concentration - Medications Active Medications: Active Medications Generic Name Dose Route Start Last Admin Trade Name Freq PRN Reason Stop Dose Admin Acetaminophen 650 mg 09/11/18 17:02 09/11/18 22:44 Tylenol 650mg/20.3ml Solution Ud NG 650 mg Q6H PRN Administration Temperature >100.4 Amlodipine Besylate 10 mg 09/12/18 10:00 09/14/18 09:27 Norvasc PO 10 mg DAILY JAMES Administration Aspirin 81 mg 09/13/18 12:30 09/14/18 09:26 Aspirin Chewable PO 81 mg DAILY JAMES Administration Atorvastatin Calcium 40 mg 09/13/18 17:00 09/13/18 17:38 Lipitor PO 40 mg DIN JAMES Administration Clopidogrel Bisulfate 75 mg 09/13/18 12:30 09/14/18 09:30 Plavix PO 75 mg DAILY JAMES Administration Dextrose 0 ml 09/12/18 17:24 Dextrose 50% Inj IV STAT PRN Hypoglycemia Protocol Protocol Ergocalciferol 1 cap 09/13/18 15:30 09/13/18 17:37 Drisdol 50,000 Intl Units Cap PO Not Given Q7D JAMES Hydralazine HCl 10 mg 09/11/18 13:30 09/13/18 15:18 Apresoline IVP 10 mg Q6 PRN Administration For SBP>160 Propofol 1,000 mg in 100 mls @ 2.547 mls/hr 09/10/18 17:03 09/12/18 11:00 Diprivan IV 0 mcg/kg/min .Q24H PRN 0 mls/hr TITRATE PER MD ORDER Titration Protocol 5 MCG/KG/MIN Levetiracetam 100 mls @ 460 mls/hr 09/11/18 11:45 09/14/18 09:26 Keppra 1000mg/100ml Ns IV 460 mls/hr Q12 JAMES Administration Sodium Chloride 1,000 mls @ 100 mls/hr 09/12/18 12:12 09/14/18 05:28 Sodium Chloride 0.9% IV 100 mls/hr .Q10H JAMES Administration Dextrose 1,000 mls @ 0 mls/hr 09/12/18 17:24 Dextrose 5% In Water 1000 Ml IV .Q0M PRN Hypoglycemia Protocol Protocol Per Protocol Insulin Detemir 20 unit 09/13/18 06:00 09/14/18 07:02 Levemir SC Not Given Q12H JAMES Insulin Human Regular 0 units 09/12/18 22:00 09/14/18 08:30 Humulin R Med SC Not Given ACHS [facility] Protocol Metoprolol Tartrate 25 mg 09/11/18 18:00 09/14/18 09:30 Lopressor PO 25 mg BID JAMES Administration Pantoprazole Sodium 40 mg 09/11/18 10:00 09/14/18 09:26 Protonix Inj IVP 40 mg DAILY JAMES Administration - Patient Studies Lab Studies: Microbiology Studies 09/10/18 13:20 Blood Culture - Preliminary Blood NO GROWTH AFTER 3 DAYS 09/10/18 12:50 Blood Culture - Preliminary Blood NO GROWTH AFTER 3 DAYS Lab Studies 09/14/18 09/14/18 09/14/18 Range/Units 08:00 07:45 07:45 WBC 9.8 (4.5-11.0) 10^3/uL RBC 3.61 (3.5-6.1) 10^6/uL Hgb 10.1 L (12.0-16.0) g/dL Hct 31.7 L (36.0-48.0) % MCV 87.8 (80.0-105.0) fl MCH 28.0 (25.0-35.0) pg MCHC 31.9 (31.0-37.0) g/dl RDW 14.3 (11.5-14.5) % Plt Count 253 (120.0-450.0) 10^3/uL MPV 10.3 (7.0-11.0) fl Neut % (Auto) 68.3 H (50.0-68.0) % Lymph % (Auto) 18.6 L (22.0-35.0) % [place] % (Auto) 7.9 H (1.0-6.0) % Eos % (Auto) 5.1 H (1.5-5.0) % Baso % (Auto) 0.1 (0.0-3.0) % Lymph # (Auto) 1.8 (1.2-3.4) [place] # (Auto) 0.8 H (0.1-0.6) Eos # (Auto) 0.5 (0.0-0.7) Baso # (Auto) 0.01 (0.0-2.0) K/mm3 Absolute Neuts (auto) 6.70 H (1.4-6.5) PT 12.2 (9.4-12.5) SECONDS INR 1.08 APTT 30.6 (26.9-38.3) Seconds pCO2 (35-45) mm/Hg pO2 (80-100) mm/Hg HCO3 (21-28) mmol/L ABG pH (7.35-7.45) ABG Total CO2 (22-28) mmol.L ABG O2 Saturation (95-98) % ABG O2 Content (15-23) ML/dl ABG Base Excess (-2.0-3.0) mmol/L ABG Hemoglobin (11.7-17.4) g/dL ABG Carboxyhemoglobin (0.5-1.5) % POC ABG HHb (Measured) (0-5) % ABG Methemoglobin (0.0-3.0) % ABG O2 Capacity (16-24) mL/dl Hgb O2 Saturation (95.0-98.0) % FiO2 % Sodium 143 (132-148) mmol/L Potassium 3.7 (3.6-5.0) mmol/L Chloride 115 H (98-107) mmol/L Carbon Dioxide 22 (21-33) mmol/L Anion Gap 10 (10-20) BUN 21 (7-21) mg/dL Creatinine 1.4 H (0.7-1.2) mg/dl Est GFR ( Amer) 45 Est GFR (Non-Af Amer) 38 POC Glucose (mg/dL) (65-110) mg/dL Random Glucose 124 H (70-110) mg/dL Calcium 8.4 (8.4-10.5) mg/dL Total Bilirubin 0.5 (0.2-1.3) mg/dL AST 35 (14-36) U/L ALT 22 (7-56) U/L Alkaline Phosphatase 63 (38-126) U/L Total Protein 5.8 (5.8-8.3) g/dL Albumin 2.9 L (3.0-4.8) g/dL Globulin 3.0 gm/dL Albumin/Globulin Ratio 1.0 L (1.1-1.8) 25-OH Vitamin D Total (30.0-100.0) NG/ML RPR (NONREACTIVE) HIV 1&2 Ag/Ab, 4th Gen (Nonreactive) 09/14/18 09/14/18 09/13/18 Range/Units 07:34 05:15 21:40 WBC (4.5-11.0) 10^3/uL RBC (3.5-6.1) 10^6/uL Hgb (12.0-16.0) g/dL Hct (36.0-48.0) % MCV (80.0-105.0) fl MCH (25.0-35.0) pg MCHC (31.0-37.0) g/dl RDW (11.5-14.5) % Plt Count (120.0-450.0) 10^3/uL MPV (7.0-11.0) fl Neut % (Auto) (50.0-68.0) % Lymph % (Auto) (22.0-35.0) % [place] % (Auto) (1.0-6.0) % Eos % (Auto) (1.5-5.0) % Baso % (Auto) (0.0-3.0) % Lymph # (Auto) (1.2-3.4) [place] # (Auto) (0.1-0.6) Eos # (Auto) (0.0-0.7) Baso # (Auto) (0.0-2.0) K/mm3 Absolute Neuts (auto) (1.4-6.5) PT (9.4-12.5) SECONDS INR APTT (26.9-38.3) Seconds pCO2 33 L (35-45) mm/Hg pO2 147.0 H (80-100) mm/Hg HCO3 21.4 (21-28) mmol/L ABG pH 7.42 (7.35-7.45) ABG Total CO2 22.4 (22-28) mmol.L ABG O2 Saturation 97.6 (95-98) % ABG O2 Content 12.8 L (15-23) ML/dl ABG Base Excess -2.6 L (-2.0-3.0) mmol/L ABG Hemoglobin 9.2 L (11.7-17.4) g/dL ABG Carboxyhemoglobin 0.4 L (0.5-1.5) % POC ABG HHb (Measured) 2.4 (0-5) % ABG Methemoglobin 0.5 (0.0-3.0) % ABG O2 Capacity 13.1 L (16-24) mL/dl Hgb O2 Saturation 96.6 (95.0-98.0) % FiO2 40.0 % Sodium (132-148) mmol/L Potassium (3.6-5.0) mmol/L Chloride (98-107) mmol/L Carbon Dioxide (21-33) mmol/L Anion Gap (10-20) BUN (7-21) mg/dL Creatinine (0.7-1.2) mg/dl Est GFR ( Amer) Est GFR (Non-Af Amer) POC Glucose (mg/dL) 120 H 124 H (65-110) mg/dL Random Glucose (70-110) mg/dL Calcium (8.4-10.5) mg/dL Total Bilirubin (0.2-1.3) mg/dL AST (14-36) U/L ALT (7-56) U/L Alkaline Phosphatase (38-126) U/L Total Protein (5.8-8.3) g/dL Albumin (3.0-4.8) g/dL Globulin gm/dL Albumin/Globulin Ratio (1.1-1.8) 25-OH Vitamin D Total (30.0-100.0) NG/ML RPR (NONREACTIVE) HIV 1&2 Ag/Ab, 4th Gen (Nonreactive) 09/13/18 09/13/18 09/13/18 Range/Units 16:18 11:36 06:15 WBC (4.5-11.0) 10^3/uL RBC (3.5-6.1) 10^6/uL Hgb (12.0-16.0) g/dL Hct (36.0-48.0) % MCV (80.0-105.0) fl MCH (25.0-35.0) pg MCHC (31.0-37.0) g/dl RDW (11.5-14.5) % Plt Count (120.0-450.0) 10^3/uL MPV (7.0-11.0) fl Neut % (Auto) (50.0-68.0) % Lymph % (Auto) (22.0-35.0) % [place] % (Auto) (1.0-6.0) % Eos % (Auto) (1.5-5.0) % Baso % (Auto) (0.0-3.0) % Lymph # (Auto) (1.2-3.4) [place] # (Auto) (0.1-0.6) Eos # (Auto) (0.0-0.7) Baso # (Auto) (0.0-2.0) K/mm3 Absolute Neuts (auto) (1.4-6.5) PT (9.4-12.5) SECONDS INR APTT (26.9-38.3) Seconds pCO2 (35-45) mm/Hg pO2 (80-100) mm/Hg HCO3 (21-28) mmol/L ABG pH (7.35-7.45) ABG Total CO2 (22-28) mmol.L ABG O2 Saturation (95-98) % ABG O2 Content (15-23) ML/dl ABG Base Excess (-2.0-3.0) mmol/L ABG Hemoglobin (11.7-17.4) g/dL ABG Carboxyhemoglobin (0.5-1.5) % POC ABG HHb (Measured) (0-5) % ABG Methemoglobin (0.0-3.0) % ABG O2 Capacity (16-24) mL/dl Hgb O2 Saturation (95.0-98.0) % FiO2 % Sodium (132-148) mmol/L Potassium (3.6-5.0) mmol/L Chloride (98-107) mmol/L Carbon Dioxide (21-33) mmol/L Anion Gap (10-20) BUN (7-21) mg/dL Creatinine (0.7-1.2) mg/dl Est GFR ( Amer) Est GFR (Non-Af Amer) POC Glucose (mg/dL) 178 H 188 H (65-110) mg/dL Random Glucose (70-110) mg/dL Calcium (8.4-10.5) mg/dL Total Bilirubin (0.2-1.3) mg/dL AST (14-36) U/L ALT (7-56) U/L Alkaline Phosphatase (38-126) U/L Total Protein (5.8-8.3) g/dL Albumin (3.0-4.8) g/dL Globulin gm/dL Albumin/Globulin Ratio (1.1-1.8) 25-OH Vitamin D Total < 12.8 L (30.0-100.0) NG/ML RPR (NONREACTIVE) HIV 1&2 Ag/Ab, 4th Gen (Nonreactive) 09/12/18 09/12/18 Range/Units 19:00 16:10 WBC (4.5-11.0) 10^3/uL RBC (3.5-6.1) 10^6/uL Hgb (12.0-16.0) g/dL Hct (36.0-48.0) % MCV (80.0-105.0) fl MCH (25.0-35.0) pg MCHC (31.0-37.0) g/dl RDW (11.5-14.5) % Plt Count (120.0-450.0) 10^3/uL MPV (7.0-11.0) fl Neut % (Auto) (50.0-68.0) % Lymph % (Auto) (22.0-35.0) % [place] % (Auto) (1.0-6.0) % Eos % (Auto) (1.5-5.0) % Baso % (Auto) (0.0-3.0) % Lymph # (Auto) (1.2-3.4) [place] # (Auto) (0.1-0.6) Eos # (Auto) (0.0-0.7) Baso # (Auto) (0.0-2.0) K/mm3 Absolute Neuts (auto) (1.4-6.5) PT (9.4-12.5) SECONDS INR APTT (26.9-38.3) Seconds pCO2 (35-45) mm/Hg pO2 (80-100) mm/Hg HCO3 (21-28) mmol/L ABG pH (7.35-7.45) ABG Total CO2 (22-28) mmol.L ABG O2 Saturation (95-98) % ABG O2 Content (15-23) ML/dl ABG Base Excess (-2.0-3.0) mmol/L ABG Hemoglobin (11.7-17.4) g/dL ABG Carboxyhemoglobin (0.5-1.5) % POC ABG HHb (Measured) (0-5) % ABG Methemoglobin (0.0-3.0) % ABG O2 Capacity (16-24) mL/dl Hgb O2 Saturation (95.0-98.0) % FiO2 % Sodium (132-148) mmol/L Potassium (3.6-5.0) mmol/L Chloride (98-107) mmol/L Carbon Dioxide (21-33) mmol/L Anion Gap (10-20) BUN (7-21) mg/dL Creatinine (0.7-1.2) mg/dl Est GFR ( Amer) Est GFR (Non-Af Amer) POC Glucose (mg/dL) (65-110) mg/dL Random Glucose (70-110) mg/dL Calcium (8.4-10.5) mg/dL Total Bilirubin (0.2-1.3) mg/dL AST (14-36) U/L ALT (7-56) U/L Alkaline Phosphatase (38-126) U/L Total Protein (5.8-8.3) g/dL Albumin (3.0-4.8) g/dL Globulin gm/dL Albumin/Globulin Ratio (1.1-1.8) 25-OH Vitamin D Total (30.0-100.0) NG/ML RPR Nonreactive (NONREACTIVE) HIV 1&2 Ag/Ab, 4th Gen Nonreactive (Nonreactive) Laboratory Results - last 24 hr 09/12/18 09/12/18 09/13/18 16:10 19:00 06:15 WBC RBC Hgb Hct MCV MCH MCHC RDW Plt Count MPV Neut % (Auto) Lymph % (Auto) [place] % (Auto) Eos % (Auto) Baso % (Auto) Lymph # (Auto) [place] # (Auto) Eos # (Auto) Baso # (Auto) Absolute Neuts (auto) PT INR APTT pCO2 pO2 HCO3 ABG pH ABG Total CO2 ABG O2 Saturation ABG O2 Content ABG Base Excess ABG Hemoglobin ABG Carboxyhemoglobin POC ABG HHb (Measured) ABG Methemoglobin ABG O2 Capacity Hgb O2 Saturation FiO2 Sodium Potassium Chloride Carbon Dioxide Anion Gap BUN Creatinine Est GFR ( Amer) Est GFR (Non-Af Amer) POC Glucose (mg/dL) Random Glucose Calcium Total Bilirubin AST ALT Alkaline Phosphatase Total Protein Albumin Globulin Albumin/Globulin Ratio 25-OH Vitamin D Total < 12.8 L RPR Nonreactive HIV 1&2 Ag/Ab, 4th Gen Nonreactive 09/13/18 09/13/18 09/13/18 11:36 16:18 21:40 WBC RBC Hgb Hct MCV MCH MCHC RDW Plt Count MPV Neut % (Auto) Lymph % (Auto) [place] % (Auto) Eos % (Auto) Baso % (Auto) Lymph # (Auto) [place] # (Auto) Eos # (Auto) Baso # (Auto) Absolute Neuts (auto) PT INR APTT pCO2 pO2 HCO3 ABG pH ABG Total CO2 ABG O2 Saturation ABG O2 Content ABG Base Excess ABG Hemoglobin ABG Carboxyhemoglobin POC ABG HHb (Measured) ABG Methemoglobin ABG O2 Capacity Hgb O2 Saturation FiO2 Sodium Potassium Chloride Carbon Dioxide Anion Gap BUN Creatinine Est GFR ( Amer) Est GFR (Non-Af Amer) POC Glucose (mg/dL) 188 H 178 H 124 H Random Glucose Calcium Total Bilirubin AST ALT Alkaline Phosphatase Total Protein Albumin Globulin Albumin/Globulin Ratio 25-OH Vitamin D Total RPR HIV 1&2 Ag/Ab, 4th Gen 09/14/18 09/14/18 09/14/18 05:15 07:34 07:45 WBC 9.8 RBC 3.61 Hgb 10.1 L Hct 31.7 L MCV 87.8 MCH 28.0 MCHC 31.9 RDW 14.3 Plt Count 253 MPV 10.3 Neut % (Auto) 68.3 H Lymph % (Auto) 18.6 L [place] % (Auto) 7.9 H Eos % (Auto) 5.1 H Baso % (Auto) 0.1 Lymph # (Auto) 1.8 [place] # (Auto) 0.8 H Eos # (Auto) 0.5 Baso # (Auto) 0.01 Absolute Neuts (auto) 6.70 H PT INR APTT pCO2 33 L pO2 147.0 H HCO3 21.4 ABG pH 7.42 ABG Total CO2 22.4 ABG O2 Saturation 97.6 ABG O2 Content 12.8 L ABG Base Excess -2.6 L ABG Hemoglobin 9.2 L ABG Carboxyhemoglobin 0.4 L POC ABG HHb (Measured) 2.4 ABG Methemoglobin 0.5 ABG O2 Capacity 13.1 L Hgb O2 Saturation 96.6 FiO2 40.0 Sodium Potassium Chloride Carbon Dioxide Anion Gap BUN Creatinine Est GFR ( Amer) Est GFR (Non-Af Amer) POC Glucose (mg/dL) 120 H Random Glucose Calcium Total Bilirubin AST ALT Alkaline Phosphatase Total Protein Albumin Globulin Albumin/Globulin Ratio 25-OH Vitamin D Total RPR HIV 1&2 Ag/Ab, 4th Gen 09/14/18 09/14/18 07:45 08:00 WBC RBC Hgb Hct MCV MCH MCHC RDW Plt Count MPV Neut % (Auto) Lymph % (Auto) [place] % (Auto) Eos % (Auto) Baso % (Auto) Lymph # (Auto) [place] # (Auto) Eos # (Auto) Baso # (Auto) Absolute Neuts (auto) PT 12.2 INR 1.08 APTT 30.6 pCO2 pO2 HCO3 ABG pH ABG Total CO2 ABG O2 Saturation ABG O2 Content ABG Base Excess ABG Hemoglobin ABG Carboxyhemoglobin POC ABG HHb (Measured) ABG Methemoglobin ABG O2 Capacity Hgb O2 Saturation FiO2 Sodium 143 Potassium 3.7 Chloride 115 H Carbon Dioxide 22 Anion Gap 10 BUN 21 Creatinine 1.4 H Est GFR ( Amer) 45 Est GFR (Non-Af Amer) 38 POC Glucose (mg/dL) Random Glucose 124 H Calcium 8.4 Total Bilirubin 0.5 AST 35 ALT 22 Alkaline Phosphatase 63 Total Protein 5.8 Albumin 2.9 L Globulin 3.0 Albumin/Globulin Ratio 1.0 L 25-OH Vitamin D Total RPR HIV 1&2 Ag/Ab, 4th Gen Fingerstick Blood Sugar Results: 124 Critical Care Progress Note - Nutrition Nutrition: Nutrition Category Date Time Status NPO Diet [DIET] Diets 09/10/18 Lunch Ordered Assessment/Plan - Assessment and Plan (Free Text) Assessment: Pt is a 68 yo female with a PMH of HTN and DM who was found down by her with unilateral weakness. Brain MRI later showed multiple emboli in both hemispheres of the brain. Plan: Neuro - intubated - multiple emboli in both hemispheres of the brain, and unilateral weakness on exam - pt had a seizure in the ICU and was given propofol, ativan 8mg, keppra 1000 IV q12, continuous EEG, Mackenzie notified - ASA, lipitor, plavix - Head CT no acute intracranial pathology, age related changes - Head neck CTA no evidence of occlusion significant stenosis or dissection of the carotid arteries. There is a calcified athrosclerotic plaque both carotid siphons. There is moderate calcified plaque of the distal right vertebral artery. with minimal calfified plaque left vertebral artery. Intra cerebral circulation is patent. No evidence of large aneurysm nor vascular malformation. - Brain MRI there are multiple small acute infarcts seen scattered about both cerebral hemispheres. There findings suggest embolic event given the involvement of bilateral vascular distributions. - ECHO showed no vegetations or thrombus, no ASD or PFO - Neuro consulted, Dr Mann Cardio - femoral central has been removed - hydralazine, metoprolol, amlodipine - ECHO EF55-60%, RVSP29, aneurysmal atrial septum, no sings of ASD, no vegetations or thrombus noted - Cardio consulted, Dr Pelaez Pulana - ABG 30/184/7.43 - ventilator settings: 20/350/40%/5 - maintain O2 >92 - VAP bundle: - oral hygiene - HOB 30 degrees - DVT/GI ppx - appropriate TV - daily sedation vacations - conservative O2 management - conservative fluid management - pt off sedation, will continue pressure support GI - NPO Nephro/ - monitor BUN/Cr 21/1.4 - monitor electrolytes - UA protein, glucose, ketones, blood, bilirubin, LE, RBC, WBC Heme/ Onc - Hgb 10.1 - INR 1.08 ID - WBC 9.8 - blood cultures NGTD - ID consulted, Dr Baljit Balderas - HA1C 8.7 - levemir 20 SC q12 - ISS Dispo: will speak with family about possible trach Pt seen, examined, assessment and plan discussed with Dr Massiel Damico PGY1 - Date & Time Date: 09/14/18 Time: 10:38 <Yoan Rankin - Last Filed: 09/14/18 12:34> CCU Objective - Vital Signs / Intake & Output Vital Signs (Last 4 hours): Vital Signs Pulse BP 09/14/18 10:44 67 177/120 H 09/14/18 09:30 75 163/78 H 09/14/18 09:27 163/78 H Intake and Output (Last 8hrs): Intake & Output 09/13/18 09/14/18 09/14/18 22:59 06:59 14:59 Intake Total 1900 Output Total 500 400 Balance 1400 -400 Intake: IV 1900 antibiotics 100 maintenance IV 1800 Output: Urine 500 400 Urethral (Johns) 500 400 Other: # Bowel Movements 1 - Medications Active Medications: Active Medications Generic Name Dose Route Start Last Admin Trade Name Freq PRN Reason Stop Dose Admin Acetaminophen 650 mg 09/11/18 17:02 09/11/18 22:44 Tylenol 650mg/20.3ml Solution Ud NG 650 mg Q6H PRN Administration Temperature >100.4 Amlodipine Besylate 10 mg 09/12/18 10:00 09/14/18 09:27 Norvasc PO 10 mg DAILY JAMES Administration Aspirin 81 mg 09/13/18 12:30 09/14/18 09:26 Aspirin Chewable PO 81 mg DAILY JAMES Administration Atorvastatin Calcium 40 mg 09/13/18 17:00 09/13/18 17:38 Lipitor PO 40 mg DIN JAMES Administration Clopidogrel Bisulfate 75 mg 09/13/18 12:30 09/14/18 09:30 Plavix PO 75 mg DAILY JAMES Administration Dextrose 0 ml 09/12/18 17:24 Dextrose 50% Inj IV STAT PRN Hypoglycemia Protocol Protocol Ergocalciferol 1 cap 09/13/18 15:30 09/13/18 17:37 Drisdol 50,000 Intl Units Cap PO Not Given Q7D JAMES Hydralazine HCl 10 mg 09/11/18 13:30 09/14/18 10:44 Apresoline IVP 10 mg Q6 PRN Administration For SBP>160 Propofol 1,000 mg in 100 mls @ 2.547 mls/hr 09/10/18 17:03 09/12/18 11:00 Diprivan IV 0 mcg/kg/min .Q24H PRN 0 mls/hr TITRATE PER MD ORDER Titration Protocol 5 MCG/KG/MIN Levetiracetam 100 mls @ 460 mls/hr 09/11/18 11:45 09/14/18 09:26 Keppra 1000mg/100ml Ns IV 460 mls/hr Q12 JAMES Administration Sodium Chloride 1,000 mls @ 100 mls/hr 09/12/18 12:12 09/14/18 05:28 Sodium Chloride 0.9% IV 100 mls/hr .Q10H JAMES Administration Dextrose 1,000 mls @ 0 mls/hr 09/12/18 17:24 Dextrose 5% In Water 1000 Ml IV .Q0M PRN Hypoglycemia Protocol Protocol Per Protocol Insulin Detemir 20 unit 09/13/18 06:00 09/14/18 07:02 Levemir SC Not Given Q12H JAMES Insulin Human Regular 0 units 09/12/18 22:00 09/14/18 08:30 Humulin R Med SC Not Given ACHS JAMES Protocol Losartan Potassium 50 mg 09/14/18 11:30 Cozaar NG DAILY JAMES Metoprolol Tartrate 25 mg 09/11/18 18:00 09/14/18 09:30 Lopressor PO 25 mg BID JAMES Administration Pantoprazole Sodium 40 mg 09/11/18 10:00 09/14/18 09:26 Protonix Inj IVP 40 mg DAILY JAMES Administration - Patient Studies Lab Studies: Microbiology Studies 09/10/18 13:20 Blood Culture - Preliminary Blood NO GROWTH AFTER 3 DAYS 09/10/18 12:50 Blood Culture - Preliminary Blood NO GROWTH AFTER 3 DAYS Lab Studies 09/14/18 09/14/18 09/14/18 Range/Units 08:00 07:45 07:45 WBC 9.8 (4.5-11.0) 10^3/uL RBC 3.61 (3.5-6.1) 10^6/uL Hgb 10.1 L (12.0-16.0) g/dL Hct 31.7 L (36.0-48.0) % MCV 87.8 (80.0-105.0) fl MCH 28.0 (25.0-35.0) pg MCHC 31.9 (31.0-37.0) g/dl RDW 14.3 (11.5-14.5) % Plt Count 253 (120.0-450.0) 10^3/uL MPV 10.3 (7.0-11.0) fl Neut % (Auto) 68.3 H (50.0-68.0) % Lymph % (Auto) 18.6 L (22.0-35.0) % [place] % (Auto) 7.9 H (1.0-6.0) % Eos % (Auto) 5.1 H (1.5-5.0) % Baso % (Auto) 0.1 (0.0-3.0) % Lymph # (Auto) 1.8 (1.2-3.4) [place] # (Auto) 0.8 H (0.1-0.6) Eos # (Auto) 0.5 (0.0-0.7) Baso # (Auto) 0.01 (0.0-2.0) K/mm3 Absolute Neuts (auto) 6.70 H (1.4-6.5) PT 12.2 (9.4-12.5) SECONDS INR 1.08 APTT 30.6 (26.9-38.3) Seconds pCO2 (35-45) mm/Hg pO2 (80-100) mm/Hg HCO3 (21-28) mmol/L ABG pH (7.35-7.45) ABG Total CO2 (22-28) mmol.L ABG O2 Saturation (95-98) % ABG O2 Content (15-23) ML/dl ABG Base Excess (-2.0-3.0) mmol/L ABG Hemoglobin (11.7-17.4) g/dL ABG Carboxyhemoglobin (0.5-1.5) % POC ABG HHb (Measured) (0-5) % ABG Methemoglobin (0.0-3.0) % ABG O2 Capacity (16-24) mL/dl Hgb O2 Saturation (95.0-98.0) % FiO2 % Sodium 143 (132-148) mmol/L Potassium 3.7 (3.6-5.0) mmol/L Chloride 115 H (98-107) mmol/L Carbon Dioxide 22 (21-33) mmol/L Anion Gap 10 (10-20) BUN 21 (7-21) mg/dL Creatinine 1.4 H (0.7-1.2) mg/dl Est GFR ( Amer) 45 Est GFR (Non-Af Amer) 38 POC Glucose (mg/dL) (65-110) mg/dL Random Glucose 124 H (70-110) mg/dL Calcium 8.4 (8.4-10.5) mg/dL Total Bilirubin 0.5 (0.2-1.3) mg/dL AST 35 (14-36) U/L ALT 22 (7-56) U/L Alkaline Phosphatase 63 (38-126) U/L Total Protein 5.8 (5.8-8.3) g/dL Albumin 2.9 L (3.0-4.8) g/dL Globulin 3.0 gm/dL Albumin/Globulin Ratio 1.0 L (1.1-1.8) RPR (NONREACTIVE) HIV 1&2 Ag/Ab, 4th Gen (Nonreactive) 09/14/18 09/14/18 09/13/18 Range/Units 07:34 05:15 21:40 WBC (4.5-11.0) 10^3/uL RBC (3.5-6.1) 10^6/uL Hgb (12.0-16.0) g/dL Hct (36.0-48.0) % MCV (80.0-105.0) fl MCH (25.0-35.0) pg MCHC (31.0-37.0) g/dl RDW (11.5-14.5) % Plt Count (120.0-450.0) 10^3/uL MPV (7.0-11.0) fl Neut % (Auto) (50.0-68.0) % Lymph % (Auto) (22.0-35.0) % [place] % (Auto) (1.0-6.0) % Eos % (Auto) (1.5-5.0) % Baso % (Auto) (0.0-3.0) % Lymph # (Auto) (1.2-3.4) [place] # (Auto) (0.1-0.6) Eos # (Auto) (0.0-0.7) Baso # (Auto) (0.0-2.0) K/mm3 Absolute Neuts (auto) (1.4-6.5) PT (9.4-12.5) SECONDS INR APTT (26.9-38.3) Seconds pCO2 33 L (35-45) mm/Hg pO2 147.0 H (80-100) mm/Hg HCO3 21.4 (21-28) mmol/L ABG pH 7.42 (7.35-7.45) ABG Total CO2 22.4 (22-28) mmol.L ABG O2 Saturation 97.6 (95-98) % ABG O2 Content 12.8 L (15-23) ML/dl ABG Base Excess -2.6 L (-2.0-3.0) mmol/L ABG Hemoglobin 9.2 L (11.7-17.4) g/dL ABG Carboxyhemoglobin 0.4 L (0.5-1.5) % POC ABG HHb (Measured) 2.4 (0-5) % ABG Methemoglobin 0.5 (0.0-3.0) % ABG O2 Capacity 13.1 L (16-24) mL/dl Hgb O2 Saturation 96.6 (95.0-98.0) % FiO2 40.0 % Sodium (132-148) mmol/L Potassium (3.6-5.0) mmol/L Chloride (98-107) mmol/L Carbon Dioxide (21-33) mmol/L Anion Gap (10-20) BUN (7-21) mg/dL Creatinine (0.7-1.2) mg/dl Est GFR ( Amer) Est GFR (Non-Af Amer) POC Glucose (mg/dL) 120 H 124 H (65-110) mg/dL Random Glucose (70-110) mg/dL Calcium (8.4-10.5) mg/dL Total Bilirubin (0.2-1.3) mg/dL AST (14-36) U/L ALT (7-56) U/L Alkaline Phosphatase (38-126) U/L Total Protein (5.8-8.3) g/dL Albumin (3.0-4.8) g/dL Globulin gm/dL Albumin/Globulin Ratio (1.1-1.8) RPR (NONREACTIVE) HIV 1&2 Ag/Ab, 4th Gen (Nonreactive) 09/13/18 09/13/18 09/13/18 Range/Units 16:18 11:36 06:15 WBC (4.5-11.0) 10^3/uL RBC (3.5-6.1) 10^6/uL Hgb (12.0-16.0) g/dL Hct (36.0-48.0) % MCV (80.0-105.0) fl MCH (25.0-35.0) pg MCHC (31.0-37.0) g/dl RDW (11.5-14.5) % Plt Count (120.0-450.0) 10^3/uL MPV (7.0-11.0) fl Neut % (Auto) (50.0-68.0) % Lymph % (Auto) (22.0-35.0) % [place] % (Auto) (1.0-6.0) % Eos % (Auto) (1.5-5.0) % Baso % (Auto) (0.0-3.0) % Lymph # (Auto) (1.2-3.4) [place] # (Auto) (0.1-0.6) Eos # (Auto) (0.0-0.7) Baso # (Auto) (0.0-2.0) K/mm3 Absolute Neuts (auto) (1.4-6.5) PT (9.4-12.5) SECONDS INR APTT (26.9-38.3) Seconds pCO2 (35-45) mm/Hg pO2 (80-100) mm/Hg HCO3 (21-28) mmol/L ABG pH (7.35-7.45) ABG Total CO2 (22-28) mmol.L ABG O2 Saturation (95-98) % ABG O2 Content (15-23) ML/dl ABG Base Excess (-2.0-3.0) mmol/L ABG Hemoglobin (11.7-17.4) g/dL ABG Carboxyhemoglobin (0.5-1.5) % POC ABG HHb (Measured) (0-5) % ABG Methemoglobin (0.0-3.0) % ABG O2 Capacity (16-24) mL/dl Hgb O2 Saturation (95.0-98.0) % FiO2 % Sodium (132-148) mmol/L Potassium (3.6-5.0) mmol/L Chloride (98-107) mmol/L Carbon Dioxide (21-33) mmol/L Anion Gap (10-20) BUN (7-21) mg/dL Creatinine (0.7-1.2) mg/dl Est GFR ( Amer) Est GFR (Non-Af Amer) POC Glucose (mg/dL) 178 H 188 H (65-110) mg/dL Random Glucose (70-110) mg/dL Calcium (8.4-10.5) mg/dL Total Bilirubin (0.2-1.3) mg/dL AST (14-36) U/L ALT (7-56) U/L Alkaline Phosphatase (38-126) U/L Total Protein (5.8-8.3) g/dL Albumin (3.0-4.8) g/dL Globulin gm/dL Albumin/Globulin Ratio (1.1-1.8) RPR (NONREACTIVE) HIV 1&2 Ag/Ab, 4th Gen Nonreactive (Nonreactive) 09/12/18 09/12/18 Range/Units 19:00 16:10 WBC (4.5-11.0) 10^3/uL RBC (3.5-6.1) 10^6/uL Hgb (12.0-16.0) g/dL Hct (36.0-48.0) % MCV (80.0-105.0) fl MCH (25.0-35.0) pg MCHC (31.0-37.0) g/dl RDW (11.5-14.5) % Plt Count (120.0-450.0) 10^3/uL MPV (7.0-11.0) fl Neut % (Auto) (50.0-68.0) % Lymph % (Auto) (22.0-35.0) % [place] % (Auto) (1.0-6.0) % Eos % (Auto) (1.5-5.0) % Baso % (Auto) (0.0-3.0) % Lymph # (Auto) (1.2-3.4) [place] # (Auto) (0.1-0.6) Eos # (Auto) (0.0-0.7) Baso # (Auto) (0.0-2.0) K/mm3 Absolute Neuts (auto) (1.4-6.5) PT (9.4-12.5) SECONDS INR APTT (26.9-38.3) Seconds pCO2 (35-45) mm/Hg pO2 (80-100) mm/Hg HCO3 (21-28) mmol/L ABG pH (7.35-7.45) ABG Total CO2 (22-28) mmol.L ABG O2 Saturation (95-98) % ABG O2 Content (15-23) ML/dl ABG Base Excess (-2.0-3.0) mmol/L ABG Hemoglobin (11.7-17.4) g/dL ABG Carboxyhemoglobin (0.5-1.5) % POC ABG HHb (Measured) (0-5) % ABG Methemoglobin (0.0-3.0) % ABG O2 Capacity (16-24) mL/dl Hgb O2 Saturation (95.0-98.0) % FiO2 % Sodium (132-148) mmol/L Potassium (3.6-5.0) mmol/L Chloride (98-107) mmol/L Carbon Dioxide (21-33) mmol/L Anion Gap (10-20) BUN (7-21) mg/dL Creatinine (0.7-1.2) mg/dl Est GFR ( Amer) Est GFR (Non-Af Amer) POC Glucose (mg/dL) (65-110) mg/dL Random Glucose (70-110) mg/dL Calcium (8.4-10.5) mg/dL Total Bilirubin (0.2-1.3) mg/dL AST (14-36) U/L ALT (7-56) U/L Alkaline Phosphatase (38-126) U/L Total Protein (5.8-8.3) g/dL Albumin (3.0-4.8) g/dL Globulin gm/dL Albumin/Globulin Ratio (1.1-1.8) RPR Nonreactive (NONREACTIVE) HIV 1&2 Ag/Ab, 4th Gen Nonreactive (Nonreactive) Laboratory Results - last 24 hr 09/12/18 09/12/18 09/13/18 16:10 19:00 06:15 WBC RBC Hgb Hct MCV MCH MCHC RDW Plt Count MPV Neut % (Auto) Lymph % (Auto) [place] % (Auto) Eos % (Auto) Baso % (Auto) Lymph # (Auto) [place] # (Auto) Eos # (Auto) Baso # (Auto) Absolute Neuts (auto) PT INR APTT pCO2 pO2 HCO3 ABG pH ABG Total CO2 ABG O2 Saturation ABG O2 Content ABG Base Excess ABG Hemoglobin ABG Carboxyhemoglobin POC ABG HHb (Measured) ABG Methemoglobin ABG O2 Capacity Hgb O2 Saturation FiO2 Sodium Potassium Chloride Carbon Dioxide Anion Gap BUN Creatinine Est GFR ( Amer) Est GFR (Non-Af Amer) POC Glucose (mg/dL) Random Glucose Calcium Total Bilirubin AST ALT Alkaline Phosphatase Total Protein Albumin Globulin Albumin/Globulin Ratio RPR Nonreactive HIV 1&2 Ag/Ab, 4th Gen Nonreactive Nonreactive 09/13/18 09/13/18 09/13/18 11:36 16:18 21:40 WBC RBC Hgb Hct MCV MCH MCHC RDW Plt Count MPV Neut % (Auto) Lymph % (Auto) [place] % (Auto) Eos % (Auto) Baso % (Auto) Lymph # (Auto) [place] # (Auto) Eos # (Auto) Baso # (Auto) Absolute Neuts (auto) PT INR APTT pCO2 pO2 HCO3 ABG pH ABG Total CO2 ABG O2 Saturation ABG O2 Content ABG Base Excess ABG Hemoglobin ABG Carboxyhemoglobin POC ABG HHb (Measured) ABG Methemoglobin ABG O2 Capacity Hgb O2 Saturation FiO2 Sodium Potassium Chloride Carbon Dioxide Anion Gap BUN Creatinine Est GFR ( Amer) Est GFR (Non-Af Amer) POC Glucose (mg/dL) 188 H 178 H 124 H Random Glucose Calcium Total Bilirubin AST ALT Alkaline Phosphatase Total Protein Albumin Globulin Albumin/Globulin Ratio RPR HIV 1&2 Ag/Ab, 4th Gen 09/14/18 09/14/18 09/14/18 05:15 07:34 07:45 WBC 9.8 RBC 3.61 Hgb 10.1 L Hct 31.7 L MCV 87.8 MCH 28.0 MCHC 31.9 RDW 14.3 Plt Count 253 MPV 10.3 Neut % (Auto) 68.3 H Lymph % (Auto) 18.6 L [place] % (Auto) 7.9 H Eos % (Auto) 5.1 H Baso % (Auto) 0.1 Lymph # (Auto) 1.8 [place] # (Auto) 0.8 H Eos # (Auto) 0.5 Baso # (Auto) 0.01 Absolute Neuts (auto) 6.70 H PT INR APTT pCO2 33 L pO2 147.0 H HCO3 21.4 ABG pH 7.42 ABG Total CO2 22.4 ABG O2 Saturation 97.6 ABG O2 Content 12.8 L ABG Base Excess -2.6 L ABG Hemoglobin 9.2 L ABG Carboxyhemoglobin 0.4 L POC ABG HHb (Measured) 2.4 ABG Methemoglobin 0.5 ABG O2 Capacity 13.1 L Hgb O2 Saturation 96.6 FiO2 40.0 Sodium Potassium Chloride Carbon Dioxide Anion Gap BUN Creatinine Est GFR ( Amer) Est GFR (Non-Af Amer) POC Glucose (mg/dL) 120 H Random Glucose Calcium Total Bilirubin AST ALT Alkaline Phosphatase Total Protein Albumin Globulin Albumin/Globulin Ratio RPR HIV 1&2 Ag/Ab, 4th Gen 09/14/18 09/14/18 07:45 08:00 WBC RBC Hgb Hct MCV MCH MCHC RDW Plt Count MPV Neut % (Auto) Lymph % (Auto) [place] % (Auto) Eos % (Auto) Baso % (Auto) Lymph # (Auto) [place] # (Auto) Eos # (Auto) Baso # (Auto) Absolute Neuts (auto) PT 12.2 INR 1.08 APTT 30.6 pCO2 pO2 HCO3 ABG pH ABG Total CO2 ABG O2 Saturation ABG O2 Content ABG Base Excess ABG Hemoglobin ABG Carboxyhemoglobin POC ABG HHb (Measured) ABG Methemoglobin ABG O2 Capacity Hgb O2 Saturation FiO2 Sodium 143 Potassium 3.7 Chloride 115 H Carbon Dioxide 22 Anion Gap 10 BUN 21 Creatinine 1.4 H Est GFR ( Amer) 45 Est GFR (Non-Af Amer) 38 POC Glucose (mg/dL) Random Glucose 124 H Calcium 8.4 Total Bilirubin 0.5 AST 35 ALT 22 Alkaline Phosphatase 63 Total Protein 5.8 Albumin 2.9 L Globulin 3.0 Albumin/Globulin Ratio 1.0 L RPR HIV 1&2 Ag/Ab, 4th Gen Critical Care Progress Note - Nutrition Nutrition: Nutrition Category Date Time Status NPO Diet [DIET] Diets 09/10/18 Lunch Ordered Assessment/Plan - Assessment and Plan (Free Text) Plan: I saw and examined the patient on rounds with resident, agree with note with following additions/exceptions: Patient is 68yo female with a PMH of HTN and DM who was found down by her with unilateral weakness found to have on brain MRI multiple emboli in both hemispheres of the brain. MATEO done, no vegetations or clot in [place] VEEG done Patient placed on pressure support this morning, failed RSBI 120-140s, poor TV, apnea, and mental awareness Currently intubated off sedation in NAD, Afebrile, HD stable, comfortable Labs, imaging, chart reviewed Acute CVA, Embolic Resp failure HTN DM Recommend: - cont with vent support, low tidal vol ventilation, daily sedation vacation, ABG, weaning trials - may need tracheostomy, will discuss with famly - Abx as per ID - BP control - follow up Neuro - follow up Cardio - ASA, Plavix - IVF hydration - GI ppx - DVT ppx - Monitor in MICU Critical care time 30 minutes
--- NOTE | 2018-09-14 10:51 | CP.PCM.PN ---
<Maksim Hernandez - Last Filed: 09/14/18 15:24> Subjective - Date & Time of Evaluation Date of Evaluation: 09/14/18 Time of Evaluation: 07:50 - Subjective Subjective: Maksim Hernandez DO, PGY-2: Neurology Progress Note for Dr. Mann Patient seen and examined at bedside. Patient is unable to raise legs. She is bilateral upper extremity restraints. She is still intubated, not on any sedation. No adverse events noted overnight. Objective - Vital Signs/Intake and Output Vital Signs (last 24 hours): Temp Pulse Resp BP Pulse Ox 98.3 F 67 27 H 177/120 H 96 09/13/18 20:00 09/14/18 10:44 09/14/18 08:20 09/14/18 10:44 09/14/18 08:20 Intake and Output: 09/14/18 09/14/18 06:59 18:59 Output Total 400 Balance -400 - Medications Medications: Current Medications Acetaminophen (Tylenol 650mg/20.3ml Solution Ud) 650 mg NG Q6H PRN PRN Reason: Temperature >100.4 Last Admin: 09/11/18 22:44 Dose: 650 mg Amlodipine Besylate (Norvasc) 10 mg PO DAILY [facility] Last Admin: 09/14/18 09:27 Dose: 10 mg Aspirin (Aspirin Chewable) 81 mg PO DAILY [facility] Last Admin: 09/14/18 09:26 Dose: 81 mg Atorvastatin Calcium (Lipitor) 40 mg PO DIN [facility] Last Admin: 09/13/18 17:38 Dose: 40 mg Clopidogrel Bisulfate (Plavix) 75 mg PO DAILY [facility] Last Admin: 09/14/18 09:30 Dose: 75 mg Dextrose (Dextrose 50% Inj) 0 ml IV STAT PRN; Protocol PRN Reason: Hypoglycemia Protocol Ergocalciferol (Drisdol 50,000 Intl Units Cap) 1 cap PO Q7D [facility] Last Admin: 09/13/18 17:37 Dose: Not Given Hydralazine HCl (Apresoline) 10 mg IVP Q6 PRN PRN Reason: For SBP>160 Last Admin: 09/14/18 10:44 Dose: 10 mg Propofol (Diprivan) 1,000 mg in 100 mls @ 2.547 mls/hr IV .Q24H PRN; Protocol PRN Reason: TITRATE PER MD ORDER Last Titration: 09/12/18 11:00 Dose: 0 mcg/kg/min, 0 mls/hr Levetiracetam (Keppra 1000mg/100ml Ns) 100 mls @ 460 mls/hr IV Q12 [facility] Last Admin: 09/14/18 09:26 Dose: 460 mls/hr Sodium Chloride (Sodium Chloride 0.9%) 1,000 mls @ 100 mls/hr IV .Q10H [facility] Last Admin: 09/14/18 05:28 Dose: 100 mls/hr Dextrose (Dextrose 5% In Water 1000 Ml) 1,000 mls @ 0 mls/hr IV .Q0M PRN; Protocol PRN Reason: Hypoglycemia Protocol Insulin Detemir (Levemir) 20 unit SC Q12H [facility] Last Admin: 09/14/18 07:02 Dose: Not Given Insulin Human Regular (Humulin R Med) 0 units SC ACHS [facility]; Protocol Last Admin: 09/14/18 08:30 Dose: Not Given Metoprolol Tartrate (Lopressor) 25 mg PO BID [facility] Last Admin: 09/14/18 09:30 Dose: 25 mg Pantoprazole Sodium (Protonix Inj) 40 mg IVP DAILY [facility] Last Admin: 09/14/18 09:26 Dose: 40 mg - Labs Labs: 09/14/18 07:45 09/14/18 07:45 PT 12.2 SECONDS (9.4-12.5) 09/14/18 08:00 INR 1.08 09/14/18 08:00 APTT 30.6 Seconds (26.9-38.3) 09/14/18 08:00 - Constitutional Appears: Non-toxic, No Acute Distress - Head Exam Head Exam: ATRAUMATIC, NORMOCEPHALIC - Eye Exam Eye Exam: Normal appearance - Neck Exam Neck Exam: Normal Inspection - Respiratory Exam Respiratory Exam: Accessory Muscle Use, NORMAL BREATHING PATTERN - Cardiovascular Exam Cardiovascular Exam: RRR, +S1, +S2 - GI/Abdominal Exam GI & Abdominal Exam: Soft, Normal Bowel Sounds. absent: Tenderness - Neurological Exam Additional comments: global weakness, positive babinski on left, not following any commands, withdraws from painful stimuli - Skin Skin Exam: Dry, Normal Color, Warm Assessment and Plan - Assessment and Plan (Free Text) Assessment: 1) Acute stroke, likely embolic in nature - Head neck CTA no evidence of occlusion significant stenosis or dissection of the carotid arteries. There is a calcified athrosclerotic plaque both carotid siphons. There is moderate calcified plaque of the distal right vertebral artery. with minimal calfified plaque left vertebral artery. Intra cerebral circulation is patent. No evidence of large aneurysm nor vascular malformation. - Brain MRI there are multiple small acute infarcts seen scattered about both cerebral hemispheres. There findings suggest embolic event given the involvement of bilateral vascular distributions. - TTE and MATEO show no evidence of PFO, thrombus, or vegetations - [facility] 45 degrees - Repeat CT of head performed 09/12/2018 reports there is a new area of hypodensity in the right parietal white matter consistent with an acute infarct. This was not present on the prior exam. - Aspirin 81 mg and plavix 75 mg - Given the MATEO did not reveal any kind of shunt, we recommend a CTA of the chest to evaluate for pulmonary AVM once the patient's Creatinine Clearance and Urine Output have improved 2) Seizures - Video EEG reports: This is an abnormal video-EEG monitoring study due to the presence of 1) Burst attenuation pattern, that resolved as the study went on 2) Moderate diffuse slowing 3) Left hemispheric focal slowing and rare left frontal sharps. No seizures, not in status epilepticus INTERPRETATION: These findings support the diagnosis of moderate to severe, non specific di ffuse disturbance of cortical activity, in keeping with a diffuse leon matter dysfunction. Findings are also in keeping with a focal cortical abnormality involving the left hemisphere in keeping with an structural abnormality the same area. - Keppra 500 mg q12h (renally dosed based on Creatinine Clearance) also lowering the dose may make the patient more awake and less somnolent - Seizure precautions - Aspiration Precautions Case was reviewed and discussed with attending physician, Dr. Mann <David Mann - Last Filed: 09/15/18 12:01> Objective - Vital Signs/Intake and Output Vital Signs (last 24 hours): Temp Pulse Resp BP Pulse Ox 98.3 F 76 18 161/70 H 99 09/15/18 04:00 09/15/18 10:46 09/15/18 06:58 09/15/18 10:23 09/15/18 06:58 Intake and Output: 09/15/18 09/15/18 06:59 18:59 Intake Total 1600 Balance 1600 - Medications Medications: Current Medications Acetaminophen (Tylenol 650mg/20.3ml Solution Ud) 650 mg NG Q6H PRN PRN Reason: Temperature >100.4 Last Admin: 09/11/18 22:44 Dose: 650 mg Amlodipine Besylate (Norvasc) 10 mg PO DAILY [facility] Last Admin: 09/15/18 10:23 Dose: 10 mg Aspirin (Aspirin Chewable) 81 mg PO DAILY [facility] Last Admin: 09/15/18 10:23 Dose: 81 mg Atorvastatin Calcium (Lipitor) 40 mg PO DIN [facility] Last Admin: 09/14/18 17:51 Dose: 40 mg Clopidogrel Bisulfate (Plavix) 75 mg PO DAILY [facility] Last Admin: 09/15/18 10:23 Dose: 75 mg Dextrose (Dextrose 50% Inj) 0 ml IV STAT PRN; Protocol PRN Reason: Hypoglycemia Protocol Ergocalciferol (Drisdol 50,000 Intl Units Cap) 1 cap PO Q7D [facility] Last Admin: 09/14/18 15:15 Dose: 1 cap Hydralazine HCl (Apresoline) 10 mg IVP Q6 PRN PRN Reason: For SBP>160 Last Admin: 09/14/18 10:44 Dose: 10 mg Propofol (Diprivan) 1,000 mg in 100 mls @ 2.547 mls/hr IV .Q24H PRN; Protocol PRN Reason: TITRATE PER MD ORDER Last Titration: 09/12/18 11:00 Dose: 0 mcg/kg/min, 0 mls/hr Dextrose (Dextrose 5% In Water 1000 Ml) 1,000 mls @ 0 mls/hr IV .Q0M PRN; Protocol PRN Reason: Hypoglycemia Protocol Levetiracetam (Keppra 500mg Ivpb) 500 mg in 100 mls @ 400 mls/hr IVPB Q12 [facility] Last Admin: 09/15/18 10:23 Dose: 400 mls/hr Piperacillin Sod/Tazobactam Sod (Zosyn 3.375 In Ns 100ml) 100 mls @ 25 mls/hr IVPB Q8 [facility]; Protocol Stop: 09/23/18 22:01 Last Admin: 09/15/18 07:16 Dose: 25 mls/hr Sodium Chloride (Sodium Chloride 0.9%) 1,000 mls @ 50 mls/hr IV .Q20H [facility] Last Admin: 09/15/18 10:39 Dose: 50 mls/hr Insulin Detemir (Levemir) 20 unit SC Q12H [facility] Last Admin: 09/15/18 07:13 Dose: Not Given Insulin Human Regular (Humulin R Med) 0 units SC ACHS [facility]; Protocol Last Admin: 09/15/18 08:00 Dose: Not Given Losartan Potassium (Cozaar) 50 mg NG DAILY [facility] Last Admin: 09/15/18 10:22 Dose: 50 mg Metoprolol Tartrate (Lopressor) 25 mg PO BID [facility] Last Admin: 09/15/18 10:22 Dose: 25 mg Pantoprazole Sodium (Protonix Inj) 40 mg IVP DAILY [facility] Last Admin: 09/15/18 10:24 Dose: 40 mg - Labs Labs: 09/15/18 05:30 09/15/18 05:30 PT 12.2 SECONDS (9.4-12.5) 09/14/18 08:00 INR 1.08 09/14/18 08:00 APTT 30.6 Seconds (26.9-38.3) 09/14/18 08:00 Attending/Attestation - Attestation I have personally seen and examined this patient.: Yes I have fully participated in the care of the patient.: Yes I have reviewed all pertinent clinical information, including history, physical exam and plan: Yes Notes (Text): I agree with the assessment and plan. Will continue current management as outlined above.
--- NOTE | 2018-09-14 11:27 | PN ---
DATE: 09/14/2018 REASON FOR CONSULTATION AND FOLLOWUP: Admitted with CVA, cardiac evaluation, left upper extremity weakness, respiratory failure, intubated. SUBJECTIVE: The patient yesterday, day before underwent not in apparent distress, being intubated and sedated. OBJECTIVE: Examination as follows; GENERAL: Not in apparent distress. VITAL SIGNS: Temperature afebrile, heart rate 83, and blood pressure 110/80. HEENT: PERRLA. Extraocular muscles intact. NECK: Supple. No carotid bruits or thyromegaly. CHEST: Clear to auscultation. HEART: S1 and S2 regular. ABDOMEN: Soft. EXTREMITIES: Clubbing and cyanosis negative. LABORATORY DATA: Blood workup as follows; WBC 9.8, hemoglobin 10, hematocrit 31.7, and platelet count 253. Chemistry shows sodium 140, potassium 3.0, chloride 101, carbon dioxide of 25, anion gap of 10, BUN 21, and creatinine 1.4. IMPRESSION: A 68-year-old female with a past medical history of hypertension and hyperlipidemia, admitted with acute cerebrovascular accident with left upper extremity weakness, more than left upper than lower. Cardiology consult was called. The patient yesterday, a day before underwent transesophageal echo that shows no evidence of patent foramen ovale, no evidence of left ventricular thrombus, and no evidence of significant plaque or vegetation noted. No noted. RECOMMENDATIONS: Increasing NG feeding as tolerated. Control aggressive blood pressure. Continue vent management and anticoagulation as per neurologist. Discussed with the patient. We will try to wean the vent as tolerated. Monitor renal function closely. We will supplement potassium. Thank you Dr. Goodman for providing us the opportunity in taking care of the patient, Melissa Stewart. May Pelaez MD
--- NOTE | 2018-09-14 14:01 | CP.PCM.PCO ---
Physician Communication Note - Physician Communication Note Physician Communication Note: Pt. still intubated,period of apnea earlier with attempt of weaning vent.
--- NOTE | 2018-09-14 14:23 | CP.PCM.PN ---
Subjective - Date & Time of Evaluation Date of Evaluation: 09/14/18 Time of Evaluation: 14:21 - Subjective Subjective: Nephrology Consultation Note: Assessment: critical Acute Kidney Injury (N17.9) likely due to ATN [contrast nephropathy, sepsis and hemodynamic changes from BP fluctuations]: IMPROVING Hypokalemia and HTN emergency r/o secondary HTN proteinuria and microscopic hematuria r/o GN acute CVA, seizure sepsis, UTI, acute respi failure, obesity, vit d def Plan No acute need for renal replacement therapy at this time. Hypertension control with meds as ordered. Maintain hemodynamics stable. Avoid hypotension. agree with CCB and Beta-blockers. add losartan 50 mg/d Monitor Input/Output, daily weights and renal function with basic metabolic panel supplement lytes as needed. ID, Neuro, Cardio following added weekly vit D Check urine analysis, spot protein/creatinine, albumin/creatinine ratio Check GN work up as C3, C4, DAISY, Anti dsDNA, ASO titers, ANCA (MPO and IL-3), Anti GBM antibody, HIV/Hep B and Hep C serology. also lupus anticoagulant Secondary HTN work up with plasma renin/aldosterone, plasma metanephrine and renal artery Doppler to r/o renal artery stenosis Dose meds/antibiotics for improved GFR. Avoid nephrotoxins/NSAIDs/ iodinated contrast (unless needed emergently) Glycemic control Further work up/management as per primary team Thanks for allowing me to participate in care of your patient. Will follow patient with you. Please call if any Qs. had d/w team and family bedside Dr Jeremiah Horn Office: [phone] Chief Complaint; left side weakness Reason for consult: Acute Kidney Injury HPI: Pt is a 68 F with hx of diabetes Mellitus (5 years), hypertension (many years) presented with complaints of left side weakness and foudn to have b/l infarcts. also with sepsis with high temp ? UTI and HTN emergency. renal consult for MARQUIS. pt was orally intubated. also had episode of seizure Denies OTC/herbal meds or NSAIDs Noted recent iodinated contrast exposure 09/10/18. No obvious episodes of low BP. per son, pt was usual health before this incidence non smoker. no etoh/drugs ROS: unable to obtain from pt Physical Examination: General Appearance: Comfortable, in no acute respiratory distress, orally intubated Vitals reviewed and noted as below Head; Atraumatic, normocephalic ENT: orally intubated EYES: unable as pt with resistance to eye opening Neck; supple no lymphadenopathy, no thyromegaly or bruit Lungs: Normal respiratory rate/effort. Breath sounds bilateral equal and clear Heart: Normal rate. s1s2 normal. No rub or gallop. Extremities: no edema. No varicose veins Neurological: Patient is awake but intubated Skin: Warm and dry. Normal turgor. No rash. Palpitation: Normal elasticity for age Abdomen: Abdomen is soft. Bowel sounds +. There is no abdominal tenderness, no guarding/rigidity no organomegaly Psych: deferred MSK: no joint tenderness or swelling. Digits and nails normal, no deformity : kidney or bladder not palpable Labs/imaging reviewed. Past medical history, past surgical history, family history, social history, allergy reviewed and noted as below Family hx: no hx of CKD. Rest non-contributory UA 3+ protein adn moderate blood mild to moderate LVH on echo Objective - Vital Signs/Intake and Output Vital Signs (last 24 hours): Temp Pulse Resp BP Pulse Ox 98.7 F 83 20 177/120 H 100 09/14/18 12:00 09/14/18 12:00 09/14/18 13:25 09/14/18 10:44 09/14/18 13:25 Intake and Output: 09/14/18 09/14/18 06:59 18:59 Output Total 400 Balance -400 - Medications Medications: Current Medications Acetaminophen (Tylenol 650mg/20.3ml Solution Ud) 650 mg NG Q6H PRN PRN Reason: Temperature >100.4 Last Admin: 09/11/18 22:44 Dose: 650 mg Amlodipine Besylate (Norvasc) 10 mg PO DAILY [facility] Last Admin: 09/14/18 09:27 Dose: 10 mg Aspirin (Aspirin Chewable) 81 mg PO DAILY [facility] Last Admin: 09/14/18 09:26 Dose: 81 mg Atorvastatin Calcium (Lipitor) 40 mg PO DIN [facility] Last Admin: 09/13/18 17:38 Dose: 40 mg Clopidogrel Bisulfate (Plavix) 75 mg PO DAILY [facility] Last Admin: 09/14/18 09:30 Dose: 75 mg Dextrose (Dextrose 50% Inj) 0 ml IV STAT PRN; Protocol PRN Reason: Hypoglycemia Protocol Ergocalciferol (Drisdol 50,000 Intl Units Cap) 1 cap PO Q7D [facility] Last Admin: 09/13/18 17:37 Dose: Not Given Hydralazine HCl (Apresoline) 10 mg IVP Q6 PRN PRN Reason: For SBP>160 Last Admin: 09/14/18 10:44 Dose: 10 mg Propofol (Diprivan) 1,000 mg in 100 mls @ 2.547 mls/hr IV .Q24H PRN; Protocol PRN Reason: TITRATE PER MD ORDER Last Titration: 09/12/18 11:00 Dose: 0 mcg/kg/min, 0 mls/hr Sodium Chloride (Sodium Chloride 0.9%) 1,000 mls @ 100 mls/hr IV .Q10H [facility] Last Admin: 09/14/18 05:28 Dose: 100 mls/hr Dextrose (Dextrose 5% In Water 1000 Ml) 1,000 mls @ 0 mls/hr IV .Q0M PRN; Protocol PRN Reason: Hypoglycemia Protocol Levetiracetam (Keppra 500mg Ivpb) 500 mg in 100 mls @ 400 mls/hr IVPB Q12 [facility] Insulin Detemir (Levemir) 20 unit SC Q12H [facility] Last Admin: 09/14/18 07:02 Dose: Not Given Insulin Human Regular (Humulin R Med) 0 units SC ACHS [facility]; Protocol Last Admin: 09/14/18 08:30 Dose: Not Given Losartan Potassium (Cozaar) 50 mg NG DAILY [facility] Metoprolol Tartrate (Lopressor) 25 mg PO BID [facility] Last Admin: 09/14/18 09:30 Dose: 25 mg Pantoprazole Sodium (Protonix Inj) 40 mg IVP DAILY [facility] Last Admin: 09/14/18 09:26 Dose: 40 mg - Labs Labs: 09/14/18 07:45 09/14/18 07:45 PT 12.2 SECONDS (9.4-12.5) 09/14/18 08:00 INR 1.08 09/14/18 08:00 APTT 30.6 Seconds (26.9-38.3) 09/14/18 08:00
[2018-09-14] MEDS: Ergocalciferol 50,000 Intl Units Cap PO SCH (15:15)
[2018-09-14 18:26] LABS: PH,URINE 5.5 (4.7-8.0); URINE BILIRUBIN NEGATIVE (NEGATIVE); URINE BLOOD TRACE-INTACT (NEGATIVE); URINE GLUCOSE (UA) NEGATIVE (NEGATIVE); URINE LEUKOCYTE ESTERASE SMALL Leu/uL (NEGATIVE); URINE PROTEIN 30 mg/dL (<30 mg/dL); URINE UROBILINOGEN 0.2 E.U./dL (<1 E.U./dL)
[2018-09-14 18:28] LABS: URINE APPEARANCE CLEAR (CLEAR); URINE COLOR YELLOW (YELLOW)
[2018-09-14 18:32] LABS: URINE EPITHELIAL CELLS 0 - 2 /hpf (0-5)
[2018-09-14] MEDS ORDERED: Morphine 2 mg/ml ISec IVP ONE (19:39)
[2018-09-14] MEDS: Piperacillin/Tazobact 3.375 gm 100 ML IVPB SCH (21:02)
[2018-09-14] MEDS: levETIRAcetam 500mg IVPB 500 MG/100 ML BAG IVPB SCH (21:02)
--- NOTE | 2018-09-14 22:22 | PN ---
DATE: 09/14/2018 SUBJECTIVE: The patient is a 68-year-old, seen and examined, being weaned off of sedation, seems to be moving her extremities, and still intubated. PHYSICAL EXAMINATION: VITAL SIGNS: She is afebrile, pulse 97, respirations 22, and blood pressure 166/68. LUNGS: Bilateral fair airflow. No rhonchi or crackle. HEART: S1 and S2 audible. ABDOMEN: Soft, obese, and nontender. No rebound. No guarding. NEUROLOGIC: The patient seems to be waking up, but still intubated. EXTREMITIES: Bilateral legs, no edema. LABORATORY DATA: WBC 9.8, hemoglobin 10, hematocrit 31, and platelets 253. PT 12.2 and INR 1.08. Chemistry; sodium 143, potassium 3.7, chloride 115, CO2 of 22, BUN 21, creatinine 1.4, and blood sugar 161. ASSESSMENT: 1. Status post cerebrovascular accident with multiple lacunar infarct, probably embolic. 2. Respiratory failure. 3. Insulin-dependent diabetes. 4. Hypertension. PLAN: So far, blood cultures are negative. MATEO is negative. We will continue on empiric antibiotics. Her kidney function seems to be improving. She is on antiseizures. She is on Keppra. She is on beta-susan. She is on Plavix. She is on IV fluids. Awaiting improvement in her mental status before extubating; otherwise, it will be tried tomorrow again. Darryl Goodman MD
[2018-09-15] MEDS: Sodium Chloride 0.9% 1,000 ML IV SCH (06:00)
[2018-09-15 06:21] LABS: BASO # 0.02 K/mm3 (0.0-2.0); BASO % 0.2 % (0.0-3.0); EOS # 0.3 (0.0-0.7); EOS % 3.9 % (1.5-5.0); HEMOGLOBIN 9.4 g/dL (12.0-16.0); LYMPH # 1.2 (1.2-3.4); LYMPH % 13.6 % (22.0-35.0); MEAN CELL VOLUME 88.5 fl (80.0-105.0); MEAN CORPUSCULAR HEMOGLOBIN 28.5 pg (25.0-35.0); MEAN CORPUSCULAR HGB CONC 32.2 g/dl (31.0-37.0); MEAN PLATELET VOLUME 10.6 fl (7.0-11.0); MONO # 0.8 (0.1-0.6); MONO % 9.4 % (1.0-6.0); RBC 3.3 10^6/uL (3.5-6.1); RED CELL DISTRIBUTION WIDTH 14.1 % (11.5-14.5); WHITE BLOOD COUNT 8.6 10^3/uL (4.5-11.0)
[2018-09-15 07:07] LABS: ALBUMIN 2.7 g/dL (3.0-4.8); CALCIUM 8.4 mg/dL (8.4-10.5)
[2018-09-15] MEDS: Insulin Detemir 100 units/ml Vial (Levemir) SC SCH ×2 (07:13→17:22)
[2018-09-15] MEDS: Piperacillin/Tazobact 3.375 gm 100 ML IVPB SCH ×3 (07:16→21:28)
[2018-09-15] MEDS ORDERED: Sodium Chloride 0.9% 1,000 ML IV SCH (07:29)
--- NOTE | 2018-09-15 07:45 | CP.PCM.PN ---
<Maksim Hernandez - Last Filed: 09/15/18 15:14> Subjective - Date & Time of Evaluation Date of Evaluation: 09/15/18 Time of Evaluation: 07:00 - Subjective Subjective: Maksim Hernandez DO, PGY-2: Neurology Progress Note for Dr. Mann Patient seen and examined at bedside. Patient is able to follow commands this morning. She is on CPAP at the time of my evaluation. She can give a thumbs up with the right hand, but not the left hand. She opens eyes when asked to. She appears less lethargic and was extubated successfully today Otherwise, no acute events noted overnight. Objective - Vital Signs/Intake and Output Vital Signs (last 24 hours): Temp Pulse Resp BP Pulse Ox 98.3 F 65 18 175/64 H 99 09/15/18 00:00 09/15/18 00:00 09/15/18 06:58 09/14/18 18:00 09/15/18 06:58 - Medications Medications: Current Medications Acetaminophen (Tylenol 650mg/20.3ml Solution Ud) 650 mg NG Q6H PRN PRN Reason: Temperature >100.4 Last Admin: 09/11/18 22:44 Dose: 650 mg Amlodipine Besylate (Norvasc) 10 mg PO DAILY [facility] Last Admin: 09/14/18 09:27 Dose: 10 mg Aspirin (Aspirin Chewable) 81 mg PO DAILY [facility] Last Admin: 09/14/18 09:26 Dose: 81 mg Atorvastatin Calcium (Lipitor) 40 mg PO DIN [facility] Last Admin: 09/14/18 17:51 Dose: 40 mg Clopidogrel Bisulfate (Plavix) 75 mg PO DAILY [facility] Last Admin: 09/14/18 09:30 Dose: 75 mg Dextrose (Dextrose 50% Inj) 0 ml IV STAT PRN; Protocol PRN Reason: Hypoglycemia Protocol Ergocalciferol (Drisdol 50,000 Intl Units Cap) 1 cap PO Q7D [facility] Last Admin: 09/14/18 15:15 Dose: 1 cap Hydralazine HCl (Apresoline) 10 mg IVP Q6 PRN PRN Reason: For SBP>160 Last Admin: 09/14/18 10:44 Dose: 10 mg Propofol (Diprivan) 1,000 mg in 100 mls @ 2.547 mls/hr IV .Q24H PRN; Protocol PRN Reason: TITRATE PER MD ORDER Last Titration: 09/12/18 11:00 Dose: 0 mcg/kg/min, 0 mls/hr Dextrose (Dextrose 5% In Water 1000 Ml) 1,000 mls @ 0 mls/hr IV .Q0M PRN; Protocol PRN Reason: Hypoglycemia Protocol Levetiracetam (Keppra 500mg Ivpb) 500 mg in 100 mls @ 400 mls/hr IVPB Q12 [facility] Last Admin: 09/14/18 21:02 Dose: 400 mls/hr Piperacillin Sod/Tazobactam Sod (Zosyn 3.375 In Ns 100ml) 100 mls @ 25 mls/hr IVPB Q8 [facility]; Protocol Stop: 09/23/18 22:01 Last Admin: 09/15/18 07:16 Dose: 25 mls/hr Sodium Chloride (Sodium Chloride 0.9%) 1,000 mls @ 50 mls/hr IV .Q20H JAMES Insulin Detemir (Levemir) 20 unit SC Q12H [facility] Last Admin: 09/15/18 07:13 Dose: Not Given Insulin Human Regular (Humulin R Med) 0 units SC ACHS JAMES; Protocol Last Admin: 09/14/18 22:00 Dose: Not Given Losartan Potassium (Cozaar) 50 mg NG DAILY [facility] Last Admin: 09/14/18 15:13 Dose: 50 mg Metoprolol Tartrate (Lopressor) 25 mg PO BID [facility] Last Admin: 09/14/18 17:50 Dose: 25 mg Pantoprazole Sodium (Protonix Inj) 40 mg IVP DAILY [facility] Last Admin: 09/14/18 09:26 Dose: 40 mg - Labs Labs: 09/15/18 05:30 09/15/18 05:30 PT 12.2 SECONDS (9.4-12.5) 09/14/18 08:00 INR 1.08 09/14/18 08:00 APTT 30.6 Seconds (26.9-38.3) 09/14/18 08:00 - Constitutional Appears: Non-toxic, No Acute Distress - Head Exam Head Exam: ATRAUMATIC, NORMOCEPHALIC - Eye Exam Eye Exam: EOMI, Normal appearance, PERRL - Neck Exam Neck Exam: Normal Inspection - Respiratory Exam Respiratory Exam: NORMAL BREATHING PATTERN. absent: Accessory Muscle Use - Cardiovascular Exam Cardiovascular Exam: +S1, +S2. absent: Tachycardia - GI/Abdominal Exam GI & Abdominal Exam: Soft. absent: Guarding, Rebound - Extremities Exam Extremities Exam: Normal Inspection. absent: Calf Tenderness - Neurological Exam Neurological Exam: Awake, CN II-XII Intact Neuro motor strength exam: Left Upper Extremity: 2/1, Right Upper Extremity: 5, Left Lower Extremity: 4, Right Lower Extremity: 5 - Psychiatric Exam Psychiatric exam: Normal Affect, Normal Mood - Skin Skin Exam: Normal Color, Warm Assessment and Plan - Assessment and Plan (Free Text) Assessment: 1) Acute stroke, likely embolic in nature - Head neck CTA no evidence of occlusion significant stenosis or dissection of the carotid arteries. There is a calcified athrosclerotic plaque both carotid siphons. There is moderate calcified plaque of the distal right vertebral artery. with minimal calfified plaque left vertebral artery. Intra cerebral circulation is patent. No evidence of large aneurysm nor vascular malformation. - Brain MRI there are multiple small acute infarcts seen scattered about both cerebral hemispheres. There findings suggest embolic event given the involvement of bilateral vascular distributions. - TTE and MATEO show no evidence of PFO, thrombus, or vegetations - HOB 45 degrees - Repeat CT of head performed 09/12/2018 reports there is a new area of hypodensity in the right parietal white matter consistent with an acute infarct. This was not present on the prior exam. - Aspirin 81 mg and plavix 75 mg - CTA of the chest to evaluate for pulmonary AVM 2) Seizures - Video EEG reports: This is an abnormal video-EEG monitoring study due to the presence of 1) Burst attenuation pattern, that resolved as the study went on 2) Moderate diffuse slowing 3) Left hemispheric focal slowing and rare left frontal sharps. No seizures, not in status epilepticus INTERPRETATION: These findings support the diagnosis of moderate to severe, non specific diffuse disturbance of cortical activity, in keeping with a diffuse leon matter dysfunction. Findings are also in keeping with a focal cortical abnormality involving the left hemisphere in keeping with an structural abnormality the same area. - Keppra 500 mg q12h; appears patient is extubated today as well - Seizure precautions - Aspiration Precautions Case was reviewed and discussed with attending physician, Dr. Mann <David Mann - Last Filed: 09/25/18 10:34> Objective - Vital Signs/Intake and Output Vital Signs (last 24 hours): Temp Pulse Resp BP Pulse Ox 98.4 F 74 18 164/82 H 95 09/21/18 06:00 09/21/18 06:00 09/21/18 06:00 09/21/18 11:55 09/21/18 06:00 - Labs Labs: 09/15/18 05:30 09/20/18 07:00 PT 12.2 SECONDS (9.4-12.5) 09/14/18 08:00 INR 1.08 09/14/18 08:00 APTT 30.6 Seconds (26.9-38.3) 09/14/18 08:00 Attending/Attestation - Attestation I have personally seen and examined this patient.: Yes I have fully participated in the care of the patient.: Yes I have reviewed all pertinent clinical information, including history, physical exam and plan: Yes Notes (Text): I agree with the assessment and plan. Will continue work-up and management as outlined above.
[2018-09-15] MEDS: Insulin Reg-MEDIUM-Coverage SC SCH ×3 (08:00→16:26)
--- NOTE | 2018-09-15 08:00 | CP.CCUPN ---
<Earnest Damico - Last Filed: 09/15/18 11:44> CCU Subjective - Physician Review Events Since Last Encounter (Free Text): 09/15/18 07:56 no acute events overnight Subjective (Free Text): 09/11/18 07:00 Pt seen and examined, pt intubated at time of exam 09/12/18 09:02 pt seen and examined, video EEG, pt responds to pain 09/14/18 10:35 seen and examined, NAD 09/15/18 07:59 pt seen and examined this morning, pt currently on CPAP CCU Objective - Vital Signs / Intake & Output Vital Signs (Last 4 hours): Vital Signs Resp Pulse Ox 09/15/18 06:58 18 99 Intake and Output (Last 8hrs): Intake & Output 09/14/18 09/15/18 09/15/18 22:59 06:59 14:59 Intake Total 1100 Output Total 1100 Balance 0 Intake: IV 1000 Right Antecubital 1000 Tube Feeding 100 Output: Urine 1100 Urethral (Johns) 1100 - Physical Exam Head: Positive for: Atraumatic, Normocephalic Pupils: Positive for: PERRL Extroacular Muscles: Positive for: EOMI Conjunctiva: Positive for: Normal Mouth: Positive for: Moist Mucous Membranes Neck: Positive for: Normal Range of Motion Respiratory/Chest: Positive for: Clear to Auscultation, Good Air Exchange. Negative for: Respiratory Distress, Accessory Muscle Use Cardiovascular: Positive for: Regular Rate and Rhythm, Normal S1, S2. Negative for: Murmurs Abdomen: Negative for: Tenderness, Distention, Peritoneal Signs Back: Positive for: Normal Inspection Upper Extremity: Positive for: Normal Inspection. Negative for: Cyanosis, Edema Lower Extremity: Positive for: Normal Inspection. Negative for: Edema Neurological: Negative for: Speech Normal, Motor Func Grossly Intact (5/5 right side; 0/5 left side), Normal Sensory Function (decreased sensation left side) Skin: Positive for: Warm, Dry, Normal Color. Negative for: Rashes Psychiatric: Positive for: Alert, Oriented x 3, Normal Insight, Normal Concentration - Medications Active Medications: Active Medications Generic Name Dose Route Start Last Admin Trade Name Freq PRN Reason Stop Dose Admin Acetaminophen 650 mg 09/11/18 17:02 09/11/18 22:44 Tylenol 650mg/20.3ml Solution Ud NG 650 mg Q6H PRN Administration Temperature >100.4 Amlodipine Besylate 10 mg 09/12/18 10:00 09/14/18 09:27 Norvasc PO 10 mg DAILY JAMES Administration Aspirin 81 mg 09/13/18 12:30 09/14/18 09:26 Aspirin Chewable PO 81 mg DAILY JAMES Administration Atorvastatin Calcium 40 mg 09/13/18 17:00 09/14/18 17:51 Lipitor PO 40 mg DIN JAMES Administration Clopidogrel Bisulfate 75 mg 09/13/18 12:30 09/14/18 09:30 Plavix PO 75 mg DAILY JAMES Administration Dextrose 0 ml 09/12/18 17:24 Dextrose 50% Inj IV STAT PRN Hypoglycemia Protocol Protocol Ergocalciferol 1 cap 09/13/18 15:30 09/14/18 15:15 Drisdol 50,000 Intl Units Cap PO 1 cap Q7D JAMES Administration Hydralazine HCl 10 mg 09/11/18 13:30 09/14/18 10:44 Apresoline IVP 10 mg Q6 PRN Administration For SBP>160 Propofol 1,000 mg in 100 mls @ 2.547 mls/hr 09/10/18 17:03 09/12/18 11:00 Diprivan IV 0 mcg/kg/min .Q24H PRN 0 mls/hr TITRATE PER MD ORDER Titration Protocol 5 MCG/KG/MIN Dextrose 1,000 mls @ 0 mls/hr 09/12/18 17:24 Dextrose 5% In Water 1000 Ml IV .Q0M PRN Hypoglycemia Protocol Protocol Per Protocol Levetiracetam 500 mg in 100 mls @ 400 mls/hr 09/14/18 22:00 09/14/18 21:02 Keppra 500mg Ivpb IVPB 400 mls/hr Q12 JAMES Administration Piperacillin Sod/Tazobactam Sod 100 mls @ 25 mls/hr 09/14/18 22:00 09/15/18 07:16 Zosyn 3.375 In Ns 100ml IVPB 09/23/18 22:01 25 mls/hr Q8 JAMES Administration Protocol Sodium Chloride 1,000 mls @ 50 mls/hr 09/15/18 07:29 Sodium Chloride 0.9% IV .Q20H JAMES Insulin Detemir 20 unit 09/13/18 06:00 09/15/18 07:13 Levemir SC Not Given Q12H [facility] Insulin Human Regular 0 units 09/12/18 22:00 09/14/18 22:00 Humulin R Med SC Not Given ACHS [facility] Protocol Losartan Potassium 50 mg 09/14/18 11:30 09/14/18 15:13 Cozaar NG 50 mg DAILY JAMES Administration Metoprolol Tartrate 25 mg 09/11/18 18:00 09/14/18 17:50 Lopressor PO 25 mg BID JAMES Administration Pantoprazole Sodium 40 mg 09/11/18 10:00 09/14/18 09:26 Protonix Inj IVP 40 mg DAILY JAMES Administration - Patient Studies Lab Studies: Microbiology Studies 09/10/18 13:20 Blood Culture - Preliminary Blood NO GROWTH AFTER 4 DAYS 09/10/18 12:50 Blood Culture - Preliminary Blood NO GROWTH AFTER 4 DAYS Lab Studies 09/15/18 09/15/18 09/15/18 Range/Units 07:24 05:30 05:30 WBC 8.6 (4.5-11.0) 10^3/uL RBC 3.30 L (3.5-6.1) 10^6/uL Hgb 9.4 L (12.0-16.0) g/dL Hct 29.2 L (36.0-48.0) % MCV 88.5 (80.0-105.0) fl MCH 28.5 (25.0-35.0) pg MCHC 32.2 (31.0-37.0) g/dl RDW 14.1 (11.5-14.5) % Plt Count 247 (120.0-450.0) 10^3/uL MPV 10.6 (7.0-11.0) fl Neut % (Auto) 72.9 H (50.0-68.0) % Lymph % (Auto) 13.6 L (22.0-35.0) % [place] % (Auto) 9.4 H (1.0-6.0) % Eos % (Auto) 3.9 (1.5-5.0) % Baso % (Auto) 0.2 (0.0-3.0) % Lymph # (Auto) 1.2 (1.2-3.4) [place] # (Auto) 0.8 H (0.1-0.6) Eos # (Auto) 0.3 (0.0-0.7) Baso # (Auto) 0.02 (0.0-2.0) K/mm3 Absolute Neuts (auto) 6.27 (1.4-6.5) PT (9.4-12.5) SECONDS INR APTT (26.9-38.3) Seconds Lupus Anticoagulant LA PTT Screen (<=40) sec dRVVT Mixing Study (<=45) sec dRVVT Mix Interpret Sodium 145 (132-148) mmol/L Potassium 3.6 (3.6-5.0) mmol/L Chloride 117 H (98-107) mmol/L Carbon Dioxide 21 (21-33) mmol/L Anion Gap 11 (10-20) BUN 16 (7-21) mg/dL Creatinine 1.2 (0.7-1.2) mg/dl Est GFR ( Amer) 54 Est GFR (Non-Af Amer) 45 POC Glucose (mg/dL) 153 H (65-110) mg/dL Random Glucose 136 H (70-110) mg/dL Calcium 8.4 (8.4-10.5) mg/dL Total Bilirubin 0.4 (0.2-1.3) mg/dL AST 28 (14-36) U/L ALT 14 (7-56) U/L Alkaline Phosphatase 61 (38-126) U/L Total Protein 5.5 L (5.8-8.3) g/dL Albumin 2.7 L (3.0-4.8) g/dL Globulin 2.8 gm/dL Albumin/Globulin Ratio 1.0 L (1.1-1.8) Urine Color (YELLOW) Urine Appearance (CLEAR) Urine pH (4.7-8.0) Ur Specific [place] (1.005-1.035) Urine Protein (<30 mg/dL) mg/dL Urine Glucose (UA) (NEGATIVE) mg/dL Urine Ketones (NEGATIVE) mg/dL Urine Blood (NEGATIVE) Urine Nitrate (NEGATIVE) Urine Bilirubin (NEGATIVE) Urine Urobilinogen (<1 E.U./dL) E.U./dL Ur Leukocyte Esterase (NEGATIVE) [place]/uL Urine RBC (0-2) /hpf Urine WBC (0-6) /hpf Ur Epithelial Cells (0-5) /hpf Urine Other /hpf Proteinase 3 (PR3) (<1.0) AI Myeloperoxidase Ab (<1.0) AI HIV 1&2 Ag/Ab, 4th Gen (Nonreactive) 09/14/18 09/14/18 09/14/18 Range/Units 21:36 18:16 16:18 WBC (4.5-11.0) 10^3/uL RBC (3.5-6.1) 10^6/uL Hgb (12.0-16.0) g/dL Hct (36.0-48.0) % MCV (80.0-105.0) fl MCH (25.0-35.0) pg MCHC (31.0-37.0) g/dl RDW (11.5-14.5) % Plt Count (120.0-450.0) 10^3/uL MPV (7.0-11.0) fl Neut % (Auto) (50.0-68.0) % Lymph % (Auto) (22.0-35.0) % [place] % (Auto) (1.0-6.0) % Eos % (Auto) (1.5-5.0) % Baso % (Auto) (0.0-3.0) % Lymph # (Auto) (1.2-3.4) [place] # (Auto) (0.1-0.6) Eos # (Auto) (0.0-0.7) Baso # (Auto) (0.0-2.0) K/mm3 Absolute Neuts (auto) (1.4-6.5) PT (9.4-12.5) SECONDS INR APTT (26.9-38.3) Seconds Lupus Anticoagulant LA PTT Screen (<=40) sec dRVVT Mixing Study (<=45) sec dRVVT Mix Interpret Sodium (132-148) mmol/L Potassium (3.6-5.0) mmol/L Chloride (98-107) mmol/L Carbon Dioxide (21-33) mmol/L Anion Gap (10-20) BUN (7-21) mg/dL Creatinine (0.7-1.2) mg/dl Est GFR ( Amer) Est GFR (Non-Af Amer) POC Glucose (mg/dL) 175 H 161 H (65-110) mg/dL Random Glucose (70-110) mg/dL Calcium (8.4-10.5) mg/dL Total Bilirubin (0.2-1.3) mg/dL AST (14-36) U/L ALT (7-56) U/L Alkaline Phosphatase (38-126) U/L Total Protein (5.8-8.3) g/dL Albumin (3.0-4.8) g/dL Globulin gm/dL Albumin/Globulin Ratio (1.1-1.8) Urine Color Yellow (YELLOW) Urine Appearance Clear (CLEAR) Urine pH 5.5 (4.7-8.0) Ur Specific [place] 1.015 (1.005-1.035) Urine Protein 30 H (<30 mg/dL) mg/dL Urine Glucose (UA) Negative (NEGATIVE) mg/dL Urine Ketones Trace H (NEGATIVE) mg/dL Urine Blood Trace-intact H (NEGATIVE) Urine Nitrate Negative (NEGATIVE) Urine Bilirubin Negative (NEGATIVE) Urine Urobilinogen 0.2 (<1 E.U./dL) E.U./dL Ur Leukocyte Esterase Small H (NEGATIVE) [place]/uL Urine RBC 1 - 3 H (0-2) /hpf Urine WBC 2 - 5 (0-6) /hpf Ur Epithelial Cells 0 - 2 (0-5) /hpf Urine Other Uyeast /hpf Proteinase 3 (PR3) (<1.0) AI Myeloperoxidase Ab (<1.0) AI HIV 1&2 Ag/Ab, 4th Gen (Nonreactive) 09/14/18 09/14/18 09/14/18 Range/Units 11:45 08:00 07:45 WBC (4.5-11.0) 10^3/uL RBC (3.5-6.1) 10^6/uL Hgb (12.0-16.0) g/dL Hct (36.0-48.0) % MCV (80.0-105.0) fl MCH (25.0-35.0) pg MCHC (31.0-37.0) g/dl RDW (11.5-14.5) % Plt Count (120.0-450.0) 10^3/uL MPV (7.0-11.0) fl Neut % (Auto) (50.0-68.0) % Lymph % (Auto) (22.0-35.0) % [place] % (Auto) (1.0-6.0) % Eos % (Auto) (1.5-5.0) % Baso % (Auto) (0.0-3.0) % Lymph # (Auto) (1.2-3.4) [place] # (Auto) (0.1-0.6) Eos # (Auto) (0.0-0.7) Baso # (Auto) (0.0-2.0) K/mm3 Absolute Neuts (auto) (1.4-6.5) PT 12.2 (9.4-12.5) SECONDS INR 1.08 APTT 30.6 (26.9-38.3) Seconds Lupus Anticoagulant LA PTT Screen (<=40) sec dRVVT Mixing Study (<=45) sec dRVVT Mix Interpret Sodium 143 (132-148) mmol/L Potassium 3.7 (3.6-5.0) mmol/L Chloride 115 H (98-107) mmol/L Carbon Dioxide 22 (21-33) mmol/L Anion Gap 10 (10-20) BUN 21 (7-21) mg/dL Creatinine 1.4 H (0.7-1.2) mg/dl Est GFR ( Amer) 45 Est GFR (Non-Af Amer) 38 POC Glucose (mg/dL) 160 H (65-110) mg/dL Random Glucose 124 H (70-110) mg/dL Calcium 8.4 (8.4-10.5) mg/dL Total Bilirubin 0.5 (0.2-1.3) mg/dL AST 35 (14-36) U/L ALT 22 (7-56) U/L Alkaline Phosphatase 63 (38-126) U/L Total Protein 5.8 (5.8-8.3) g/dL Albumin 2.9 L (3.0-4.8) g/dL Globulin 3.0 gm/dL Albumin/Globulin Ratio 1.0 L (1.1-1.8) Urine Color (YELLOW) Urine Appearance (CLEAR) Urine pH (4.7-8.0) Ur Specific [place] (1.005-1.035) Urine Protein (<30 mg/dL) mg/dL Urine Glucose (UA) (NEGATIVE) mg/dL Urine Ketones (NEGATIVE) mg/dL Urine Blood (NEGATIVE) Urine Nitrate (NEGATIVE) Urine Bilirubin (NEGATIVE) Urine Urobilinogen (<1 E.U./dL) E.U./dL Ur Leukocyte Esterase (NEGATIVE) [place]/uL Urine RBC (0-2) /hpf Urine WBC (0-6) /hpf Ur Epithelial Cells (0-5) /hpf Urine Other /hpf Proteinase 3 (PR3) (<1.0) AI Myeloperoxidase Ab (<1.0) AI HIV 1&2 Ag/Ab, 4th Gen (Nonreactive) 09/14/18 09/13/18 09/12/18 Range/Units 07:45 06:15 16:10 WBC 9.8 (4.5-11.0) 10^3/uL RBC 3.61 (3.5-6.1) 10^6/uL Hgb 10.1 L (12.0-16.0) g/dL Hct 31.7 L (36.0-48.0) % MCV 87.8 (80.0-105.0) fl MCH 28.0 (25.0-35.0) pg MCHC 31.9 (31.0-37.0) g/dl RDW 14.3 (11.5-14.5) % Plt Count 253 (120.0-450.0) 10^3/uL MPV 10.3 (7.0-11.0) fl Neut % (Auto) 68.3 H (50.0-68.0) % Lymph % (Auto) 18.6 L (22.0-35.0) % [place] % (Auto) 7.9 H (1.0-6.0) % Eos % (Auto) 5.1 H (1.5-5.0) % Baso % (Auto) 0.1 (0.0-3.0) % Lymph # (Auto) 1.8 (1.2-3.4) [place] # (Auto) 0.8 H (0.1-0.6) Eos # (Auto) 0.5 (0.0-0.7) Baso # (Auto) 0.01 (0.0-2.0) K/mm3 Absolute Neuts (auto) 6.70 H (1.4-6.5) PT (9.4-12.5) SECONDS INR APTT (26.9-38.3) Seconds Lupus Anticoagulant LA PTT Screen (<=40) sec dRVVT Mixing Study (<=45) sec dRVVT Mix Interpret Sodium (132-148) mmol/L Potassium (3.6-5.0) mmol/L Chloride (98-107) mmol/L Carbon Dioxide (21-33) mmol/L Anion Gap (10-20) BUN (7-21) mg/dL Creatinine (0.7-1.2) mg/dl Est GFR ( Amer) Est GFR (Non-Af Amer) POC Glucose (mg/dL) (65-110) mg/dL Random Glucose (70-110) mg/dL Calcium (8.4-10.5) mg/dL Total Bilirubin (0.2-1.3) mg/dL AST (14-36) U/L ALT (7-56) U/L Alkaline Phosphatase (38-126) U/L Total Protein (5.8-8.3) g/dL Albumin (3.0-4.8) g/dL Globulin gm/dL Albumin/Globulin Ratio (1.1-1.8) Urine Color (YELLOW) Urine Appearance (CLEAR) Urine pH (4.7-8.0) Ur Specific [place] (1.005-1.035) Urine Protein (<30 mg/dL) mg/dL Urine Glucose (UA) (NEGATIVE) mg/dL Urine Ketones (NEGATIVE) mg/dL Urine Blood (NEGATIVE) Urine Nitrate (NEGATIVE) Urine Bilirubin (NEGATIVE) Urine Urobilinogen (<1 E.U./dL) E.U./dL Ur Leukocyte Esterase (NEGATIVE) [place]/uL Urine RBC (0-2) /hpf Urine WBC (0-6) /hpf Ur Epithelial Cells (0-5) /hpf Urine Other /hpf Proteinase 3 (PR3) <1.0 (<1.0) AI Myeloperoxidase Ab <1.0 (<1.0) AI HIV 1&2 Ag/Ab, 4th Gen Nonreactive (Nonreactive) 09/12/18 Range/Units 16:10 WBC (4.5-11.0) 10^3/uL RBC (3.5-6.1) 10^6/uL Hgb (12.0-16.0) g/dL Hct (36.0-48.0) % MCV (80.0-105.0) fl MCH (25.0-35.0) pg MCHC (31.0-37.0) g/dl RDW (11.5-14.5) % Plt Count (120.0-450.0) 10^3/uL MPV (7.0-11.0) fl Neut % (Auto) (50.0-68.0) % Lymph % (Auto) (22.0-35.0) % [place] % (Auto) (1.0-6.0) % Eos % (Auto) (1.5-5.0) % Baso % (Auto) (0.0-3.0) % Lymph # (Auto) (1.2-3.4) [place] # (Auto) (0.1-0.6) Eos # (Auto) (0.0-0.7) Baso # (Auto) (0.0-2.0) K/mm3 Absolute Neuts (auto) (1.4-6.5) PT (9.4-12.5) SECONDS INR APTT (26.9-38.3) Seconds Lupus Anticoagulant see note LA PTT Screen 32 (<=40) sec dRVVT Mixing Study 34 (<=45) sec dRVVT Mix Interpret Not indicated Sodium (132-148) mmol/L Potassium (3.6-5.0) mmol/L Chloride (98-107) mmol/L Carbon Dioxide (21-33) mmol/L Anion Gap (10-20) BUN (7-21) mg/dL Creatinine (0.7-1.2) mg/dl Est GFR ( Amer) Est GFR (Non-Af Amer) POC Glucose (mg/dL) (65-110) mg/dL Random Glucose (70-110) mg/dL Calcium (8.4-10.5) mg/dL Total Bilirubin (0.2-1.3) mg/dL AST (14-36) U/L ALT (7-56) U/L Alkaline Phosphatase (38-126) U/L Total Protein (5.8-8.3) g/dL Albumin (3.0-4.8) g/dL Globulin gm/dL Albumin/Globulin Ratio (1.1-1.8) Urine Color (YELLOW) Urine Appearance (CLEAR) Urine pH (4.7-8.0) Ur Specific [place] (1.005-1.035) Urine Protein (<30 mg/dL) mg/dL Urine Glucose (UA) (NEGATIVE) mg/dL Urine Ketones (NEGATIVE) mg/dL Urine Blood (NEGATIVE) Urine Nitrate (NEGATIVE) Urine Bilirubin (NEGATIVE) Urine Urobilinogen (<1 E.U./dL) E.U./dL Ur Leukocyte Esterase (NEGATIVE) [place]/uL Urine RBC (0-2) /hpf Urine WBC (0-6) /hpf Ur Epithelial Cells (0-5) /hpf Urine Other /hpf Proteinase 3 (PR3) (<1.0) AI Myeloperoxidase Ab (<1.0) AI HIV 1&2 Ag/Ab, 4th Gen (Nonreactive) Laboratory Results - last 24 hr 09/12/18 09/12/18 09/13/18 16:10 16:10 06:15 WBC RBC Hgb Hct MCV MCH MCHC RDW Plt Count MPV Neut % (Auto) Lymph % (Auto) [place] % (Auto) Eos % (Auto) Baso % (Auto) Lymph # (Auto) [place] # (Auto) Eos # (Auto) Baso # (Auto) Absolute Neuts (auto) PT INR APTT Lupus Anticoagulant see note LA PTT Screen 32 dRVVT Mixing Study 34 dRVVT Mix Interpret Not indicated Sodium Potassium Chloride Carbon Dioxide Anion Gap BUN Creatinine Est GFR ( Amer) Est GFR (Non-Af Amer) POC Glucose (mg/dL) Random Glucose Calcium Total Bilirubin AST ALT Alkaline Phosphatase Total Protein Albumin Globulin Albumin/Globulin Ratio Urine Color Urine Appearance Urine pH Ur Specific [place] Urine Protein Urine Glucose (UA) Urine Ketones Urine Blood Urine Nitrate Urine Bilirubin Urine Urobilinogen Ur Leukocyte Esterase Urine RBC Urine WBC Ur Epithelial Cells Urine Other Proteinase 3 (PR3) <1.0 Myeloperoxidase Ab <1.0 HIV 1&2 Ag/Ab, 4th Gen Nonreactive 09/14/18 09/14/18 09/14/18 07:45 07:45 08:00 WBC 9.8 RBC 3.61 Hgb 10.1 L Hct 31.7 L MCV 87.8 MCH 28.0 MCHC 31.9 RDW 14.3 Plt Count 253 MPV 10.3 Neut % (Auto) 68.3 H Lymph % (Auto) 18.6 L [place] % (Auto) 7.9 H Eos % (Auto) 5.1 H Baso % (Auto) 0.1 Lymph # (Auto) 1.8 [place] # (Auto) 0.8 H Eos # (Auto) 0.5 Baso # (Auto) 0.01 Absolute Neuts (auto) 6.70 H PT 12.2 INR 1.08 APTT 30.6 Lupus Anticoagulant LA PTT Screen dRVVT Mixing Study dRVVT Mix Interpret Sodium 143 Potassium 3.7 Chloride 115 H Carbon Dioxide 22 Anion Gap 10 BUN 21 Creatinine 1.4 H Est GFR ( Amer) 45 Est GFR (Non-Af Amer) 38 POC Glucose (mg/dL) Random Glucose 124 H Calcium 8.4 Total Bilirubin 0.5 AST 35 ALT 22 Alkaline Phosphatase 63 Total Protein 5.8 Albumin 2.9 L Globulin 3.0 Albumin/Globulin Ratio 1.0 L Urine Color Urine Appearance Urine pH Ur Specific [place] Urine Protein Urine Glucose (UA) Urine Ketones Urine Blood Urine Nitrate Urine Bilirubin Urine Urobilinogen Ur Leukocyte Esterase Urine RBC Urine WBC Ur Epithelial Cells Urine Other Proteinase 3 (PR3) Myeloperoxidase Ab HIV 1&2 Ag/Ab, 4th Gen 09/14/18 09/14/18 09/14/18 11:45 16:18 18:16 WBC RBC Hgb Hct MCV MCH MCHC RDW Plt Count MPV Neut % (Auto) Lymph % (Auto) [place] % (Auto) Eos % (Auto) Baso % (Auto) Lymph # (Auto) [place] # (Auto) Eos # (Auto) Baso # (Auto) Absolute Neuts (auto) PT INR APTT Lupus Anticoagulant LA PTT Screen dRVVT Mixing Study dRVVT Mix Interpret Sodium Potassium Chloride Carbon Dioxide Anion Gap BUN Creatinine Est GFR ( Amer) Est GFR (Non-Af Amer) POC Glucose (mg/dL) 160 H 161 H Random Glucose Calcium Total Bilirubin AST ALT Alkaline Phosphatase Total Protein Albumin Globulin Albumin/Globulin Ratio Urine Color Yellow Urine Appearance Clear Urine pH 5.5 Ur Specific [place] 1.015 Urine Protein 30 H Urine Glucose (UA) Negative Urine Ketones Trace H Urine Blood Trace-intact H Urine Nitrate Negative Urine Bilirubin Negative Urine Urobilinogen 0.2 Ur Leukocyte Esterase Small H Urine RBC 1 - 3 H Urine WBC 2 - 5 Ur Epithelial Cells 0 - 2 Urine Other Uyeast Proteinase 3 (PR3) Myeloperoxidase Ab HIV 1&2 Ag/Ab, 4th Gen 09/14/18 09/15/18 09/15/18 21:36 05:30 05:30 WBC 8.6 RBC 3.30 L Hgb 9.4 L Hct 29.2 L MCV 88.5 MCH 28.5 MCHC 32.2 RDW 14.1 Plt Count 247 MPV 10.6 Neut % (Auto) 72.9 H Lymph % (Auto) 13.6 L [place] % (Auto) 9.4 H Eos % (Auto) 3.9 Baso % (Auto) 0.2 Lymph # (Auto) 1.2 [place] # (Auto) 0.8 H Eos # (Auto) 0.3 Baso # (Auto) 0.02 Absolute Neuts (auto) 6.27 PT INR APTT Lupus Anticoagulant LA PTT Screen dRVVT Mixing Study dRVVT Mix Interpret Sodium 145 Potassium 3.6 Chloride 117 H Carbon Dioxide 21 Anion Gap 11 BUN 16 Creatinine 1.2 Est GFR ( Amer) 54 Est GFR (Non-Af Amer) 45 POC Glucose (mg/dL) 175 H Random Glucose 136 H Calcium 8.4 Total Bilirubin 0.4 AST 28 ALT 14 Alkaline Phosphatase 61 Total Protein 5.5 L Albumin 2.7 L Globulin 2.8 Albumin/Globulin Ratio 1.0 L Urine Color Urine Appearance Urine pH Ur Specific [place] Urine Protein Urine Glucose (UA) Urine Ketones Urine Blood Urine Nitrate Urine Bilirubin Urine Urobilinogen Ur Leukocyte Esterase Urine RBC Urine WBC Ur Epithelial Cells Urine Other Proteinase 3 (PR3) Myeloperoxidase Ab HIV 1&2 Ag/Ab, 4th Gen 09/15/18 07:24 WBC RBC Hgb Hct MCV MCH MCHC RDW Plt Count MPV Neut % (Auto) Lymph % (Auto) [place] % (Auto) Eos % (Auto) Baso % (Auto) Lymph # (Auto) [place] # (Auto) Eos # (Auto) Baso # (Auto) Absolute Neuts (auto) PT INR APTT Lupus Anticoagulant LA PTT Screen dRVVT Mixing Study dRVVT Mix Interpret Sodium Potassium Chloride Carbon Dioxide Anion Gap BUN Creatinine Est GFR ( Amer) Est GFR (Non-Af Amer) POC Glucose (mg/dL) 153 H Random Glucose Calcium Total Bilirubin AST ALT Alkaline Phosphatase Total Protein Albumin Globulin Albumin/Globulin Ratio Urine Color Urine Appearance Urine pH Ur Specific [place] Urine Protein Urine Glucose (UA) Urine Ketones Urine Blood Urine Nitrate Urine Bilirubin Urine Urobilinogen Ur Leukocyte Esterase Urine RBC Urine WBC Ur Epithelial Cells Urine Other Proteinase 3 (PR3) Myeloperoxidase Ab HIV 1&2 Ag/Ab, 4th Gen Fingerstick Blood Sugar Results: 175 Critical Care Progress Note - Nutrition Nutrition: Nutrition Category Date Time Status NPO Diet [DIET] Diets 09/10/18 Lunch Ordered Assessment/Plan - Assessment and Plan (Free Text) Assessment: Pt is a 68 yo female with a PMH of HTN and DM who was found down by her with unilateral weakness. Brain MRI later showed multiple emboli in both hemispheres of the brain. Plan: Neuro - intubated, CPAP - multiple emboli in both hemispheres of the brain, and unilateral weakness on exam - pt had a seizure in the ICU and was given propofol, ativan 8mg, keppra 1000 IV q12, continuous EEG, Mackenzie notified - ASA, lipitor, plavix - Head CT no acute intracranial pathology, age related changes - Head neck CTA no evidence of occlusion significant stenosis or dissection of the carotid arteries. There is a calcified athrosclerotic plaque both carotid siphons. There is moderate calcified plaque of the distal right vertebral arter y. with minimal calfified plaque left vertebral artery. Intra cerebral circulation is patent. No evidence of large aneurysm nor vascular malformation. - Brain MRI there are multiple small acute infarcts seen scattered about both cerebral hemispheres. There findings suggest embolic event given the involvement of bilateral vascular distributions. 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 and toxic metabolic encephalopathy - pt extubated - pt transitioned to BIPAP, working well at this time - maintain O2 >92 - VAP bundle: - oral hygiene - HOB 30 degrees - DVT/GI ppx - low to intermediate TV - daily weaning trials - conservative O2 management - conservative fluid management - pt off sedation, will continue pressure support GI - NPO Nephro/ - monitor BUN/Cr 16/1.2 - monitor electrolytes - UA protein, glucose, ketones, blood, bilirubin, LE, RBC, WBC Heme/ Onc - Hgb 9.4 - INR 1.08 ID - WBC 9.8 - blood cultures NGTD - ID consulted, Dr Baljit Balderas - HA1C 8.7 - levemir 20 SC q12 - ISS Dispo: will speak with family about possible trach/ LTAC in the future Pt seen, examined, assessment and plan discussed with Dr Bell Damico PGY1 - Date & Time Date: 09/15/18 Time: 08:01 <Thomas Luu - Last Filed: 09/15/18 17:12> CCU Objective - Vital Signs / Intake & Output Vital Signs (Last 4 hours): Vital Signs Temp Pulse Resp BP Pulse Ox 09/15/18 16:00 98.2 F 161/93 H 09/15/18 15:59 74 20 100 09/15/18 15:23 79 27 H 159/77 H 99 09/15/18 15:10 83 95 H Intake and Output (Last 8hrs): Intake & Output 09/15/18 09/15/18 09/15/18 06:59 14:59 22:59 Intake Total 1600 Balance 1600 Weight 203 lb Intake: Oral 100 Tube Feeding 500 Other 1000 - Medications Active Medications: Active Medications Generic Name Dose Route Start Last Admin Trade Name Freq PRN Reason Stop Dose Admin Acetaminophen 650 mg 09/11/18 17:02 09/11/18 22:44 Tylenol 650mg/20.3ml Solution Ud NG 650 mg Q6H PRN Administration Temperature >100.4 Amlodipine Besylate 10 mg 09/12/18 10:00 09/15/18 10:23 Norvasc PO 10 mg DAILY JAMES Administration Aspirin 81 mg 09/13/18 12:30 09/15/18 10:23 Aspirin Chewable PO 81 mg DAILY JAMES Administration Atorvastatin Calcium 40 mg 09/13/18 17:00 09/14/18 17:51 Lipitor PO 40 mg DIN JAMES Administration Clopidogrel Bisulfate 75 mg 09/13/18 12:30 09/15/18 10:23 Plavix PO 75 mg DAILY JAMES Administration Dextrose 0 ml 09/12/18 17:24 Dextrose 50% Inj IV STAT PRN Hypoglycemia Protocol Protocol Ergocalciferol 1 cap 09/13/18 15:30 05/02/19 15:15 Drisdol 50,000 Intl Units Cap PO 1 cap Q7D JAMES Administration Hydralazine HCl 10 mg 09/11/18 13:30 09/14/18 10:44 Apresoline IVP 10 mg Q6 PRN Administration For SBP>160 Propofol 1,000 mg in 100 mls @ 2.547 mls/hr 09/10/18 17:03 09/12/18 11:00 Diprivan IV 0 mcg/kg/min .Q24H PRN 0 mls/hr TITRATE PER MD ORDER Titration Protocol 5 MCG/KG/MIN Dextrose 1,000 mls @ 0 mls/hr 09/12/18 17:24 Dextrose 5% In Water 1000 Ml IV .Q0M PRN Hypoglycemia Protocol Protocol Per Protocol Levetiracetam 500 mg in 100 mls @ 400 mls/hr 09/14/18 22:00 09/15/18 10:23 Keppra 500mg Ivpb IVPB 400 mls/hr Q12 JAMES Administration Piperacillin Sod/Tazobactam Sod 100 mls @ 25 mls/hr 09/14/18 22:00 09/15/18 07:16 Zosyn 3.375 In Ns 100ml IVPB 09/23/18 22:01 25 mls/hr Q8 JAMES Administration Protocol Sodium Chloride 1,000 mls @ 50 mls/hr 09/15/18 07:29 09/15/18 10:39 Sodium Chloride 0.9% IV 50 mls/hr .Q20H JAMES Administration Insulin Detemir 20 unit 09/13/18 06:00 09/15/18 07:13 Levemir SC Not Given Q12H JAMES Insulin Human Regular 0 units 09/12/18 22:00 09/15/18 16:26 Humulin R Med SC Not Given ACHS JAMES Protocol Losartan Potassium 100 mg 09/16/18 10:00 Cozaar NG DAILY JAMES Metoprolol Tartrate 25 mg 09/11/18 18:00 09/15/18 10:22 Lopressor PO 25 mg BID JAMES Administration Pantoprazole Sodium 40 mg 09/11/18 10:00 09/15/18 10:24 Protonix Inj IVP 40 mg DAILY JAMES Administration - Patient Studies Lab Studies: Microbiology Studies 09/10/18 12:50 Blood Culture - Final Blood NO GROWTH AFTER 5 DAYS Gram Stain - Final TEST NOT PERFORMED 09/10/18 13:20 Blood Culture - Preliminary Blood NO GROWTH AFTER 4 DAYS Lab Studies 09/15/18 09/15/18 09/15/18 Range/Units 10:51 09:40 07:24 WBC (4.5-11.0) 10^3/uL RBC (3.5-6.1) 10^6/uL Hgb (12.0-16.0) g/dL Hct (36.0-48.0) % MCV (80.0-105.0) fl MCH (25.0-35.0) pg MCHC (31.0-37.0) g/dl RDW (11.5-14.5) % Plt Count (120.0-450.0) 10^3/uL MPV (7.0-11.0) fl Neut % (Auto) (50.0-68.0) % Lymph % (Auto) (22.0-35.0) % [place] % (Auto) (1.0-6.0) % Eos % (Auto) (1.5-5.0) % Baso % (Auto) (0.0-3.0) % Lymph # (Auto) (1.2-3.4) [place] # (Auto) (0.1-0.6) Eos # (Auto) (0.0-0.7) Baso # (Auto) (0.0-2.0) K/mm3 Absolute Neuts (auto) (1.4-6.5) Lupus Anticoagulant [place] PTT Screen (<=40) sec dRVVT Mixing Study (<=45) sec dRVVT Mix Interpret pCO2 36 (35-45) mm/Hg pO2 104.0 H (80-100) mm/Hg HCO3 20.3 L (21-28) mmol/L ABG pH 7.36 (7.35-7.45) ABG Total CO2 21.4 L (22-28) mmol.L ABG O2 Saturation 97.7 (95-98) % ABG O2 Content 12.3 L (15-23) ML/dl ABG Base Excess -4.7 L (-2.0-3.0) mmol/L ABG Hemoglobin 8.9 L (11.7-17.4) g/dL ABG Carboxyhemoglobin 0.8 (0.5-1.5) % POC ABG HHb (Measured) 2.3 (0-5) % ABG Methemoglobin 0.1 (0.0-3.0) % ABG O2 Capacity 12.6 L (16-24) mL/dl Hgb O2 Saturation 96.7 (95.0-98.0) % FiO2 35.0 % Sodium (132-148) mmol/L Potassium (3.6-5.0) mmol/L Chloride (98-107) mmol/L Carbon Dioxide (21-33) mmol/L Anion Gap (10-20) BUN (7-21) mg/dL Creatinine (0.7-1.2) mg/dl Est GFR ( Amer) Est GFR (Non-Af Amer) POC Glucose (mg/dL) 156 H 153 H (65-110) mg/dL Random Glucose (70-110) mg/dL Calcium (8.4-10.5) mg/dL Total Bilirubin (0.2-1.3) mg/dL AST (14-36) U/L ALT (7-56) U/L Alkaline Phosphatase (38-126) U/L Total Protein (5.8-8.3) g/dL Albumin (3.0-4.8) g/dL Globulin gm/dL Albumin/Globulin Ratio (1.1-1.8) Urine Color (YELLOW) Urine Appearance (CLEAR) Urine pH (4.7-8.0) Ur Specific [place] (1.005-1.035) Urine Protein (<30 mg/dL) mg/dL Urine Glucose (UA) (NEGATIVE) mg/dL Urine Ketones (NEGATIVE) mg/dL Urine Blood (NEGATIVE) Urine Nitrate (NEGATIVE) Urine Bilirubin (NEGATIVE) Urine Urobilinogen (<1 E.U./dL) E.U./dL Ur Leukocyte Esterase (NEGATIVE) [place]/uL Urine RBC (0-2) /hpf Urine WBC (0-6) /hpf Ur Epithelial Cells (0-5) /hpf Urine Other /hpf Ur Random Creatinine (20-275) mg/dL U Random Total Protein (21-161) mg/g creat Urine Total Volume mg/dL Microalb/Creat Ratio (<30) Proteinase 3 (PR3) (<1.0) AI Myeloperoxidase Ab (<1.0) AI Myocardial Ab Titer Anti-Myocardial Ab (NEGATIVE) Complement C3 (83-193) mg/dL Complement C4 (15-57) mg/dL T.pallidum Ab (FTA-ABS) (Nonreactive) 09/15/18 09/15/18 09/14/18 Range/Units 05:30 05:30 21:36 WBC 8.6 (4.5-11.0) 10^3/uL RBC 3.30 L (3.5-6.1) 10^6/uL Hgb 9.4 L (12.0-16.0) g/dL Hct 29.2 L (36.0-48.0) % MCV 88.5 (80.0-105.0) fl MCH 28.5 (25.0-35.0) pg MCHC 32.2 (31.0-37.0) g/dl RDW 14.1 (11.5-14.5) % Plt Count 247 (120.0-450.0) 10^3/uL MPV 10.6 (7.0-11.0) fl Neut % (Auto) 72.9 H (50.0-68.0) % Lymph % (Auto) 13.6 L (22.0-35.0) % [place] % (Auto) 9.4 H (1.0-6.0) % Eos % (Auto) 3.9 (1.5-5.0) % Baso % (Auto) 0.2 (0.0-3.0) % Lymph # (Auto) 1.2 (1.2-3.4) [place] # (Auto) 0.8 H (0.1-0.6) Eos # (Auto) 0.3 (0.0-0.7) Baso # (Auto) 0.02 (0.0-2.0) K/mm3 Absolute Neuts (auto) 6.27 (1.4-6.5) Lupus Anticoagulant [place] PTT Screen (<=40) sec dRVVT Mixing Study (<=45) sec dRVVT Mix Interpret pCO2 (35-45) mm/Hg pO2 (80-100) mm/Hg HCO3 (21-28) mmol/L ABG pH (7.35-7.45) ABG Total CO2 (22-28) mmol.L ABG O2 Saturation (95-98) % ABG O2 Content (15-23) ML/dl ABG Base Excess (-2.0-3.0) mmol/L ABG Hemoglobin (11.7-17.4) g/dL ABG Carboxyhemoglobin (0.5-1.5) % POC ABG HHb (Measured) (0-5) % ABG Methemoglobin (0.0-3.0) % ABG O2 Capacity (16-24) mL/dl Hgb O2 Saturation (95.0-98.0) % FiO2 % Sodium 145 (132-148) mmol/L Potassium 3.6 (3.6-5.0) mmol/L Chloride 117 H (98-107) mmol/L Carbon Dioxide 21 (21-33) mmol/L Anion Gap 11 (10-20) BUN 16 (7-21) mg/dL Creatinine 1.2 (0.7-1.2) mg/dl Est GFR ( Amer) 54 Est GFR (Non-Af Amer) 45 POC Glucose (mg/dL) 175 H (65-110) mg/dL Random Glucose 136 H (70-110) mg/dL Calcium 8.4 (8.4-10.5) mg/dL Total Bilirubin 0.4 (0.2-1.3) mg/dL AST 28 (14-36) U/L ALT 14 (7-56) U/L Alkaline Phosphatase 61 (38-126) U/L Total Protein 5.5 L (5.8-8.3) g/dL Albumin 2.7 L (3.0-4.8) g/dL Globulin 2.8 gm/dL Albumin/Globulin Ratio 1.0 L (1.1-1.8) Urine Color (YELLOW) Urine Appearance (CLEAR) Urine pH (4.7-8.0) Ur Specific [place] (1.005-1.035) Urine Protein (<30 mg/dL) mg/dL Urine Glucose (UA) (NEGATIVE) mg/dL Urine Ketones (NEGATIVE) mg/dL Urine Blood (NEGATIVE) Urine Nitrate (NEGATIVE) Urine Bilirubin (NEGATIVE) Urine Urobilinogen (<1 E.U./dL) E.U./dL Ur Leukocyte Esterase (NEGATIVE) [place]/uL Urine RBC (0-2) /hpf Urine WBC (0-6) /hpf Ur Epithelial Cells (0-5) /hpf Urine Other /hpf Ur Random Creatinine (20-275) mg/dL U Random Total Protein (21-161) mg/g creat Urine Total Volume mg/dL Microalb/Creat Ratio (<30) Proteinase 3 (PR3) (<1.0) AI Myeloperoxidase Ab (<1.0) AI Myocardial Ab Titer Anti-Myocardial Ab (NEGATIVE) Complement C3 (83-193) mg/dL Complement C4 (15-57) mg/dL T.pallidum Ab (FTA-ABS) (Nonreactive) 09/14/18 09/14/18 09/14/18 Range/Units 18:16 18:16 18:16 WBC (4.5-11.0) 10^3/uL RBC (3.5-6.1) 10^6/uL Hgb (12.0-16.0) g/dL Hct (36.0-48.0) % MCV (80.0-105.0) fl MCH (25.0-35.0) pg MCHC (31.0-37.0) g/dl RDW (11.5-14.5) % Plt Count (120.0-450.0) 10^3/uL MPV (7.0-11.0) fl Neut % (Auto) (50.0-68.0) % Lymph % (Auto) (22.0-35.0) % [place] % (Auto) (1.0-6.0) % Eos % (Auto) (1.5-5.0) % Baso % (Auto) (0.0-3.0) % Lymph # (Auto) (1.2-3.4) [place] # (Auto) (0.1-0.6) Eos # (Auto) (0.0-0.7) Baso # (Auto) (0.0-2.0) K/mm3 Absolute Neuts (auto) (1.4-6.5) Lupus Anticoagulant [place] PTT Screen (<=40) sec dRVVT Mixing Study (<=45) sec dRVVT Mix Interpret pCO2 (35-45) mm/Hg pO2 (80-100) mm/Hg HCO3 (21-28) mmol/L ABG pH (7.35-7.45) ABG Total CO2 (22-28) mmol.L ABG O2 Saturation (95-98) % ABG O2 Content (15-23) ML/dl ABG Base Excess (-2.0-3.0) mmol/L ABG Hemoglobin (11.7-17.4) g/dL ABG Carboxyhemoglobin (0.5-1.5) % POC ABG HHb (Measured) (0-5) % ABG Methemoglobin (0.0-3.0) % ABG O2 Capacity (16-24) mL/dl Hgb O2 Saturation (95.0-98.0) % FiO2 % Sodium (132-148) mmol/L Potassium (3.6-5.0) mmol/L Chloride (98-107) mmol/L Carbon Dioxide (21-33) mmol/L Anion Gap (10-20) BUN (7-21) mg/dL Creatinine (0.7-1.2) mg/dl Est GFR ( Amer) Est GFR (Non-Af Amer) POC Glucose (mg/dL) (65-110) mg/dL Random Glucose (70-110) mg/dL Calcium (8.4-10.5) mg/dL Total Bilirubin (0.2-1.3) mg/dL AST (14-36) U/L ALT (7-56) U/L Alkaline Phosphatase (38-126) U/L Total Protein (5.8-8.3) g/dL Albumin (3.0-4.8) g/dL Globulin gm/dL Albumin/Globulin Ratio (1.1-1.8) Urine Color Yellow (YELLOW) Urine Appearance Clear (CLEAR) Urine pH 5.5 (4.7-8.0) Ur Specific [place] 1.015 (1.005-1.035) Urine Protein 30 H (<30 mg/dL) mg/dL Urine Glucose (UA) Negative (NEGATIVE) mg/dL Urine Ketones Trace H (NEGATIVE) mg/dL Urine Blood Trace-intact H (NEGATIVE) Urine Nitrate Negative (NEGATIVE) Urine Bilirubin Negative (NEGATIVE) Urine Urobilinogen 0.2 (<1 E.U./dL) E.U./dL Ur Leukocyte Esterase Small H (NEGATIVE) [place]/uL Urine RBC 1 - 3 H (0-2) /hpf Urine WBC 2 - 5 (0-6) /hpf Ur Epithelial Cells 0 - 2 (0-5) /hpf Urine Other Uyeast /hpf Ur Random Creatinine 35 (20-275) mg/dL U Random Total Protein 1714 H (21-161) mg/g creat Urine Total Volume 22.4 mg/dL Microalb/Creat Ratio 641 H (<30) Proteinase 3 (PR3) (<1.0) AI Myeloperoxidase Ab (<1.0) AI Myocardial Ab Titer Anti-Myocardial Ab (NEGATIVE) Complement C3 (83-193) mg/dL Complement C4 (15-57) mg/dL T.pallidum Ab (FTA-ABS) (Nonreactive) 09/13/18 09/12/18 09/12/18 Range/Units 06:15 16:10 16:10 WBC (4.5-11.0) 10^3/uL RBC (3.5-6.1) 10^6/uL Hgb (12.0-16.0) g/dL Hct (36.0-48.0) % MCV (80.0-105.0) fl MCH (25.0-35.0) pg MCHC (31.0-37.0) g/dl RDW (11.5-14.5) % Plt Count (120.0-450.0) 10^3/uL MPV (7.0-11.0) fl Neut % (Auto) (50.0-68.0) % Lymph % (Auto) (22.0-35.0) % [place] % (Auto) (1.0-6.0) % Eos % (Auto) (1.5-5.0) % Baso % (Auto) (0.0-3.0) % Lymph # (Auto) (1.2-3.4) [place] # (Auto) (0.1-0.6) Eos # (Auto) (0.0-0.7) Baso # (Auto) (0.0-2.0) K/mm3 Absolute Neuts (auto) (1.4-6.5) Lupus Anticoagulant [place] PTT Screen (<=40) sec dRVVT Mixing Study (<=45) sec dRVVT Mix Interpret pCO2 (35-45) mm/Hg pO2 (80-100) mm/Hg HCO3 (21-28) mmol/L ABG pH (7.35-7.45) ABG Total CO2 (22-28) mmol.L ABG O2 Saturation (95-98) % ABG O2 Content (15-23) ML/dl ABG Base Excess (-2.0-3.0) mmol/L ABG Hemoglobin (11.7-17.4) g/dL ABG Carboxyhemoglobin (0.5-1.5) % POC ABG HHb (Measured) (0-5) % ABG Methemoglobin (0.0-3.0) % ABG O2 Capacity (16-24) mL/dl Hgb O2 Saturation (95.0-98.0) % FiO2 % Sodium (132-148) mmol/L Potassium (3.6-5.0) mmol/L Chloride (98-107) mmol/L Carbon Dioxide (21-33) mmol/L Anion Gap (10-20) BUN (7-21) mg/dL Creatinine (0.7-1.2) mg/dl Est GFR ( Amer) Est GFR (Non-Af Amer) POC Glucose (mg/dL) (65-110) mg/dL Random Glucose (70-110) mg/dL Calcium (8.4-10.5) mg/dL Total Bilirubin (0.2-1.3) mg/dL AST (14-36) U/L ALT (7-56) U/L Alkaline Phosphatase (38-126) U/L Total Protein (5.8-8.3) g/dL Albumin (3.0-4.8) g/dL Globulin gm/dL Albumin/Globulin Ratio (1.1-1.8) Urine Color (YELLOW) Urine Appearance (CLEAR) Urine pH (4.7-8.0) Ur Specific [place] (1.005-1.035) Urine Protein (<30 mg/dL) mg/dL Urine Glucose (UA) (NEGATIVE) mg/dL Urine Ketones (NEGATIVE) mg/dL Urine Blood (NEGATIVE) Urine Nitrate (NEGATIVE) Urine Bilirubin (NEGATIVE) Urine Urobilinogen (<1 E.U./dL) E.U./dL Ur Leukocyte Esterase (NEGATIVE) [place]/uL Urine RBC (0-2) /hpf Urine WBC (0-6) /hpf Ur Epithelial Cells (0-5) /hpf Urine Other /hpf Ur Random Creatinine (20-275) mg/dL U Random Total Protein (21-161) mg/g creat Urine Total Volume mg/dL Microalb/Creat Ratio (<30) Proteinase 3 (PR3) <1.0 (<1.0) AI Myeloperoxidase Ab <1.0 (<1.0) AI Myocardial Ab Titer TNP Anti-Myocardial Ab Negative (NEGATIVE) Complement C3 134 (83-193) mg/dL Complement C4 32 (15-57) mg/dL T.pallidum Ab (FTA-ABS) Nonreactive (Nonreactive) 09/12/18 Range/Units 16:10 WBC (4.5-11.0) 10^3/uL RBC (3.5-6.1) 10^6/uL Hgb (12.0-16.0) g/dL Hct (36.0-48.0) % MCV (80.0-105.0) fl MCH (25.0-35.0) pg MCHC (31.0-37.0) g/dl RDW (11.5-14.5) % Plt Count (120.0-450.0) 10^3/uL MPV (7.0-11.0) fl Neut % (Auto) (50.0-68.0) % Lymph % (Auto) (22.0-35.0) % [place] % (Auto) (1.0-6.0) % Eos % (Auto) (1.5-5.0) % Baso % (Auto) (0.0-3.0) % Lymph # (Auto) (1.2-3.4) [place] # (Auto) (0.1-0.6) Eos # (Auto) (0.0-0.7) Baso # (Auto) (0.0-2.0) K/mm3 Absolute Neuts (auto) (1.4-6.5) Lupus Anticoagulant see note [place] PTT Screen 32 (<=40) sec dRVVT Mixing Study 34 (<=45) sec dRVVT Mix Interpret Not indicated pCO2 (35-45) mm/Hg pO2 (80-100) mm/Hg HCO3 (21-28) mmol/L ABG pH (7.35-7.45) ABG Total CO2 (22-28) mmol.L ABG O2 Saturation (95-98) % ABG O2 Content (15-23) ML/dl ABG Base Excess (-2.0-3.0) mmol/L ABG Hemoglobin (11.7-17.4) g/dL ABG Carboxyhemoglobin (0.5-1.5) % POC ABG HHb (Measured) (0-5) % ABG Methemoglobin (0.0-3.0) % ABG O2 Capacity (16-24) mL/dl Hgb O2 Saturation (95.0-98.0) % FiO2 % Sodium (132-148) mmol/L Potassium (3.6-5.0) mmol/L Chloride (98-107) mmol/L Carbon Dioxide (21-33) mmol/L Anion Gap (10-20) BUN (7-21) mg/dL Creatinine (0.7-1.2) mg/dl Est GFR ( Amer) Est GFR (Non-Af Amer) POC Glucose (mg/dL) (65-110) mg/dL Random Glucose (70-110) mg/dL Calcium (8.4-10.5) mg/dL Total Bilirubin (0.2-1.3) mg/dL AST (14-36) U/L ALT (7-56) U/L Alkaline Phosphatase (38-126) U/L Total Protein (5.8-8.3) g/dL Albumin (3.0-4.8) g/dL Globulin gm/dL Albumin/Globulin Ratio (1.1-1.8) Urine Color (YELLOW) Urine Appearance (CLEAR) Urine pH (4.7-8.0) Ur Specific [place] (1.005-1.035) Urine Protein (<30 mg/dL) mg/dL Urine Glucose (UA) (NEGATIVE) mg/dL Urine Ketones (NEGATIVE) mg/dL Urine Blood (NEGATIVE) Urine Nitrate (NEGATIVE) Urine Bilirubin (NEGATIVE) Urine Urobilinogen (<1 E.U./dL) E.U./dL Ur Leukocyte Esterase (NEGATIVE) [place]/uL Urine RBC (0-2) /hpf Urine WBC (0-6) /hpf Ur Epithelial Cells (0-5) /hpf Urine Other /hpf Ur Random Creatinine (20-275) mg/dL U Random Total Protein (21-161) mg/g creat Urine Total Volume mg/dL Microalb/Creat Ratio (<30) Proteinase 3 (PR3) (<1.0) AI Myeloperoxidase Ab (<1.0) AI Myocardial Ab Titer Anti-Myocardial Ab (NEGATIVE) Complement C3 (83-193) mg/dL Complement C4 (15-57) mg/dL T.pallidum Ab (FTA-ABS) (Nonreactive) Laboratory Results - last 24 hr 09/12/18 09/12/18 09/12/18 16:10 16:10 16:10 WBC RBC Hgb Hct MCV MCH MCHC RDW Plt Count MPV Neut % (Auto) Lymph % (Auto) [place] % (Auto) Eos % (Auto) Baso % (Auto) Lymph # (Auto) [place] # (Auto) Eos # (Auto) Baso # (Auto) Absolute Neuts (auto) Lupus Anticoagulant see note [place] PTT Screen 32 dRVVT Mixing Study 34 dRVVT Mix Interpret Not indicated pCO2 pO2 HCO3 ABG pH ABG Total CO2 ABG O2 Saturation ABG O2 Content ABG Base Excess ABG Hemoglobin ABG Carboxyhemoglobin POC ABG HHb (Measured) ABG Methemoglobin ABG O2 Capacity Hgb O2 Saturation FiO2 Sodium Potassium Chloride Carbon Dioxide Anion Gap BUN Creatinine Est GFR ( Amer) Est GFR (Non-Af Amer) POC Glucose (mg/dL) Random Glucose Calcium Total Bilirubin AST ALT Alkaline Phosphatase Total Protein Albumin Globulin Albumin/Globulin Ratio Urine Color Urine Appearance Urine pH Ur Specific [place] Urine Protein Urine Glucose (UA) Urine Ketones Urine Blood Urine Nitrate Urine Bilirubin Urine Urobilinogen Ur Leukocyte Esterase Urine RBC Urine WBC Ur Epithelial Cells Urine Other Ur Random Creatinine U Random Total Protein Urine Total Volume Microalb/Creat Ratio Proteinase 3 (PR3) <1.0 Myeloperoxidase Ab <1.0 Myocardial Ab Titer TNP Anti-Myocardial Ab Negative Complement C3 134 Complement C4 32 T.pallidum Ab (FTA-ABS) 09/13/18 09/14/18 09/14/18 06:15 18:16 18:16 WBC RBC Hgb Hct MCV MCH MCHC RDW Plt Count MPV Neut % (Auto) Lymph % (Auto) [place] % (Auto) Eos % (Auto) Baso % (Auto) Lymph # (Auto) [place] # (Auto) Eos # (Auto) Baso # (Auto) Absolute Neuts (auto) Lupus Anticoagulant [place] PTT Screen dRVVT Mixing Study dRVVT Mix Interpret pCO2 pO2 HCO3 ABG pH ABG Total CO2 ABG O2 Saturation ABG O2 Content ABG Base Excess ABG Hemoglobin ABG Carboxyhemoglobin POC ABG HHb (Measured) ABG Methemoglobin ABG O2 Capacity Hgb O2 Saturation FiO2 Sodium Potassium Chloride Carbon Dioxide Anion Gap BUN Creatinine Est GFR ( Amer) Est GFR (Non-Af Amer) POC Glucose (mg/dL) Random Glucose Calcium Total Bilirubin AST ALT Alkaline Phosphatase Total Protein Albumin Globulin Albumin/Globulin Ratio Urine Color Yellow Urine Appearance Clear Urine pH 5.5 Ur Specific [place] 1.015 Urine Protein 30 H Urine Glucose (UA) Negative Urine Ketones Trace H Urine Blood Trace-intact H Urine Nitrate Negative Urine Bilirubin Negative Urine Urobilinogen 0.2 Ur Leukocyte Esterase Small H Urine RBC 1 - 3 H Urine WBC 2 - 5 Ur Epithelial Cells 0 - 2 Urine Other Uyeast Ur Random Creatinine 35 U Random Total Protein Urine Total Volume 22.4 Microalb/Creat Ratio 641 H Proteinase 3 (PR3) Myeloperoxidase Ab Myocardial Ab Titer Anti-Myocardial Ab Complement C3 Complement C4 T.pallidum Ab (FTA-ABS) Nonreactive 09/14/18 09/14/18 09/15/18 18:16 21:36 05:30 WBC 8.6 RBC 3.30 L Hgb 9.4 L Hct 29.2 L MCV 88.5 MCH 28.5 MCHC 32.2 RDW 14.1 Plt Count 247 MPV 10.6 Neut % (Auto) 72.9 H Lymph % (Auto) 13.6 L [place] % (Auto) 9.4 H Eos % (Auto) 3.9 Baso % (Auto) 0.2 Lymph # (Auto) 1.2 [place] # (Auto) 0.8 H Eos # (Auto) 0.3 Baso # (Auto) 0.02 Absolute Neuts (auto) 6.27 Lupus Anticoagulant [place] PTT Screen dRVVT Mixing Study dRVVT Mix Interpret pCO2 pO2 HCO3 ABG pH ABG Total CO2 ABG O2 Saturation ABG O2 Content ABG Base Excess ABG Hemoglobin ABG Carboxyhemoglobin POC ABG HHb (Measured) ABG Methemoglobin ABG O2 Capacity Hgb O2 Saturation FiO2 Sodium Potassium Chloride Carbon Dioxide Anion Gap BUN Creatinine Est GFR ( Amer) Est GFR (Non-Af Amer) POC Glucose (mg/dL) 175 H Random Glucose Calcium Total Bilirubin AST ALT Alkaline Phosphatase Total Protein Albumin Globulin Albumin/Globulin Ratio Urine Color Urine Appearance Urine pH Ur Specific [place] Urine Protein Urine Glucose (UA) Urine Ketones Urine Blood Urine Nitrate Urine Bilirubin Urine Urobilinogen Ur Leukocyte Esterase Urine RBC Urine WBC Ur Epithelial Cells Urine Other Ur Random Creatinine U Random Total Protein 1714 H Urine Total Volume Microalb/Creat Ratio Proteinase 3 (PR3) Myeloperoxidase Ab Myocardial Ab Titer Anti-Myocardial Ab Complement C3 Complement C4 T.pallidum Ab (FTA-ABS) 09/15/18 09/15/18 09/15/18 05:30 07:24 09:40 WBC RBC Hgb Hct MCV MCH MCHC RDW Plt Count MPV Neut % (Auto) Lymph % (Auto) [place] % (Auto) Eos % (Auto) Baso % (Auto) Lymph # (Auto) [place] # (Auto) Eos # (Auto) Baso # (Auto) Absolute Neuts (auto) Lupus Anticoagulant [place] PTT Screen dRVVT Mixing Study dRVVT Mix Interpret pCO2 36 pO2 104.0 H HCO3 20.3 L ABG pH 7.36 ABG Total CO2 21.4 L ABG O2 Saturation 97.7 ABG O2 Content 12.3 L ABG Base Excess -4.7 L ABG Hemoglobin 8.9 L ABG Carboxyhemoglobin 0.8 POC ABG HHb (Measured) 2.3 ABG Methemoglobin 0.1 ABG O2 Capacity 12.6 L Hgb O2 Saturation 96.7 FiO2 35.0 Sodium 145 Potassium 3.6 Chloride 117 H Carbon Dioxide 21 Anion Gap 11 BUN 16 Creatinine 1.2 Est GFR ( Amer) 54 Est GFR (Non-Af Amer) 45 POC Glucose (mg/dL) 153 H Random Glucose 136 H Calcium 8.4 Total Bilirubin 0.4 AST 28 ALT 14 Alkaline Phosphatase 61 Total Protein 5.5 L Albumin 2.7 L Globulin 2.8 Albumin/Globulin Ratio 1.0 L Urine Color Urine Appearance Urine pH Ur Specific [place] Urine Protein Urine Glucose (UA) Urine Ketones Urine Blood Urine Nitrate Urine Bilirubin Urine Urobilinogen Ur Leukocyte Esterase Urine RBC Urine WBC Ur Epithelial Cells Urine Other Ur Random Creatinine U Random Total Protein Urine Total Volume Microalb/Creat Ratio Proteinase 3 (PR3) Myeloperoxidase Ab Myocardial Ab Titer Anti-Myocardial Ab Complement C3 Complement C4 T.pallidum Ab (FTA-ABS) 09/15/18 10:51 WBC RBC Hgb Hct MCV MCH MCHC RDW Plt Count MPV Neut % (Auto) Lymph % (Auto) [place] % (Auto) Eos % (Auto) Baso % (Auto) Lymph # (Auto) [place] # (Auto) Eos # (Auto) Baso # (Auto) Absolute Neuts (auto) Lupus Anticoagulant [place] PTT Screen dRVVT Mixing Study dRVVT Mix Interpret pCO2 pO2 HCO3 ABG pH ABG Total CO2 ABG O2 Saturation ABG O2 Content ABG Base Excess ABG Hemoglobin ABG Carboxyhemoglobin POC ABG HHb (Measured) ABG Methemoglobin ABG O2 Capacity Hgb O2 Saturation FiO2 Sodium Potassium Chloride Carbon Dioxide Anion Gap BUN Creatinine Est GFR ( Amer) Est GFR (Non-Af Amer) POC Glucose (mg/dL) 156 H Random Glucose Calcium Total Bilirubin AST ALT Alkaline Phosphatase Total Protein Albumin Globulin Albumin/Globulin Ratio Urine Color Urine Appearance Urine pH Ur Specific [place] Urine Protein Urine Glucose (UA) Urine Ketones Urine Blood Urine Nitrate Urine Bilirubin Urine Urobilinogen Ur Leukocyte Esterase Urine RBC Urine WBC Ur Epithelial Cells Urine Other Ur Random Creatinine U Random Total Protein Urine Total Volume Microalb/Creat Ratio Proteinase 3 (PR3) Myeloperoxidase Ab Myocardial Ab Titer Anti-Myocardial Ab Complement C3 Complement C4 T.pallidum Ab (FTA-ABS) Radiology Impressions: Radiology Impressions Chest X-Ray 09/15/18 05:00 IMPRESSION: No active disease. Critical Care Progress Note - Nutrition Nutrition: Nutrition Category Date Time Status NPO Diet [DIET] Diets 09/10/18 Lunch Ordered Attending/Attestation - Attestation I have personally seen and examined this patient.: Yes I have fully participated in the care of the patient.: Yes I have reviewed all pertinent clinical information: Yes Notes (Text): 09/15/18 17:10 extubated successfully to BiPAP which later weaned off. aaox3, hungry and asking for food and coffee-->will proceed with swallow eval. hemodynamically and respiratory stable. OOB to chair, once demonstrated ability to safely swallow-->advance diet, IS, pulmonary toilet. dvt/gi prophyaxis. PT ccm time 40 min
--- NOTE | 2018-09-15 08:12 | PN ---
DATE: 09/14/2018 The patient is in bed in ICU, bed #4. PHYSICAL EXAMINATION VITAL SIGNS: The patient remains intubated, on a ventilator with a temperature of 98, blood pressure is 175/60, respiratory rate of 18, heart rate of 94. HEENT: Unremarkable. NECK: Supple. LUNGS: Decreased breath sounds. HEART: Normal S1, S2. ABDOMEN: Soft. LABORATORY DATA: Reveals her white count has been 9.8, sed rate is 46. Chemistries are noted. Creatinine is 1.4 and the C-reactive protein is 11.8. Urinalysis is noted. Serology is RPR is nonreactive, Bartonella is pending. Hepatitis B surface antigen is negative. HIV is negative. Acute fever is pending and lupus workup is pending. Tropheryma whipplei DNA is also pending. MEDICATIONS: The patient is on Zosyn. ASSESSMENT AND PLAN: A 68-year-old female with acute cerebrovascular accident, likely embolic in nature, and seizures. Transesophageal echocardiogram showed no evidence of patent foramen ovale, thrombus or vegetations. All the blood cultures have been negative. The patient was not on any antibiotics. She will continue Zosyn for now. Pending initial workup results. All cultures are still negative. We will follow with you. Tejas Smiley MD
[2018-09-15] MEDS ORDERED: Potassium Chloride 20 mEq/15 ml LIQ UD PO STA (08:19)
[2018-09-15 09:48] LABS: ARTERIAL BLOOD GAS HCO3 20.3 mmol/L (21-28); ARTERIAL BLOOD GAS HEMOGLOBIN 8.9 g/dL (11.7-17.4); ARTERIAL BLOOD GAS O2 CAPACITY 12.6 mL/dl (16-24); ARTERIAL BLOOD GAS O2 CONTENT 12.3 ML/dl (15-23); ARTERIAL BLOOD GAS O2 SAT 97.7 % (95-98); ARTERIAL BLOOD GAS PCO2 36 mm/Hg (35-45); ARTERIAL BLOOD GAS PH 7.36 (7.35-7.45); ARTERIAL BLOOD GAS TCO2 21.4 mmol.L (22-28)
[2018-09-15] MEDS: levETIRAcetam 500mg IVPB 500 MG/100 ML BAG IVPB SCH ×2 (10:23→21:29)
--- NOTE | 2018-09-15 10:43 | RAD ---
Date of service: 09/15/2018 HISTORY: intubated COMPARISON: 09/13/2018 TECHNIQUE: 1 view obtained. FINDINGS: LUNGS: No active pulmonary disease. The endotracheal tube and nasogastric tube are in satisfactory position PLEURA: No significant pleural effusion identified, no pneumothorax apparent. CARDIOVASCULAR: No aortic atherosclerotic calcification present. Normal cardiac size. No pulmonary vascular congestion. OSSEOUS STRUCTURES: No significant abnormalities. VISUALIZED UPPER ABDOMEN: Normal. OTHER FINDINGS: None. IMPRESSION: No active disease.
--- NOTE | 2018-09-15 11:30 | PN ---
DATE: 09/15/2018 REASON FOR CONSULTATION AND FOLLOWUP: Admitted with CVA, cardiac evaluation, left upper extremity weakness, respiratory failure, intubated. SUBJECTIVE: The patient has been on the vent, getting IV fluids and NG feeding. PHYSICAL EXAMINATION: VITAL SIGNS: Temperature afebrile, heart rate 80, blood pressure 130/80. HEENT: PERRLA. Extraocular muscles intact. NECK: Supple. No carotid bruits or thyromegaly. CHEST: Clear to auscultation. HEART: S1 and S2 regular. ABDOMEN: Soft. EXTREMITIES: Clubbing and cyanosis, negative. 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 LABORATORY DATA: WBC 8.6, hemoglobin 9.1, hematocrit 29.2, platelet count 247. Chemistry shows sodium 145, potassium 3.0, chloride 117, carbon dioxide of 21, anion gap of 11, BUN 16, and creatinine 1.2. Total protein 5.7, albumin 2.7, and albumin-globulin ratio 1. IMPRESSION AND PLAN: The patient is a 68-year-old male with past medical history significant for hypertension, hyperlipidemia, admitted with acute cerebrovascular accident with left upper extremity weakness, more upper extremity than lower extremity. Cardiology consult was called. The patient underwent transesophageal echocardiogram that shows no evidence of patent foramen ovale, no evidence of left ventricular thrombus, no vegetation, no plaque noted. Getting IV fluid and NG feeding. We will cutdown the fluid to 50 mL an hour normal saline. Continue NG feeding, continue rehab, continue medication, continue morphine, continue metoprolol. We will follow with you. Thank you Dr. Goodman for providing us the opportunity in taking care of Pat. May Pelaez MD
--- NOTE | 2018-09-15 13:31 | CP.PCM.PN ---
Subjective - Date & Time of Evaluation Date of Evaluation: 09/15/18 Time of Evaluation: 13:29 - Subjective Subjective: Nephrology Consultation Note: Assessment:Stable Acute Kidney Injury (N17.9) likely due to ATN [contrast nephropathy, sepsis and hemodynamic changes from BP fluctuations]: IMPROVING Hypokalemia and HTN emergency r/o secondary HTN proteinuria and microscopic hematuria r/o GN acute CVA, seizure sepsis, UTI, acute respi failure, obesity, vit d def CKD 1 with 1.7 gram proteinuria and 641 mg albuminuria Plan No acute need for renal replacement therapy at this time. Hypertension control with meds as ordered. Maintain hemodynamics stable. Avoid hypotension. agree with CCB and Beta-blockers. Increased losartan 100 mg/d Monitor Input/Output, daily weights and renal function with basic metabolic panel supplement lytes as needed. ID, Neuro, Cardio following added weekly vit D Check urine analysis, spot protein/creatinine, albumin/creatinine ratio Check GN work up as C3, C4, DAISY, Anti dsDNA, ASO titers, ANCA (MPO and MT-3), Anti GBM antibody, HIV/Hep B and Hep C serology. also lupus anticoagulant Secondary HTN work up with plasma renin/aldosterone, plasma metanephrine and renal artery Doppler to r/o renal artery stenosis Dose meds/antibiotics for improved GFR. Avoid nephrotoxins/NSAIDs/ iodinated contrast (unless needed emergently) Glycemic control Further work up/management as per primary team Thanks for allowing me to participate in care of your patient. Will follow patient with you. Please call if any Qs. had d/w team and family bedside Dr Jeremiah Horn Office: [phone] Chief Complaint; left side weakness Reason for consult: Acute Kidney Injury HPI: Pt is a 68 F with hx of diabetes Mellitus (5 years), hypertension (many years) presented with complaints of left side weakness and foudn to have b/l infarcts. also with sepsis with high temp ? UTI and HTN emergency. renal consult for [facility]QU[facility]. pt was orally intubated. also had episode of seizure Denies OTC/herbal meds or NSAIDs Noted recent iodinated contrast exposure 09/10/18. No obvious episodes of low BP. per son, pt was usual health before this incidence non smoker. no etoh/drugs ROS: unable to obtain from pt. she was extubated but on BiPAP Physical Examination: General Appearance: Comfortable, in no acute respiratory distress, orally intubated Vitals reviewed and noted as below Head; Atraumatic, normocephalic ENT: extubated. on BiPAP Neck; supple no lymphadenopathy, no thyromegaly or bruit Lungs: Normal respiratory rate/effort. Breath sounds bilateral equal and clear Heart: Normal rate. s1s2 normal. No rub or gallop. Extremities: no edema. No varicose veins Neurological: Patient is awake alert follow commands Skin: Warm and dry. Normal turgor. No rash. Palpitation: Normal elasticity for age Abdomen: Abdomen is soft. Bowel sounds +. There is no abdominal tenderness, no guarding/rigidity no organomegaly Psych: deferred MSK: no joint tenderness or swelling. Digits and nails normal, no deformity : kidney or bladder not palpable Labs/imaging reviewed. Past medical history, past surgical history, family history, social history, allergy reviewed and noted as below Family hx: no hx of CKD. Rest non-contributory UA 3+ protein adn moderate blood mild to moderate LVH on echo Objective - Vital Signs/Intake and Output Vital Signs (last 24 hours): Temp Pulse Resp BP Pulse Ox 98.3 F 76 18 161/70 H 99 09/15/18 04:00 09/15/18 10:46 09/15/18 06:58 09/15/18 10:23 09/15/18 06:58 Intake and Output: 09/15/18 09/15/18 06:59 18:59 Intake Total 1600 Balance 1600 - Medications Medications: Current Medications Acetaminophen (Tylenol 650mg/20.3ml Solution Ud) 650 mg NG Q6H PRN PRN Reason: Temperature >100.4 Last Admin: 09/11/18 22:44 Dose: 650 mg Amlodipine Besylate (Norvasc) 10 mg PO DAILY [facility] Last Admin: 09/15/18 10:23 Dose: 10 mg Aspirin (Aspirin Chewable) 81 mg PO DAILY [facility] Last Admin: 09/15/18 10:23 Dose: 81 mg Atorvastatin Calcium (Lipitor) 40 mg PO DIN [facility] Last Admin: 09/14/18 17:51 Dose: 40 mg Clopidogrel Bisulfate (Plavix) 75 mg PO DAILY [facility] Last Admin: 09/15/18 10:23 Dose: 75 mg Dextrose (Dextrose 50% Inj) 0 ml IV STAT PRN; Protocol PRN Reason: Hypoglycemia Protocol Ergocalciferol (Drisdol 50,000 Intl Units Cap) 1 cap PO Q7D [facility] Last Admin: 09/14/18 15:15 Dose: 1 cap Hydralazine HCl (Apresoline) 10 mg IVP Q6 PRN PRN Reason: For SBP>160 Last Admin: 09/14/18 10:44 Dose: 10 mg Propofol (Diprivan) 1,000 mg in 100 mls @ 2.547 mls/hr IV .Q24H PRN; Protocol PRN Reason: TITRATE PER MD ORDER Last Titration: 09/12/18 11:00 Dose: 0 mcg/kg/min, 0 mls/hr Dextrose (Dextrose 5% In Water 1000 Ml) 1,000 mls @ 0 mls/hr IV .Q0M PRN; Protocol PRN Reason: Hypoglycemia Protocol Levetiracetam (Keppra 500mg Ivpb) 500 mg in 100 mls @ 400 mls/hr IVPB Q12 [facility] Last Admin: 09/15/18 10:23 Dose: 400 mls/hr Piperacillin Sod/Tazobactam Sod (Zosyn 3.375 In Ns 100ml) 100 mls @ 25 mls/hr IVPB Q8 [facility]; Protocol Stop: 09/23/18 22:01 Last Admin: 09/15/18 07:16 Dose: 25 mls/hr Sodium Chloride (Sodium Chloride 0.9%) 1,000 mls @ 50 mls/hr IV .Q20H [facility] Last Admin: 09/15/18 10:39 Dose: 50 mls/hr Insulin Detemir (Levemir) 20 unit SC Q12H [facility] Last Admin: 09/15/18 07:13 Dose: Not Given Insulin Human Regular (Humulin R Med) 0 units SC ACHS [facility]; Protocol Last Admin: 09/15/18 12:07 Dose: Not Given Losartan Potassium (Cozaar) 100 mg NG DAILY [facility] Metoprolol Tartrate (Lopressor) 25 mg PO BID [facility] Last Admin: 09/15/18 10:22 Dose: 25 mg Pantoprazole Sodium (Protonix Inj) 40 mg IVP DAILY [facility] Last Admin: 09/15/18 10:24 Dose: 40 mg - Labs Labs: 09/15/18 05:30 09/15/18 05:30 PT 12.2 SECONDS (9.4-12.5) 09/14/18 08:00 INR 1.08 09/14/18 08:00 APTT 30.6 Seconds (26.9-38.3) 09/14/18 08:00
--- NOTE | 2018-09-15 14:48 | CP.PCM.PCO ---
Physician Communication Note - Physician Communication Note Physician Communication Note: Pt.extubated this am,awaits speech/swallow eval,pt eval pending,CVA-Keppra
--- NOTE | 2018-09-15 16:24 | PN ---
DATE: 09/15/2018 SUBJECTIVE: The patient is in bed, in no acute distress, nontoxic. No fevers and no chills. PHYSICAL EXAMINATION: VITAL SIGNS: Temperature is 98, blood pressure is 120/70, respiratory rate of 16. HEENT: Unremarkable. NECK: Supple. LUNGS: Decreased breath sounds. HEART: Normal S1, S2. ABDOMEN: Soft. The patient has been afebrile now. The patient is still intubated on a ventilator. LABORATORY DATA: Laboratory examination reveals a white count of 8.6 and hemoglobin of 9.4. Sed rate is 46. Chemistries are noted. Creatinine of 1.2 and C-reactive protein is 11. Immunology is noted. Serology is HIV negative. Microbiology reveals the blood cultures are negative. Nares are negative. Chest x-ray is no active disease. ASSESSMENT AND PLAN: This is a 68-year-old female with acute cerebrovascular accident, likely embolic in nature and seizures and transesophageal echo showed no evidence of foramen ovale, no thrombosis, and no vegetations. Old blood cultures have been negative. The patient is afebrile at this time. Currently on Zosyn. Awaiting for further serology studies. Bartonella, , Whipple, and PCR. We will follow closely with you. Tejas Smiley MD
[2018-09-15] MEDS ORDERED: Dexmedetomidine 400mcg/100mL 400 MCG/100 ML BOTTLE IV PRN (17:33)
--- NOTE | 2018-09-15 19:52 | PN ---
DATE: 09/15/2018 SUBJECTIVE: The patient is 68 years old, seen and examined, still in ICU, bed 4. The patient was extubated an hour ago. Currently on BiPAP. Responds to verbal command by opening eyes, not very communicative. PHYSICAL EXAMINATION: VITAL SIGNS: She is afebrile, pulse 76, respiration 18, and blood pressure 161/70. LUNGS: Bilateral fair airflow. No rhonchi or crackle. HEART: S1 and S2 audible. ABDOMEN: Soft, obese, and nontender. No rebound. No guarding. NEUROLOGIC: The patient is awake, but not communicative. EXTREMITIES: Moves all extremities. LABORATORY DATA: WBC is 8.6, hemoglobin 9.4, hematocrit 29.2, and platelet 247. Chemistry; sodium 145, potassium 3.6, chloride 117, CO2 of 21, BUN 16, creatinine 1.2, and blood sugar of 156. ASSESSMENT: 1. Cerebrovascular accident with left upper extremity weakness. 2. Respiratory failure, successfully extubated this morning. 3. Insulin-dependent diabetes. 4. Hypertension. 5. Hyperlipidemia. PLAN: Currently the patient is on aspirin and losartan. She is on Keppra. Blood sugar is being monitored. She is on IV fluid. She is on IV antibiotic as per ID. We will request for a swallow evaluation. If she passes a swallow evaluation, we will start feeding her and make further disposition plans for acute rehab. Darryl Goodman MD
[2018-09-15 22:57] LABS: ANCA SCREEN NEGATIVE (NEGATIVE)
[2018-09-16] MEDS: Insulin Detemir 100 units/ml Vial (Levemir) SC SCH ×2 (05:42→17:40)
[2018-09-16] MEDS: Piperacillin/Tazobact 3.375 gm 100 ML IVPB SCH (05:43)
[2018-09-16] MEDS: Insulin Reg-MEDIUM-Coverage SC SCH ×4 (08:20→22:37)
[2018-09-16] MEDS: levETIRAcetam 500mg IVPB 500 MG/100 ML BAG IVPB SCH (09:56)
--- NOTE | 2018-09-16 11:50 | PN ---
DATE: 09/16/2018 SUBJECTIVE: The patient is in bed in no acute distress, nontoxic. No fevers and chills. She is doing well. She is awake. She is extubated. She was comfortable, awake and alert and responsive. PHYSICAL EXAMINATION: VITAL SIGNS: Temperature is 98, blood pressure is 180/60, respiratory rate of 18, heart rate of 91. HEENT: Unremarkable. NECK: Supple. LUNGS: Have decreased breath sounds. HEART: Normal S1, S2. ABDOMEN: Soft. LABORATORY EXAMINATION: Reveals a white count of 8.6, hemoglobin of 9, platelets of 247. Chemistries reveals a BUN of 12. Creatinine is 1.2 and C-reactive protein is 11. Urinalysis is noted. Immunology is reviewed. DAISY, ANCA and c-ANCA pending. Bartonella serology is pending and acute fever is negative. HIV is negative. Hepatitis C is negative. The patient Whipple's PCR result is also pending. The patient is currently on Zosyn. ASSESSMENT AND PLAN: This is a 68-year-old female who was admitted with acute cerebrovascular accident, embolic in nature with seizures. Thus far, all cultures have been negative. The patient's blood cultures were negative. Initially, the patient had not been on any antibiotics as outpatient, so these blood cultures are valuable, still negative at 5 days. Methicillin-resistant Staphylococcus aureus screen is negative and the patient did have transesophageal echocardiogram, which was also negative. No evidence of vegetations. No thrombosis noted. No plaques. No patent foramen ovale. The patient had a trans thoracic echocardiogram in addition to the transesophageal, which was also, no vegetations were seen. Minimal evidence for endocarditis, bacterial endocarditis were culture negative endocarditis with the exception of the embolic disease one minor criteria, no other Martinez's criteria is met. Blood cultures negative. Echo cultures are negative. No organisms identified. Embolic disease in the presence of fever on admission and no immune complex disease. There were no red blood cells casts on urinalysis. No casts seen on any of the urinalysis. No risk factors. The patient does not meet criteria for endocarditis. Culture negative, awaiting for Bartonella and Whipple's disease. We will discontinue the Zosyn at this point. No further antibiotics. We will follow with you. Tejas Smiley MD [facility] # [id number]
[2018-09-16 12:04] LABS: ALDO/PRA RATIO 2.3 Ratio (0.9-28.9)
--- NOTE | 2018-09-16 12:59 | CP.CCUPN ---
<Earnest Damico - Last Filed: 09/16/18 12:49> CCU Subjective - Physician Review Events Since Last Encounter (Free Text): 09/16/18 12:49 no acute events overnight Subjective (Free Text): 09/11/18 07:00 Pt seen and examined, pt intubated at time of exam 09/12/18 09:02 pt seen and examined, video EEG, pt responds to pain 09/14/18 10:35 seen and examined, NAD 09/15/18 07:59 pt seen and examined this morning, pt currently on CPAP 09/16/18 12:49 Pt seen and examined, pt able to answer questions, looks and feels much better than she did before CCU Objective - Vital Signs / Intake & Output Vital Signs (Last 4 hours): Vital Signs Temp Pulse Resp BP Pulse Ox 09/16/18 10:00 97.8 F 89 19 134/76 98 09/16/18 09:56 89 159/82 H 09/16/18 09:00 89 18 159/82 H 100 Intake and Output (Last 8hrs): Intake & Output 09/15/18 09/16/18 09/16/18 22:59 06:59 14:59 Intake Total 760 800 Output Total 800 1000 Balance -40 -200 Intake: IV 700 800 Right Internal Jugular 800 maintenance IV 700 Oral 0 Other 60 Output: Urine 800 1000 Urethral (Johns) 800 1000 Other: # Bowel Movements 0 0 - Physical Exam Head: Positive for: Atraumatic, Normocephalic Pupils: Positive for: PERRL Extroacular Muscles: Positive for: EOMI Conjunctiva: Positive for: Normal Mouth: Positive for: Moist Mucous Membranes Neck: Positive for: Normal Range of Motion Respiratory/Chest: Positive for: Clear to Auscultation, Good Air Exchange. Negative for: Respiratory Distress, Accessory Muscle Use Cardiovascular: Positive for: Regular Rate and Rhythm, Normal S1, S2. Negative for: Murmurs Abdomen: Negative for: Tenderness, Distention, Peritoneal Signs Back: Positive for: Normal Inspection Upper Extremity: Positive for: Normal Inspection. Negative for: Cyanosis, Edema Lower Extremity: Positive for: Normal Inspection. Negative for: Edema Neurological: Negative for: Speech Normal, Motor Func Grossly Intact (5/5 right side; 0/5 left side), Normal Sensory Function (decreased sensation left side) Skin: Positive for: Warm, Dry, Normal Color. Negative for: Rashes Psychiatric: Positive for: Alert, Oriented x 3, Normal Insight, Normal Concentration - Medications Active Medications: Active Medications Generic Name Dose Route Start Last Admin Trade Name Freq PRN Reason Stop Dose Admin Acetaminophen 650 mg 09/11/18 17:02 09/11/18 22:44 Tylenol 650mg/20.3ml Solution Ud NG 650 mg Q6H PRN Administration Temperature >100.4 Amlodipine Besylate 10 mg 09/12/18 10:00 09/16/18 09:56 Norvasc PO 10 mg DAILY JAMES Administration Aspirin 81 mg 09/13/18 12:30 09/16/18 09:56 Aspirin Chewable PO 81 mg DAILY JAMES Administration Atorvastatin Calcium 40 mg 09/13/18 17:00 09/15/18 17:22 Lipitor PO Not Given DIN JAMES Clopidogrel Bisulfate 75 mg 09/13/18 12:30 09/16/18 09:56 Plavix PO 75 mg DAILY JAMES Administration Dextrose 0 ml 09/12/18 17:24 Dextrose 50% Inj IV STAT PRN Hypoglycemia Protocol Protocol Ergocalciferol 1 cap 09/13/18 15:30 09/14/18 15:15 Drisdol 50,000 Intl Units Cap PO 1 cap Q7D JAMES Administration Hydralazine HCl 10 mg 09/11/18 13:30 09/16/18 05:41 Apresoline IVP 10 mg Q6 PRN Administration For SBP>160 Propofol 1,000 mg in 100 mls @ 2.547 mls/hr 09/10/18 17:03 09/12/18 11:00 Diprivan IV 0 mcg/kg/min .Q24H PRN 0 mls/hr TITRATE PER MD ORDER Titration Protocol 5 MCG/KG/MIN Dextrose 1,000 mls @ 0 mls/hr 09/12/18 17:24 Dextrose 5% In Water 1000 Ml IV .Q0M PRN Hypoglycemia Protocol Protocol Per Protocol Levetiracetam 500 mg in 100 mls @ 400 mls/hr 09/14/18 22:00 09/16/18 09:56 Keppra 500mg Ivpb IVPB 400 mls/hr Q12 JAMES Administration Sodium Chloride 1,000 mls @ 50 mls/hr 09/15/18 07:29 09/15/18 10:39 Sodium Chloride 0.9% IV 50 mls/hr .Q20H JAMES Administration Insulin Detemir 20 unit 09/13/18 06:00 09/16/18 05:42 Levemir SC 10 units Q12H JAMES Administration Insulin Human Regular 0 units 09/12/18 22:00 09/16/18 12:19 Humulin R Med SC Not Given ACHS [facility] Protocol Levetiracetam 500 mg 09/16/18 12:00 09/16/18 12:19 Keppra PO 500 mg Q12 JAMES Administration Losartan Potassium 100 mg 09/16/18 11:41 Cozaar PO DAILY JAMES Metoprolol Tartrate 25 mg 09/11/18 18:00 09/16/18 09:56 Lopressor PO 25 mg BID JAMES Administration Pantoprazole Sodium 40 mg 09/11/18 10:00 09/16/18 09:55 Protonix Inj IVP 40 mg DAILY JAMES Administration - Patient Studies Lab Studies: Microbiology Studies 09/10/18 13:20 Blood Culture - Final Blood NO GROWTH AFTER 5 DAYS Gram Stain - Final TEST NOT PERFORMED 09/10/18 12:50 Blood Culture - Final Blood NO GROWTH AFTER 5 DAYS Gram Stain - Final TEST NOT PERFORMED Lab Studies 09/16/18 09/16/18 09/15/18 Range/Units 11:21 05:13 21:20 POC Glucose (mg/dL) 130 H 134 H 131 H (65-110) mg/dL Renin (0.25-5.82) ng/mL/h Aldosterone ng/dL Aldosterone/Renin Ratio (0.9-28.9) Ratio Rheumatoid Factor (<14) IU/mL DAISY Screen (NEGATIVE) DAISY Titer DAISY Pattern ANCA Screen (NEGATIVE) c-ANCA Titer p-ANCA Titer Atypical p-ANCA Titer SS-A Antibody (<1.0 NEGATIVE) AI SS-B Antibody (<1.0 NEGATIVE) AI Sm (Riddle) Antibody (<1.0 NEGATIVE) AI SM/MORTGAGE OR LOAN UNDERWRITER Antibody (<1.0 NEGATIVE) AI Scl-70 Antibody (<1.0 NEGATIVE) AI Anti-ds DNA Titer (Crith) Anti-ds DNA (Crithidia) (NEGATIVE) Ribosomal P Prot Ab (<1.0 NEGATIVE) AI Actin IgG Antibody U Striated Muscle Ab Myocardial Ab Titer Anti-Myocardial Ab (NEGATIVE) Reticulin Ab Titer Reticulin IgA Antibody (NEGATIVE) Thyroperoxidase Ab (<9) IU/mL T.pallidum Ab (FTA-ABS) (Nonreactive) Q Fever Phase I IgG Ab Q Fever Phase I IgM Ab Q Fever Phase II IgG Ab Q Fever Phase II IgM Ab 09/15/18 09/13/18 09/13/18 Range/Units 16:09 06:15 06:15 POC Glucose (mg/dL) 158 H (65-110) mg/dL Renin 1.31 (0.25-5.82) ng/mL/h Aldosterone 3 ng/dL Aldosterone/Renin Ratio 2.3 (0.9-28.9) Ratio Rheumatoid Factor (<14) IU/mL DAISY Screen (NEGATIVE) DAISY Titer DAISY Pattern ANCA Screen (NEGATIVE) c-ANCA Titer p-ANCA Titer Atypical p-ANCA Titer SS-A Antibody (<1.0 NEGATIVE) AI SS-B Antibody (<1.0 NEGATIVE) AI Sm (Riddle) Antibody (<1.0 NEGATIVE) AI SM/MORTGAGE OR LOAN UNDERWRITER Antibody (<1.0 NEGATIVE) AI Scl-70 Antibody (<1.0 NEGATIVE) AI Anti-ds DNA Titer (Crith) Anti-ds DNA (Crithidia) (NEGATIVE) Ribosomal P Prot Ab (<1.0 NEGATIVE) AI Actin IgG Antibody U Striated Muscle Ab Myocardial Ab Titer Anti-Myocardial Ab (NEGATIVE) Reticulin Ab Titer Reticulin IgA Antibody (NEGATIVE) Thyroperoxidase Ab (<9) IU/mL T.pallidum Ab (FTA-ABS) Nonreactive (Nonreactive) Q Fever Phase I IgG Ab Negative Q Fever Phase I IgM Ab Negative Q Fever Phase II IgG Ab Negative Q Fever Phase II IgM Ab Negative 09/12/18 09/12/18 Range/Units 16:10 16:10 POC Glucose (mg/dL) (65-110) mg/dL Renin (0.25-5.82) ng/mL/h Aldosterone ng/dL Aldosterone/Renin Ratio (0.9-28.9) Ratio Rheumatoid Factor <14 (<14) IU/mL DAISY Screen Negative (NEGATIVE) DAISY Titer TNP DAISY Pattern TNP ANCA Screen Negative (NEGATIVE) c-ANCA Titer TNP p-ANCA Titer TNP Atypical p-ANCA Titer TNP SS-A Antibody <1.0 neg (<1.0 NEGATIVE) AI SS-B Antibody <1.0 neg (<1.0 NEGATIVE) AI Sm (Riddle) Antibody <1.0 neg (<1.0 NEGATIVE) AI SM/MORTGAGE OR LOAN UNDERWRITER Antibody <1.0 neg (<1.0 NEGATIVE) AI Scl-70 Antibody <1.0 neg (<1.0 NEGATIVE) AI Anti-ds DNA Titer (Crith) TNP Anti-ds DNA (Crithidia) Negative (NEGATIVE) Ribosomal P Prot Ab <1.0 neg (<1.0 NEGATIVE) AI Actin IgG Antibody <20 U Striated Muscle Ab TNP Myocardial Ab Titer TNP Anti-Myocardial Ab Negative (NEGATIVE) Reticulin Ab Titer TNP Reticulin IgA Antibody Negative (NEGATIVE) Thyroperoxidase Ab <1 (<9) IU/mL T.pallidum Ab (FTA-ABS) (Nonreactive) Q Fever Phase I IgG Ab Q Fever Phase I IgM Ab Q Fever Phase II IgG Ab Q Fever Phase II IgM Ab Laboratory Results - last 24 hr 09/12/18 09/12/18 09/13/18 16:10 16:10 06:15 POC Glucose (mg/dL) Renin Aldosterone Aldosterone/Renin Ratio Rheumatoid Factor <14 DAISY Screen Negative DAISY Titer TNP DAISY Pattern TNP ANCA Screen Negative c-ANCA Titer TNP p-ANCA Titer TNP Atypical p-ANCA Titer TNP SS-A Antibody <1.0 neg SS-B Antibody <1.0 neg Sm (Riddle) Antibody <1.0 neg SM/MORTGAGE OR LOAN UNDERWRITER Antibody <1.0 neg Scl-70 Antibody <1.0 neg Anti-ds DNA Titer (Crith) TNP Anti-ds DNA (Crithidia) Negative Ribosomal P Prot Ab <1.0 neg Actin IgG Antibody <20 Striated Muscle Ab TNP Myocardial Ab Titer TNP Anti-Myocardial Ab Negative Reticulin Ab Titer TNP Reticulin IgA Antibody Negative Thyroperoxidase Ab <1 T.pallidum Ab (FTA-ABS) Nonreactive Q Fever Phase I IgG Ab Negative Q Fever Phase I IgM Ab Negative Q Fever Phase II IgG Ab Negative Q Fever Phase II IgM Ab Negative 09/13/18 09/15/18 09/15/18 06:15 16:09 21:20 POC Glucose (mg/dL) 158 H 131 H Renin 1.31 Aldosterone 3 Aldosterone/Renin Ratio 2.3 Rheumatoid Factor DAISY Screen DAISY Titer DAISY Pattern ANCA Screen c-ANCA Titer p-ANCA Titer Atypical p-ANCA Titer SS-A Antibody SS-B Antibody Sm (Riddle) Antibody SM/MORTGAGE OR LOAN UNDERWRITER Antibody Scl-70 Antibody Anti-ds DNA Titer (Crith) Anti-ds DNA (Crithidia) Ribosomal P Prot Ab Actin IgG Antibody Striated Muscle Ab Myocardial Ab Titer Anti-Myocardial Ab Reticulin Ab Titer Reticulin IgA Antibody Thyroperoxidase Ab T.pallidum Ab (FTA-ABS) Q Fever Phase I IgG Ab Q Fever Phase I IgM Ab Q Fever Phase II IgG Ab Q Fever Phase II IgM Ab 09/16/18 09/16/18 05:13 11:21 POC Glucose (mg/dL) 134 H 130 H Renin Aldosterone Aldosterone/Renin Ratio Rheumatoid Factor DAISY Screen DAISY Titer DAISY Pattern ANCA Screen c-ANCA Titer p-ANCA Titer Atypical p-ANCA Titer SS-A Antibody SS-B Antibody Sm (Riddle) Antibody SM/MORTGAGE OR LOAN UNDERWRITER Antibody Scl-70 Antibody Anti-ds DNA Titer (Crith) Anti-ds DNA (Crithidia) Ribosomal P Prot Ab Actin IgG Antibody Striated Muscle Ab Myocardial Ab Titer Anti-Myocardial Ab Reticulin Ab Titer Reticulin IgA Antibody Thyroperoxidase Ab T.pallidum Ab (FTA-ABS) Q Fever Phase I IgG Ab Q Fever Phase I IgM Ab Q Fever Phase II IgG Ab Q Fever Phase II IgM Ab Fingerstick Blood Sugar Results: 156 Critical Care Progress Note - Nutrition Nutrition: Nutrition Category Date Time Status Heart Healthy Diet [DIET] Diets 09/16/18 Lunch Active Assessment/Plan - Assessment and Plan (Free Text) Assessment: Pt is a 68 yo female with a PMH of HTN and DM who was found down by her with unilateral weakness. Brain MRI later showed multiple emboli in both hemispheres of the brain. Plan: Neuro - extubated - multiple emboli in both hemispheres of the brain, and unilateral weakness on exam - pt had a seizure in the ICU and was given propofol, ativan 8mg, keppra 1000 IV q12, continuous EEG, Korya notified - ASA, lipitor, plavix - Head CT no acute intracranial pathology, age related changes - Head neck CTA no evidence of occlusion significant stenosis or dissection of the carotid arteries. There is a calcified athrosclerotic plaque both carotid siphons. There is moderate calcified plaque of the distal right vertebral artery. with minimal calfified plaque left vertebral artery. Intra cerebral circulation is patent. No evidence of large aneurysm nor vascular malformation. - Brain MRI there are multiple small acute infarcts seen scattered about both cerebral hemispheres. There findings suggest embolic event given the involvement of bilateral vascular distributions. - ECHO showed no vegetations or thrombus, no ASD or PFO - Neuro consulted, Dr Mann Cardio - hydralazine, metoprolol, amlodipine, ASA, lipitor, plavix - ECHO EF55-60%, RVSP29, aneurysmal atrial septum, no sings of ASD, no vegetations or thrombus noted - Cardio consulted, Dr Benigno Foy - Ventilator dependent respiratory failure, with associated AMS of combined etiology due to recent CVA and toxic metabolic encephalopathy - maintain O2 >92 GI - NPO Nephro/ - monitor BUN/Cr 16/1.2 - monitor electrolytes - UA protein, glucose, ketones, blood, bilirubin, LE, RBC, WBC Heme/ Onc - Hgb 9.4 - INR 1.08 ID - WBC 9.8 - blood cultures NGTD - ID consulted, Dr Smiley Endo - HA1C 8.7 - levemir 20 SC q12 - ISS Dispo: pt to be transferred out of the ICU Pt seen, examined, assessment and plan discussed with Dr Bell Damico PGY1 - Date & Time Date: 09/16/18 Time: 12:50 <Thomas Luu - Last Filed: 09/16/18 19:02> CCU Objective - Vital Signs / Intake & Output Vital Signs (Last 4 hours): Vital Signs Temp Pulse Resp BP Pulse Ox 09/16/18 18:53 97 H 18 169/85 H 97 09/16/18 17:40 184/101 H 09/16/18 15:30 98.3 F 94 H 20 173/78 H 97 Intake and Output (Last 8hrs): Intake & Output 09/16/18 09/16/18 09/16/18 06:59 14:59 22:59 Intake Total 800 350 240 Output Total 1000 255 Balance -200 95 240 Intake: IV 800 300 Right Internal Jugular 800 300 Oral 0 50 240 Output: Urine 1000 255 Urethral (Johns) 1000 255 Other: # Bowel Movements 0 0 - Medications Active Medications: Active Medications Generic Name Dose Route Start Last Admin Trade Name Freq PRN Reason Stop Dose Admin Acetaminophen 650 mg 09/11/18 17:02 09/16/18 17:40 Tylenol 650mg/20.3ml Solution Ud NG 650 mg Q6H PRN Administration Temperature >100.4 Amlodipine Besylate 10 mg 09/12/18 10:00 09/16/18 09:56 Norvasc PO 10 mg DAILY JAMES Administration Aspirin 81 mg 09/13/18 12:30 09/16/18 09:56 Aspirin Chewable PO 81 mg DAILY JAMES Administration Atorvastatin Calcium 40 mg 09/13/18 17:00 09/16/18 17:40 Lipitor PO 40 mg DIN AJMES Administration Clonidine HCl 0.1 mg 09/16/18 17:04 09/16/18 17:40 Catapres PO 0.1 mg Q6H PRN Administration Give for systolic over 150 Clopidogrel Bisulfate 75 mg 09/13/18 12:30 09/16/18 09:56 Plavix PO 75 mg DAILY JAMES Administration Dextrose 0 ml 09/12/18 17:24 Dextrose 50% Inj IV STAT PRN Hypoglycemia Protocol Protocol Ergocalciferol 1 cap 09/13/18 15:30 09/14/18 15:15 Drisdol 50,000 Intl Units Cap PO 1 cap Q7D JAMES Administration Dextrose 1,000 mls @ 0 mls/hr 09/12/18 17:24 Dextrose 5% In Water 1000 Ml IV .Q0M PRN Hypoglycemia Protocol Protocol Per Protocol Insulin Detemir 20 unit 09/13/18 06:00 09/16/18 17:40 Levemir SC 20 units Q12H JAMES Administration Insulin Human Regular 0 units 09/12/18 22:00 09/16/18 17:40 Humulin R Med SC 1 unit ACHS JAMES Administration Protocol Levetiracetam 500 mg 09/16/18 12:00 09/16/18 12:19 Keppra PO 500 mg Q12 JAMES Administration Losartan Potassium 100 mg 09/17/18 10:00 Cozaar PO DAILY [facility] Pantoprazole Sodium 40 mg 09/11/18 10:00 09/16/18 09:55 Protonix Inj IVP 40 mg DAILY JAMES Administration - Patient Studies Lab Studies: Microbiology Studies 09/10/18 13:20 Blood Culture - Final Blood NO GROWTH AFTER 5 DAYS Gram Stain - Final TEST NOT PERFORMED 09/10/18 12:50 Blood Culture - Final Blood NO GROWTH AFTER 5 DAYS Gram Stain - Final TEST NOT PERFORMED Lab Studies 09/16/18 09/16/18 09/16/18 Range/Units 16:05 11:21 05:13 POC Glucose (mg/dL) 178 H 130 H 134 H (65-110) mg/dL Renin (0.25-5.82) ng/mL/h Aldosterone ng/dL Aldosterone/Renin Ratio (0.9-28.9) Ratio Rheumatoid Factor (<14) IU/mL DAISY Screen (NEGATIVE) DAISY Titer DAISY Pattern ANCA Screen (NEGATIVE) c-ANCA Titer p-ANCA Titer Atypical p-ANCA Titer SS-A Antibody (<1.0 NEGATIVE) AI SS-B Antibody (<1.0 NEGATIVE) AI Sm (Riddle) Antibody (<1.0 NEGATIVE) AI SM/MORTGAGE OR LOAN UNDERWRITER Antibody (<1.0 NEGATIVE) AI Scl-70 Antibody (<1.0 NEGATIVE) AI Anti-ds DNA Titer (Crith) Anti-ds DNA (Crithidia) (NEGATIVE) Ribosomal P Prot Ab (<1.0 NEGATIVE) AI Anti-Mitochondrial Titr Anti-Mitochondrial Ab (NEGATIVE) Actin IgG Antibody U Reticulin Ab Titer Reticulin IgA Antibody (NEGATIVE) Q Fever Phase I IgG Ab Q Fever Phase I IgM Ab Q Fever Phase II IgG Ab Q Fever Phase II IgM Ab 09/15/18 09/13/18 09/13/18 Range/Units 21:20 06:15 06:15 POC Glucose (mg/dL) 131 H (65-110) mg/dL Renin 1.31 (0.25-5.82) ng/mL/h Aldosterone 3 ng/dL Aldosterone/Renin Ratio 2.3 (0.9-28.9) Ratio Rheumatoid Factor (<14) IU/mL DAISY Screen (NEGATIVE) DAISY Titer DAISY Pattern ANCA Screen (NEGATIVE) c-ANCA Titer p-ANCA Titer Atypical p-ANCA Titer SS-A Antibody (<1.0 NEGATIVE) AI SS-B Antibody (<1.0 NEGATIVE) AI Sm (Riddle) Antibody (<1.0 NEGATIVE) AI SM/MORTGAGE OR LOAN UNDERWRITER Antibody (<1.0 NEGATIVE) AI Scl-70 Antibody (<1.0 NEGATIVE) AI Anti-ds DNA Titer (Crith) Anti-ds DNA (Crithidia) (NEGATIVE) Ribosomal P Prot Ab (<1.0 NEGATIVE) AI Anti-Mitochondrial Titr Anti-Mitochondrial Ab (NEGATIVE) Actin IgG Antibody U Reticulin Ab Titer Reticulin IgA Antibody (NEGATIVE) Q Fever Phase I IgG Ab Negative Q Fever Phase I IgM Ab Negative Q Fever Phase II IgG Ab Negative Q Fever Phase II IgM Ab Negative 09/12/18 09/12/18 Range/Units 16:10 16:10 POC Glucose (mg/dL) (65-110) mg/dL Renin (0.25-5.82) ng/mL/h Aldosterone ng/dL Aldosterone/Renin Ratio (0.9-28.9) Ratio Rheumatoid Factor <14 (<14) IU/mL DAISY Screen Negative (NEGATIVE) DAISY Titer TNP DAISY Pattern TNP ANCA Screen Negative (NEGATIVE) c-ANCA Titer TNP p-ANCA Titer TNP Atypical p-ANCA Titer TNP SS-A Antibody <1.0 neg (<1.0 NEGATIVE) AI SS-B Antibody <1.0 neg (<1.0 NEGATIVE) AI Sm (Riddle) Antibody <1.0 neg (<1.0 NEGATIVE) AI SM/MORTGAGE OR LOAN UNDERWRITER Antibody <1.0 neg (<1.0 NEGATIVE) AI Scl-70 Antibody <1.0 neg (<1.0 NEGATIVE) AI Anti-ds DNA Titer (Crith) TNP Anti-ds DNA (Crithidia) Negative (NEGATIVE) Ribosomal P Prot Ab <1.0 neg (<1.0 NEGATIVE) AI Anti-Mitochondrial Titr TNP Anti-Mitochondrial Ab Negative (NEGATIVE) Actin IgG Antibody <20 U Reticulin Ab Titer TNP Reticulin IgA Antibody Negative (NEGATIVE) Q Fever Phase I IgG Ab Q Fever Phase I IgM Ab Q Fever Phase II IgG Ab Q Fever Phase II IgM Ab Laboratory Results - last 24 hr 09/12/18 09/12/18 09/13/18 16:10 16:10 06:15 POC Glucose (mg/dL) Renin Aldosterone Aldosterone/Renin Ratio Rheumatoid Factor <14 DAISY Screen Negative DAISY Titer TNP DAISY Pattern TNP ANCA Screen Negative c-ANCA Titer TNP p-ANCA Titer TNP Atypical p-ANCA Titer TNP SS-A Antibody <1.0 neg SS-B Antibody <1.0 neg Sm (Riddle) Antibody <1.0 neg SM/MORTGAGE OR LOAN UNDERWRITER Antibody <1.0 neg Scl-70 Antibody <1.0 neg Anti-ds DNA Titer (Crith) TNP Anti-ds DNA (Crithidia) Negative Ribosomal P Prot Ab <1.0 neg Anti-Mitochondrial Titr TNP Anti-Mitochondrial Ab Negative Actin IgG Antibody <20 Reticulin Ab Titer TNP Reticulin IgA Antibody Negative Q Fever Phase I IgG Ab Negative Q Fever Phase I IgM Ab Negative Q Fever Phase II IgG Ab Negative Q Fever Phase II IgM Ab Negative 09/13/18 09/15/18 09/16/18 06:15 21:20 05:13 POC Glucose (mg/dL) 131 H 134 H Renin 1.31 Aldosterone 3 Aldosterone/Renin Ratio 2.3 Rheumatoid Factor DAISY Screen DAISY Titer DAISY Pattern ANCA Screen c-ANCA Titer p-ANCA Titer Atypical p-ANCA Titer SS-A Antibody SS-B Antibody Sm (Riddle) Antibody SM/MORTGAGE OR LOAN UNDERWRITER Antibody Scl-70 Antibody Anti-ds DNA Titer (Crith) Anti-ds DNA (Crithidia) Ribosomal P Prot Ab Anti-Mitochondrial Titr Anti-Mitochondrial Ab Actin IgG Antibody Reticulin Ab Titer Reticulin IgA Antibody Q Fever Phase I IgG Ab Q Fever Phase I IgM Ab Q Fever Phase II IgG Ab Q Fever Phase II IgM Ab 09/16/18 09/16/18 11:21 16:05 POC Glucose (mg/dL) 130 H 178 H Renin Aldosterone Aldosterone/Renin Ratio Rheumatoid Factor DAISY Screen DAISY Titer DAISY Pattern ANCA Screen c-ANCA Titer p-ANCA Titer Atypical p-ANCA Titer SS-A Antibody SS-B Antibody Sm (Riddle) Antibody SM/MORTGAGE OR LOAN UNDERWRITER Antibody Scl-70 Antibody Anti-ds DNA Titer (Crith) Anti-ds DNA (Crithidia) Ribosomal P Prot Ab Anti-Mitochondrial Titr Anti-Mitochondrial Ab Actin IgG Antibody Reticulin Ab Titer Reticulin IgA Antibody Q Fever Phase I IgG Ab Q Fever Phase I IgM Ab Q Fever Phase II IgG Ab Q Fever Phase II IgM Ab Radiology Impressions: Radiology Impressions Chest X-Ray 09/15/18 19:06 IMPRESSION: No active disease. Critical Care Progress Note - Nutrition Nutrition: Nutrition Category Date Time Status Heart Healthy Diet [DIET] Diets 09/16/18 Lunch Active Attending/Attestation - Attestation I have fully participated in the care of the patient.: Yes I have reviewed all pertinent clinical information: Yes Notes (Text): 09/16/18 19:00 68 yo female with respiratory failure due to stroke, now recovered and successfully extubated yesterday. uneventful night. hemodynamically and respiratory ruth stable. ok to downgrade to mid [facility] ccm time 40 min
--- NOTE | 2018-09-16 13:52 | CP.PCM.PN ---
Subjective - Date & Time of Evaluation Date of Evaluation: 09/16/18 Time of Evaluation: 13:51 - Subjective Subjective: Nephrology Consultation Note: Assessment:Stable Acute Kidney Injury (N17.9) likely due to ATN [contrast nephropathy, sepsis and hemodynamic changes from BP fluctuations]: IMPROVING Hypokalemia and HTN emergency r/o secondary HTN proteinuria and microscopic hematuria r/o GN acute CVA, seizure sepsis, UTI, acute respi failure, obesity, vit d def CKD 1 with 1.7 gram proteinuria and 641 mg albuminuria Plan No acute need for renal replacement therapy at this time. Cr improving continue current bp meds - stable Monitor Input/Output, daily weights and renal function with basic metabolic panel lytes stable ID, Neuro, Cardio following f/u serologic work up f/u Secondary HTN work up with plasma renin/aldosterone, plasma metanephrine and renal artery Doppler to r/o renal artery stenosis S: seen and examined feels ok transferred to floors Physical Examination: General Appearance: Comfortable, in no acute respiratory distress, Vitals reviewed and noted as below Head; Atraumatic, normocephalic ENT: clear op Neck; supple no lymphadenopathy, no thyromegaly or bruit Lungs: Normal respiratory rate/effort. Breath sounds bilateral equal and clear Heart: Normal rate. s1s2 normal. No rub or gallop. Extremities: no edema. No varicose veins Neurological: Patient is awake alert follow commands Skin: Warm and dry. Normal turgor. No rash. Palpitation: Normal elasticity for age Abdomen: Abdomen is soft. Bowel sounds +. There is no abdominal tenderness, no guarding/rigidity no organomegaly Psych: deferred MSK: no joint tenderness or swelling. Digits and nails normal, no deformity : kidney or bladder not palpable Labs/imaging reviewed. Past medical history, past surgical history, family history, social history, allergy reviewed and noted as below Family hx: no hx of CKD. Rest non-contributory Objective - Vital Signs/Intake and Output Vital Signs (last 24 hours): Temp Pulse Resp BP Pulse Ox 97.8 F 89 19 134/76 98 09/16/18 10:00 09/16/18 10:00 09/16/18 10:00 09/16/18 10:00 09/16/18 10:00 Intake and Output: 09/16/18 09/16/18 06:59 18:59 Intake Total 800 Output Total 1000 Balance -200 - Medications Medications: Current Medications Acetaminophen (Tylenol 650mg/20.3ml Solution Ud) 650 mg NG Q6H PRN PRN Reason: Temperature >100.4 Last Admin: 09/11/18 22:44 Dose: 650 mg Amlodipine Besylate (Norvasc) 10 mg PO DAILY [facility] Last Admin: 09/16/18 09:56 Dose: 10 mg Aspirin (Aspirin Chewable) 81 mg PO DAILY [facility] Last Admin: 09/16/18 09:56 Dose: 81 mg Atorvastatin Calcium (Lipitor) 40 mg PO DIN [facility] Last Admin: 09/15/18 17:22 Dose: Not Given Clopidogrel Bisulfate (Plavix) 75 mg PO DAILY [facility] Last Admin: 09/16/18 09:56 Dose: 75 mg Dextrose (Dextrose 50% Inj) 0 ml IV STAT PRN; Protocol PRN Reason: Hypoglycemia Protocol Ergocalciferol (Drisdol 50,000 Intl Units Cap) 1 cap PO Q7D [facility] Last Admin: 09/14/18 15:15 Dose: 1 cap Hydralazine HCl (Apresoline) 10 mg IVP Q6 PRN PRN Reason: For SBP>160 Last Admin: 09/16/18 05:41 Dose: 10 mg Propofol (Diprivan) 1,000 mg in 100 mls @ 2.547 mls/hr IV .Q24H PRN; Protocol PRN Reason: TITRATE PER MD ORDER Last Titration: 09/12/18 11:00 Dose: 0 mcg/kg/min, 0 mls/hr Dextrose (Dextrose 5% In Water 1000 Ml) 1,000 mls @ 0 mls/hr IV .Q0M PRN; Protocol PRN Reason: Hypoglycemia Protocol Levetiracetam (Keppra 500mg Ivpb) 500 mg in 100 mls @ 400 mls/hr IVPB Q12 [facility] Last Admin: 09/16/18 09:56 Dose: 400 mls/hr Sodium Chloride (Sodium Chloride 0.9%) 1,000 mls @ 50 mls/hr IV .Q20H [facility] Last Admin: 09/15/18 10:39 Dose: 50 mls/hr Insulin Detemir (Levemir) 20 unit SC Q12H [facility] Last Admin: 09/16/18 05:42 Dose: 10 units Insulin Human Regular (Humulin R Med) 0 units SC ACHS [facility]; Protocol Last Admin: 09/16/18 12:19 Dose: Not Given Levetiracetam (Keppra) 500 mg PO Q12 [facility] Last Admin: 09/16/18 12:19 Dose: 500 mg Losartan Potassium (Cozaar) 100 mg PO DAILY [facility] Metoprolol Tartrate (Lopressor) 25 mg PO BID [facility] Last Admin: 09/16/18 09:56 Dose: 25 mg Pantoprazole Sodium (Protonix Inj) 40 mg IVP DAILY [facility] Last Admin: 09/16/18 09:55 Dose: 40 mg - Labs Labs: 09/15/18 05:30 09/15/18 05:30 PT 12.2 SECONDS (9.4-12.5) 09/14/18 08:00 INR 1.08 09/14/18 08:00 APTT 30.6 Seconds (26.9-38.3) 09/14/18 08:00
--- NOTE | 2018-09-16 14:08 | PN ---
DATE: 09/16/2018 LOCATION: The patient is CCU 129, bed 4. REASON FOR CONSULTATION: Follow up, admitted with cerebrovascular accident, left upper extremity weakness, respiratory failure. The patient was intubated today. The patient has been extubated. SUBJECTIVE: The patient is conscious, alert. The patient has been already extubated. Denies any chest pain, shortness of breath, or palpitation. PHYSICAL EXAMINATION: VITAL SIGNS: Blood pressure 137/69, respirations 18, pulse 89. The patient is afebrile. HEENT: Head is normocephalic. Eyes, pupils are normal. Conjunctivae slightly pale. NECK: JVP low. Carotid equal. Thorax AP diameter normal. LUNGS: Clear. CARDIOVASCULAR: S1, S2. ABDOMEN: Soft. No tenderness. No organomegaly. EXTREMITIES: No clubbing. No cyanosis. LABORATORY DATA: WBC 8.6, hemoglobin 9.4, hematocrit 29.2, platelet 247. Sodium 145, potassium 3.6, BUN 16, creatinine 1.2, random sugar 134 sugar 136, total bilirubin 0.4, AST and ALT normal, total protein 5.5, albumin 2.7. DIAGNOSES: Acute cerebrovascular accident with left upper extremity weakness, more upper extremity than lower extremity; history of hypertension; hyperlipidemia. The patient had esophageal echo, which did not show any patent foramen ovale. No evidence of left ventricular thrombus. No vegetations. No plaques were noted. Status post respiratory failure. Now, the patient has been successfully extubated. PLAN: To continue aspirin 81 mg daily, losartan 100 mg daily. The patient is getting dexmedetomidine 400 mcg in 100 mL of IV fluids 0.2 mcg/kg/hour. 500 mg IV every 12 hours, insulin detemir 20 units subcutaneous every 12 hours, atorvastatin 40 mg daily, metoprolol 25 mg b.i.d., amlodipine 10 mg daily, Plavix 75 mg daily. We will continue present therapy and we will follow with you. May Ramirez MD
--- NOTE | 2018-09-16 14:32 | PN ---
DATE: 09/16/2018 SUBJECTIVE: The patient is 68 years old, seen and examined, seems to be much more alert. Denies any nausea or vomiting. States she is hungry. She is tolerating liquids. I fed her applesauce, no evidence of aspiration. PHYSICAL EXAMINATION: VITAL SIGNS: She is afebrile, pulse 89, respiration 19, and blood pressure 134/76. LUNGS: Bilateral fair airflow. No rhonchi or crackle. HEART: S1 and S2 audible. ABDOMEN: Soft, nontender, and obese. No hepatosplenomegaly. NEUROLOGIC: The patient is awake and alert. Able to communicate. LABORATORY DATA: There is no new lab available today. Blood sugar is 130. ASSESSMENT: 1. Status post cerebrovascular accident, multiple infarcts with left upper extremity weakness. 2. Hypertension. 3. Insulin-dependent diabetes. 4. Renal insufficiency. PLAN: The patient is clinically stable. We will continue the patient on aspirin 81 daily. She is on losartan 100 mg daily. We will change her medications to p.o. Discontinue her fluid. Encourage p.o. intake. Also, her Keppra will be changed to p.o. We will request for physical therapy evaluation and we will follow up the patient in a.m. We will monitor her blood sugar. Monitor her . Darryl Goodman MD
--- NOTE | 2018-09-16 17:17 | RAD ---
Date of service: 09/15/2018 HISTORY: confirm line placement COMPARISON: 09/15/2018 TECHNIQUE: 1 view obtained. FINDINGS: LUNGS: No active pulmonary disease. PLEURA: No significant pleural effusion identified, no pneumothorax apparent. CARDIOVASCULAR: No aortic atherosclerotic calcification present. Normal cardiac size. No congestive change. Right internal jugular central venous catheter noted. OSSEOUS STRUCTURES: No significant abnormalities. VISUALIZED UPPER ABDOMEN: Normal. OTHER FINDINGS: None. IMPRESSION: No active disease.
[2018-09-16] MEDS: Acetaminophen 650mg/20.3ml solution UD NG PRN (17:40)
--- NOTE | 2018-09-16 22:56 | OP ---
PROCEDURE DATE: 09/15/2018 PROCEDURE: Right internal jugular central venous catheter placement. INDICATION: Lack of IV access. DESCRIPTION OF PROCEDURE: After obtaining informed consent, operational area was sterilized. Maximum barrier precautions used. Right IJ was cannulated by sterile Seldinger technique under real-time ultrasound guidance. Guidewire removed. Hemostasis achieved. Sterile dressing applied. Time-out performed before the procedure. Chest x-ray confirmed position of the CVC in the right atrium. No hemothorax. EBL is minimal. The patient tolerated the procedure well. Thomas Luu MD [facility]
[2018-09-17] MEDS: Insulin Detemir 100 units/ml Vial (Levemir) SC SCH ×2 (06:01→17:22)
[2018-09-17] MEDS: Insulin Reg-MEDIUM-Coverage SC SCH ×4 (08:43→22:11)
--- NOTE | 2018-09-17 08:50 | CP.PCM.PN ---
Subjective - Date & Time of Evaluation Date of Evaluation: 09/17/18 Time of Evaluation: 07:00 - Subjective Subjective: Awake, no distress Reason for consultation and follow up: Cardiac evaluation and follow up; admitted with CVA, intubated, left upper extremity weakness, now extubated Seen and examined by me and Dr. Ramirez Objective - Vital Signs/Intake and Output Vital Signs (last 24 hours): Temp Pulse Resp BP Pulse Ox 97.5 F L 68 20 149/91 H 100 09/17/18 06:00 09/17/18 06:00 09/17/18 06:00 09/17/18 06:00 09/17/18 06:00 Intake and Output: 09/17/18 09/17/18 06:59 18:59 Intake Total 540 Output Total 250 Balance 290 - Medications Medications: Current Medications Acetaminophen (Tylenol 650mg/20.3ml Solution Ud) 650 mg NG Q6H PRN PRN Reason: Temperature >100.4 Last Admin: 09/16/18 17:40 Dose: 650 mg Amlodipine Besylate (Norvasc) 10 mg PO DAILY [facility] Last Admin: 09/16/18 09:56 Dose: 10 mg Aspirin (Aspirin Chewable) 81 mg PO DAILY [facility] Last Admin: 09/16/18 09:56 Dose: 81 mg Atorvastatin Calcium (Lipitor) 40 mg PO DIN [facility] Last Admin: 09/16/18 17:40 Dose: 40 mg Clonidine HCl (Catapres) 0.1 mg PO Q6H PRN PRN Reason: Give for systolic over 150 Last Admin: 09/16/18 17:40 Dose: 0.1 mg Clopidogrel Bisulfate (Plavix) 75 mg PO DAILY [facility] Last Admin: 09/16/18 09:56 Dose: 75 mg Dextrose (Dextrose 50% Inj) 0 ml IV STAT PRN; Protocol PRN Reason: Hypoglycemia Protocol Ergocalciferol (Drisdol 50,000 Intl Units Cap) 1 cap PO Q7D [facility] Last Admin: 09/14/18 15:15 Dose: 1 cap Dextrose (Dextrose 5% In Water 1000 Ml) 1,000 mls @ 0 mls/hr IV .Q0M PRN; P rotocol PRN Reason: Hypoglycemia Protocol Insulin Detemir (Levemir) 20 unit SC Q12H [facility] Last Admin: 09/17/18 06:01 Dose: 20 units Insulin Human Regular (Humulin R Med) 0 units SC ACHS [facility]; Protocol Last Admin: 09/17/18 08:43 Dose: 1 unit Levetiracetam (Keppra) 500 mg PO Q12 [facility] Last Admin: 09/16/18 22:37 Dose: 500 mg Losartan Potassium (Cozaar) 100 mg PO DAILY [facility] Pantoprazole Sodium (Protonix Ec Tab) 40 mg PO 0600 [facility] - Labs Labs: 09/15/18 05:30 09/15/18 05:30 PT 12.2 SECONDS (9.4-12.5) 09/14/18 08:00 INR 1.08 09/14/18 08:00 APTT 30.6 Seconds (26.9-38.3) 09/14/18 08:00 - Constitutional Appears: Non-toxic, No Acute Distress - Head Exam Head Exam: NORMAL INSPECTION, NORMOCEPHALIC - Eye Exam Eye Exam: Normal appearance Pupil Exam: NORMAL ACCOMODATION - ENT Exam ENT Exam: Mucous Membranes Dry - Respiratory Exam Respiratory Exam: Decreased Breath Sounds, NORMAL BREATHING PATTERN - Cardiovascular Exam Cardiovascular Exam: +S1, +S2 Additional comments: right jugular triple lumen catheter - GI/Abdominal Exam GI & Abdominal Exam: Soft, Normal Bowel Sounds - Extremities Exam Additional comments: left arm weakness - Neurological Exam Neurological Exam: Alert, Awake - Psychiatric Exam Psychiatric exam: Normal Affect, Normal Mood - Skin Skin Exam: Dry, Normal Color, Warm Assessment and Plan - Assessment and Plan (Free Text) Assessment: A 68 year old female who came in to the ER due to left sided weakness. History of hypertension and diabetes. Code stroke was called. CT head no acute hemorrhage or stroke. MRI of the head showed multiple emboli on both hemisphere of the brain. She was not a candidate for TPA due to time, (not within the TPA timeframe/rptocol).Admitted for acute cerebrovascular accident with left upper extremity weakness. Had episode of seizures. Intubated due to respiratory distress and admitted to ICU. Cardiology consult was called to evaluate patient. MATEO was done and showed no evidence of patent foramen ovale, no evidence of LV thrombus or vegetation, LVEF 65%, trace MR/TR/AR/PI. Stabilized and extubated in ICU. Now transferred to Medical/Surgical unit. Swallowing evaluation done and able to have regular consistency diet with thin liquids. Car diac status stable. Neuro on consult. Plan: Cardiac status stable Heart rate stable Blood pressure controlled Anticoagulation per Neuro On Norvasc 10 mg daily, ASA 81 mg daily, Lipitor 40 mg daily Clonidine 0.1 mg PRN, Cozaar 100 mg daily, Keppra 500 mg every 12 hours Continue current treatment Continue current medications Neuro on consult Physical therapy Seizure precaution Will follow up Plan and treatment discussed with Dr. Ramirez
[2018-09-17] MEDS: Pantoprazole 40 mg EC Tab PO SCH (09:20)
[2018-09-17] MEDS ORDERED: Barium Sulfate Susp 2.1% w/v, 2.0% w/w 450 mL Bottle PO ONE (12:13)
--- NOTE | 2018-09-17 20:11 | PN ---
DATE: 09/17/2018 SUBJECTIVE: The patient is seen in bed, in no acute distress, and nontoxic. OBJECTIVE: VITAL SIGNS: Temperature is 97, blood pressure is 150/80, and respiratory rate of 18. HEENT: Unremarkable. NECK: Supple. LUNGS: Have decreased breath sounds. HEART: Normal S1 and S2. ABDOMEN: Soft. LABORATORY EXAMINATION: Reveals a white count of 8.6, hemoglobin of 9, and sed rate is 46. Chemistries are noted with a creatinine of 1.2. LFTs are normal. Microbiology; blood cultures are negative. Nares MRSA screen is negative. The patient's serology reveals a Bartonella is pending, acute fever is negative, and Whipple's DNA is also pending. REVIEW OF ORDERS: Reveal the patient to be off of antibiotics now. ASSESSMENT AND PLAN: A 68-year-old admitted with acute cerebrovascular, embolic in nature and seizures; however, all cultures are negative. Transesophageal echocardiography is negative. Currently off of antibiotics. The patient is doing well nonbacterial thrombotic disease. Tejas Smiley MD
--- NOTE | 2018-09-17 22:18 | PN ---
DATE: 09/17/2018 SUBJECTIVE: The patient is 68-year-old, seen and examined, much more awake, alert, oriented, answering appropriately, eating well. PHYSICAL EXAMINATION: VITAL SIGNS: She is afebrile, pulse 76, respiration 18, and blood pressure 156/84. LUNGS: Bilateral fair airflow. No rhonchi or crackle. HEART: S1 and S2 audible. ABDOMEN: Soft, obese, and nontender. No rebound. No guarding. NEUROLOGIC: She is awake, alert and able to communicate and answer appropriately. EXTREMITIES: Bilateral legs no edema. LABORATORY DATA: WBC is 8.6, hemoglobin 9.4, hematocrit 29.2, and platelet 247. Chemistry; blood sugar is 196. ASSESSMENT: 1. Status post cerebrovascular accident, questionable embolic phenomenon. 2. History of hypertension. 3. Insulin-dependent diabetes. 4. Renal insufficiency, improving. 5. Hypokalemia. 6. Questionable seizures. PLAN: The patient's blood pressure is being monitored closely, seems to be stable and follow up electrolytes. Physical therapy has been evaluated and physical therapy has been started and we will make disposition plan in the a.m. for acute rehab. Darryl Goodman MD
[2018-09-18] MEDS: Insulin Detemir 100 units/ml Vial (Levemir) SC SCH ×2 (06:43→18:54)
[2018-09-18] MEDS: Pantoprazole 40 mg EC Tab PO SCH (06:43)
--- NOTE | 2018-09-18 06:52 | CP.PCM.PN ---
Subjective - Date & Time of Evaluation Date of Evaluation: 09/18/18 Time of Evaluation: 06:20 - Subjective Subjective: Awake, no distress,ambulating from bathroom Reason for consultation and follow up: Cardiac evaluation and follow up; admitted with CVA, intubated, left upper extremity weakness, successfully extubated Seen and examined by me and Dr. Pelaez Objective - Vital Signs/Intake and Output Vital Signs (last 24 hours): Temp Pulse Resp BP Pulse Ox 98.4 F 83 18 159/83 H 97 09/17/18 21:49 09/18/18 06:43 09/17/18 21:49 09/18/18 06:43 09/17/18 21:49 Intake and Output: 09/17/18 09/18/18 18:59 06:59 Intake Total 480 1080 Output Total 2 Balance 480 1078 - Medications Medications: Current Medications Acetaminophen (Tylenol 650mg/20.3ml Solution Ud) 650 mg NG Q6H PRN PRN Reason: Temperature >100.4 Last Admin: 09/16/18 17:40 Dose: 650 mg Amlodipine Besylate (Norvasc) 10 mg PO DAILY [facility] Last Admin: 09/17/18 09:21 Dose: 10 mg Aspirin (Aspirin Chewable) 81 mg PO DAILY [facility] Last Admin: 09/17/18 09:20 Dose: 81 mg Atorvastatin Calcium (Lipitor) 40 mg PO DIN [facility] Last Admin: 09/17/18 17:23 Dose: 40 mg Clonidine HCl (Catapres) 0.1 mg PO Q6H PRN PRN Reason: Give for systolic over 150 Last Admin: 09/18/18 06:43 Dose: 0.1 mg Clopidogrel Bisulfate (Plavix) 75 mg PO DAILY [facility] Last Admin: 09/17/18 09:20 Dose: 75 mg Dextrose (Dextrose 50% Inj) 0 ml IV STAT PRN; Protocol PRN Reason: Hypoglycemia Protocol Ergocalciferol (Drisdol 50,000 Intl Units Cap) 1 cap PO Q7D [facility] Last Admin: 09/14/18 15:15 Dose: 1 cap Dextrose (Dextrose 5% In Water 1000 Ml) 1,000 mls @ 0 mls/hr IV .Q0M PRN; Protocol PRN Reason: Hypoglycemia Protocol Insulin Detemir (Levemir) 20 unit SC Q12H [facility] Last Admin: 09/18/18 06:43 Dose: 20 units Insulin Human Regular (Humulin R Med) 0 units SC ACHS [facility]; Protocol Last Admin: 09/17/18 22:11 Dose: Not Given Levetiracetam (Keppra) 500 mg PO Q12 [facility] Last Admin: 09/17/18 21:43 Dose: 500 mg Losartan Potassium (Cozaar) 100 mg PO DAILY [facility] Last Admin: 09/17/18 09:20 Dose: 100 mg Pantoprazole Sodium (Protonix Ec Tab) 40 mg PO 0600 [facility] Last Admin: 09/18/18 06:43 Dose: 40 mg - Labs Labs: 09/15/18 05:30 09/15/18 05:30 PT 12.2 SECONDS (9.4-12.5) 09/14/18 08:00 INR 1.08 09/14/18 08:00 APTT 30.6 Seconds (26.9-38.3) 09/14/18 08:00 - Constitutional Appears: Non-toxic, No Acute Distress - Head Exam Head Exam: NORMAL INSPECTION, NORMOCEPHALIC - Eye Exam Eye Exam: Normal appearance Pupil Exam: NORMAL ACCOMODATION - ENT Exam ENT Exam: Mucous Membranes Moist, Normal Exam - Respiratory Exam Respiratory Exam: Decreased Breath Sounds, Clear to Ausculation Bilateral, NORMAL BREATHING PATTERN - Cardiovascular Exam Cardiovascular Exam: +S1, +S2 Additional comments: right jugular triple lumen catheter - GI/Abdominal Exam GI & Abdominal Exam: Soft, Normal Bowel Sounds - Extremities Exam Extremities Exam: Full ROM, Normal Capillary Refill - Neurological Exam Neurological Exam: Alert, Awake, Oriented x3 - Psychiatric Exam Psychiatric exam: Normal Affect, Normal Mood - Skin Skin Exam: Dry, Normal Color, Warm Assessment and Plan - Assessment and Plan (Free Text) Assessment: A 68 year old female who came in to the ER due to left sided weakness. History of hypertension and diabetes. Code stroke was called. CT head no acute hem orrhage or stroke. MRI of the head showed multiple emboli on both hemisphere of the brain. She was not a candidate for TPA due to time, (not within the TPA timeframe/rptocol).Admitted for acute cerebrovascular accident with left upper extremity weakness. Had episode of seizures. Intubated due to respiratory distress and admitted to ICU. Cardiology consult was called to evaluate patient. MATEO was done and showed no evidence of patent foramen ovale, no evidence of LV thrombus or vegetation, LVEF 65%, trace MR/TR/AR/PI. Stabilized and extubated in ICU. Now transferred to Medical/Surgical unit. Swallowing evaluation done and able to have regular consistency diet with thin liquids. Neuro on consult. Cardiac status stable. Clinically improved. Discharge planning Plan: Ambulating to bathroom Cardiac status stable Heart rate stable Blood pressure controlled Anticoagulation per Neuro On Norvasc 10 mg daily, ASA 81 mg daily, Lipitor 40 mg daily Clonidine 0.1 mg PRN, Plavix 75 mg daily, Cozaar 100 mg daily, Keppra 500 mg every 12 hours Continue current treatment Continue current medications Neuro on consult Physical therapy Seizure precaution Discharge planning Will follow up Plan and treatment discussed with Dr. Pelaez
[2018-09-18 10:34] LABS: DRVVT 1:1 MIX See above result
[2018-09-18 10:40] VITALS: RESP 18
[2018-09-18] MEDS: Insulin Reg-MEDIUM-Coverage SC SCH ×3 (10:41→16:58)
--- NOTE | 2018-09-18 11:59 | CP.PCM.PN ---
Subjective - Date & Time of Evaluation Date of Evaluation: 09/18/18 Time of Evaluation: 11:57 - Subjective Subjective: Nephrology Consultation Note: Assessment:Stable Acute Kidney Injury (N17.9) likely due to ATN [contrast nephropathy, sepsis and hemodynamic changes from BP fluctuations]: IMPROVING Hypokalemia and HTN emergency, had r/o secondary HTN proteinuria and microscopic hematuria NO evidence of GN acute CVA, seizure sepsis, UTI, acute respi failure, obesity, vit d def CKD 1 with 1.7 gram proteinuria and 641 mg albuminuria Plan No acute need for renal replacement therapy at this time. Hypertension control with meds as ordered. Maintain hemodynamics stable. Avoid hypotension. agree with CCB and Beta-blockers. Increased losartan 100 mg/d. added aldatone 25 and hctz 25 mg/d [can be give as aldactizide 25/25 as outpt] Monitor Input/Output, daily weights and renal function with basic metabolic panel supplement lytes as needed. ID, Neuro, Cardio following added weekly vit D pending renal artery Doppler to r/o renal artery stenosis. ret of work up neg Dose meds/antibiotics for improved GFR. Avoid nephrotoxins/NSAIDs/ iodinated contrast (unless needed emergently) Glycemic control Further work up/management as per primary team Thanks for allowing me to participate in care of your patient. Will follow patient with you. Please call if any Qs. had d/w team and family bedside Dr Jeremiah Horn Office: [phone] Chief Complaint; left side weakness Reason for consult: Acute Kidney Injury HPI: Pt is a 68 F with hx of diabetes Mellitus (5 years), hypertension (many years) presented with complaints of left side weakness and foudn to have b/l infarcts. also with sepsis with high temp ? UTI and HTN emergency. renal consult for [facility]. pt was orally intubated. also had episode of seizure Denies OTC/herbal meds or NSAIDs Noted recent iodinated contrast exposure 09/10/18. No obvious episodes of low BP. per son, pt was usual health before this incidence non smoker. no etoh/drugs ROS: pt feels better. denies CP/SOB Physical Examination: General Appearance: Comfortable, in no acute respiratory distress Vitals reviewed and noted as below Head; Atraumatic, normocephalic ENT: extubated. on BiPAP Neck; supple no lymphadenopathy, no thyromegaly or bruit Lungs: Normal respiratory rate/effort. Breath sounds bilateral reduced at bases Heart: Normal rate. s1s2 normal. No rub or gallop. Extremities: no edema. No varicose veins Neurological: Patient is awake alert follow commands Skin: Warm and dry. Normal turgor. No rash. Palpitation: Normal elasticity for age Abdomen: Abdomen is soft. Bowel sounds +. There is no abdominal tenderness, no guarding/rigidity no organomegaly Psych: deferred MSK: no joint tenderness or swelling. Digits and nails normal, no deformity : kidney or bladder not palpable Labs/imaging reviewed. Past medical history, past surgical history, family history, social history, allergy reviewed and noted as below Family hx: no hx of CKD. Rest non-contributory UA 3+ protein adn moderate blood mild to moderate LVH on echo Objective - Vital Signs/Intake and Output Vital Signs (last 24 hours): Temp Pulse Resp BP Pulse Ox 97.3 F L 64 18 175/82 H 93 L 09/18/18 10:39 09/18/18 10:39 09/18/18 10:39 09/18/18 10:41 09/18/18 06:00 Intake and Output: 09/18/18 09/18/18 06:59 18:59 Intake Total 1080 Output Total 2 Balance 1078 - Medications Medications: Current Medications Acetaminophen (Tylenol 650mg/20.3ml Solution Ud) 650 mg NG Q6H PRN PRN Reason: Temperature >100.4 Last Admin: 09/16/18 17:40 Dose: 650 mg Amlodipine Besylate (Norvasc) 10 mg PO DAILY [facility] Last Admin: 09/18/18 10:41 Dose: 10 mg Aspirin (Aspirin Chewable) 81 mg PO DAILY [facility] Last Admin: 09/18/18 10:40 Dose: 81 mg Atorvastatin Calcium (Lipitor) 40 mg PO DIN [facility] Last Admin: 09/17/18 17:23 Dose: 40 mg Clonidine HCl (Catapres) 0.1 mg PO Q6H PRN PRN Reason: Give for systolic over 150 Last Admin: 09/18/18 06:43 Dose: 0.1 mg Clopidogrel Bisulfate (Plavix) 75 mg PO DAILY [facility] Last Admin: 09/18/18 10:42 Dose: 75 mg Dextrose (Dextrose 50% Inj) 0 ml IV STAT PRN; Protocol PRN Reason: Hypoglycemia Protocol Ergocalciferol (Drisdol 50,000 Intl Units Cap) 1 cap PO Q7D [facility] Last Admin: 09/14/18 15:15 Dose: 1 cap Dextrose (Dextrose 5% In Water 1000 Ml) 1,000 mls @ 0 mls/hr IV .Q0M PRN; Protocol PRN Reason: Hypoglycemia Protocol Insulin Detemir (Levemir) 20 unit SC Q12H [facility] Last Admin: 09/18/18 06:43 Dose: 20 units Insulin Human Regular (Humulin R Med) 0 units SC ACHS [facility]; Protocol Last Admin: 09/18/18 10:41 Dose: 1 unit Levetiracetam (Keppra) 500 mg PO Q12 [facility] Last Admin: 09/18/18 10:41 Dose: 500 mg Losartan Potassium (Cozaar) 100 mg PO DAILY [facility] Last Admin: 09/18/18 10:40 Dose: 100 mg Pantoprazole Sodium (Protonix Ec Tab) 40 mg PO 0600 [facility] Last Admin: 09/18/18 06:43 Dose: 40 mg Spironolactone (Aldactone) 50 mg PO DAILY [facility] Last Admin: 09/18/18 10:45 Dose: 50 mg - Labs Labs: 09/15/18 05:30 09/15/18 05:30 PT 12.2 SECONDS (9.4-12.5) 09/14/18 08:00 INR 1.08 09/14/18 08:00 APTT 30.6 Seconds (26.9-38.3) 09/14/18 08:00
--- NOTE | 2018-09-18 16:10 | CP.PCM.PCO ---
Physician Communication Note - Physician Communication Note Physician Communication Note: breathing well on NC,no dyspnea noted,awaits acceptance to [facility].
--- NOTE | 2018-09-18 17:02 | PN ---
DATE: 09/18/2018 SUBJECTIVE: The patient is 68-year-old, seen and examined, doing very well. Fully awake, alert, oriented, able to communicate, participating in therapy, eating and tolerating. PHYSICAL EXAMINATION VITAL SIGNS: She is afebrile. Pulse 64, respirations 18, blood pressure 175/82. LUNGS: Bilateral fair airflow. No rhonchi or crackle. HEART: S1 and S2 audible. ABDOMEN: Soft and nontender. No rebound. No guarding. NEUROLOGIC: The patient is awake and alert, able to communicate. Moves all extremities. LABORATORY EXAMINATION: Blood sugar is 180. ASSESSMENT: 1. Status post embolic stroke, etiology still unclear. 2. History of hypertension. 3. Insulin-dependent diabetes. 4. Status post respiratory failure. PLAN: The patient is clinically stable. Her renal function has improved. We will continue on aspirin. She is on losartan. She is on Keppra. She is on Lipitor, Plavix and amlodipine will continue that since her . I will order Neuro input and order for carotid Doppler. I spoke to oncology social work tolerating for acute rehab. Darryl Goodman MD
--- NOTE | 2018-09-18 17:55 | CP.PCM.PCO ---
Summary - Summary of Event Summary of Event: House Physician Resident Oskar Núñez DO IM PGY-3 Called by nursing to evaluate patient who pulled out R IJ TLC (catheter tip removed from neck, body of catheter remains sutured to neck). Patient is awake, alert, appropriately responds to my questions, and follows commands appropriately. Breath sounds heard in all auscultated sections of lung bilaterally. STAT CXR portable obtained to assess for possible pneumothorax and/or retained tip of TLC; CXR negative for pneumothorax, and no retained tip appreciated. Visual examination of catheter tip performed, appears to be fully intact. No bleeding from removed TLC site at time of my exam; as per nursing site was initially packed after patient pulled the line, but bleeding quickly resolved. Sutures removed, TLC disposed of, and site cleaned (pre- and post- removal of sutures) with chlorhexidine wipes. 4x4 gauze placed over site and taped in place, instructed patient to leave alone to allow site to heal, and to reduce risk of infection post-removal; patient expressed understanding and agreement. Reviewed chart, currently on all PO meds except for D5 from hypoglycemia protocol. Defer to primary as to whether patient needs new IV access, as pending possible discharge to rehab. PMD notified by nursing as to event and resolution, further orders as per PMD.
--- NOTE | 2018-09-19 01:08 | PN ---
DATE: 09/18/2018 SUBJECTIVE: The patient is in bed, in no acute distress, nontoxic. OBJECTIVE: VITAL SIGNS: On exam, temperature is 97, blood pressure is 170/80, respiratory rate of 18, heart rate of 72. HEENT: Unremarkable. NECK: Supple. LUNGS: Have decreased breath sounds. HEART: Normal S1, S2. ABDOMEN: Soft, nontender. LABORATORY EXAMINATION: Reveals a white count of 8.6, hemoglobin of 9, creatinine is 1.2. Urinalysis is noted. Immunology is noted. Serology is noted. ASSESSMENT AND PLAN: This is a 68-year-old admitted with acute cerebrovascular accident, embolic in nature, and with seizures. The patient is doing well. cultures are negative. Transesophageal echo is negative. Off of antibiotics, afebrile. The patient had a chest x-ray today. Results are pending. Dr. Goodman's note from today is reviewed. Bartonella DNA PCR is still pending. The patient is for carotid ultrasound. Today's results are pending. Etiology of the embolic disease is unclear. Tejas Smiley MD
[2018-09-19] MEDS: Insulin Reg-MEDIUM-Coverage SC SCH ×5 (01:55→21:22)
--- NOTE | 2018-09-19 02:10 | CP.PCM.PN ---
Subjective - Date & Time of Evaluation Date of Evaluation: 09/19/18 Time of Evaluation: 02:07 - Subjective Subjective: Patient was seen for elevated blood pressure of 168/85. she is asymptomatic. Denies headache, dizziness, lightheadedness. Pertinent medical record was reviewed. Also, it was requested to place a heparin lock. Medical record was reviewed. This 68 year old woman was admitted with history of being found unresponsive nd having left sided weakness, CVA. Has PMH of DM-Poorly controlled, HTN,HLD,left chest post herpetic neuralgia, bilateral knee osteoarthritis, hip arthritis. Objective - Vital Signs/Intake and Output Vital Signs (last 24 hours): Temp Pulse Resp BP Pulse Ox 97.6 F 67 18 160/83 H 98 09/18/18 22:39 09/19/18 01:57 09/18/18 22:39 09/19/18 01:57 09/18/18 22:39 Intake and Output: 09/18/18 09/19/18 18:59 06:59 Intake Total 620 Balance 620 - Medications Medications: Current Medications Acetaminophen (Tylenol 650mg/20.3ml Solution Ud) 650 mg NG Q6H PRN PRN Reason: Temperature >100.4 Last Admin: 09/16/18 17:40 Dose: 650 mg Amlodipine Besylate (Norvasc) 10 mg PO DAILY [facility] Last Admin: 09/18/18 10:41 Dose: 10 mg Aspirin (Aspirin Chewable) 81 mg PO DAILY [facility] Last Admin: 09/18/18 10:40 Dose: 81 mg Atorvastatin Calcium (Lipitor) 40 mg PO DIN [facility] Last Admin: 09/18/18 16:58 Dose: 40 mg Clonidine HCl (Catapres) 0.1 mg PO Q6H PRN PRN Reason: Give for systolic over 150 Last Admin: 09/18/18 20:40 Dose: 0.1 mg Clopidogrel Bisulfate (Plavix) 75 mg PO DAILY [facility] Last Admin: 09/18/18 10:42 Dose: 75 mg Dextrose (Dextrose 50% Inj) 0 ml IV STAT PRN; Protocol PRN Reason: Hypoglycemia Protocol Ergocalciferol (Drisdol 50,000 Intl Units Cap) 1 cap PO Q7D [facility] Last Admin: 09/14/18 15:15 Dose: 1 cap Hydrochlorothiazide (Hydrodiuril) 25 mg PO DAILY [facility] Last Admin: 09/18/18 12:26 Dose: 25 mg Dextrose (Dextrose 5% In Water 1000 Ml) 1,000 mls @ 0 mls/hr IV .Q0M PRN; Protocol PRN Reason: Hypoglycemia Protocol Insulin Detemir (Levemir) 20 unit SC Q12H [facility] Last Admin: 09/18/18 18:54 Dose: 20 units Insulin Human Regular (Humulin R Med) 0 units SC ACHS [facility]; Protocol Last Admin: 09/19/18 01:55 Dose: Not Given Levetiracetam (Keppra) 500 mg PO Q12 [facility] Last Admin: 09/18/18 21:21 Dose: 500 mg Losartan Potassium (Cozaar) 100 mg PO DAILY [facility] Last Admin: 09/18/18 10:40 Dose: 100 mg Pantoprazole Sodium (Protonix Ec Tab) 40 mg PO 0600 [facility] Last Admin: 09/18/18 06:43 Dose: 40 mg Spironolactone (Aldactone) 25 mg PO DAILY [facility] - Labs Labs: 09/15/18 05:30 09/15/18 05:30 PT 12.2 SECONDS (9.4-12.5) 09/14/18 08:00 INR 1.08 09/14/18 08:00 APTT 30.6 Seconds (26.9-38.3) 09/14/18 08:00 - Constitutional Appears: Well, No Acute Distress - Head Exam Head Exam: ATRAUMATIC, NORMAL INSPECTION, NORMOCEPHALIC - Eye Exam Eye Exam: Normal appearance - ENT Exam ENT Exam: Normal External Ear Exam - Neck Exam Neck Exam: Normal Inspection - Respiratory Exam Respiratory Exam: NORMAL BREATHING PATTERN - Cardiovascular Exam Cardiovascular Exam: absent: JVD - GI/Abdominal Exam GI & Abdominal Exam: absent: Distended - Rectal Exam Rectal Exam: Deferred - Exam Additional comments: Deferred. - Extremities Exam Extremities Exam: Normal Inspection - Back Exam Back Exam: NORMAL INSPECTION - Neurological Exam Neurological Exam: Alert, Awake, Oriented x3 - Psychiatric Exam Psychiatric exam: Normal Affect, Normal Mood - Skin Skin Exam: Normal Color Assessment and Plan - Assessment and Plan (Free Text) Assessment: Elevated blood pressure reading. HTN DM HLD Plan: Metoprolol 25 mg PO x 1. Continue present management.
[2018-09-19] MEDS: Insulin Detemir 100 units/ml Vial (Levemir) SC SCH ×2 (06:23→18:09)
[2018-09-19] MEDS: Pantoprazole 40 mg EC Tab PO SCH (06:23)
--- NOTE | 2018-09-19 08:49 | CP.PCM.PN ---
Subjective - Date & Time of Evaluation Date of Evaluation: 09/19/18 Time of Evaluation: 06:50 - Subjective Subjective: Awake, no distress, lying in bed Reason for consultation and follow up: Cardiac evaluation and follow up; admitted with CVA, intubated, left upper extremity weakness, successfully extubated Seen and examined by me and Dr. Pelaez Objective - Vital Signs/Intake and Output Vital Signs (last 24 hours): Temp Pulse Resp BP Pulse Ox 98.3 F 66 18 157/80 H 96 09/19/18 06:00 09/19/18 06:00 09/19/18 06:00 09/19/18 06:00 09/19/18 06:00 Intake and Output: 09/19/18 09/19/18 06:59 18:59 Intake Total 740 Balance 740 - Medications Medications: Current Medications Acetaminophen (Tylenol 650mg/20.3ml Solution Ud) 650 mg NG Q6H PRN PRN Reason: Temperature >100.4 Last Admin: 09/16/18 17:40 Dose: 650 mg Amlodipine Besylate (Norvasc) 10 mg PO DAILY [facility] Last Admin: 09/18/18 10:41 Dose: 10 mg Aspirin (Aspirin Chewable) 81 mg PO DAILY [facility] Last Admin: 09/18/18 10:40 Dose: 81 mg Atorvastatin Calcium (Lipitor) 40 mg PO DIN [facility] Last Admin: 09/18/18 16:58 Dose: 40 mg Clonidine HCl (Catapres) 0.1 mg PO Q6H PRN PRN Reason: Give for systolic over 150 Last Admin: 09/18/18 20:40 Dose: 0.1 mg Clopidogrel Bisulfate (Plavix) 75 mg PO DAILY [facility] Last Admin: 09/18/18 10:42 Dose: 75 mg Dextrose (Dextrose 50% Inj) 0 ml IV STAT PRN; Protocol PRN Reason: Hypoglycemia Protocol Ergocalciferol (Drisdol 50,000 Intl Units Cap) 1 cap PO Q7D [facility] Last Admin: 09/14/18 15:15 Dose: 1 cap Hydrochlorothiazide (Hydrodiuril) 25 mg PO DAILY [facility] Last Admin: 09/18/18 12:26 Dose: 25 mg Dextrose (Dextrose 5% In Water 1000 Ml) 1,000 mls @ 0 mls/hr IV .Q0M PRN; Protocol PRN Reason: Hypoglycemia Protocol Insulin Detemir (Levemir) 20 unit SC Q12H [facility] Last Admin: 09/19/18 06:23 Dose: 20 units Insulin Human Regular (Humulin R Med) 0 units SC ACHS [facility]; Protocol Last Admin: 09/19/18 01:55 Dose: Not Given Levetiracetam (Keppra) 500 mg PO Q12 [facility] Last Admin: 09/18/18 21:21 Dose: 500 mg Losartan Potassium (Cozaar) 100 mg PO DAILY [facility] Last Admin: 09/18/18 10:40 Dose: 100 mg Pantoprazole Sodium (Protonix Ec Tab) 40 mg PO 0600 [facility] Last Admin: 09/19/18 06:23 Dose: 40 mg Spironolactone (Aldactone) 25 mg PO DAILY [facility] - Labs Labs: 09/15/18 05:30 09/15/18 05:30 PT 12.2 SECONDS (9.4-12.5) 09/14/18 08:00 INR 1.08 09/14/18 08:00 APTT 30.6 Seconds (26.9-38.3) 09/14/18 08:00 - Constitutional Appears: Non-toxic, No Acute Distress - Head Exam Head Exam: NORMAL INSPECTION, NORMOCEPHALIC - Eye Exam Eye Exam: Normal appearance Pupil Exam: NORMAL ACCOMODATION - ENT Exam ENT Exam: Mucous Membranes Moist, Normal Exam - Respiratory Exam Respiratory Exam: Decreased Breath Sounds, Clear to Ausculation Bilateral, NORMAL BREATHING PATTERN - Cardiovascular Exam Cardiovascular Exam: +S1, +S2 - GI/Abdominal Exam GI & Abdominal Exam: Soft, Normal Bowel Sounds - Extremities Exam Extremities Exam: Full ROM, Normal Capillary Refill - Neurological Exam Neurological Exam: Alert, Awake, Oriented x3 - Psychiatric Exam Psychiatric exam: Normal Affect, Normal Mood - Skin Skin Exam: Dry, Normal Color, Warm Assessment and Plan - Assessment and Plan (Free Text) Assessment: A 68 year old female who came in to the ER due to left sided weakness. History of hypertension and diabetes. Code stroke was called. CT head no acute hemorrhage or stroke. MRI of the head showed multiple emboli on both hemisphere of the brain. She was not a candidate for TPA due to time, (not within the TPA timeframe/rptocol).Admitted for acute cerebrovascular accident with left upper extremity weakness. Had episode of seizures. Intubated due to respiratory distress and admitted to ICU. Cardiology consult was called to evaluate patient. MATEO was done and showed no evidence of patent foramen ovale, no evidence of LV thrombus or vegetation, LVEF 65%, trace MR/TR/AR/PI. Stabilized and extubated in ICU. Now transferred to Medical/Surgical unit. Swallowing evaluation done and able to have regular consistency diet with thin liquids. Neuro on consult. Cardiac status stable. Clinically improved. Discharge planning. No further cardiac work up at this time. Plan: Cardiac status stable Heart rate stable Blood pressure controlled Anticoagulation per Neuro On Norvasc 10 mg daily, ASA 81 mg daily, Lipitor 40 mg daily Clonidine 0.1 mg PRN, Plavix 75 mg daily, Cozaar 100 mg daily, Keppra 500 mg every 12 hours Continue current treatment Continue current medications Neuro on consult Physical therapy Seizure precaution Discharge planning No further cardiac work up at this time. Will follow up Plan and treatment discussed with Dr. Pelaez
--- NOTE | 2018-09-19 08:51 | RAD ---
Date of service: 09/18/2018 HISTORY: pt removed TLC, assess COMPARISON: 09/15/2018. FINDINGS: LUNGS: No active pulmonary disease. PLEURA: No significant pleural effusion identified, no pneumothorax apparent. CARDIOVASCULAR: No atherosclerotic calcification present The position of the right IJ catheter on the prior study has changed. There is a catheter which appears outside the confines of any vascular structure in the thorax. Presumably therefore this is on the skin surface anteriorly or posteriorly. OSSEOUS STRUCTURES: No significant abnormalities. VISUALIZED UPPER ABDOMEN: Normal. OTHER FINDINGS: None. IMPRESSION: Failure to document TLC catheter in any venous vascular structure in the thorax. What appears to be the proximal aspect of the catheter in the neck and presumed overlying catheter right hemithorax identified.
[2018-09-19] MEDS ORDERED: Iohexol 350 MG/100 ML VIAL ONE ×2 (11:25→21:16)
--- NOTE | 2018-09-19 12:17 | CP.PCM.PN ---
Subjective - Date & Time of Evaluation Date of Evaluation: 09/19/18 Time of Evaluation: 12:15 - Subjective Subjective: Nephrology Consultation Note: Assessment:Stable Acute Kidney Injury (N17.9) likely due to ATN [contrast nephropathy, sepsis and hemodynamic changes from BP fluctuations]: IMPROVING Hypokalemia and HTN emergency, had r/o secondary HTN proteinuria and microscopic hematuria NO evidence of GN acute CVA, seizure sepsis, UTI, acute respi failure, obesity, vit d def CKD 1 with 1.7 gram proteinuria and 641 mg albuminuria Plan No acute need for renal replacement therapy at this time. Hypertension control with meds as ordered. Maintain hemodynamics stable. Avoid hypotension. agree with CCB and Beta-blockers. Increased losartan 100 mg/d. added aldatone 25 and hctz 25 mg/d [can be give as aldactizide 25/25 as outpt] Monitor Input/Output, daily weights and renal function with basic metabolic panel supplement lytes as needed. ID, Neuro, Cardio following added weekly vit D pt going for CTA lung now. check BMP today and tomorrow again. pending renal artery Doppler results to r/o renal artery stenosis. ret of work up neg Dose meds/antibiotics for improved GFR. Avoid nephrotoxins/NSAIDs/ iodinated contrast (unless needed emergently) Glycemic control Further work up/management as per primary team Thanks for allowing me to participate in care of your patient. Will follow patient with you. Please call if any Qs. had d/w team and family bedside Dr Jeremiah Horn Office: [phone] Chief Complaint; left side weakness Reason for consult: Acute Kidney Injury HPI: Pt is a 68 F with hx of diabetes Mellitus (5 years), hypertension (many ye ars) presented with complaints of left side weakness and foudn to have b/l infarcts. also with sepsis with high temp ? UTI and HTN emergency. renal consult for MARQUIS. pt was orally intubated. also had episode of seizure Denies OTC/herbal meds or NSAIDs Noted recent iodinated contrast exposure 09/10/18. No obvious episodes of low BP. per son, pt was usual health before this incidence non smoker. no etoh/drugs ROS: pt feels better. denies CP/SOB Physical Examination: General Appearance: Comfortable, in no acute respiratory distress Vitals reviewed and noted as below Head; Atraumatic, normocephalic ENT: extubated. on BiPAP Neck; supple no lymphadenopathy, no thyromegaly or bruit Lungs: Normal respiratory rate/effort. Breath sounds bilateral reduced at bases Heart: Normal rate. s1s2 normal. No rub or gallop. Extremities: no edema. No varicose veins Neurological: Patient is awake alert follow commands Skin: Warm and dry. Normal turgor. No rash. Palpitation: Normal elasticity for age Abdomen: Abdomen is soft. Bowel sounds +. There is no abdominal tenderness, no guarding/rigidity no organomegaly Psych: deferred MSK: no joint tenderness or swelling. Digits and nails normal, no deformity : kidney or bladder not palpable Labs/imaging reviewed. Past medical history, past surgical history, family history, social history, allergy reviewed and noted as below Family hx: no hx of CKD. Rest non-contributory UA 3+ protein adn moderate blood mild to moderate LVH on echo Objective - Vital Signs/Intake and Output Vital Signs (last 24 hours): Temp Pulse Resp BP Pulse Ox 98.3 F 66 18 157/80 H 96 09/19/18 06:00 09/19/18 06:00 09/19/18 06:00 09/19/18 10:39 09/19/18 06:00 Intake and Output: 09/19/18 09/19/18 06:59 18:59 Intake Total 740 180 Balance 740 180 - Medications Medications: Current Medications Acetaminophen (Tylenol 650mg/20.3ml Solution Ud) 650 mg NG Q6H PRN PRN Reason: Temperature >100.4 Last Admin: 09/16/18 17:40 Dose: 650 mg Amlodipine Besylate (Norvasc) 10 mg PO DAILY [facility] Last Admin: 09/19/18 10:39 Dose: 10 mg Aspirin (Aspirin Chewable) 81 mg PO DAILY [facility] Last Admin: 09/19/18 10:38 Dose: 81 mg Atorvastatin Calcium (Lipitor) 40 mg PO DIN [facility] Last Admin: 09/18/18 16:58 Dose: 40 mg Clonidine HCl (Catapres) 0.1 mg PO Q6H PRN PRN Reason: Give for systolic over 150 Last Admin: 09/18/18 20:40 Dose: 0.1 mg Clopidogrel Bisulfate (Plavix) 75 mg PO DAILY [facility] Last Admin: 09/19/18 10:38 Dose: 75 mg Dextrose (Dextrose 50% Inj) 0 ml IV STAT PRN; Protocol PRN Reason: Hypoglycemia Protocol Ergocalciferol (Drisdol 50,000 Intl Units Cap) 1 cap PO Q7D [facility] Last Admin: 09/14/18 15:15 Dose: 1 cap Hydrochlorothiazide (Hydrodiuril) 25 mg PO DAILY [facility] Last Admin: 09/19/18 10:39 Dose: 25 mg Dextrose (Dextrose 5% In Water 1000 Ml) 1,000 mls @ 0 mls/hr IV .Q0M PRN; Protocol PRN Reason: Hypoglycemia Protocol Insulin Detemir (Levemir) 20 unit SC Q12H [facility] Last Admin: 09/19/18 06:23 Dose: 20 units Insulin Human Regular (Humulin R Med) 0 units SC ACHS [facility]; Protocol Last Admin: 09/19/18 10:40 Dose: Not Given Levetiracetam (Keppra) 500 mg PO Q12 [facility] Last Admin: 09/19/18 10:38 Dose: 500 mg Losartan Potassium (Cozaar) 100 mg PO DAILY [facility] Last Admin: 09/19/18 10:39 Dose: 100 mg Pantoprazole Sodium (Protonix Ec Tab) 40 mg PO 0600 [facility] Last Admin: 09/19/18 06:23 Dose: 40 mg Spironolactone (Aldactone) 25 mg PO DAILY [facility] Last Admin: 09/19/18 10:38 Dose: 25 mg - Labs Labs: 09/15/18 05:30 09/15/18 05:30 PT 12.2 SECONDS (9.4-12.5) 09/14/18 08:00 INR 1.08 09/14/18 08:00 APTT 30.6 Seconds (26.9-38.3) 09/14/18 08:00
--- NOTE | 2018-09-19 15:38 | US ---
PROCEDURE: Bilateral carotid artery duplex ultrasound HISTORY: Carotid stenosis syncope PHYSICIAN(S): Rajan Riddle MD. TECHNIQUE: Duplex sonography and color-flow Doppler were used to evaluate the carotid bifurcations and limited segments of the vertebral arteries bilaterally. FINDINGS: There is mild smooth heterogeneous plaque noted at the carotid bifurcations bilaterally. The peak systolic velocity in the proximal right internal carotid artery is 104 cm/sec. This corresponds to a 20 to 39% proximal right ICA stenosis. Normal systolic velocities are noted in the proximal right external carotid artery. There is antegrade flow in the right vertebral artery. The peak systolic velocity in the proximal left internal carotid artery is 100 cm/sec. This corresponds to a 20 to 39% proximal left ICA stenosis. Normal systolic velocities are noted in the proximal left external carotid artery. There is antegrade flow in the left vertebral artery. IMPRESSION: 1. Bilateral 20-39% proximal ICA stenoses. 2. Antegrade flow in both vertebral arteries.
--- NOTE | 2018-09-19 18:58 | US ---
PROCEDURE: Bilateral renal artery duplex ultrasound. CLINICAL HISTORY: Renal artery stenosis. Uncontrolled hypertension. Evaluate for renovascular hypertension. PHYSICIAN(S): Rajan Riddle M.D. TECHNIQUE: Duplex sonography with color-flow Doppler was used to evaluate the visualized segments of the main renal arteries. The patient was evaluated in a fasting state. Imaging in a supine and decubitus position was performed. Limited evaluation of the arcuate waveforms and resistive indices were performed. FINDINGS: The overall quality of the study is adequate. The kidneys are normal in size, shape, and location. The right kidney measures 11.7cm in length and the left kidney measures 9.6cm in length. No solid renal masses, abnormal calcifications, or hydronephrosis is seen. The main right renal artery is fairly well visualized from the aorta to the hilum. The peak systolic velocity in the right main renal artery is 109 cm/sec. This is consistent with a 0 to 49% stenosis in the main right renal artery. The arcuate waveforms are normal. The resistive index is normal. The main left renal artery is also fairly well seen from its origin to the renal hilum. The peak systolic velocity in the main left renal artery is 87cm/sec. This corresponds to a 0 to 49% stenosis in the main left renal artery. The arcuate waveforms and resistive indices are normal. IMPRESSION: 1. The main renal arteries are fairly well visualized. 2. No sonographically significant stenosis is identified. 3. The kidneys are normal and symmetric in size. There are no solid renal masses, abnormal calcifications or hydronephrosis noted.
--- NOTE | 2018-09-19 22:35 | PN ---
DATE: 09/19/2018 SUBJECTIVE: Patient is in bed, in no acute distress, nontoxic. PHYSICAL EXAMINATION: VITAL SIGNS: On exam, temperature is 98, blood pressure is 180/80, respiratory rate is 18. HEENT: Unremarkable. NECK: Supple. LUNGS: Decreased breath sounds. HEART: Normal S1, S2. ABDOMEN: Soft. LABORATORY EXAMINATION: Reveals a white count of 8.6, hemoglobin 9. Creatinine is 1.2. Urinalysis is noted. Serology is noted that the acute fever was also negative. Whipple's PCR, not detected. MEDICATIONS: Review of orders. ASSESSMENT AND PLAN: This is a 68-year-old with acute cerebrovascular accident, embolic in nature with seizures. Transesophageal echo is negative. Culture is negative. Endocarditis workup is also negative including acute fever, Whipple's disease, and all the cultures are negative. Patient has not been on any antibiotics as outpatient. Bartonella workup is also negative for Bartonella wilhelm and Bartonella henselae. Hepatitis profile is also negative. We will follow with you. Tejas Smiley MD
[2018-09-20] MEDS: Pantoprazole 40 mg EC Tab PO SCH (05:39)
--- NOTE | 2018-09-20 06:40 | CP.PCM.PN ---
Subjective - Date & Time of Evaluation Date of Evaluation: 09/20/18 Time of Evaluation: 06:20 - Subjective Subjective: Awake, no distress, lying in bed Reason for consultation and follow up: Cardiac evaluation and follow up; admitted with CVA, intubated, left upper extremity weakness, successfully extubated Seen and examined by me and Dr. Pelaez Objective - Vital Signs/Intake and Output Vital Signs (last 24 hours): Temp Pulse Resp BP Pulse Ox 98.0 F 78 18 153/80 H 96 09/19/18 22:00 09/19/18 22:00 09/19/18 22:00 09/19/18 22:00 09/19/18 22:00 Intake and Output: 09/19/18 09/20/18 18:59 06:59 Intake Total 660 Balance 660 - Medications Medications: Current Medications Acetaminophen (Tylenol 650mg/20.3ml Solution Ud) 650 mg NG Q6H PRN PRN Reason: Temperature >100.4 Last Admin: 09/16/18 17:40 Dose: 650 mg Amlodipine Besylate (Norvasc) 10 mg PO DAILY [facility] Last Admin: 09/19/18 10:39 Dose: 10 mg Aspirin (Aspirin Chewable) 81 mg PO DAILY [facility] Last Admin: 09/19/18 10:38 Dose: 81 mg Atorvastatin Calcium (Lipitor) 40 mg PO DIN [facility] Last Admin: 09/19/18 18:09 Dose: 40 mg Clonidine HCl (Catapres) 0.1 mg PO Q6H PRN PRN Reason: Give for systolic over 150 Last Admin: 09/19/18 18:10 Dose: 0.1 mg Clopidogrel Bisulfate (Plavix) 75 mg PO DAILY [facility] Last Admin: 09/19/18 10:38 Dose: 75 mg Dextrose (Dextrose 50% Inj) 0 ml IV STAT PRN; Protocol PRN Reason: Hypoglycemia Protocol Ergocalciferol (Drisdol 50,000 Intl Units Cap) 1 cap PO Q7D [facility] Last Admin: 09/14/18 15:15 Dose: 1 cap Hydrochlorothiazide (Hydrodiuril) 25 mg PO DAILY [facility] Last Admin: 09/19/18 10:39 Dose: 25 mg Dextrose (Dextrose 5% In Water 1000 Ml) 1,000 mls @ 0 mls/hr IV .Q0M PRN; Protocol PRN Reason: Hypoglycemia Protocol Insulin Detemir (Levemir) 20 unit SC Q12H [facility] Last Admin: 09/19/18 18:09 Dose: 20 units Insulin Human Regular (Humulin R Med) 0 units SC ACHS [facility]; Protocol Last Admin: 09/19/18 21:22 Dose: Not Given Levetiracetam (Keppra) 500 mg PO Q12 [facility] Last Admin: 09/19/18 21:57 Dose: 500 mg Losartan Potassium (Cozaar) 100 mg PO DAILY [facility] Last Admin: 09/19/18 10:39 Dose: 100 mg Pantoprazole Sodium (Protonix Ec Tab) 40 mg PO 0600 [facility] Last Admin: 09/20/18 05:39 Dose: 40 mg Spironolactone (Aldactone) 25 mg PO DAILY [facility] Last Admin: 09/19/18 10:38 Dose: 25 mg - Labs Labs: 09/15/18 05:30 09/15/18 05:30 PT 12.2 SECONDS (9.4-12.5) 09/14/18 08:00 INR 1.08 09/14/18 08:00 APTT 30.6 Seconds (26.9-38.3) 09/14/18 08:00 - Constitutional Appears: Non-toxic, No Acute Distress - Head Exam Head Exam: NORMAL INSPECTION, NORMOCEPHALIC - Eye Exam Eye Exam: Normal appearance Pupil Exam: NORMAL ACCOMODATION - ENT Exam ENT Exam: Mucous Membranes Moist, Normal Exam - Respiratory Exam Respiratory Exam: Decreased Breath Sounds, Clear to Ausculation Bilateral, NORMAL BREATHING PATTERN - Cardiovascular Exam Cardiovascular Exam: +S1, +S2 - GI/Abdominal Exam GI & Abdominal Exam: Soft, Normal Bowel Sounds - Extremities Exam Extremities Exam: Full ROM, Normal Capillary Refill - Neurological Exam Neurological Exam: Alert, Awake - Psychiatric Exam Psychiatric exam: Normal Affect, Normal Mood - Skin Skin Exam: Dry, Normal Color, Warm Assessment and Plan - Assessment and Plan (Free Text) Assessment: A 68 year old female who came in to the ER due to left sided weakness. History of hypertension and diabetes. Code stroke was called. CT head no acute hemorrhage or stroke. MRI of the head showed multiple emboli on both hemisphere of the brain. She was not a candidate for TPA due to time, (not within the TPA timeframe/rptocol).Admitted for acute cerebrovascular accident with left upper extremity weakness. Had episode of seizures. Intubated due to respiratory distress and admitted to ICU. Cardiology consult was called to evaluate patient. MATEO was done and showed no evidence of patent foramen ovale, no evidence of LV thrombus or vegetation, LVEF 65%, trace MR/TR/AR/PI. Stabilized and extubated in ICU.Transferred to Medical/Surgical unit. Swallowing evaluation done and able to have regular consistency diet with thin liquids. Neuro on consult. Cardiac status stable. No further cardiac work up at this time.Clinically improved. awaiting transfer to [facility]. Plan: Clinically improved Awaiting transfer to [facility] Cardiac status stable Heart rate stable Blood pressure controlled On Norvasc 10 mg daily, ASA 81 mg daily, Lipitor 40 mg daily Clonidine 0.1 mg PRN, Plavix 75 mg daily,Hydrodiuril 25 mg daily Cozaar 100 mg daily, Aldactone 25 mg daily Continue current treatment Continue current medications Neuro on consult Seizure precaution No further cardiac work up at this time. Glucose control Will follow up Plan and treatment discussed with Dr. Pelaez
[2018-09-20] MEDS: Insulin Detemir 100 units/ml Vial (Levemir) SC SCH ×2 (06:43→17:08)
[2018-09-20 07:48] LABS: BLOOD UREA NITROGEN 17 mg/dL (7-21); CALCIUM 8.9 mg/dL (8.4-10.5); GFR NON-AFRICAN AMERICAN 55
[2018-09-20] MEDS: Insulin Reg-MEDIUM-Coverage SC SCH ×4 (08:02→22:20)
--- NOTE | 2018-09-20 08:44 | PN ---
DATE: 09/19/2018 SUBJECTIVE: Patient is a 68-year-old female who initially came in with left upper extremity weakness and altered mental status and was found to have embolic stroke. Etiology is still unclear, had MATEO downstairs. Echocardiogram, no thrombus noted in the left ventricle. She was intubated for airway protection, had pneumonia, successfully extubated, doing well. PHYSICAL EXAMINATION: GENERAL: Alert, awake, oriented, and communicative. VITAL SIGNS: Patient is afebrile. Pulse 80, respirations 18, and blood pressure 180/84. LUNGS: Bilateral fair airflow. No rhonchi or crackle. HEART: S1 and S2 audible. ABDOMEN: Soft and nontender. No rebound. No guarding. NEUROLOGIC: The patient is awake and alert, able to communicate. LABORATORY DATA: Blood sugar is 180. ASSESSMENT: 1. Status post embolic stroke with slight left upper extremity weakness. 2. Insulin-dependent diabetes. 3. Hypertension. 4. Hyperlipidemia. PLAN: It was recommended by the neurologist to have CTA of chest done to rule out AV malformation, could be the source for embolism. Patient yanked her right IV out. She has no peripheral access. We will get a midline placed, have that test done. Awaiting carotid Doppler result. In the meantime, we will continue patient on aspirin, Plavix, and losartan. She is on amlodipine, metoprolol, and insulin. Awaiting CT angio of the chest and renal artery sonogram. Once the results are available, patient will be sent to acute rehab, could be . We will monitor blood pressure closely and blood sugar closely. Darryl Goodman MD
[2018-09-20] MEDS ORDERED: Iohexol 350 MG/100 ML VIAL ONE (12:08)
--- NOTE | 2018-09-20 12:45 | CT ---
Date of service: 09/20/2018 PROCEDURE: CT Chest with contrast (Pulmonary Angiogram) HISTORY: r/o pulmonary avm COMPARISON: None available. TECHNIQUE: Axial computed tomography images were obtained of the chest in the pulmonary arterial phase of enhancement. Coronal and sagittal reformatted images were created and reviewed. Intravenous contrast dose: Radiation dose: Total exam DLP = 415.66 mGy-cm. This CT exam was performed using one or more of the following dose reduction techniques: Automated exposure control, adjustment of the mA and/or kV according to patient size, and/or use of iterative reconstruction technique. FINDINGS: PULMONARY ARTERIES: Unremarkable. No pulmonary embolism. AORTA: No acute findings. No thoracic aortic aneurysm. No aortic atherosclerotic calcification or mural plaque present. LUNGS: Unremarkable. No nodule, mass or pulmonary consolidation. PLEURAL SPACES: Unremarkable. No effusion or pneumothorax. HEART: Cardiomegaly apparent without prominent dilatation of the right lateral ventricle or the main pulmonary artery. No pericardial effusion. LYMPH NODES: No lymphadenopathy. BONES, CHEST WALL: Unremarkable. No fracture or destructive lesion OTHER FINDINGS: Thoracic inlet is unremarkable. Limited imaging through the upper abdomen reveals question nipple milk calcium at the dependent gallbladder versus vicarious excretion of iodinated contrast material with the visualized gallbladder distended. The stomach is also distended with retained food with potential reflux into the esophagus which is distended [id number]. Clinically correlate further. IMPRESSION: Unremarkable CT pulmonary angiogram. No pulmonary embolus. No definite pulmonary arteriovascular malformation identifiable. No large ventricular or atrial septal defect appreciable. Consider follow-up echocardiography if this is of concern clinically. Cardiomegaly. No dilatation of the right ventricle or main pulmonary artery. No infiltrates. [id number] esophageal distension with retained food/debris. Clinically correlate as to whether this is the reflux issue or possible underlying lesion at the distal esophagus. Other lesser findings as discussed above.
[2018-09-20] MEDS: Potassium Chloride 10 mEq ER Tab PO SCH (13:38)
--- NOTE | 2018-09-20 14:41 | CP.PCM.PN ---
Subjective - Date & Time of Evaluation Date of Evaluation: 09/20/18 Time of Evaluation: 14:39 - Subjective Subjective: Nephrology Consultation Note: Assessment:Stable Acute Kidney Injury (N17.9) likely due to ATN [contrast nephropathy, sepsis and hemodynamic changes from BP fluctuations]: IMPROVING Hypokalemia and HTN emergency, had r/o secondary HTN proteinuria and microscopic hematuria NO evidence of GN acute CVA, seizure sepsis, UTI, acute respi failure, obesity, vit d def CKD 1 with 1.7 gram proteinuria and 641 mg albuminuria Plan No acute need for renal replacement therapy at this time. Hypertension control with meds as ordered. Maintain hemodynamics stable. Avoid hypotension. agree with CCB and Beta-blockers. Increased losartan 100 mg/d. added aldatone 25 and hctz 25 mg/d [can be give as aldactizide 25/25 as outpt] Monitor Input/Output, daily weights and renal function with basic metabolic panel supplement lytes as needed. ID, Neuro, Cardio following added weekly vit D work up neg. LETICIA neg Dose meds/antibiotics for improved GFR. Avoid nephrotoxins/NSAIDs/ iodinated contrast (unless needed emergently) Glycemic control Further work up/management as per primary team d/c planning, stable from renal perspective Thanks for allowing me to participate in care of your patient. Will follow p atient with you. Please call if any Qs. had d/w team and family bedside Dr Jeremiah Horn Office: [phone] Chief Complaint; left side weakness Reason for consult: Acute Kidney Injury HPI: Pt is a 68 F with hx of diabetes Mellitus (5 years), hypertension (many years) presented with complaints of left side weakness and foudn to have b/l infarcts. also with sepsis with high temp ? UTI and HTN emergency. renal consult for MARQUIS. pt was orally intubated. also had episode of seizure Denies OTC/herbal meds or NSAIDs Noted recent iodinated contrast exposure 09/10/18. No obvious episodes of low BP. per son, pt was usual health before this incidence non smoker. no etoh/drugs ROS: pt feels better. denies CP/SOB Physical Examination: General Appearance: Comfortable, in no acute respiratory distress Vitals reviewed and noted as below Head; Atraumatic, normocephalic ENT: extubated. on BiPAP Neck; supple no lymphadenopathy, no thyromegaly or bruit Lungs: Normal respiratory rate/effort. Breath sounds bilateral improved at bases Heart: Normal rate. s1s2 normal. No rub or gallop. Extremities: no edema. No varicose veins Neurological: Patient is awake alert follow commands Skin: Warm and dry. Normal turgor. No rash. Palpitation: Normal elasticity for age Abdomen: Abdomen is soft. Bowel sounds +. There is no abdominal tenderness, no guarding/rigidity no organomegaly Psych: improved insight. MSK: no joint tenderness or swelling. Digits and nails normal, no deformity : kidney or bladder not palpable Labs/imaging reviewed. Past medical history, past surgical history, family history, social history, allergy reviewed and noted as below Family hx: no hx of CKD. Rest non-contributory UA 3+ protein adn moderate blood mild to moderate LVH on echo Objective - Vital Signs/Intake and Output Vital Signs (last 24 hours): Temp Pulse Resp BP Pulse Ox 98.3 F 63 18 149/77 94 L 09/20/18 06:00 09/20/18 06:00 09/20/18 06:00 09/20/18 09:19 09/20/18 06:00 Intake and Output: 09/20/18 09/20/18 06:59 18:59 Intake Total 180 Balance 180 - Medications Medications: Current Medications Acetaminophen (Tylenol 650mg/20.3ml Solution Ud) 650 mg NG Q6H PRN PRN Reason: Temperature >100.4 Last Admin: 09/16/18 17:40 Dose: 650 mg Amlodipine Besylate (Norvasc) 10 mg PO DAILY [facility] Last Admin: 09/20/18 09:19 Dose: 10 mg Aspirin (Aspirin Chewable) 81 mg PO DAILY [facility] Last Admin: 09/20/18 09:20 Dose: 81 mg Atorvastatin Calcium (Lipitor) 40 mg PO DIN [facility] Last Admin: 09/19/18 18:09 Dose: 40 mg Clonidine HCl (Catapres) 0.1 mg PO Q6H PRN PRN Reason: Give for systolic over 150 Last Admin: 09/19/18 18:10 Dose: 0.1 mg Clopidogrel Bisulfate (Plavix) 75 mg PO DAILY [facility] Last Admin: 09/20/18 09:20 Dose: 75 mg Dextrose (Dextrose 50% Inj) 0 ml IV STAT PRN; Protocol PRN Reason: Hypoglycemia Protocol Ergocalciferol (Drisdol 50,000 Intl Units Cap) 1 cap PO Q7D [facility] Last Admin: 09/14/18 15:15 Dose: 1 cap Hydrochlorothiazide (Hydrodiuril) 25 mg PO DAILY [facility] Last Admin: 09/20/18 09:19 Dose: 25 mg Dextrose (Dextrose 5% In Water 1000 Ml) 1,000 mls @ 0 mls/hr IV .Q0M PRN; Protocol PRN Reason: Hypoglycemia Protocol Insulin Detemir (Levemir) 20 unit SC Q12H [facility] Last Admin: 09/20/18 06:43 Dose: 20 units Insulin Human Regular (Humulin R Med) 0 units SC ACHS [facility]; Protocol Last Admin: 09/20/18 12:09 Dose: 7 unit Levetiracetam (Keppra) 500 mg PO Q12 [facility] Last Admin: 09/20/18 09:20 Dose: 500 mg Losartan Potassium (Cozaar) 100 mg PO DAILY [facility] Last Admin: 09/20/18 09:19 Dose: 100 mg Pantoprazole Sodium (Protonix Ec Tab) 40 mg PO 0600 [facility] Last Admin: 09/20/18 05:39 Dose: 40 mg Potassium Chloride (Klor-Con 10) 20 meq PO BRK [facility] Last Admin: 09/20/18 13:38 Dose: 20 meq Spironolactone (Aldactone) 25 mg PO DAILY [facility] Last Admin: 09/20/18 09:20 Dose: 25 mg - Labs Labs: 09/15/18 05:30 09/20/18 07:00 PT 12.2 SECONDS (9.4-12.5) 09/14/18 08:00 INR 1.08 09/14/18 08:00 APTT 30.6 Seconds (26.9-38.3) 09/14/18 08:00
--- NOTE | 2018-09-20 16:14 | CP.PCM.PCO ---
Physician Communication Note - Physician Communication Note Physician Communication Note: s/p CTA Chest revealed unremarkable chest,poss distal esophag lesion/debris
--- NOTE | 2018-09-20 16:41 | CP.PCM.CON ---
<Esther Lozanoil - Last Filed: 09/20/18 18:41> History of Present Illness - History of Present Illness History of Present Illness: Demarcus Lozano- Internal Medicine Resident- Consult Note on Behalf of Dr. Hartman Subjective: CC: Potential distal esophageal lesion HPI: Patient is a 68 year old female with a past medical history of diabetes, hypertension, hyperlipidemia, left chest post herpetic neuralgia, bilateral knee osteoarthritis, hip arthritis who was admitted for evaluation and treatment of left sided weakness and unresponsiveness. Patient was diagnosed and treated for an acute embolic stroke. GI team was consulted for management/recs for incidental findings on CT chest with IV contrast. Patient seen and examined at bedside. Denies difficulty swallowing and pain with swallowing. Tolerates diet. Denies abdominal pain, nausea, vomiting, diarrhea. States last bowel movement was 2 days ago. Further denies fever, chills, headache, dizziness, chest pain, SOB, and urinary symptoms. 12 point ROS negative except as indicated in the HPI PMHx: diabetes, hypertension, hyperlipidemia, left chest post herpetic neuralgia, bilateral knee osteoarthritis, hip arthritis PSHx: Paraesophageal hernia repair w/ G-tube placement, CABG, MVR, AVR Allergies: NKDA SHx: Denied ETOH use, tobacco use, and illicit drug use FHx: noncontributory Medications: please see MAR Physical Examination: - Constitutional Appears: Non-toxic, No Acute Distress - Head Exam Head Exam: ATRAUMATIC, NORMOCEPHALIC - Eye Exam Eye Exam: EOMI - ENT Exam ENT Exam: Mucous Membranes Moist - Neck Exam Neck exam: Positive for: Full Rom - Respiratory Exam Respiratory Exam: Clear to Auscultation Bilateral, NORMAL BREATHING PATTERN - Cardiovascular Exam Cardiovascular Exam: RRR, +S1, +S2. absent: Systolic Murmur - GI/Abdominal Exam GI & Abdominal Exam: Normal Bowel Sounds, Soft absent: Distended, Firm, Guarding, Organomegaly, Rebound, Tenderness - Extremities Exam Extremities exam: no cyanosis, no clubbing - Neurological Exam Neurological exam: Alert, Oriented x 3 - Psychiatric Exam Psychiatric exam: Normal Affect, Normal Mood - Skin Skin Exam: Dry, Warm Assessment and Plan: Esophageal distension with retained food/debris Diabetes Hypertension Hyperlipidemia - Head neck CTA no evidence of occlusion significant stenosis or dissection of the carotid arteries. There is a calcified athrosclerotic plaque both carotid siphons. There is moderate calcified plaque of the distal right vertebral artery. with minimal calfified plaque left vertebral artery. Intra cerebral circulation is patent. No evidence of large aneurysm nor vascular malformation. - Brain MRI there are multiple small acute infarcts seen scattered about both cerebral hemispheres. There findings suggest embolic event given the involvement of bilateral vascular distributions. - TTE and MATEO show no evidence of PFO, thrombus, or vegetations -09/19/2018 CT angio- Unremarkable CT pulmonary angiogram. No pulmonary embolus. No definite pulmonary arteriovascular malformation identifiable. No large ventricular or atrial septal defect appreciable. Consider follow-up echocardiography if this is of concern clinically. Cardiomegaly. No dilatation of the right ventricle or main pulmonary artery. No infiltrates. [id number] esophageal distension with retained food/debris. Clinically correlate as to whether this is the reflux issue or possible underlying lesion at the distal esophagus. - start on full liquids - npo after midnight - esophogram on 09/20/2018 Patient case reviewed with and plan approved by attending physician, Dr. Hartman. Past Patient History - Infectious Disease Hx of Infectious Diseases: None - Tetanus Immunizations Tetanus Immunization: Unknown - Past Social History Smoking Status: Unknown If Ever Smoked - CARDIAC Hx Hypercholesterolemia: Yes Hx Hypertension: Yes - PULMONARY Hx Chronic Obstructive Pulmonary Disease (COPD): Yes - NEUROLOGICAL HX Cerebrovascular Accident: Yes - ENDOCRINE/METABOLIC Hx Diabetes Mellitus Type 2: Yes (poorly controlled) - MUSCULOSKELETAL/RHEUMATOLOGICAL Hx Arthritis: Yes (bilat knee, hip arthritis) - PSYCHIATRIC Hx Depression: No Hx Emotional Abuse: No Hx Physical Abuse: No Hx Substance Use: No - SURGICAL HISTORY Hx Surgeries: No Meds Allergies/Adverse Reactions: Allergies Allergy/AdvReac Type Severity Reaction Status Date / Time No Known Allergies Allergy Verified 12/20/11 11:39 - Medications Medications: Current Medications Acetaminophen (Tylenol 650mg/20.3ml Solution Ud) 650 mg NG Q6H PRN PRN Reason: Temperature >100.4 Last Admin: 09/16/18 17:40 Dose: 650 mg Amlodipine Besylate (Norvasc) 10 mg PO DAILY [facility] Last Admin: 09/20/18 09:19 Dose: 10 mg Aspirin (Aspirin Chewable) 81 mg PO DAILY [facility] Last Admin: 09/20/18 09:20 Dose: 81 mg Atorvastatin Calcium (Lipitor) 40 mg PO DIN [facility] Last Admin: 09/19/18 18:09 Dose: 40 mg Clonidine HCl (Catapres) 0.1 mg PO Q6H PRN PRN Reason: Give for systolic over 150 Last Admin: 09/19/18 18:10 Dose: 0.1 mg Clopidogrel Bisulfate (Plavix) 75 mg PO DAILY [facility] Last Admin: 09/20/18 09:20 Dose: 75 mg Dextrose (Dextrose 50% Inj) 0 ml IV STAT PRN; Protocol PRN Reason: Hypoglycemia Protocol Ergocalciferol (Drisdol 50,000 Intl Units Cap) 1 cap PO Q7D [facility] Last Admin: 09/14/18 15:15 Dose: 1 cap Hydrochlorothiazide (Hydrodiuril) 25 mg PO DAILY [facility] Last Admin: 09/20/18 09:19 Dose: 25 mg Dextrose (Dextrose 5% In Water 1000 Ml) 1,000 mls @ 0 mls/hr IV .Q0M PRN; Protocol PRN Reason: Hypoglycemia Protocol Insulin Detemir (Levemir) 20 unit SC Q12H [facility] Last Admin: 09/20/18 06:43 Dose: 20 units Insulin Human Regular (Humulin R Med) 0 units SC ACHS [facility]; Protocol Last Admin: 09/20/18 12:09 Dose: 7 unit Levetiracetam (Keppra) 500 mg PO Q12 [facility] Last Admin: 09/20/18 09:20 Dose: 500 mg Losartan Potassium (Cozaar) 100 mg PO DAILY [facility] Last Admin: 09/20/18 09:19 Dose: 100 mg Pantoprazole Sodium (Protonix Ec Tab) 40 mg PO 0600 [facility] Last Admin: 09/20/18 05:39 Dose: 40 mg Potassium Chloride (Klor-Con 10) 20 meq PO BRK [facility] Last Admin: 09/20/18 13:38 Dose: 20 meq Spironolactone (Aldactone) 25 mg PO DAILY [facility] Last Admin: 09/20/18 09:20 Dose: 25 mg Results - Vital Signs Recent Vital Signs: Last Vital Signs Temp 98.3 F 09/20/18 06:00 Pulse 63 09/20/18 06:00 Resp 18 09/20/18 06:00 BP 149/77 09/20/18 09:19 Pulse Ox 94 L 09/20/18 06:00 - Labs Result Diagrams: 09/15/18 05:30 09/20/18 07:00 Labs: Laboratory Results - last 24 hr 09/19/18 09/19/18 09/20/18 16:43 21:18 06:30 Sodium Potassium Chloride Carbon Dioxide Anion Gap BUN Creatinine Est GFR ( Amer) Est GFR (Non-Af Amer) POC Glucose (mg/dL) 180 H 294 H 200 H Random Glucose Calcium 09/20/18 09/20/18 09/20/18 07:00 11:32 16:09 Sodium 141 Potassium 3.3 L Chloride 102 Carbon Dioxide 31 Anion Gap 11 BUN 17 Creatinine 1.0 Est GFR ( Amer) > 60 Est GFR (Non-Af Amer) 55 POC Glucose (mg/dL) 337 H 162 H Random Glucose 181 H Calcium 8.9 <MinnieKovil V - Last Filed: 09/20/18 20:54> Meds - Medications Medications: Current Medications Acetaminophen (Tylenol 650mg/20.3ml Solution Ud) 650 mg NG Q6H PRN PRN Reason: Temperature >100.4 Last Admin: 09/16/18 17:40 Dose: 650 mg Amlodipine Besylate (Norvasc) 10 mg PO DAILY [facility] Last Admin: 09/20/18 09:19 Dose: 10 mg Aspirin (Aspirin Chewable) 81 mg PO DAILY [facility] Last Admin: 09/20/18 09:20 Dose: 81 mg Atorvastatin Calcium (Lipitor) 40 mg PO DIN [facility] Last Admin: 09/20/18 17:09 Dose: 40 mg Clonidine HCl (Catapres) 0.1 mg PO Q6H PRN PRN Reason: Give for systolic over 150 Last Admin: 09/19/18 18:10 Dose: 0.1 mg Clopidogrel Bisulfate (Plavix) 75 mg PO DAILY [facility] Last Admin: 09/20/18 09:20 Dose: 75 mg Dextrose (Dextrose 50% Inj) 0 ml IV STAT PRN; Protocol PRN Reason: Hypoglycemia Protocol Ergocalciferol (Drisdol 50,000 Intl Units Cap) 1 cap PO Q7D [facility] Last Admin: 09/20/18 17:09 Dose: 1 cap Hydrochlorothiazide (Hydrodiuril) 25 mg PO DAILY [facility] Last Admin: 09/20/18 09:19 Dose: 25 mg Dextrose (Dextrose 5% In Water 1000 Ml) 1,000 mls @ 0 mls/hr IV .Q0M PRN; Protocol PRN Reason: Hypoglycemia Protocol Insulin Detemir (Levemir) 20 unit SC Q12H [facility] Last Admin: 09/20/18 17:08 Dose: 20 units Insulin Human Regular (Humulin R Med) 0 units SC ACHS [facility]; Protocol Last Admin: 09/20/18 17:08 Dose: 1 unit Levetiracetam (Keppra) 500 mg PO Q12 [facility] Last Admin: 09/20/18 09:20 Dose: 500 mg Losartan Potassium (Cozaar) 100 mg PO DAILY [facility] Last Admin: 09/20/18 09:19 Dose: 100 mg Pantoprazole Sodium (Protonix Ec Tab) 40 mg PO 0600 [facility] Last Admin: 09/20/18 05:39 Dose: 40 mg Potassium Chloride (Klor-Con 10) 20 meq PO BRK [facility] Last Admin: 09/20/18 13:38 Dose: 20 meq Spironolactone (Aldactone) 25 mg PO DAILY [facility] Last Admin: 09/20/18 09:20 Dose: 25 mg Results - Vital Signs Recent Vital Signs: Last Vital Signs Temp 98.3 F 09/20/18 06:00 Pulse 63 09/20/18 06:00 Resp 18 09/20/18 06:00 BP 149/77 09/20/18 09:19 Pulse Ox 94 L 09/20/18 06:00 - Labs Result Diagrams: 09/15/18 05:30 09/20/18 07:00 Labs: Laboratory Results - last 24 hr 09/19/18 09/20/18 09/20/18 21:18 06:30 07:00 Sodium 141 Potassium 3.3 L Chloride 102 Carbon Dioxide 31 Anion Gap 11 BUN 17 Creatinine 1.0 Est GFR ( Amer) > 60 Est GFR (Non-Af Amer) 55 POC Glucose (mg/dL) 294 H 200 H Random Glucose 181 H Calcium 8.9 09/20/18 09/20/18 11:32 16:09 Sodium Potassium Chloride Carbon Dioxide Anion Gap BUN Creatinine Est GFR ( Amer) Est GFR (Non-Af Amer) POC Glucose (mg/dL) 337 H 162 H Random Glucose Calcium Attending/Attestation - Attestation I have personally seen and examined this patient.: Yes I have fully participated in the care of the patient.: Yes I have reviewed all pertinent clinical information: Yes Notes (Text): This patient was seen and evaluated along with the resident. This is an addendum to the GI consultation report dictated by the resident. Imaging studies were reviewed. Nurse was at bedside at the time of examination given liquid to drink patient was able to tolerate very well. Patient states no problem in swallowing. In this patient with recent CVA it is reasonable to avoid endoscopy evaluation unless it is absolutely necessary. Clinically there is a less suspicion of patient having any large obstructing lesion. The easiest evaluation to start with is esophagogram which we will order it first. 09/20/18 20:52
[2018-09-20] MEDS: Ergocalciferol 50,000 Intl Units Cap PO SCH (17:09)
[2018-09-20 23:00] VITALS: O2SAT 95
--- NOTE | 2018-09-21 00:38 | PN ---
DATE: 09/20/2018 SUBJECTIVE: The patient is seen in bed, in no acute distress, and nontoxic. OBJECTIVE: VITAL SIGNS: Temperature is 98, blood pressure is 149/70, and respiratory rate of 18. HEENT: Unremarkable. NECK: Supple. LUNGS: Have decreased breath sounds. HEART: Normal S1 and S2. ABDOMEN: Soft. LABORATORY EXAMINATION: Reveals a white count of 8.6, hemoglobin of 9, BUN of 17, and creatinine of 1. Workup is reviewed as negative. REVIEW OF ORDERS: Reveal the patient is off of antibiotics. ASSESSMENT AND PLAN: A 68-year-old female admitted with acute cerebrovascular accident, embolic in nature with seizures. blood cultures are negative. Transesophageal echo is negative. The patient was not on any antibiotics and the patient had culture negative, endocarditis workup is negative, currently afebrile, off of antibiotics, and doing well. Tejas Smiley MD
--- NOTE | 2018-09-21 01:00 | PN ---
DATE: 09/20/2018 SUBJECTIVE: The patient is a 68-year-old, seen and examined, doing very well. Awake, alert, oriented, communicative, participating in therapy. PHYSICAL EXAMINATION: VITAL SIGNS: She is afebrile, pulse 63, respirations 18, blood pressure 149/77. LUNGS: Bilateral fair airflow. No rhonchi or crackle. HEART: S1, S2 audible. ABDOMEN: Soft, obese, nontender. No rebound. No guarding. NEUROLOGICAL: She is awake and alert, able to communicate. EXTREMITIES: Bilateral legs, no edema. LABORATORY DATA: WBC is 8.6, hemoglobin 9.4, hematocrit 29.2, platelet 247. Chemistry: Sodium 141, potassium 3.3, chloride 102, CO2 of 31, BUN 17, creatinine 1, blood sugar 162. Blood culture, urine cultures are negative. She had CT angio of the chest that is unremarkable for pulmonary angiogram, no pulmonary embolus. No AV malformation. No large ventricular atrial septal defect, [id number] esophageal distention with retained food and debris, clinically correlate with reflux disease or underling lesion. ASSESSMENT: 1. Status post cerebrovascular accident with embolic phenomenon; however, no source of embolism found by extensive workup. 2. Insulin-dependent diabetes. 3. Hypertension. 4. Hyperlipidemia. 5. Abnormal finding on CT scan in distal esophagus, questionable retained food and debris versus lesion. PLAN: The patient was ready to be transferred to acute rehab, but we need opinion from GI. Probably, we will need endoscopy after she finished her therapy; however, we will get opinion and make disposition plan as we hear from GI. Darryl Goodman MD
[2018-09-21] MEDS: Pantoprazole 40 mg EC Tab PO SCH (06:41)
--- NOTE | 2018-09-21 06:57 | CP.PCM.PN ---
Subjective - Date & Time of Evaluation Date of Evaluation: 09/21/18 Time of Evaluation: 06:40 - Subjective Subjective: Awake, no distress, lying in bed Reason for consultation and follow up: Cardiac evaluation and follow up; admitted with CVA, intubated, left upper extremity weakness, successfully extubated Seen and examined by me and Dr. Pelaez Objective - Vital Signs/Intake and Output Vital Signs (last 24 hours): Temp Pulse Resp BP Pulse Ox 98.5 F 75 18 148/72 95 09/20/18 22:00 09/20/18 22:00 09/20/18 22:00 09/20/18 22:00 09/20/18 22:00 Intake and Output: 09/20/18 09/21/18 18:59 06:59 Intake Total 180 660 Balance 180 660 - Medications Medications: Current Medications Acetaminophen (Tylenol 650mg/20.3ml Solution Ud) 650 mg NG Q6H PRN PRN Reason: Temperature >100.4 Last Admin: 09/16/18 17:40 Dose: 650 mg Amlodipine Besylate (Norvasc) 10 mg PO DAILY [facility] Last Admin: 09/20/18 09:19 Dose: 10 mg Aspirin (Aspirin Chewable) 81 mg PO DAILY [facility] Last Admin: 09/20/18 09:20 Dose: 81 mg Atorvastatin Calcium (Lipitor) 40 mg PO DIN [facility] Last Admin: 09/20/18 17:09 Dose: 40 mg Clonidine HCl (Catapres) 0.1 mg PO Q6H PRN PRN Reason: Give for systolic over 150 Last Admin: 09/19/18 18:10 Dose: 0.1 mg Clopidogrel Bisulfate (Plavix) 75 mg PO DAILY [facility] Last Admin: 09/20/18 09:20 Dose: 75 mg Dextrose (Dextrose 50% Inj) 0 ml IV STAT PRN; Protocol PRN Reason: Hypoglycemia Protocol Ergocalciferol (Drisdol 50,000 Intl Units Cap) 1 cap PO Q7D [facility] Last Admin: 09/20/18 17:09 Dose: 1 cap Hydrochlorothiazide (Hydrodiuril) 25 mg PO DAILY [facility] Last Admin: 09/20/18 09:19 Dose: 25 mg Dextrose (Dextrose 5% In Water 1000 Ml) 1,000 mls @ 0 mls/hr IV .Q0M PRN; Protocol PRN Reason: Hypoglycemia Protocol Insulin Detemir (Levemir) 20 unit SC Q12H [facility] Last Admin: 09/20/18 17:08 Dose: 20 units Insulin Human Regular (Humulin R Med) 0 units SC ACHS [facility]; Protocol Last Admin: 09/20/18 22:20 Dose: Not Given Levetiracetam (Keppra) 500 mg PO Q12 [facility] Last Admin: 09/20/18 21:51 Dose: 500 mg Losartan Potassium (Cozaar) 100 mg PO DAILY [facility] Last Admin: 09/20/18 09:19 Dose: 100 mg Pantoprazole Sodium (Protonix Ec Tab) 40 mg PO 0600 [facility] Last Admin: 09/21/18 06:41 Dose: Not Given Potassium Chloride (Klor-Con 10) 20 meq PO BRK [facility] Last Admin: 09/20/18 13:38 Dose: 20 meq Spironolactone (Aldactone) 25 mg PO DAILY [facility] Last Admin: 09/20/18 09:20 Dose: 25 mg - Labs Labs: 09/15/18 05:30 09/20/18 07:00 PT 12.2 SECONDS (9.4-12.5) 09/14/18 08:00 INR 1.08 09/14/18 08:00 APTT 30.6 Seconds (26.9-38.3) 09/14/18 08:00 - Constitutional Appears: Non-toxic, No Acute Distress - Head Exam Head Exam: NORMAL INSPECTION, NORMOCEPHALIC - Eye Exam Eye Exam: Normal appearance Pupil Exam: NORMAL ACCOMODATION - ENT Exam ENT Exam: Mucous Membranes Moist, Normal Exam - Neck Exam Neck Exam: Full ROM, Normal Inspection - Respiratory Exam Respiratory Exam: Decreased Breath Sounds, Clear to Ausculation Bilateral, NORMAL BREATHING PATTERN - Cardiovascular Exam Cardiovascular Exam: +S1, +S2 - GI/Abdominal Exam GI & Abdominal Exam: Soft, Normal Bowel Sounds - Extremities Exam Extremities Exam: Full ROM, Normal Capillary Refill - Neurological Exam Neurological Exam: Alert, Awake, Oriented x3 - Psychiatric Exam Psychiatric exam: Normal Affect, Normal Mood - Skin Skin Exam: Dry, Normal Color, Warm Assessment and Plan - Assessment and Plan (Free Text) Assessment: A 68 year old female who came in to the ER due to left sided weakness. History of hypertension and diabetes. Code stroke was called. CT head no acute hemorrhage or stroke. MRI of the head showed multiple emboli on both hemisphere of the brain. She was not a candidate for TPA due to time, (not within the TPA timeframe/rptocol).Admitted for acute cerebrovascular accident with left upper extremity weakness. Had episode of seizures. Intubated due to respiratory distress and admitted to ICU. Cardiology consult was called to evaluate patie nt. MATEO was done and showed no evidence of patent foramen ovale, no evidence of LV thrombus or vegetation, LVEF 65%, trace MR/TR/AR/PI. Stabilized and extubated in ICU.Transferred to Medical/Surgical unit. Swallowing evaluation done and able to have regular consistency diet with thin liquids. Neuro on consult. Cardiac status stable. No further cardiac work up at this time. CT of chest yesterday with unremarkable result but with possible distal esophageal lesion thus GI consult done. Awaiting transfer to [facility]. Plan: No distress Cardiac status stable Heart rate stable Blood pressure controlled On Norvasc 10 mg daily, ASA 81 mg daily, Lipitor 40 mg daily Clonidine 0.1 mg PRN, Plavix 75 mg daily,Hydrodiuril 25 mg daily Cozaar 100 mg daily, Aldactone 25 mg daily Continue current treatment Continue current medications Neuro on consult Seizure precaution No further cardiac work up at this time. Glucose control [facility] Will [facility] up Plan and treatment discussed with Dr. Pelaez
[2018-09-21] MEDS: Insulin Reg-MEDIUM-Coverage SC SCH ×3 (07:41→16:01)
[2018-09-21] MEDS: Potassium Chloride 10 mEq ER Tab PO SCH (08:08)
[2018-09-21 08:22] VITALS: BP 164/82; PULSE 74; TEMP 98.4
--- NOTE | 2018-09-21 09:38 | CP.PCM.PN ---
<Demarcus Lozano - Last Filed: 09/21/18 11:13> Subjective - Date & Time of Evaluation Date of Evaluation: 09/21/18 Time of Evaluation: 08:45 - Subjective Subjective: Demarcus Lozano- Internal Medicine Resident- Progress Note on Behalf of Dr. Hartman Subjective: Patient seen and examined at bedside. No acute overnight events. Continues to deny difficulty swallowing and pain with swallowing. Denies abdominal pain, nausea, vomiting, diarrhea. Admits to experiencing nonbloody soft bowel movement since previous evaluation. Further denies fever, chills, headache, dizziness, chest pain, SOB, and urinary symptoms. 12 point ROS negative except as indicated in the HPI Physical Examination: - Constitutional Appears: Non-toxic, No Acute Distress - Head Exam Head Exam: ATRAUMATIC, NORMOCEPHALIC - Eye Exam Eye Exam: EOMI - ENT Exam ENT Exam: Mucous Membranes Moist - Neck Exam Neck exam: Positive for: Full Rom - Respiratory Exam Respiratory Exam: Clear to Auscultation Bilateral, NORMAL BREATHING PATTERN - Cardiovascular Exam Cardiovascular Exam: RRR, +S1, +S2. absent: Systolic Murmur - GI/Abdominal Exam GI & Abdominal Exam: Normal Bowel Sounds, Soft absent: Distended, Firm, Gua rding, Organomegaly, Rebound, Tenderness - Extremities Exam Extremities exam: no cyanosis, no clubbing - Neurological Exam Neurological exam: Alert, Oriented x 3 - Psychiatric Exam Psychiatric exam: Normal Affect, Normal Mood - Skin Skin Exam: Dry, Warm Assessment and Plan: Esophageal distension with retained food/debris Diabetes Hypertension Hyperlipidemia - Head neck CTA no evidence of occlusion significant stenosis or dissection of the carotid arteries. There is a calcified athrosclerotic plaque both carotid siphons. There is moderate calcified plaque of the distal right vertebral artery. with minimal calfified plaque left vertebral artery. Intra cerebral circulation is patent. No evidence of large aneurysm nor vascular malformation. - Brain MRI there are multiple small acute infarcts seen scattered about both cerebral hemispheres. There findings suggest embolic event given the involvement of bilateral vascular distributions. - TTE and MATEO show no evidence of PFO, thrombus, or vegetations -09/19/2018 CT angio- Unremarkable CT pulmonary angiogram. No pulmonary embolus. No definite pulmonary arteriovascular malformation identifiable. No large ventricular or atrial septal defect appreciable. Consider follow-up echocardiography if this is of concern clinically. Cardiomegaly. No dilatation of the right ventricle or main pulmonary artery. No infiltrates. [id number] esophageal distension with retained food/debris. Clinically correlate as to whether this is the reflux issue or possible underlying lesion at the distal esophagus. - recent CVA- avoid endoscopy evaluation at this time - NPO before esophogram, further recs pending results of esophogram - esophogram on 09/21/2018 Patient case reviewed with and plan approved by attending physician, Dr. Hartman. Objective - Vital Signs/Intake and Output Vital Signs (last 24 hours): Temp Pulse Resp BP Pulse Ox 98.4 F 74 18 164/82 H 95 09/21/18 06:00 09/21/18 06:00 09/21/18 06:00 09/21/18 06:00 09/21/18 06:00 Intake and Output: 09/21/18 09/21/18 06:59 18:59 Intake Total 660 Balance 660 - Medications Medications: Current Medications Acetaminophen (Tylenol 650mg/20.3ml Solution Ud) 650 mg NG Q6H PRN PRN Reason: Temperature >100.4 Last Admin: 09/16/18 17:40 Dose: 650 mg Amlodipine Besylate (Norvasc) 10 mg PO DAILY [facility] Last Admin: 09/20/18 09:19 Dose: 10 mg Aspirin (Aspirin Chewable) 81 mg PO DAILY [facility] Last Admin: 09/20/18 09:20 Dose: 81 mg Atorvastatin Calcium (Lipitor) 40 mg PO DIN [facility] Last Admin: 09/20/18 17:09 Dose: 40 mg Clonidine HCl (Catapres) 0.1 mg PO Q6H PRN PRN Reason: Give for systolic over 150 Last Admin: 09/19/18 18:10 Dose: 0.1 mg Clopidogrel Bisulfate (Plavix) 75 mg PO DAILY [facility] Last Admin: 09/20/18 09:20 Dose: 75 mg Dextrose (Dextrose 50% Inj) 0 ml IV STAT PRN; Protocol PRN Reason: Hypoglycemia Protocol Ergocalciferol (Drisdol 50,000 Intl Units Cap) 1 cap PO Q7D [facility] Last Admin: 09/20/18 17:09 Dose: 1 cap Hydrochlorothiazide (Hydrodiuril) 25 mg PO DAILY [facility] Last Admin: 09/20/18 09:19 Dose: 25 mg Dextrose (Dextrose 5% In Water 1000 Ml) 1,000 mls @ 0 mls/hr IV .Q0M PRN; Protocol PRN Reason: Hypoglycemia Protocol Insulin Detemir (Levemir) 20 unit SC Q12H [facility] Last Admin: 09/20/18 17:08 Dose: 20 units Insulin Human Regular (Humulin R Med) 0 units SC ACHS [facility]; Protocol Last Admin: 09/21/18 07:41 Dose: 3 unit Levetiracetam (Keppra) 500 mg PO Q12 [facility] Last Admin: 09/20/18 21:51 Dose: 500 mg Losartan Potassium (Cozaar) 100 mg PO DAILY [facility] Last Admin: 09/20/18 09:19 Dose: 100 mg Pantoprazole Sodium (Protonix Ec Tab) 40 mg PO 0600 [facility] Last Admin: 09/21/18 06:41 Dose: Not Given Potassium Chloride (Klor-Con 10) 20 meq PO BRK [facility] Last Admin: 09/21/18 08:08 Dose: 20 meq Spironolactone (Aldactone) 25 mg PO DAILY [facility] Last Admin: 09/20/18 09:20 Dose: 25 mg - Labs Labs: 09/15/18 05:30 09/20/18 07:00 PT 12.2 SECONDS (9.4-12.5) 09/14/18 08:00 INR 1.08 09/14/18 08:00 APTT 30.6 Seconds (26.9-38.3) 09/14/18 08:00 <Minnie,Kovil V - Last Filed: 09/21/18 23:07> Objective - Vital Signs/Intake and Output Vital Signs (last 24 hours): Temp Pulse Resp BP Pulse Ox 98.4 F 74 18 164/82 H 95 09/21/18 06:00 09/21/18 06:00 09/21/18 06:00 09/21/18 11:55 09/21/18 06:00 - Labs Labs: 09/15/18 05:30 09/20/18 07:00 PT 12.2 SECONDS (9.4-12.5) 09/14/18 08:00 INR 1.08 09/14/18 08:00 APTT 30.6 Seconds (26.9-38.3) 09/14/18 08:00 Attending/Attestation - Attestation I have personally seen and examined this patient.: Yes I have fully participated in the care of the patient.: Yes I have reviewed all pertinent clinical information, including history, physical exam and plan: Yes Notes (Text): The patient was seen and evaluated along with the resident earlier today. This is an addendum to the progress note dictated by the resident. Esophagram was reviewed. No large obstructing lesion noticed. Patient had recent CVA. Anesthesia has increased risk of extension. Patient is tolerating the diet. We will continue soft mechanical diet. Elective EGD evaluation. 09/21/18 23:06
[2018-09-21] MEDS ORDERED: Barium Sulfate for Susp 96% w/w 176g Bottle PR ONE (10:07)
--- NOTE | 2018-09-21 10:56 | CP.PCM.PN ---
Subjective - Date & Time of Evaluation Date of Evaluation: 09/21/18 Time of Evaluation: 10:55 - Subjective Subjective: Nephrology Consultation Note: Assessment:Stable Acute Kidney Injury (N17.9) likely due to ATN [contrast nephropathy, sepsis and hemodynamic changes from BP fluctuations]: IMPROVING Hypokalemia and HTN emergency, had r/o secondary HTN proteinuria and microscopic hematuria NO evidence of GN acute CVA, seizure sepsis, UTI, acute respi failure, obesity, vit d def CKD 1 with 1.7 gram proteinuria and 641 mg albuminuria Plan No acute need for renal replacement therapy at this time. Hypertension control with meds as ordered. Maintain hemodynamics stable. Avoid hypotension. agree with CCB and Beta-blockers. Increased losartan 100 mg/d. added aldatone 25 and hctz 25 mg/d [can be give as aldactizide 25/25 as outpt] Monitor Input/Output, daily weights and renal function with basic metabolic panel supplement lytes as needed. ID, Neuro, Cardio following added weekly vit D work up neg. LETICIA neg Dose meds/antibiotics for improved GFR. Avoid nephrotoxins/NSAIDs/ iodinated contrast (unless needed emergently) Glycemic control Further work up/management as per primary team d/c planning, stable from renal perspective Thanks for allowing me to participate in care of your patient. Will follow p atient with you. Please call if any Qs. had d/w team and family bedside Dr Jeremiah Horn Office: [phone] Chief Complaint; left side weakness Reason for consult: Acute Kidney Injury HPI: Pt is a 68 F with hx of diabetes Mellitus (5 years), hypertension (many years) presented with complaints of left side weakness and foudn to have b/l infarcts. also with sepsis with high temp ? UTI and HTN emergency. renal consult for MARQUIS. pt was orally intubated. also had episode of seizure Denies OTC/herbal meds or NSAIDs Noted recent iodinated contrast exposure 09/10/18. No obvious episodes of low BP. per son, pt was usual health before this incidence non smoker. no etoh/drugs ROS: pt feels better. denies CP/SOB getting barium study Physical Examination: General Appearance: Comfortable, in no acute respiratory distress Vitals reviewed and noted as below Head; Atraumatic, normocephalic ENT: extubated. on BiPAP Neck; supple no lymphadenopathy, no thyromegaly or bruit Lungs: Normal respiratory rate/effort. Breath sounds bilateral improved at bases Heart: Normal rate. s1s2 normal. No rub or gallop. Extremities: no edema. No varicose veins Neurological: Patient is awake alert follow commands Skin: Warm and dry. Normal turgor. No rash. Palpitation: Normal elasticity for age Abdomen: Abdomen is soft. Bowel sounds +. There is no abdominal tenderness, no guarding/rigidity no organomegaly Psych: improved insight. MSK: no joint tenderness or swelling. Digits and nails normal, no deformity : kidney or bladder not palpable Labs/imaging reviewed. Past medical history, past surgical history, family history, social history, allergy reviewed and noted as below Family hx: no hx of CKD. Rest non-contributory UA 3+ protein adn moderate blood mild to moderate LVH on echo Objective - Vital Signs/Intake and Output Vital Signs (last 24 hours): Temp Pulse Resp BP Pulse Ox 98.4 F 74 18 164/82 H 95 09/21/18 06:00 09/21/18 06:00 09/21/18 06:00 09/21/18 06:00 09/21/18 06:00 Intake and Output: 09/21/18 09/21/18 06:59 18:59 Intake Total 660 Balance 660 - Medications Medications: Current Medications Acetaminophen (Tylenol 650mg/20.3ml Solution Ud) 650 mg NG Q6H PRN PRN Reason: Temperature >100.4 Last Admin: 09/16/18 17:40 Dose: 650 mg Amlodipine Besylate (Norvasc) 10 mg PO DAILY [facility] Last Admin: 09/20/18 09:19 Dose: 10 mg Aspirin (Aspirin Chewable) 81 mg PO DAILY [facility] Last Admin: 09/20/18 09:20 Dose: 81 mg Atorvastatin Calcium (Lipitor) 40 mg PO DIN [facility] Last Admin: 09/20/18 17:09 Dose: 40 mg Clonidine HCl (Catapres) 0.1 mg PO Q6H PRN PRN Reason: Give for systolic over 150 Last Admin: 09/19/18 18:10 Dose: 0.1 mg Clopidogrel Bisulfate (Plavix) 75 mg PO DAILY [facility] Last Admin: 09/20/18 09:20 Dose: 75 mg Dextrose (Dextrose 50% Inj) 0 ml IV STAT PRN; Protocol PRN Reason: Hypoglycemia Protocol Ergocalciferol (Drisdol 50,000 Intl Units Cap) 1 cap PO Q7D [facility] Last Admin: 09/20/18 17:09 Dose: 1 cap Hydrochlorothiazide (Hydrodiuril) 25 mg PO DAILY [facility] Last Admin: 09/20/18 09:19 Dose: 25 mg Dextrose (Dextrose 5% In Water 1000 Ml) 1,000 mls @ 0 mls/hr IV .Q0M PRN; Protocol PRN Reason: Hypoglycemia Protocol Insulin Detemir (Levemir) 20 unit SC Q12H [facility] Last Admin: 09/20/18 17:08 Dose: 20 units Insulin Human Regular (Humulin R Med) 0 units SC ACHS [facility]; Protocol Last Admin: 09/21/18 07:41 Dose: 3 unit Levetiracetam (Keppra) 500 mg PO Q12 [facility] Last Admin: 09/20/18 21:51 Dose: 500 mg Losartan Potassium (Cozaar) 100 mg PO DAILY [facility] Last Admin: 09/20/18 09:19 Dose: 100 mg Pantoprazole Sodium (Protonix Ec Tab) 40 mg PO 0600 [facility] Last Admin: 09/21/18 06:41 Dose: Not Given Potassium Chloride (Klor-Con 10) 20 meq PO BRK [facility] Last Admin: 09/21/18 08:08 Dose: 20 meq Spironolactone (Aldactone) 25 mg PO DAILY [facility] Last Admin: 09/20/18 09:20 Dose: 25 mg - Labs Labs: 09/15/18 05:30 09/20/18 07:00 PT 12.2 SECONDS (9.4-12.5) 09/14/18 08:00 INR 1.08 09/14/18 08:00 APTT 30.6 Seconds (26.9-38.3) 09/14/18 08:00
--- NOTE | 2018-09-21 13:16 | RAD ---
Date of service: 09/21/2018 PROCEDURE: Upper GI . HISTORY: Esophageal distension COMPARISON: None available. TECHNIQUE: Fluoroscopic evaluation of the stomach was performed following administration of oral contrast. Single contrast esophagram was performed. Ten views obtained. FINDINGS: Esophagus: Tertiary contractions are seen in the distal esophagus consistent with mild dysmotility Hiatal hernia: None. Reflux: None observed. Stomach: Small gastric pouch Small bowel: There is no obstruction of flow into the small bowel. There is a focally dilated segment of small bowel, significance uncertain. This could represent an atonic segment of small bowel or a nonobstructing intussusception. IMPRESSION: There is no obstruction of flow into the small bowel. There is a focally dilated segment of small bowel, significance uncertain. This could represent an atonic segment of small bowel or a nonobstructing intussusception.
[2018-09-21] MEDS: Insulin Detemir 100 units/ml Vial (Levemir) SC SCH ×2 (16:03→17:03)
--- NOTE | 2018-09-21 19:10 | PN ---
DATE: 09/21/2018 SUBJECTIVE: The patient was seen in bed early this morning in 563. She is comfortable. She has no fever or chills and an uneventful night. PHYSICAL EXAMINATION: VITAL SIGNS: Temperature is 98.4, blood pressure is 148/72, respiratory rate of 18, and heart rate of 75. HEENT: Unremarkable. NECK: Supple. LUNGS: Decreased breath sounds. HEART: Normal S1 and S2. ABDOMEN: Soft. LABORATORY DATA: Reveals the white count is 8.6, hemoglobin is 9. The chemistries are reviewed. REVIEW OF ORDERS: Reveals the patient to be off of antibiotics. ASSESSMENT AND PLAN: A 68-year-old female with acute cerebrovascular accident, embolic in nature and seizures. All blood cultures are negative. The patient had a negative transesophageal echocardiogram and culture negative. Workup was ordered and done. The patient's Bartonella workup was negative. Acute fever with workup was negative. Whipple's PCR was also negative. All blood cultures have been negative. The patient was not on any outpatient antibiotic. This is not behaving like a bacterial endocarditis at this time. We will continue to follow the patient off of antibiotics and make further recommendations. Tejas Smiley MD
--- NOTE | 2018-09-22 06:47 | DS ---
HISTORY OF PRESENT ILLNESS: The patient is a 68-year-old, seen and examined, lying in bed, seems to be comfortable. The patient when she was found to be unresponsive. For airway protection, she was intubated. She was in ICU. Her CT scan done on 09/12/2018 showed acute infarct. An MRI of the brain done on 09/10/2018 showed multiple small acute infarct in both cerebral hemispheres suggestive of embolic phenomenon. The patient underwent MATEO and echocardiogram. There was no evidence of ventricular thrombus. Carotid Doppler study was done that was unremarkable. The patient remained on vent for a few days, was successfully extubated, and transferred to the [facility] floor. The patient underwent physical therapy and was recommended to send her to acute rehab. Nephrology, ; Neurology Dr. Villegas; and Cardiology Dr. Pelaez are following the patient. PHYSICAL EXAMINATION: GENERAL: Today, the patient looks comfortable. VITAL SIGNS: She is afebrile, pulse 74, respirations 18, and blood pressure 164/82. LUNGS: Bilateral fair airflow. No rhonchi or crackles. HEART: S1 and S2 audible. ABDOMEN: Soft, obese, and nontender. No rebound. No guarding. NEUROLOGIC: The patient is awake and alert, able to communicate. LABORATORY EXAMINATION: Blood sugar is 331. ASSESSMENT: 1. Status post bilateral scattered cerebral infarct. 2. Status post respiratory failure. 3. History of hypertension. 4. Insulin-dependent diabetes. 5. Morbid obesity. 6. Questionable lesion versus food debris in the lower esophagus. The patient underwent esophagogram that was unremarkable. PLAN: The patient is being transferred to [facility]. She will be maintained on current medications. Once she is discharged, she will be advised to have upper endoscopy done. The patient states she had endoscopy and colonoscopy done in [facility] 2 years ago and was found to be unremarkable. Darryl Goodman MD
[2018-09-22 13:18] LABS: SOURCE BLOOD
--- NOTE | 2018-09-23 10:05 | PQF ---
PROVIDER RESPONSE TEXT: Yes patient was septic while on respirator REVIEWER QUERY TEXT: Conflicting Documentation Clarification A single mention or documentation of multiple diagnoses for the same clinical presentation appears in the record. Please clarify the diagnosis/diagnoses. Please also document if the condition is: -- Confirmed and current -- Confirmed, treated and resolved -- Ruled out -- Other, please specify The patient's Clinical Indicators include: Sepsis is documented on notes from to 09/21. You do not document this diagnosis on your discharge summary. Do you agree, disagree, other with systemic sepsis ? Thank you. Query created by: Rebeca Owen on 09/22/2018 2:24 PM Electronically signed by: Darryl Goodman MD 09/23/2018 10:03 AM
== END 2018-09-21 19:21 | DRG 64 ==
LOC: ED 11:45 → ERH 13:27 → CCU 16:45 → 5RNO 09-16 10:56
PROVIDERS: ADMIT Internal Medicine; ATTEND Internal Medicine
PROC: 0BH17EZ Insertion of Endotracheal Airway into Trachea, Via Natural or Artificial Opening (ICD-10-PCS; principal; 2018-09-10)
PROC: 5A1955Z Respiratory Ventilation, Greater than 96 Consecutive Hours (ICD-10-PCS; 2018-09-10)
PROC: 06HY33Z Insertion of Infusion Device into Lower Vein, Percutaneous Approach (ICD-10-PCS; 2018-09-10)
PROC: B54BZZA Ultrasonography of Right Lower Extremity Veins, Guidance (ICD-10-PCS; 2018-09-10)
PROC: B246ZZ4 Ultrasonography of Right and Left Heart, Transesophageal (ICD-10-PCS; 2018-09-12)
PROC: 02HV33Z Insertion of Infusion Device into Superior Vena Cava, Percutaneous Approach (ICD-10-PCS; 2018-09-16)
DX: I63.40 Cerebral infarction due to embolism of unspecified cerebral artery (principal); N17.0 Acute kidney failure with tubular necrosis; J96.00 Acute respiratory failure, unspecified whether with hypoxia or hypercapnia; G92 Toxic encephalopathy; A41.9 Sepsis, unspecified organism; G81.94 Hemiplegia, unspecified affecting left nondominant side; I48.92 Unspecified atrial flutter; R65.10 Systemic inflammatory response syndrome (SIRS) of non-infectious origin without acute organ dysfunction; I16.1 Hypertensive emergency; B02.29 Other postherpetic nervous system involvement; E46 Unspecified protein-calorie malnutrition; N39.0 Urinary tract infection, site not specified; J95.859 Other complication of respirator [ventilator]; E11.65 Type 2 diabetes mellitus with hyperglycemia; J44.9 Chronic obstructive pulmonary disease, unspecified; I48.0 Paroxysmal atrial fibrillation; R41.82 Altered mental status, unspecified; R50.9 Fever, unspecified; R56.9 Unspecified convulsions; M17.0 Bilateral primary osteoarthritis of knee; N14.1 Nephropathy induced by other drugs, medicaments and biological substances; T50.8X5A Adverse effect of diagnostic agents, initial encounter; E87.6 Hypokalemia; N18.1 Chronic kidney disease, stage 1; E11.22 Type 2 diabetes mellitus with diabetic chronic kidney disease; I13.10 Hypertensive heart and chronic kidney disease without heart failure, with stage 1 through stage 4 chronic kidney disease, or unspecified chronic kidney disease; E55.9 Vitamin D deficiency, unspecified; E66.01 Morbid (severe) obesity due to excess calories; E78.00 Pure hypercholesterolemia, unspecified; E78.5 Hyperlipidemia, unspecified; I69.334 Monoplegia of upper limb following cerebral infarction affecting left non-dominant side; M16.10 Unilateral primary osteoarthritis, unspecified hip; R31.29 Other microscopic hematuria; Z79.4 Long term (current) use of insulin; Z95.1 Presence of aortocoronary bypass graft